=== PATIENT | female | born 1940 | race Caucasian/White ===

== ENCOUNTER 2018-02-14 12:01 | Inpatient (IN) | payer OTHER ==
--- NOTE | 2018-02-14 12:12 | PDOC ---
History of Present Illness - General Chief Complaint: Seizure Stated Complaint: SEIZURE Time Seen by Provider: 02/14/18 12:06 - History of Present Illness Initial Comments: 02/14/18 12:38 The patient is a 77 year old female with a distant history of bladder cancer in remission who presents for evaluation of possible seizure and altered mental status. The patient is accompanied by her who assists in providing the history. He notes that he found the patient this morning with seizure like activity. He noted that the patient was altered and moaning, but able to follow simple commands. On presentation to the ED, the patient is altered and unable to cooperate with history taking. The patient's noted that the patient was previously asymptomatic prior to her episode this morning. ROS is unobtainable due to the patient's mental status. Past History - Past Medical History Allergies/Adverse Reactions: Allergies Allergy/AdvReac Type Severity Reaction Status Date / Time No Known Allergies Allergy Verified 02/14/18 12:14 Home Medications: Ambulatory Orders Nardil (Nf) 60 tab PO HS 06/24/11 Anemia: No Asthma: No Cancer: No Cardiac Disorders: No CVA: No COPD: No CHF: No Dementia: No Diabetes: No GI Disorders: No Disorders: No HTN: No Hypercholesterolemia: No Liver Disease: No Seizures: No Thyroid Disease: No - Surgical History Abdominal Surgery: No Appendectomy: No Cardiac Surgery: No Cholecystectomy: No Lung Surgery: No Neurologic Surgery: No Orthopedic Surgery: Yes (RIGHT KNEE ARTHROSCOPY 2001) - Suicide/Smoking/Psychosocial Hx Smoking History: Never smoked Hx Alcohol Use: Yes (SOCIAL) Drug/Substance Use Hx: No Hx Substance Use Treatment: No Review of Systems - Review of Systems Able to Perform ROS?: No (Altered Mental Status) *Physical Exam - Physical Exam Comments: 02/14/18 12:56 General Appearance: Nourished. No Apparent Distress HEENT: EOMI, YOVANNY. No Pharyngeal Erythema, Tonsillar Exudate, Tonsillar Erythema Neck: No Cervical Lymphadenopathy Respiratory/Chest: Lungs Clear, Normal Breath Sounds. No Crackles, Rales, Rhonchi, Wheezing Cardiovascular: Regular Rhythm, Regular Rate. No Murmur, Gallops, Rubs Gastrointestinal/Abdominal: Normal Bowel Sounds, Soft. Mild suprapubic discomfort with palpation. No Guarding, Rebound, Musculoskeletal: No CVA Tenderness Extremity: Normal Capillary Refill Integumentary: Normal Color, Dry, Warm Neurologic: Not Oriented, Alert, Non-interactive, Not following commands. Moving all extremities equally. Procedures - Lumbar Puncture Indication: AMS CT Scan: Yes Betadine Prep: Yes Position: Right lateral decubitus Site: L4-L51 Local Anesthesia: 1% Lidocaine with epi Volume(ml): 4 Lumbar Puncture Kit: Adult Closing Pressure(mmHg): 21 Traumatic Tap: Yes Tubes Obtained: 4 Clear Fluid: Yes Complications: No ED Treatment Course - LABORATORY CBC & Chemistry Diagram: 02/14/18 13:20 02/14/18 13:20 Medical Decision Making - Medical Decision Making 02/14/18 12:57 The patient is a 77 year old female with a distant history of bladder cancer in remission who presents for evaluation of possible seizure and altered mental status. Differential includes but is not limited to: Seizure, Intracranial process, Infectious, Metabolic Derangement. Given the patient's history and physical exam, we will obtain a cbc, cmp, troponin, ua, urine tox, urine culture , ekg, chest plain film, head ct to evaluate further. We will continue to monitor and reassess while here in the ED. 02/14/18 17:29 CBC demonstrates an elevated wbc to 13. CMP is unremarkable. Troponin is mildly elevated to .25. UA, urine tox are unremarkable. Chest plain film is unremarkable. Head CT is unremarkable as read by our radiologist. Lumbar puncture was performed due to need to r/o menigitis and csf results are pending. We discussed the case with Dr. Krishna with neurology who evaluated the patient and recommended ICU level monitoring given the acute onset of the patient's altered mental status. We discussed the case with the admitting team who accepted the patient for admission. We currently do not have an explanation for the patient's acute onset AMS, however it is possible the patient is post ictal given her reported possible seizure like activity. Patient was signed out to the night team pending discussion with the ICU team regarding possible ICU admission. *DC/Admit/Observation/Transfer Diagnosis at time of Disposition: Altered mental status, unspecified - Discharge Dispostion Condition at time of disposition: Stable - Referrals - Patient Instructions - Post Discharge Activity
--- NOTE | 2018-02-14 12:18 | PDOC ---
Attending Attestation - Medical Decision Making 02/14/18 14:[address] Krishna, spoke with the service, waiting for a call back. 02/14/18 15:[address] Krishna. <Debbie Torres - Last Filed: 02/14/18 15:02> - Resident Resident Name: Seth Can - ED Attending Attestation I have performed the following: I have examined & evaluated the patient, The case was reviewed & discussed with the resident, I agree w/resident's findings & plan, Exceptions are as noted - HPI HPI: 02/14/18 12:37 Ms Mcginnis is a 77 yo F who presents to the ER accompanied by her due to altered mental state Pt has a h/o depression, on Nardil for 20+ years Pt was seen previously by in the night, although he did not speak with her, he states she rolled over during the night This morning she was found by him downstairs altered No prior episodes like this No known head trauma Pt has been moving all extremities No h/o seizure No recent illness, no recent medication changes (+) incontinent of stool and urine - Physicial Exam PE: 02/14/18 12:44 Pt is awake and opens eyes spontaneously Responds "Aye Mama" to every question asked and to ever physical exam maneuver RRR CTA Abd is soft, non distended, ? tender to palpation (She responds Aye Mama each time I palpate) Moves all extremities (+) dried stool over back - Critical Care Time Total Critical Care Time: 90 Critical Care Statement: The care of this patient involved high complexity decision making to prevent further life threatening deterioration of the patient 's condition and/or to evaluate & treat vital organ system(s) failure or risk of failure. - Medical Decision Making 02/14/18 12:45 Pt presents altered She is afebrile No prior episodes like this DD broad: Infection (urinary, central?), Intracranial pathology (CVA vs Mass), Medication effect Will do: Labs, UA, urine tox, CT head, continuous observation EKG: NSR rate of 86 bpm, axis nml, intervals nml, no st elevations or depressions, pvc 02/14/18 13:37 Laboratory Tests 02/14/18 13:20 WBC 13.4 H Hgb 12.2 Hct 38.5 Plt Count 197 Neutrophils % 92.5 H Laboratory Tests 02/14/18 13:20 Sodium 142 Potassium 4.2 Chloride 110 H Carbon Dioxide 24 BUN 18 Creatinine 0.7 Random Glucose 148 H Troponin I 0.25 H Pt sedated with ativan unable to tolerate CT sent back to the ER Haldol given 02/14/18 14:50 CT performed 02/14/18 15:02 CT read Case reviewed with Dr Krishna States if UA +, possibly related to UA If negative, ? [employer] infection 02/14/18 15:27 UA pending 02/14/18 15:30 UA negative LP performed (please see resident note) ? Encephalitis, initial presentation 02/17/18 20:37 <Supriya Abdi - Last Filed: 02/17/18 20:37> Discharge Disposition <Debbie Torres - Last Filed: 02/14/18 15:02> - Discharge Dispostion Decision to Admit order: Yes <Supriay Abdi - Last Filed: 02/17/18 20:37> - Diagnosis Altered mental status, unspecified Qualifiers: Altered mental status type: disorientation Qualified Code(s): R41.0 - Disorientation, unspecified - Discharge Dispostion Condition at time of disposition: Stable
[2018-02-14 13:34] LABS: BASO % 0.3 % (0-2.0); EOS % 0.1 % (0-4.5); HEMATOCRIT 38.5 % (32.4-45.2); HEMOGLOBIN 12.2 GM/dL (10.7-15.3); LYMPH % 4.3 % (8-40); MCH 27.4 pg (25.7-33.7); MCHC 31.6 g/dl (32.0-36.0); MEAN CELL VOLUME 86.6 fl (80-96); MEAN PLT VOLUME 9.9 fl (7.5-11.1); MONO % 2.8 % (3.8-10.2); NEUT % 92.5 % (42.8-82.8); PLATELET COUNT 197 K/MM3 (134-434); RBC 4.44 M/mm3 (3.60-5.2); RDW 13.7 % (11.6-15.6); WHITE BLOOD COUNT 13.4 K/mm3 (4.0-10.0)
[2018-02-14] MEDS ORDERED: LORazepam 2 MG/ML SDV VIAL ONE (13:56)
[2018-02-14 14:00] LABS: ALBUMIN 3.7 g/dl (3.4-5.0); ALK PHOS 105 U/L (45-117); ANION GAP 9 MMOL/L (8-16); BILIRUBIN,TOTAL 0.2 mg/dL (0.2-1); BLOOD UREA NITROGEN 18 mg/dL (7-18); CHLORIDE 110 mmol/L (98-107); CO2 24 mmol/L (21-32); CREATININE 0.7 mg/dL (0.55-1.3); GLUCOSE,RANDOM 148 mg/dL (74-106); POTASSIUM 4.2 mmol/L (3.5-5.1); SGOT/AST 55 U/L (15-37); SGPT/ALT 21 U/L (13-61); SODIUM 142 mmol/L (136-145)
[2018-02-14] MEDS ORDERED: HALOPERIDOL LACTATE 5 MG/ML IM ONE (14:16)
[2018-02-14] MEDS ORDERED: HALOPERIDOL LACTATE 5 MG/ML ONE (14:38)
[2018-02-14 16:20] LABS: URINE APPEARANCE CLEAR; URINE BILIRUBIN NEGATIVE (<2.0 mg/dL); URINE COLOR LTYELLOW; URINE GLUCOSE (UA) NEGATIVE (NEGATIVE); URINE KETONE NEGATIVE (NEGATIVE); URINE LEUK ESTERASE NEGATIVE (NEGATIVE); URINE NITRITE NEGATIVE (NEGATIVE); URINE PROTEIN 1+ (NEGATIVE); URINE UROBILINOGEN NEGATIVE mg/dL (0.2-1.0)
[2018-02-14 16:30] LABS: URINE HYALINE CAST 4 /lpf; URINE MUCUS RARE
[2018-02-14 16:32] LABS: COCAINE, UR NEGATIVE ng/ml (CUTOFF=300); METHADONE, UR NEGATIVE ng/ml (CUTOFF=300); OPIATES, URI NEGATIVE ng/ml (CUTOFF=300); PHENCYCLIDINE,URINE NEGATIVE ng/ml (CUTOFF=25); URINE AMPHETAMINES NEGATIVE ng/ml (CUTOFF=500); URINE BARBITURATES NEGATIVE ng/ml (CUTOFF=200); URINE BENZODIAZEPINES NEGATIVE ng/ml (CUTOFF=200)
[2018-02-14] MEDS ORDERED: ACYCLOVIR INJECTION 600 MG in DEXTROSE 5%-WATER - 100 ML IVPB ONE (16:58)
[2018-02-14] MEDS ORDERED: VANCOMYCIN 1 GRAM (PRE-DOCKED) 1,000 MG/250 ML BAG IVPB ONE ×2 (16:58→17:54)
[2018-02-14] MEDS ORDERED: CEFTRIAXONE 2 GM-D5W BAG 2 GM/50 ML BAG IVPB ONE (16:58)
[2018-02-14] MEDS ORDERED: CEFTRIAXONE 2 GM/100 ML BAG IVPB ONE (17:12)
[2018-02-14 18:45] LABS: ANISOCYTOSIS 0; MACROCYTOSIS 0; PLATELET ESTIMATE NORMAL
--- NOTE | 2018-02-14 18:49 | CON.NEURO ---
Consult Consult Specialty:: Erendira Referred by:: [facility] Reason for Consultation:: altered mental status - History of Present Illness History of Present Illness: this is 77-year-old right-handed woman who lives with her presented to the emergency room with a chief complaint of altered mental status. Present medical history Coronary artery disease History of depression sees Dr. Rivero on CHANDRA phenelzine Bladder cancer in remission Patient was at her usual status of health apparently up until this morning when she was found by her confused not being herself patient usually wakes up in the morning. Breakfast patient lives at home there was a recent travel totally in the summer no recent head trauma no fever. Patient so the primary care physician yesterday she had the flu shot did not the first time yesterday. Patient had dinner with wine and cheese yesterday. In the emergency room patient was confused had a white count no fever hemodynamically stable CAT scan of the head was negative. We proceeded with a spinal tap that was done by the emergency room attending. - History Source History Provided By: Family Member, Medical Record Limitations to Obtaining History: Clinical Condition - Alcohol/Substance Use Hx Alcohol Use: Yes (SOCIAL) - Smoking History Smoking history: Never smoked Home Medications - Allergies Allergies/Adverse Reactions: Allergies Allergy/AdvReac Type Severity Reaction Status Date / Time No Known Allergies Allergy Verified 02/14/18 12:14 - Home Medications Home Medications: Ambulatory Orders Nardil (Nf) 60 tab PO HS 06/24/11 Family Disease History - Family Disease History Family History: Unable to Obtain Review of Systems Unable to obtain ROS, reason: unable to obtain Physical Exam-Neuro Vital Signs: Vital Signs Temperature 97.9 F 02/14/18 12:12 Pulse Rate 92 H 02/14/18 12:12 Respiratory Rate 18 02/14/18 12:12 Blood Pressure 129/90 02/14/18 12:12 O2 Sat by Pulse Oximetry (%) 95 02/14/18 12:12 Constitutional: Yes: Well Nourished Neck: Yes: WNL Labs: CBC, BMP 02/14/18 13:20 02/14/18 13:20 - Neuro Exam Level Of Consciousness: Yes: Stuporous Eyes: Yes: PERRLA (vvery confused agitated delirious woman moving all 4 extremities) Imaging - Results Cat Scan: Image Reviewed Problem List - Problems (1) Altered mental status, unspecified Assessment/Plan: 77-year-old woman on CHANDRA with noted altered mental status over the past 12 hours with no fever and high white count. Neurological differential diagnoses #1 questionable encephalitis most probably viral #2 questionable serotonergic syndrome patient had wine and cheese yesterday. The picture is not 100% 1. Neuro checks every 1 hour 2. Patient needs monitored setting in the ICU 3. Serial creatinine kinase level 4. Follow-up the CSF analysis 5. Seizure precautions 6. Psych evaluation 7. Agreed to the antibiotic that was given in the emergency room Case discussed with the daughter and the Patient was seen and evaluated in the emergency room as a critical-care I spent 55 minutes with the patient and the family Thank you very much for referring this patient for neurological consultation. Code(s): R41.82 - ALTERED MENTAL STATUS, UNSPECIFIED
[2018-02-14 19:02] LABS: CSF APPEARANCE CLEAR; CSF COLOR COLORLESS; CSF WBC 2
[2018-02-14 19:04] LABS: CSF APPEARANCE CLEAR; CSF COLOR COLORLESS; CSF WBC 0
[2018-02-14 19:19] LABS: GLUCOSE,CSF 76 mg/dL (40-70)
[2018-02-14 19:23] LABS: ARTERIAL BLD GAS O2 SATURATION 90.8 % (90-98.9); ARTERIAL BLOOD GAS BASE EXCESS -1.1 meq/l (-2-2); ARTERIAL BLOOD GAS PCO2 42.5 mmHg (35-45); ARTERIAL BLOOD GAS PO2 63.3 mmHg (70-100); ARTERIAL BLOOD GAS pH 7.37 (7.35-7.45); CARBOXYHEMOGLOBIN 0.9 gm% (0.5-2.0)
[2018-02-14 19:24] LABS: ALLENS TEST POSITIVE
--- NOTE | 2018-02-14 19:27 | PN ---
Teaching Attending Note Name of Resident: Kingsley Mendoza ATTENDING PHYSICIAN STATEMENT I saw and evaluated the patient. I reviewed the resident's note and discussed the case with the resident. I agree with the resident's findings and plan as documented. SUBJECTIVE: Patient is a 77 year old woman with a distant history of bladder cancer in remission who presents for evaluation of possible seizure and altered mental status. The patient is accompanied by her who assists in providing the history. He notes that he found the patient this morning with seizure like activity. He noted that the patient was altered and moaning, but able to follow simple commands. On presentation to the ER, the patient is altered and unable to cooperate with history taking. The patient's noted that the patient was previously asymptomatic prior to her episode this morning. ROS is unobtainable due to the patient's mental status. Head scan was done in the ER as well as spinal tap - no revealing findings. Has gotten haldol and ativan. Was seen by the neurologist. OBJECTIVE: Agitated, unable to follow commands Vital Signs Period Temp Pulse Resp BP Sys/Vázquez Pulse Ox Last 24 Hr 97 F-97.9 F 90-92 18 117-129/90-93 95 HEENT: No Jaundice, eye redness or discharge, PERRLA. Normocephalic, atraumatic. External ears are normal. No nasal discharge. Neck: Supple, nontender. No palpable adenopathy or thyromegaly. No JVD Chest: Good effort. Clear to auscultation and percussion. Heart: Regular. No S3, rub or murmur Abdomen: Not distended, soft, nontender and no HSM. No rebound or guarding. Normoactive bowel sounds. Ext: Peripheral pulses intact. No leg edema. Skin: Warm and dry. No petechiae, rash or ecchymosis. Neuro: Delirious, agitated and unable to follow commands. Moves all limbs. Home Medications Medication Instructions Recorded Nardil (Nf) 60 tab PO HS 06/24/11 Abnormal Lab Results 02/14/18 02/14/18 02/14/18 13:20 13:20 15:50 WBC 13.4 H MCHC 31.6 L Absolute Neuts (auto) 12.4 H Neutrophils % 92.5 H Neutrophils % (Manual) 92.9 H Lymphocytes % 4.3 L Lymphocytes % (Manual) 2.0 L Monocytes % 2.8 L ABG pO2 at Pt Temp ABG O2 Content Chloride 110 H Random Glucose 148 H Calcium 8.0 L AST 55 H Troponin I 0.25 H Urine Protein 1+ H CSF Glucose 02/14/18 02/14/18 17:55 19:00 WBC MCHC Absolute Neuts (auto) Neutrophils % Neutrophils % (Manual) Lymphocytes % Lymphocytes % (Manual) Monocytes % ABG pO2 at Pt Temp 63.3 L ABG O2 Content 14.8 L Chloride Random Glucose Calcium AST Troponin I Urine Protein CSF Glucose 76 H ASSESSMENT AND PLAN: 1. AMS - Etiology unclear. Initial CSF analysis is negative and no acute pathology on head CT. Urine toxicology is negative. Possibe Viral Encephalitis. Being treated with IV Vancomycin, Rocephin and Acyclovir. Will admit to the ICU ; do neurochecks q 1 hour; seizure precautions; IV NS at 75 ml/hour; ID and Psychiatry consults. 2. DVT prophylaxis - Lovenox 40 mg SQ q 24 hours. 3. Advance directives - Full code
--- NOTE | 2018-02-14 19:53 | HP ---
CHIEF COMPLAINT: Altered mental status PCP: Dr. Springer HISTORY OF PRESENT ILLNESS: ER course was notable for: (1) (2) (3) Recent Travel: Denies PAST MEDICAL HISTORY: Depression PAST SURGICAL HISTORY: Social History: (obtained through chart and family) Smoking: None Alcohol: Occasional Drugs: None Lives at home with , not working currently, last meal cheese and wine, baseline walks independently and is active Allergies No Known Allergies Allergy (Verified 02/14/18 12:14) HOME MEDICATIONS: Home Medications Medication Instructions Recorded Nardil (Nf) 60 tab PO HS 06/24/11 REVIEW OF SYSTEMS Unable to obtain due to clinical status PHYSICAL EXAMINATION Vital Signs - 24 hr 02/14/18 02/14/18 12:12 18:46 Temperature 97.9 F 97 F L Pulse Rate 92 H Pulse Rate [ 90 Apical] Respiratory 18 Rate Blood Pressure 129/90 Blood Pressure 117/93 [Arm] O2 Sat by Pulse 95 Oximetry (%) GENERAL: Arousable to voice, agitated, confused HEAD: NC/AT, no gross deformities, dry MM, EYES: MANJU, sclera anicteric, pt moves eyes in all directions without deficits , slightly blue-ai hue around iris (different compared to her usual per daughter), no lid lag. NECK: No JVD, soft LUNGS: CTA bilaterally poor inspiratory effort due to lack of command following. No wheezes, and no crackles. No accessory muscle use. 95% on RA HEART: Tachycardic with regular rhythm, normal S1 and S2 without murmur ABDOMEN: Soft, NT/ND. Limited due to pt's agitation and movement. EXTREMITIES: 2+ DP and PT pulses, warm, well-perfused. No cyanosis. No clubbing. No peripheral edema. No nail pathology noted NEUROLOGICAL: arousable to voice; does not respond to commands; babinski downgoing both legs, ROM without any rigidity, pt moving all four extremities with strength symmetrical ~5/5 in all limbs SKIN: Warm, dry, no rashes or lesions noted, no bites or other melendez noted Laboratory Results - last 24 hr 02/14/18 02/14/18 02/14/18 13:10 13:10 13:10 WBC RBC Hgb Hct MCV MCH MCHC RDW Plt Count MPV Absolute Neuts (auto) Neutrophils % Neutrophils % (Manual) Band Neutrophils % Lymphocytes % Lymphocytes % (Manual) Monocytes % Monocytes % (Manual) Eosinophils % Eosinophils % (Manual) Basophils % Basophils % (Manual) Myelocytes % (Man) Promyelocytes % (Man) Blast Cells % (Manual) Nucleated RBC % Metamyelocytes Hypochromia Platelet Estimate Polychromasia Poikilocytosis Anisocytosis Microcytosis Macrocytosis Anticoagulation Therapy Puncture Site ABG pH ABG pCO2 at Pt Temp ABG pO2 at Pt Temp ABG HCO3 ABG O2 Sat (Measured) ABG O2 Content ABG Base Excess Shadi Test Carboxyhemoglobin Methemoglobin O2 Delivery Device Oxygen Flow Rate Vent Mode Vent Rate Mechanical Rate Pressure Support Vent Sodium Potassium Chloride Carbon Dioxide Anion Gap BUN Creatinine Creat Clearance w eGFR Random Glucose Calcium Total Bilirubin AST ALT Alkaline Phosphatase Creatine Kinase 66 Troponin I Total Protein Albumin Urine Color Urine Appearance Urine pH Ur Specific [place] Urine Protein Urine Glucose (UA) Urine Ketones Urine Blood Urine Nitrite Urine Bilirubin Urine Urobilinogen Ur Leukocyte Esterase Urine WBC (Auto) Urine RBC (Auto) Hyaline Casts Urine Mucus CSF Appearance CSF Color CSF WBC CSF RBC CSF Neutrophils CSF Lymphocytes CSF Eosinophils CSF Basophils CSF Macrophages CSF Plasma Cells CSF Diff Comment CSF Comment CSF Glucose CSF Total Protein Salicylates < 1.7 L Opiates Screen Methadone Screen Acetaminophen 4.7 L Barbiturate Screen Phencyclidine Screen Ur Amphetamines Screen MDMA (Ecstasy) Screen Benzodiazepines Screen Cocaine Screen U Marijuana (THC) Screen Alcohol, Quantitative < 3.0 02/14/18 02/14/18 02/14/18 13:20 13:20 15:50 WBC 13.4 H RBC 4.44 Hgb 12.2 Hct 38.5 MCV 86.6 MCH 27.4 MCHC 31.6 L RDW 13.7 Plt Count 197 MPV 9.9 Absolute Neuts (auto) 12.4 H Neutrophils % 92.5 H Neutrophils % (Manual) 92.9 H Band Neutrophils % 0.0 Lymphocytes % 4.3 L Lymphocytes % (Manual) 2.0 L Monocytes % 2.8 L Monocytes % (Manual) 4 Eosinophils % 0.1 Eosinophils % (Manual) 0.0 Basophils % 0.3 Basophils % (Manual) 1.0 Myelocytes % (Man) 0 Promyelocytes % (Man) 0 Blast Cells % (Manual) 0 Nucleated RBC % 0 Metamyelocytes 0 Hypochromia 0 Platelet Estimate Normal Polychromasia 0 Poikilocytosis 0 Anisocytosis 0 Microcytosis 0 Macrocytosis 0 Anticoagulation Therapy Puncture Site ABG pH ABG pCO2 at Pt Temp ABG pO2 at Pt Temp ABG HCO3 ABG O2 Sat (Measured) ABG O2 Content ABG Base Excess Shadi Test Carboxyhemoglobin Methemoglobin O2 Delivery Device Oxygen Flow Rate Vent Mode Vent Rate Mechanical Rate Pressure Support Vent Sodium 142 Potassium 4.2 Chloride 110 H Carbon Dioxide 24 Anion Gap 9 BUN 18 Creatinine 0.7 Creat Clearance w eGFR > 60 Random Glucose 148 H Calcium 8.0 L Total Bilirubin 0.2 AST 55 H ALT 21 Alkaline Phosphatase 105 Creatine Kinase Troponin I 0.25 H Total Protein 7.0 Albumin 3.7 Urine Color Ltyellow Urine Appearance Clear Urine pH 5.0 Ur Specific [place] 1.014 Urine Protein 1+ H Urine Glucose (UA) Negative Urine Ketones Negative Urine Blood Negative Urine Nitrite Negative Urine Bilirubin Negative Urine Urobilinogen Negative Ur Leukocyte Esterase Negative Urine WBC (Auto) 1 Urine RBC (Auto) <1 Hyaline Casts 4 Urine Mucus Rare CSF Appearance CSF Color CSF WBC CSF RBC CSF Neutrophils CSF Lymphocytes CSF Eosinophils CSF Basophils CSF Macrophages CSF Plasma Cells CSF Diff Comment CSF Comment CSF Glucose CSF Total Protein Salicylates Opiates Screen Methadone Screen Acetaminophen Barbiturate Screen Phencyclidine Screen Ur Amphetamines Screen MDMA (Ecstasy) Screen Benzodiazepines Screen Cocaine Screen U Marijuana (THC) Screen Alcohol, Quantitative 02/14/18 02/14/18 02/14/18 15:50 17:55 17:55 WBC RBC Hgb Hct MCV MCH MCHC RDW Plt Count MPV Absolute Neuts (auto) Neutrophils % Neutrophils % (Manual) Band Neutrophils % Lymphocytes % Lymphocytes % (Manual) Monocytes % Monocytes % (Manual) Eosinophils % Eosinophils % (Manual) Basophils % Basophils % (Manual) Myelocytes % (Man) Promyelocytes % (Man) Blast Cells % (Manual) Nucleated RBC % Metamyelocytes Hypochromia Platelet Estimate Polychromasia Poikilocytosis Anisocytosis Microcytosis Macrocytosis Anticoagulation Therapy Puncture Site ABG pH ABG pCO2 at Pt Temp ABG pO2 at Pt Temp ABG HCO3 ABG O2 Sat (Measured) ABG O2 Content ABG Base Excess Shadi Test Carboxyhemoglobin Methemoglobin O2 Delivery Device Oxygen Flow Rate Vent Mode Vent Rate Mechanical Rate Pressure Support Vent Sodium Potassium Chloride Carbon Dioxide Anion Gap BUN Creatinine Creat Clearance w eGFR Random Glucose Calcium Total Bilirubin AST ALT Alkaline Phosphatase Creatine Kinase Troponin I Total Protein Albumin Urine Color Urine Appearance Urine pH Ur Specific [place] Urine Protein Urine Glucose (UA) Urine Ketones Urine Blood Urine Nitrite Urine Bilirubin Urine Urobilinogen Ur Leukocyte Esterase Urine WBC (Auto) Urine RBC (Auto) Hyaline Casts Urine Mucus CSF Appearance Clear Clear CSF Color Colorless Colorless CSF WBC 2 0 CSF RBC 354 3 CSF Neutrophils No Result Required. No Result Required. CSF Lymphocytes No Result Required. No Result Required. CSF Eosinophils No Result Required. No Result Required. CSF Basophils No Result Required. No Result Required. CSF Macrophages No Result Required. No Result Required. CSF Plasma Cells No Result Required. No Result Required. CSF Diff Comment No Result Required. No Result Required. CSF Comment No Result Required. No Result Required. CSF Glucose 76 H CSF Total Protein 35 Salicylates Opiates Screen Negative Methadone Screen Negative Acetaminophen Barbiturate Screen Negative Phencyclidine Screen Negative Ur Amphetamines Screen Negative MDMA (Ecstasy) Screen Negative Benzodiazepines Screen Negative Cocaine Screen Negative U Marijuana (THC) Screen Negative Alcohol, Quantitative 02/14/18 19:00 WBC RBC Hgb Hct MCV MCH MCHC RDW Plt Count MPV Absolute Neuts (auto) Neutrophils % Neutrophils % (Manual) Band Neutrophils % Lymphocytes % Lymphocytes % (Manual) Monocytes % Monocytes % (Manual) Eosinophils % Eosinophils % (Manual) Basophils % Basophils % (Manual) Myelocytes % (Man) Promyelocytes % (Man) Blast Cells % (Manual) Nucleated RBC % Metamyelocytes Hypochromia Platelet Estimate Polychromasia Poikilocytosis Anisocytosis Microcytosis Macrocytosis Anticoagulation Therapy No Result Required. Puncture Site Left radial ABG pH 7.37 ABG pCO2 at Pt Temp 42.5 ABG pO2 at Pt Temp 63.3 L ABG HCO3 23.7 ABG O2 Sat (Measured) 90.8 ABG O2 Content 14.8 L ABG Base Excess -1.1 Shadi Test Positive Carboxyhemoglobin 0.9 Methemoglobin 0.5 O2 Delivery Device No Result Required. Oxygen Flow Rate No Vent Mode No Result Required. Vent Rate No Result Required. Mechanical Rate No Result Required. Pressure Support Vent No Result Required. Sodium Potassium Chloride Carbon Dioxide Anion Gap BUN Creatinine Creat Clearance w eGFR Random Glucose Calcium Total Bilirubin AST ALT Alkaline Phosphatase Creatine Kinase Troponin I Total Protein Albumin Urine Color Urine Appearance Urine pH Ur Specific [place] Urine Protein Urine Glucose (UA) Urine Ketones Urine Blood Urine Nitrite Urine Bilirubin Urine Urobilinogen Ur Leukocyte Esterase Urine WBC (Auto) Urine RBC (Auto) Hyaline Casts Urine Mucus CSF Appearance CSF Color CSF WBC CSF RBC CSF Neutrophils CSF Lymphocytes CSF Eosinophils CSF Basophils CSF Macrophages CSF Plasma Cells CSF Diff Comment CSF Comment CSF Glucose CSF Total Protein Salicylates Opiates Screen Methadone Screen Acetaminophen Barbiturate Screen Phencyclidine Screen Ur Amphetamines Screen MDMA (Ecstasy) Screen Benzodiazepines Screen Cocaine Screen U Marijuana (THC) Screen Alcohol, Quantitative ASSESSMENT/PLAN: 1) AMS --Unknown cause and last known normal 02/13 night --UTox negative --Head CT w/o acute intracranial pathology --Electrolytes WNL --Glucose without abnormalities --ABG without any siginificant findings --CSF fluid studies pending; will f/u --[place] pending --Lyme pending --Likely AMS due to postictal state as HPI suspicious for seizure-like activity --Keppra load with Keppra 500mg BID IV thereafter --Ativan 2mg q6h for seizure-like activity for now --Seizure precautions in effect --Stat lactic acid, prolactin level --Hold Nardil (pt not likely to have serotonin syndrome despite cheese and wine previous meal) --Neurology on board --Will continue empiric Acyclovir for possible viral encephalitis 2) Leukocytosis --WBC minimally elevated at 13.4 --Left shift notable with PMNs --Will continue empiric coverage with Rocephin and Vancomycin --ID consulted for possible insight FEN: Fluids: NS@75cc/hr Electrolyte abnormalities: None currently Nutrition: NPO while altered PPX: DVT - Heparin SQ TID GI - not indicated currently Point of contacts: Gladis (Daughter) Pedro (son) --They will be in close contact with pt's who only has land-line Dispo: Admit telemetry Case discussed with Dr. Trina Mendoza, DO - IM PGY-2
[2018-02-14] MEDS ORDERED: ACETAMINOPHEN INJECTION 100 ML IVPB ONE (20:05)
[2018-02-14] MEDS ORDERED: ACETAMINOPHEN 1000 MG/100 ML VIAL (NON FORMULARY) IVPB ONE (20:05)
--- NOTE | 2018-02-14 20:12 | PDOC ---
*Physical Exam - Vital Signs Last Vital Signs Temp Pulse Resp BP Pulse Ox 97 F L 90 18 117/93 95 02/14/18 18:46 02/14/18 18:46 02/14/18 12:12 02/14/18 18:46 02/14/18 12:12 ED Treatment Course - LABORATORY CBC & Chemistry Diagram: 02/14/18 13:20 02/14/18 13:20 - ADDITIONAL ORDERS Additional order review: Laboratory Results 02/14/18 02/14/18 02/14/18 19:00 17:55 17:55 Anticoagulation Therapy No Result Required. Puncture Site Left radial ABG pH 7.37 ABG pCO2 at Pt Temp 42.5 ABG pO2 at Pt Temp 63.3 L ABG HCO3 23.7 ABG O2 Sat (Measured) 90.8 ABG O2 Content 14.8 L ABG Base Excess -1.1 Shadi Test Positive Carboxyhemoglobin 0.9 Methemoglobin 0.5 O2 Delivery Device No Result Required. Oxygen Flow Rate No Vent Mode No Result Required. Vent Rate No Result Required. Mechanical Rate No Result Required. Pressure Support Vent No Result Required. Sodium Potassium Chloride Carbon Dioxide Anion Gap BUN Creatinine Creat Clearance w eGFR Random Glucose Calcium Total Bilirubin AST ALT Alkaline Phosphatase Creatine Kinase Troponin I Total Protein Albumin Urine Color Urine Appearance Urine pH Ur Specific [place] Urine Protein Urine Glucose (UA) Urine Ketones Urine Blood Urine Nitrite Urine Bilirubin Urine Urobilinogen Ur Leukocyte Esterase Urine WBC (Auto) Urine RBC (Auto) Hyaline Casts Urine Mucus CSF Appearance Clear CSF Color Colorless CSF WBC 0 CSF RBC 3 CSF Neutrophils No Result Required. CSF Lymphocytes No Result Required. CSF Eosinophils No Result Required. CSF Basophils No Result Required. CSF Macrophages No Result Required. CSF Plasma Cells No Result Required. CSF Diff Comment No Result Required. CSF Comment No Result Required. CSF Glucose Cancelled CSF Total Protein Cancelled Salicylates Opiates Screen Methadone Screen Acetaminophen Barbiturate Screen Phencyclidine Screen Ur Amphetamines Screen MDMA (Ecstasy) Screen Benzodiazepines Screen Cocaine Screen U Marijuana (THC) Screen Alcohol, Quantitative 02/14/18 02/14/18 02/14/18 17:55 15:50 15:50 Anticoagulation Therapy Puncture Site ABG pH ABG pCO2 at Pt Temp ABG pO2 at Pt Temp ABG HCO3 ABG O2 Sat (Measured) ABG O2 Content ABG Base Excess Shadi Test Carboxyhemoglobin Methemoglobin O2 Delivery Device Oxygen Flow Rate Vent Mode Vent Rate Mechanical Rate Pressure Support Vent Sodium Potassium Chloride Carbon Dioxide Anion Gap BUN Creatinine Creat Clearance w eGFR Random Glucose Calcium Total Bilirubin AST ALT Alkaline Phosphatase Creatine Kinase Troponin I Total Protein Albumin Urine Color Ltyellow Urine Appearance Clear Urine pH 5.0 Ur Specific [place] 1.014 Urine Protein 1+ H Urine Glucose (UA) Negative Urine Ketones Negative Urine Blood Negative Urine Nitrite Negative Urine Bilirubin Negative Urine Urobilinogen Negative Ur Leukocyte Esterase Negative Urine WBC (Auto) 1 Urine RBC (Auto) <1 Hyaline Casts 4 Urine Mucus Rare CSF Appearance Clear CSF Color Colorless CSF WBC 2 CSF RBC 354 CSF Neutrophils No Result Required. CSF Lymphocytes No Result Required. CSF Eosinophils No Result Required. CSF Basophils No Result Required. CSF Macrophages No Result Required. CSF Plasma Cells No Result Required. CSF Diff Comment No Result Required. CSF Comment No Result Required. CSF Glucose 76 H CSF Total Protein 35 Salicylates Opiates Screen Negative Methadone Screen Negative Acetaminophen Barbiturate Screen Negative Phencyclidine Screen Negative Ur Amphetamines Screen Negative MDMA (Ecstasy) Screen Negative Benzodiazepines Screen Negative Cocaine Screen Negative U Marijuana (THC) Screen Negative Alcohol, Quantitative 02/14/18 02/14/18 02/14/18 13:20 13:10 13:10 Anticoagulation Therapy Puncture Site ABG pH ABG pCO2 at Pt Temp ABG pO2 at Pt Temp ABG HCO3 ABG O2 Sat (Measured) ABG O2 Content ABG Base Excess Shadi Test Carboxyhemoglobin Methemoglobin O2 Delivery Device Oxygen Flow Rate Vent Mode Vent Rate Mechanical Rate Pressure Support Vent Sodium 142 Potassium 4.2 Chloride 110 H Carbon Dioxide 24 Anion Gap 9 BUN 18 Creatinine 0.7 Creat Clearance w eGFR > 60 Random Glucose 148 H Calcium 8.0 L Total Bilirubin 0.2 AST 55 H ALT 21 Alkaline Phosphatase 105 Creatine Kinase Troponin I 0.25 H Total Protein 7.0 Albumin 3.7 Urine Color Urine Appearance Urine pH Ur Specific [place] Urine Protein Urine Glucose (UA) Urine Ketones Urine Blood Urine Nitrite Urine Bilirubin Urine Urobilinogen Ur Leukocyte Esterase Urine WBC (Auto) Urine RBC (Auto) Hyaline Casts Urine Mucus CSF Appearance CSF Color CSF WBC CSF RBC CSF Neutrophils CSF Lymphocytes CSF Eosinophils CSF Basophils CSF Macrophages CSF Plasma Cells CSF Diff Comment CSF Comment CSF Glucose CSF Total Protein Salicylates < 1.7 L Opiates Screen Methadone Screen Acetaminophen 4.7 L Barbiturate Screen Phencyclidine Screen Ur Amphetamines Screen MDMA (Ecstasy) Screen Benzodiazepines Screen Cocaine Screen U Marijuana (THC) Screen Alcohol, Quantitative < 3.0 02/14/18 13:10 Anticoagulation Therapy Puncture Site ABG pH ABG pCO2 at Pt Temp ABG pO2 at Pt Temp ABG HCO3 ABG O2 Sat (Measured) ABG O2 Content ABG Base Excess Shadi Test Carboxyhemoglobin Methemoglobin O2 Delivery Device Oxygen Flow Rate Vent Mode Vent Rate Mechanical Rate Pressure Support Vent Sodium Potassium Chloride Carbon Dioxide Anion Gap BUN Creatinine Creat Clearance w eGFR Random Glucose Calcium Total Bilirubin AST ALT Alkaline Phosphatase Creatine Kinase 66 Troponin I Total Protein Albumin Urine Color Urine Appearance Urine pH Ur Specific [place] Urine Protein Urine Glucose (UA) Urine Ketones Urine Blood Urine Nitrite Urine Bilirubin Urine Urobilinogen Ur Leukocyte Esterase Urine WBC (Auto) Urine RBC (Auto) Hyaline Casts Urine Mucus CSF Appearance CSF Color CSF WBC CSF RBC CSF Neutrophils CSF Lymphocytes CSF Eosinophils CSF Basophils CSF Macrophages CSF Plasma Cells CSF Diff Comment CSF Comment CSF Glucose CSF Total Protein Salicylates Opiates Screen Methadone Screen Acetaminophen Barbiturate Screen Phencyclidine Screen Ur Amphetamines Screen MDMA (Ecstasy) Screen Benzodiazepines Screen Cocaine Screen U Marijuana (THC) Screen Alcohol, Quantitative 02/14/18 13:20 RBC 4.44 MCV 86.6 MCHC 31.6 L RDW 13.7 MPV 9.9 Neutrophils % 92.5 H Lymphocytes % 4.3 L Monocytes % 2.8 L Eosinophils % 0.1 Basophils % 0.3 - Medications Given in the ED: ED Medications Discontinued Medications Generic Name Dose Route Start Last Admin Trade Name Freq PRN Reason Stop Dose Admin Haloperidol 5 mg 02/14/18 14:16 02/14/18 14:41 Haldol Injection (Fast Acting) - IM 02/14/18 14:17 5 mg ONCE ONE Administration Acyclovir 600 mg/ Dextrose 112 mls @ 100 mls/hr 02/14/18 16:58 02/14/18 17:38 IVPB 02/14/18 17:57 100 mls/hr ONCE ONE Administration Ceftriaxone Sodium 2 gm in 50 mls @ 100 mls/hr 02/14/18 16:58 02/14/18 17:17 Ceftriaxone 2 Gm-D5w Bag IVPB 02/14/18 17:27 100 mls/hr ONCE ONE Administration Protocol Lorazepam 2 mg 02/14/18 13:55 02/14/18 13:57 Ativan Injection - IVPUSH 02/14/18 13:56 2 mg ONCE ONE Administration Vancomycin HCl 1,000 mg 02/14/18 16:58 02/14/18 18:05 Vancomycin (Pre-Docked) IVPB 02/14/18 16:59 1,000 mg ONCE ONE Administration Protocol Medical Decision Making - Medical Decision Making 02/14/18 20:09 Pt was signed out to me by Dr. Can. Pt continues to remain altered and not responding to questions or opening eyes when called or on attempts to grab attention with sternal rub but pt is moving all 4 extremities in bed. Pt had seizure like activity this AM with urinary incontinence. WBC 13.4 with left shift. Trop 0.25 ABG unremarkable, CSF negative, Utox negative, alcohol negative, acetominophen negative, salicylates negative. Will order Ammonia levels, CPK, cardiac profile (to trend), Mg, Phos, TSH, BNP, PT/INR 02/14/18 20:33 Pt to be admitted to cardiac tele for further monitoring at this time with elevated trops. Pt AMS likely secondary to prolonged post-ictal period from seizure this AM. Need to r/o other causes including but not limited to meningitis, drug overdose , elevated ammonia levels, thyroid abnormalities. 02/14/18 22:11 Pt to be admitted to telemetry for further monitoring. Case discussed w/Dr. Kim, ICU resident. *DC/Admit/Observation/Transfer Diagnosis at time of Disposition: Altered mental status, unspecified Qualifiers: Altered mental status type: disorientation Qualified Code(s): R41.0 - Disorientation, unspecified - Discharge Dispostion Condition at time of disposition: Stable Decision to Admit order: Yes - Referrals Referrals: Renuka Springer MD [Primary Care Provider] - - Patient Instructions - Post Discharge Activity
[2018-02-14] MEDS: SODIUM CHLORIDE 1,000 ML IV SCH (20:17)
--- NOTE | 2018-02-14 20:17 | PN ---
Mental Health Exam - Mental Status Exam Alert and Oriented to: Time (dioreientated all), Place, Person Cognitive Function: Impaired Patient Appearance: Disheveled Mood: Apprehensive Affect: Constricted Patient Behavior: Restless Speech Pattern: Unclear (limited ) Thought Process: Disorganized, Disoriented Thought Disorder: Not Present Hallucinations: None Suicidal Ideation: None Homicidal Ideation: None Insight/Judgement: Poor Sleep: Poorly Appetite: Poor Muscle strength/Tone: Mild Hypotonicity Additional Comments: this is a 77yo female flanked by her and family by her side. She is unco-operative,acutely disorganized history from her who brought her to er for evaluation. Client sees dr King q 2 months in her [place] office. history of Depression, taking Nardil 60mg a day. Her stated she takes no other psych meds or psychoactive substances. Spoke with dr Earl in Er also. hold Nardil for now. She apparently has food that contain tyramine last pm.
[2018-02-14] MEDS ORDERED: LORazepam 2 MG/ML SDV VIAL IVPUSH PRN (20:44)
[2018-02-14] MEDS ORDERED: levETIRAcetam 500 MG/5 ML INJECTION VIAL IVPB ONE ×2 (21:00→22:12)
--- NOTE | 2018-02-14 21:03 | PN ---
Progress Note (short form) - Note Progress Note: Was called to evaluate this 77 year old female with a medical history of depression on Nardil for many years, who presents with altered mental status and agitation after found at home with witnessed full body shaking for a few minutes, loc, urinary incontinence, and altered mental status after event. In the ER patient hemodynamically stable, labs cbc and chemistry were wnl except for a slightly elevated white count of 13,000. LP done in ER was negative for bacteria, lymphocytes. Head CT, cxray, ecg negative for acute abnormalities. Patient was given haldol and ativan in ER. History taken from family, denies fever, chills, chough, chest pain, acute illness at home. PE: Vital wnl GENERAL: arousable to name; confused HEAD: Normal with no signs of trauma. EYES: Pupils equal, round and reactive to light, extraocular movements intact, sclera anicteric, conjunctiva clear. No lid lag. NECK: Normal range of motion, supple without lymphadenopathy, JVD, or masses. LUNGS: Breath sounds equal, clear to auscultation bilaterally. No wheezes, and no crackles. No accessory muscle use. HEART: Regular rate and rhythm, normal S1 and S2 without murmur, rub or gallop. ABDOMEN: Soft, nontender, not distended, normoactive bowel sounds, no guarding, no rebound, no masses. No hepatomegaly or splenomegaly. UPPER EXTREMITIES: 2+ pulses, warm, well-perfused. No cyanosis. No clubbing. No peripheral edema. LOWER EXTREMITIES: 2+ pulses, warm, well-perfused. No calf tenderness. No peripheral edema. NEUROLOGICAL: arousable; does not respondto commands; responss to name and tactile stimuli SKIN: Warm, dry, normal turgor, no rashes or lesions noted, normal capillary refill. Plan: -most likely post ictal after complex seizure -would load with keppra -monitor vitals, currently hemodynamically stable -no acute need for ICU at this time -can monitor on telemetry; recal as needed Case discussed with ICU attending Dr. Martinez
[2018-02-14 23:24] LABS: INR 1.08 (0.83-1.09); PROTHROMBIN TIME (PATIENT) 12.8 SEC (9.7-13.0)
[2018-02-14 23:36] LABS: MAGNESIUM 1.8 mg/dL (1.8-2.4); N-TERMINAL BNP 4898.4 pg/ml (5-450); PHOSPHOROUS 4.2 mg/dL (2.5-4.9)
[2018-02-15] MEDS: ACYCLOVIR INJECTION 600 MG in DEXTROSE 5%-WATER - 100 ML IVPB SCH ×2 (01:25→12:28)
--- NOTE | 2018-02-15 01:34 | PN ---
Progress Note (short form) - Note Progress Note: Called due to pt desaturating down to mid-80's on RA. Pt does not tolerate having oxygen mask or cannula on and will continually pull off mask. Desaturation likely positional alongside of ativan. Will trial b/l soft wrists for compliance with oxygen. Family aware and understands this is temporary measure while pt is acutely altered/agitated
[2018-02-15 02:07] VITALS: BMI 31.1
[2018-02-15] MEDS: HEPARIN NA (PORCINE) 5,000 UNITS/ML 1ML VIAL SQ SCH ×3 (07:02→21:52)
[2018-02-15] MEDS ORDERED: PT OWN MED DRAWER 7, Y5N ONE ×3 (08:16→16:55)
[2018-02-15] MEDS ORDERED: DEXTROSE 5%-WATER 100 ML IVPB ONE (08:18)
[2018-02-15] MEDS: CEFTRIAXONE 2 GM in DEXTROSE 5%-WATER 100 ML IVPB SCH (09:14)
[2018-02-15 09:30] LABS: BASO % 0.2 % (0-2.0); HEMATOCRIT 37.5 % (32.4-45.2); HEMOGLOBIN 12.3 GM/dL (10.7-15.3); LYMPH % 5.5 % (8-40); MCH 28.3 pg (25.7-33.7); MCHC 32.9 g/dl (32.0-36.0); MEAN CELL VOLUME 86.1 fl (80-96); MEAN PLT VOLUME 10.9 fl (7.5-11.1); MONO % 3.2 % (3.8-10.2); NEUT % 91.1 % (42.8-82.8); PLATELET COUNT 214 K/MM3 (134-434); RBC 4.35 M/mm3 (3.60-5.2); RDW 13.6 % (11.6-15.6); WHITE BLOOD COUNT 11.3 K/mm3 (4.0-10.0)
[2018-02-15] MEDS ORDERED: levETIRAcetam 500 MG/5 ML INJECTION VIAL IVPB SCH (10:00)
[2018-02-15] MEDS ORDERED: VANCOMYCIN 1 GM PREMIX - 1 GM/200 ML BAG IVPB SCH (10:00)
[2018-02-15] MEDS ORDERED: PNEUMOC 13-VAL CONJ-DIP CRM/PF 0.5 ML DISP.SYRIN IM ONE (10:00)
--- NOTE | 2018-02-15 10:51 | EKG ---
Test Reason : Blood Pressure : / mmHG Vent. Rate : 086 BPM Atrial Rate : 086 BPM P-R Int : 148 ms QRS Dur : 092 ms QT Int : 408 ms P-R-T Axes : 059 -11 042 degrees QTc Int : 488 ms SINUS RHYTHM WITH SINUS ARRHYTHMIA WITH OCCASIONAL PREMATURE VENTRICULAR COMPLEXES NO PREVIOUS ECGS AVAILABLE Confirmed by LINDA ANDERS MD ([id number]) on 02/15/2018 10:51:36 AM Referred By: Confirmed By:LINDA ANDERS MD
[2018-02-15 11:17] LABS: PLATELET ESTIMATE ADEQUATE
[2018-02-15 12:25] LABS: ALBUMIN 3.6 g/dl (3.4-5.0); ALK PHOS 94 U/L (45-117); ANION GAP 5 MMOL/L (8-16); BILIRUBIN,TOTAL 0.4 mg/dL (0.2-1); BLOOD UREA NITROGEN 11 mg/dL (7-18); CALCIUM 8.9 mg/dL (8.5-10.1); CHLORIDE 108 mmol/L (98-107); CO2 26 mmol/L (21-32); CREATININE 0.5 mg/dL (0.55-1.3); GLUCOSE,RANDOM 112 mg/dL (74-106); MAGNESIUM 1.8 mg/dL (1.8-2.4); PHOSPHOROUS 3.3 mg/dL (2.5-4.9); POTASSIUM 3.7 mmol/L (3.5-5.1); SGOT/AST 36 U/L (15-37); SGPT/ALT 26 U/L (13-61); SODIUM 139 mmol/L (136-145); TOT PROT 6.8 g/dl (6.4-8.2)
--- NOTE | 2018-02-15 13:31 | PN ---
Progress Note (short form) - Note Progress Note: ID Consult dictated Acute delirium ? etiology ? Toxic metabolic CSF analysis not c/w meningitis No reported mosquito/ tick exposure No fever/ rash MS improved per family Await c/s Continue ceftriaxone Neurology followup Discussed w family at bedside
[2018-02-15] MEDS ORDERED: ACETAMINOPHEN 325 MG TABLET (FP) ONE (13:35)
--- NOTE | 2018-02-15 14:24 | CONS ---
DATE OF CONSULTATION: INFECTIOUS DISEASE: DATE OF DICTATION: 02/15/2018 The patient is a 77-year-old female with a history of her bladder cancer in remission and a history of depression evaluated for altered mental status. A history was obtained from the chart as well as family members present at the time of the examination. She was brought to the hospital on February 14, 2018 with altered mentation according to the notes. The reported that on the morning of admission she had altered mental status and was unable to follow simple commands, and that there was some question to whether she had witnessed generalized seizure activity. She was brought to the emergency room where the patient was noted to be confused. On evaluation the CAT scan of the head was negative for acute infarct or bleed. White blood cell count was elevated at 13,000. Toxicology screen was negative. In the emergency room she required Haldol and Ativan. A lumbar puncture was performed and showed no white cells, 3 red cells, protein of 35, glucose 76, and a negative gram stain. Her hospital course has been significant for improvement in her mental status. According to the family she had previously been obtunded; however, now is awake but confused. She offers no complaints. She appears agitated and not wanting to get out of the bed. She is restrained. According to the she has had no recent febrile illness, no recent respiratory tract infection, no mosquito or tick bites, no recent travel or significant pet exposure. She is on an antidepressant Nardil, which she has been on for the past 4 years with no new medications. PAST MEDICAL HISTORY: Positive for bladder cancer in remission. PAST SURGICAL HISTORY: Status post right knee arthroscopy. ALLERGIES: No known allergies. MEDICATIONS: Nardil. SOCIAL HISTORY: She resides at home with her . She is a nonsmoker with occasion ETOH. No history of illicit drugs. SYSTEMS REVIEW: Neurologic: As per HPI. Cardiac: Negative chest pain and palpitations. Respiratory: Negative for cough or sputum production. Gastrointestinal: Negative vomiting, no diarrhea. Genitourinary: Negative for urinary tract infection. LABORATORY DATA: White count 13.4, 92 neutrophils, 4 lymphs, 4 monocytes, hematocrit 38.5, and platelet count 197, BUN 18, creatinine 0.7, total bilirubin 0.2, alkaline phosphatase 105, AST 55, and ALT 21. Urinalysis 1 white cell. Spinal fluid 0 white cells, 3 red cells, protein 35, and glucose 76. Gram stains no polys and no organisms. Chest x-ray shows some atelectasis left base. No infiltrate noted. PHYSICAL EXAMINATION: General: She is awake but contused. She is able to answer simple questions. She denies any pain. She denies cough or sputum production. No dysuria or hematuria. No abdominal pain, vomiting or diarrhea. Vital Signs: Temperature 98.8, blood pressure 122/87, pulse 95 and regular, and respirations 19 per minute. HEENT: Sclerae anicteric. Oropharynx is negative. Neck: Supple. Heart: Heart sounds S1, S2. Lungs: Scattered rhonchi bilaterally. Abdomen: Soft, non tenderness elicited. No mass, rebound, or rigidity. Extremities: Edema 1+. No rashes noted. No insect bites noted. IMPRESSION: 1. Acute delirium, unclear etiology. 2. Possible toxic metabolic encephalopathy. 3. History of depression on antidepressant medication. Spinal fluid analysis is not consistent with meningitis. Family reports no recent mosquito or tick exposure, no recent fever or rash. According to family members present at the time of the examination, her mental status has improved; however, she remains confused. Await cultures. We will continue empiric ceftriaxone. We will obtain Legionella antigen in light of prevalence of Legionella in the community at this time. Neurology followup. Case discussed with family members at the bedside. Thank you for the kind referral. LINDA MERIDA M.D. [id number]
--- NOTE | 2018-02-15 16:06 | PN ---
Physical Exam: SUBJECTIVE: Patient seen and examined,family at bedside. Patient keeps repeating 'yes' to most questions, however does occasionally answer appropriately to family. Family at bedside, report mental status is improved from yesterday OBJECTIVE: Vital Signs Period Temp Pulse Resp BP Sys/Vázquez Pulse Ox Last 24 Hr 97 F-99.1 F 62-95 17-19 114-133/71-93 85-97 GENERAL: lying in bed, occasionally shaking but no acute distress CVS;S1s2 regular Chest; poor effort, no rales or wheezing Abdomen:Soft, obese, NT, no voluntary or involuntary guarding or rigidity Extremitie: in restraints, mild right hand edema Neuro: keeps eyes closed but opens when called, restless, PERRL, facial symmetry , ?involuntary perioral movements, keeps repeating 'yes' to most questions but occasionally responds appropriately, 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 mild shaking noted of upper extremities Laboratory Results - last 24 hr 02/14/18 02/14/18 02/14/18 13:10 13:10 13:10 WBC RBC Hgb Hct MCV MCH MCHC RDW Plt Count MPV Absolute Neuts (auto) Total Counted Neutrophils % Neutrophils % (Manual) Band Neutrophils % Lymphocytes % Lymphocytes % (Manual) Monocytes % Monocytes % (Manual) Eosinophils % Eosinophils % (Manual) Basophils % Basophils % (Manual) Myelocytes % (Man) Promyelocytes % (Man) Blast Cells % (Manual) Nucleated RBC % Metamyelocytes Hypochromia Platelet Estimate Polychromasia Poikilocytosis Anisocytosis Microcytosis Macrocytosis PT with INR INR Anticoagulation Therapy Puncture Site ABG pH ABG pCO2 at Pt Temp ABG pO2 at Pt Temp ABG HCO3 ABG O2 Sat (Measured) ABG O2 Content ABG Base Excess Shadi Test Carboxyhemoglobin Methemoglobin O2 Delivery Device Oxygen Flow Rate Vent Mode Vent Rate Mechanical Rate Pressure Support Vent Sodium Potassium Chloride Carbon Dioxide Anion Gap BUN Creatinine Creat Clearance w eGFR Random Glucose Lactic Acid Calcium Phosphorus Magnesium Total Bilirubin AST ALT Alkaline Phosphatase Ammonia Creatine Kinase 66 Creatine Kinase Index CK-MB (CK-2) Troponin I B-Natriuretic Peptide Total Protein Albumin TSH Urine Color Urine Appearance Urine pH Ur Specific [place] Urine Protein Urine Glucose (UA) Urine Ketones Urine Blood Urine Nitrite Urine Bilirubin Urine Urobilinogen Ur Leukocyte Esterase Urine WBC (Auto) Urine RBC (Auto) Hyaline Casts Urine Mucus CSF Appearance CSF Color CSF WBC CSF RBC CSF Neutrophils CSF Lymphocytes CSF Eosinophils CSF Basophils CSF Macrophages CSF Plasma Cells CSF Diff Comment CSF Comment CSF Glucose CSF Total Protein Salicylates < 1.7 L Opiates Screen Methadone Screen Acetaminophen 4.7 L Barbiturate Screen Phencyclidine Screen Ur Amphetamines Screen MDMA (Ecstasy) Screen Benzodiazepines Screen Cocaine Screen U Marijuana (THC) Screen Alcohol, Quantitative < 3.0 RPR Titer 02/14/18 02/14/18 02/14/18 13:20 15:50 15:50 WBC RBC Hgb Hct MCV MCH MCHC RDW Plt Count MPV Absolute Neuts (auto) Total Counted Neutrophils % Neutrophils % (Manual) 92.9 H Band Neutrophils % 0.0 Lymphocytes % Lymphocytes % (Manual) 2.0 L Monocytes % Monocytes % (Manual) 4 Eosinophils % Eosinophils % (Manual) 0.0 Basophils % Basophils % (Manual) 1.0 Myelocytes % (Man) 0 Promyelocytes % (Man) 0 Blast Cells % (Manual) 0 Nucleated RBC % 0 Metamyelocytes 0 Hypochromia 0 Platelet Estimate Normal Polychromasia 0 Poikilocytosis 0 Anisocytosis 0 Microcytosis 0 Macrocytosis 0 PT with INR INR Anticoagulation Therapy Puncture Site ABG pH ABG pCO2 at Pt Temp ABG pO2 at Pt Temp ABG HCO3 ABG O2 Sat (Measured) ABG O2 Content ABG Base Excess Shadi Test Carboxyhemoglobin Methemoglobin O2 Delivery Device Oxygen Flow Rate Vent Mode Vent Rate Mechanical Rate Pressure Support Vent Sodium Potassium Chloride Carbon Dioxide Anion Gap BUN Creatinine Creat Clearance w eGFR Random Glucose Lactic Acid Calcium Phosphorus Magnesium Total Bilirubin AST ALT Alkaline Phosphatase Ammonia Creatine Kinase Creatine Kinase Index CK-MB (CK-2) Troponin I B-Natriuretic Peptide Total Protein Albumin TSH Urine Color Ltyellow Urine Appearance Clear Urine pH 5.0 Ur Specific [place] 1.014 Urine Protein 1+ H Urine Glucose (UA) Negative Urine Ketones Negative Urine Blood Negative Urine Nitrite Negative Urine Bilirubin Negative Urine Urobilinogen Negative Ur Leukocyte Esterase Negative Urine WBC (Auto) 1 Urine RBC (Auto) <1 Hyaline Casts 4 Urine Mucus Rare CSF Appearance CSF Color CSF WBC CSF RBC CSF Neutrophils CSF Lymphocytes CSF Eosinophils CSF Basophils CSF Macrophages CSF Plasma Cells CSF Diff Comment CSF Comment CSF Glucose CSF Total Protein Salicylates Opiates Screen Negative Methadone Screen Negative Acetaminophen Barbiturate Screen Negative Phencyclidine Screen Negative Ur Amphetamines Screen Negative MDMA (Ecstasy) Screen Negative Benzodiazepines Screen Negative Cocaine Screen Negative U Marijuana (THC) Screen Negative Alcohol, Quantitative RPR Titer 02/14/18 02/14/18 02/14/18 17:55 17:55 17:55 WBC RBC Hgb Hct MCV MCH MCHC RDW Plt Count MPV Absolute Neuts (auto) Total Counted Neutrophils % Neutrophils % (Manual) Band Neutrophils % Lymphocytes % Lymphocytes % (Manual) Monocytes % Monocytes % (Manual) Eosinophils % Eosinophils % (Manual) Basophils % Basophils % (Manual) Myelocytes % (Man) Promyelocytes % (Man) Blast Cells % (Manual) Nucleated RBC % Metamyelocytes Hypochromia Platelet Estimate Polychromasia Poikilocytosis Anisocytosis Microcytosis Macrocytosis PT with INR INR Anticoagulation Therapy Puncture Site ABG pH ABG pCO2 at Pt Temp ABG pO2 at Pt Temp ABG HCO3 ABG O2 Sat (Measured) ABG O2 Content ABG Base Excess Shadi Test Carboxyhemoglobin Methemoglobin O2 Delivery Device Oxygen Flow Rate Vent Mode Vent Rate Mechanical Rate Pressure Support Vent Sodium Potassium Chloride Carbon Dioxide Anion Gap BUN Creatinine Creat Clearance w eGFR Random Glucose Lactic Acid Calcium Phosphorus Magnesium Total Bilirubin AST ALT Alkaline Phosphatase Ammonia Creatine Kinase Creatine Kinase Index CK-MB (CK-2) Troponin I B-Natriuretic Peptide Total Protein Albumin TSH Urine Color Urine Appearance Urine pH Ur Specific [place] Urine Protein Urine Glucose (UA) Urine Ketones Urine Blood Urine Nitrite Urine Bilirubin Urine Urobilinogen Ur Leukocyte Esterase Urine WBC (Auto) Urine RBC (Auto) Hyaline Casts Urine Mucus CSF Appearance Clear Clear CSF Color Colorless Colorless CSF WBC 2 0 CSF RBC 354 3 CSF Neutrophils No Result Required. No Result Required. CSF Lymphocytes No Result Required. No Result Required. CSF Eosinophils No Result Required. No Result Required. CSF Basophils No Result Required. No Result Required. CSF Macrophages No Result Required. No Result Required. CSF Plasma Cells No Result Required. No Result Required. CSF Diff Comment No Result Required. No Result Required. CSF Comment No Result Required. No Result Required. CSF Glucose 76 H Cancelled No Result Required. CSF Total Protein 35 Cancelled No Result Required. Salicylates Opiates Screen Methadone Screen Acetaminophen Barbiturate Screen Phencyclidine Screen Ur Amphetamines Screen MDMA (Ecstasy) Screen Benzodiazepines Screen Cocaine Screen U Marijuana (THC) Screen Alcohol, Quantitative RPR Titer 02/14/18 02/14/18 02/14/18 19:00 23:00 23:00 WBC RBC Hgb Hct MCV MCH MCHC RDW Plt Count MPV Absolute Neuts (auto) Total Counted Neutrophils % Neutrophils % (Manual) Band Neutrophils % Lymphocytes % Lymphocytes % (Manual) Monocytes % Monocytes % (Manual) Eosinophils % Eosinophils % (Manual) Basophils % Basophils % (Manual) Myelocytes % (Man) Promyelocytes % (Man) Blast Cells % (Manual) Nucleated RBC % Metamyelocytes Hypochromia Platelet Estimate Polychromasia Poikilocytosis Anisocytosis Microcytosis Macrocytosis PT with INR INR Anticoagulation Therapy No Result Required. Puncture Site Left radial ABG pH 7.37 ABG pCO2 at Pt Temp 42.5 ABG pO2 at Pt Temp 63.3 L ABG HCO3 23.7 ABG O2 Sat (Measured) 90.8 ABG O2 Content 14.8 L ABG Base Excess -1.1 Shadi Test Positive Carboxyhemoglobin 0.9 Methemoglobin 0.5 O2 Delivery Device No Result Required. Oxygen Flow Rate No Vent Mode No Result Required. Vent Rate No Result Required. Mechanical Rate No Result Required. Pressure Support Vent No Result Required. Sodium Potassium Chloride Carbon Dioxide Anion Gap BUN Creatinine Creat Clearance w eGFR Random Glucose Lactic Acid Calcium Phosphorus 4.2 Magnesium 1.8 Total Bilirubin AST ALT Alkaline Phosphatase Ammonia 12.00 Creatine Kinase 278 H Creatine Kinase Index 3.9 CK-MB (CK-2) 11.1 H Troponin I 0.45 H B-Natriuretic Peptide 4898.4 H Total Protein Albumin TSH 1.25 Urine Color Urine Appearance Urine pH Ur Specific [place] Urine Protein Urine Glucose (UA) Urine Ketones Urine Blood Urine Nitrite Urine Bilirubin Urine Urobilinogen Ur Leukocyte Esterase Urine WBC (Auto) Urine RBC (Auto) Hyaline Casts Urine Mucus CSF Appearance CSF Color CSF WBC CSF RBC CSF Neutrophils CSF Lymphocytes CSF Eosinophils CSF Basophils CSF Macrophages CSF Plasma Cells CSF Diff Comment CSF Comment CSF Glucose CSF Total Protein Salicylates Opiates Screen Methadone Screen Acetaminophen Barbiturate Screen Phencyclidine Screen Ur Amphetamines Screen MDMA (Ecstasy) Screen Benzodiazepines Screen Cocaine Screen U Marijuana (THC) Screen Alcohol, Quantitative RPR Titer 02/14/18 02/14/18 02/15/18 23:00 23:00 05:17 WBC RBC Hgb Hct MCV MCH MCHC RDW Plt Count MPV Absolute Neuts (auto) Total Counted Neutrophils % Neutrophils % (Manual) Band Neutrophils % Lymphocytes % Lymphocytes % (Manual) Monocytes % Monocytes % (Manual) Eosinophils % Eosinophils % (Manual) Basophils % Basophils % (Manual) Myelocytes % (Man) Promyelocytes % (Man) Blast Cells % (Manual) Nucleated RBC % Metamyelocytes Hypochromia Platelet Estimate Polychromasia Poikilocytosis Anisocytosis Microcytosis Macrocytosis PT with INR 12.80 INR 1.08 Anticoagulation Therapy Puncture Site ABG pH ABG pCO2 at Pt Temp ABG pO2 at Pt Temp ABG HCO3 ABG O2 Sat (Measured) ABG O2 Content ABG Base Excess Shadi Test Carboxyhemoglobin Methemoglobin O2 Delivery Device Oxygen Flow Rate Vent Mode Vent Rate Mechanical Rate Pressure Support Vent Sodium Potassium Chloride Carbon Dioxide Anion Gap BUN Creatinine Creat Clearance w eGFR Random Glucose Lactic Acid 1.0 Calcium Phosphorus Magnesium Total Bilirubin AST ALT Alkaline Phosphatase Ammonia Creatine Kinase Creatine Kinase Index CK-MB (CK-2) Troponin I B-Natriuretic Peptide Total Protein Albumin TSH Urine Color Urine Appearance Urine pH Ur Specific [place] Urine Protein Urine Glucose (UA) Urine Ketones Urine Blood Urine Nitrite Urine Bilirubin Urine Urobilinogen Ur Leukocyte Esterase Urine WBC (Auto) Urine RBC (Auto) Hyaline Casts Urine Mucus CSF Appearance CSF Color CSF WBC CSF RBC CSF Neutrophils CSF Lymphocytes CSF Eosinophils CSF Basophils CSF Macrophages CSF Plasma Cells CSF Diff Comment CSF Comment CSF Glucose CSF Total Protein Salicylates Opiates Screen Methadone Screen Acetaminophen Barbiturate Screen Phencyclidine Screen Ur Amphetamines Screen MDMA (Ecstasy) Screen Benzodiazepines Screen Cocaine Screen U Marijuana (THC) Screen Alcohol, Quantitative RPR Titer Nonreactive 02/15/18 02/15/18 02/15/18 05:17 08:37 08:37 WBC 11.3 H RBC 4.35 Hgb 12.3 Hct 37.5 MCV 86.1 MCH 28.3 MCHC 32.9 RDW 13.6 Plt Count 214 MPV 10.9 D Absolute Neuts (auto) 10.3 H Total Counted 100 Neutrophils % 91.1 H Neutrophils % (Manual) 94.0 H Band Neutrophils % Lymphocytes % 5.5 L D Lymphocytes % (Manual) 5.0 L D Monocytes % 3.2 L Monocytes % (Manual) 1 L Eosinophils % 0.0 D Eosinophils % (Manual) Basophils % 0.2 Basophils % (Manual) Myelocytes % (Man) Promyelocytes % (Man) Blast Cells % (Manual) Nucleated RBC % 0 Metamyelocytes Hypochromia Platelet Estimate Adequate Polychromasia Poikilocytosis Anisocytosis Microcytosis Macrocytosis PT with INR INR Anticoagulation Therapy Puncture Site ABG pH ABG pCO2 at Pt Temp ABG pO2 at Pt Temp ABG HCO3 ABG O2 Sat (Measured) ABG O2 Content ABG Base Excess Shadi Test Carboxyhemoglobin Methemoglobin O2 Delivery Device Oxygen Flow Rate Vent Mode Vent Rate Mechanical Rate Pressure Support Vent Sodium 139 Cancelled Potassium 3.7 Cancelled Chloride 108 H Cancelled Carbon Dioxide 26 Cancelled Anion Gap 5 L Cancelled BUN 11 Cancelled Creatinine 0.5 L Cancelled Creat Clearance w eGFR > 60 Cancelled Random Glucose 112 H Cancelled Lactic Acid Calcium 8.9 Cancelled Phosphorus 3.3 Cancelled Magnesium 1.8 Cancelled Total Bilirubin 0.4 Cancelled AST 36 Cancelled ALT 26 Cancelled Alkaline Phosphatase 94 Cancelled Ammonia Creatine Kinase Creatine Kinase Index CK-MB (CK-2) Troponin I 0.35 H B-Natriuretic Peptide Total Protein 6.8 Cancelled Albumin 3.6 Cancelled TSH Urine Color Urine Appearance Urine pH Ur Specific [place] Urine Protein Urine Glucose (UA) Urine Ketones Urine Blood Urine Nitrite Urine Bilirubin Urine Urobilinogen Ur Leukocyte Esterase Urine WBC (Auto) Urine RBC (Auto) Hyaline Casts Urine Mucus CSF Appearance CSF Color CSF WBC CSF RBC CSF Neutrophils CSF Lymphocytes CSF Eosinophils CSF Basophils CSF Macrophages CSF Plasma Cells CSF Diff Comment CSF Comment CSF Glucose CSF Total Protein Salicylates Opiates Screen Methadone Screen Acetaminophen Barbiturate Screen Phencyclidine Screen Ur Amphetamines Screen MDMA (Ecstasy) Screen Benzodiazepines Screen Cocaine Screen U Marijuana (THC) Screen Alcohol, Quantitative RPR Titer Active Medications Generic Name Dose Route Start Last Admin Trade Name Freq PRN Reason Stop Dose Admin Acetaminophen 1,000 mg 02/14/18 19:49 Ofirmev Injection - IVPB Q6H PRN FEVER Heparin Sodium (Porcine) 5,000 unit 02/15/18 06:00 02/15/18 13:28 Heparin - SQ 5,000 unit TID MERLIN Administration Sodium Chloride 1,000 mls @ 75 mls/hr 02/14/18 20:00 02/14/18 20:17 Normal Saline - IV 75 mls/hr ASDIR MERLIN Administration Ceftriaxone Sodium 2 gm/ 100 mls @ 200 mls/hr 02/15/18 10:00 02/15/18 09:14 Dextrose IVPB 200 mls/hr DAILY MERLIN Administration Protocol Lorazepam 2 mg 02/14/18 20:44 Ativan Injection - IVPUSH Q4H PRN AGITATION Microbiology 02/15/18 15:30 Urine For Antigen Detection Legionella Antigen - Preliminary 02/15/18 15:30 Urine For Antigen Detection Streptococcus pneumoniae Antigen (M - Preliminary 02/14/18 17:55 Cerebral Spinal Fluid - Lumbar Puncture Gram Stain - Final CT brain -neg for acute process ASSESSMENT/PLAN: 77 yof with PMhx of depression on Nardil for 40 years admitted with AMS. -Acute delirium unclear etiology, seizure vs infectious (LP studies not consistent with meningitis), vs medication related ( no recent change) vs acute psychotic episode -Possible toxic metabolic encephalopathy -Depression on MAO inhibitor Plan: Mental status improved, though seems with some involuntary shaking and rolo- oral movements. Neurology input noted. Check EEG and MRI brain if patient co-operates. Neuro checks q4h. Psych input noted. Hold nardil. Concern for wine and cheese consumption the night prior, however presentation not consistent with the same. Confirm nardil compliance. ID input noted. LP studies so far not consistent with meningitis. Off acyclovir. Ceftriaxone day 2. Follow up CSF fluid cultures. Cleared bed side eval , dysphagia puree with aspiration precautions, confirmed with family and nursing. Speech/swallow eval. DVTPPX dispo pending clinical improvement. Plan discussed with family at bedside in detail, all questions answered. Discussed with Dr. Cota and nursing. Visit type - Emergency Visit Emergency Visit: Yes ED Registration Date: 02/14/18 Care time: The patient presented to the Emergency Department on the above date and was hospitalized for further evaluation of their emergent condition. - New Patient This patient is new to me today: Yes Date on this admission: 02/15/18 - Critical Care Critical Care patient: No - Discharge Referral Referred to [facility] Med [facility].: No
[2018-02-15] MEDS: SODIUM CHLORIDE 1,000 ML IV SCH (21:51)
--- NOTE | 2018-02-15 21:56 | PN ---
Progress Note, Physician History of Present Illness: events noted and the chart reviwed Seen on tele Mild headache More awake Follws two step commands Ok attention span No seizure No cardiac arrhythmias ID saw [facility] patient LP results noted - Current Medication List Current Medications: Active Medications Acetaminophen (Ofirmev Injection -) 1,000 mg IVPB Q6H PRN PRN Reason: FEVER Heparin Sodium (Porcine) (Heparin -) 5,000 unit SQ TID MERLIN Last Admin: 02/15/18 13:28 Dose: 5,000 unit Sodium Chloride (Normal Saline -) 1,000 mls @ 75 mls/hr IV ASDIR MERLIN Last Admin: 02/14/18 20:17 Dose: 75 mls/hr Ceftriaxone Sodium 2 gm/ (Dextrose) 100 mls @ 200 mls/hr IVPB DAILY [facility]; Protocol Last Admin: 02/15/18 09:14 Dose: 200 mls/hr Lorazepam (Ativan Injection -) 2 mg IVPUSH Q4H PRN PRN Reason: AGITATION Last Admin: 02/15/18 17:49 Dose: 2 mg - Objective Vital Signs: Vital Signs Temperature 98.7 F 02/15/18 21:00 Pulse Rate 92 H 02/15/18 21:00 Respiratory Rate 20 02/15/18 21:00 Blood Pressure 138/90 02/15/18 21:00 O2 Sat by Pulse Oximetry (%) 92 L 02/15/18 10:00 Constitutional: Yes: Well Nourished Eyes: Yes: WNL Neurological: Yes: Alert, Oriented, Babinski negative, Confusion ...Motor Strength: WNL Labs: CBC, BMP 02/15/18 08:37 02/15/18 08:37 INR, PTT INR 1.08 (0.83-1.09) 02/14/18 23:00 Problem List - Problems (1) Altered mental status, unspecified Assessment/Plan: 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 Neuro check s 2. EEg 3. Follow all cultures 4. IV fluids 5. Follow up with ID Suggest psych eval for possible different SSRI Code(s): R41.82 - ALTERED MENTAL STATUS, UNSPECIFIED Qualifiers: Altered mental status type: disorientation Qualified Code(s): R41.0 - Disorientation, unspecified
[2018-02-15] MEDS ORDERED: HALOPERIDOL LACTATE 5 MG/ML IM ONE (23:49)
[2018-02-16] MEDS ORDERED: HALOPERIDOL LACTATE 5 MG/ML IM ONE (03:47)
[2018-02-16] MEDS: HEPARIN NA (PORCINE) 5,000 UNITS/ML 1ML VIAL SQ SCH ×3 (05:43→21:41)
[2018-02-16 06:51] LABS: BASO % 0.1 % (0-2.0); HEMOGLOBIN 12.7 GM/dL (10.7-15.3); LYMPH % 7.6 % (8-40); MCH 27.7 pg (25.7-33.7); MCHC 32.5 g/dl (32.0-36.0); MEAN CELL VOLUME 85.1 fl (80-96); MEAN PLT VOLUME 10.6 fl (7.5-11.1); MONO % 6.2 % (3.8-10.2); NEUT % 86.1 % (42.8-82.8); PLATELET COUNT 220 K/MM3 (134-434); RBC 4.58 M/mm3 (3.60-5.2); RDW 13.7 % (11.6-15.6); WHITE BLOOD COUNT 10.4 K/mm3 (4.0-10.0)
[2018-02-16 07:51] LABS: ALBUMIN 3.7 g/dl (3.4-5.0); ALK PHOS 90 U/L (45-117); ANION GAP 9 MMOL/L (8-16); BILIRUBIN,TOTAL 0.8 mg/dL (0.2-1); BLOOD UREA NITROGEN 13 mg/dL (7-18); CALCIUM 9.2 mg/dL (8.5-10.1); CHLORIDE 112 mmol/L (98-107); CO2 26 mmol/L (21-32); CREATININE 0.6 mg/dL (0.55-1.3); GLUCOSE,RANDOM 96 mg/dL (74-106); MAGNESIUM 2.1 mg/dL (1.8-2.4); PHOSPHOROUS 2.2 mg/dL (2.5-4.9); SGOT/AST 32 U/L (15-37); SGPT/ALT 28 U/L (13-61); SODIUM 147 mmol/L (136-145)
--- NOTE | 2018-02-16 08:39 | PN ---
Teaching Attending Note Name of Resident: Sumit Morin ATTENDING PHYSICIAN STATEMENT I saw and evaluated the patient. I reviewed the resident's note and discussed the case with the resident. I agree with the resident's findings and plan as documented with exceptions below. SUBJECTIVE: Patient seen and examined,awake, appropriate to most questions, denies any pain or complaints. Son at bedside. OBJECTIVE: Vital Signs Period Temp Pulse Resp BP Sys/Vázquez Pulse Ox Last 24 Hr 97.8 F-99.1 F 88-110 19-20 122-140/81-92 92-92 Intake & Output 02/13/18 02/14/18 02/15/18 02/16/18 23:59 23:59 23:59 23:59 Intake Total 200 1890 525 Output Total 1700 1600 1700 Balance -1500 290 -1175 Weight 140 lb 170 lb General: sitting in bed, awake and coherent today compared to yesterday Neuro: AA, oriented to person, time, able to state date, though was in [place], EOMI, PERRL, facial symmetry, tongue midline, power 5/5, no pronator drift, sensation exam limited, no new focal deficits today Abdomen: soft, obese, NT CVS; S1S2 regular, Chest: decreased effort, no rales or wheezing Active Medications Acetaminophen (Ofirmev Injection -) 1,000 mg IVPB Q6H PRN PRN Reason: FEVER Heparin Sodium (Porcine) (Heparin -) 5,000 unit SQ TID MERLIN Last Admin: 02/16/18 05:43 Dose: Not Given Sodium Chloride (Normal Saline -) 1,000 mls @ 75 mls/hr IV ASDIR MERLIN Last Admin: 02/15/18 21:51 Dose: 75 mls/hr Ceftriaxone Sodium 2 gm/ (Dextrose) 100 mls @ 200 mls/hr IVPB DAILY MERLIN; Protocol Last Admin: 02/15/18 09:14 Dose: 200 mls/hr Potassium Phosphate 25 mm/ (Dextrose) 258.3333 mls @ 62.5 mls/hr IVPB ONCE ONE Stop: 02/16/18 12:43 Lorazepam (Ativan Injection -) 2 mg IVPUSH Q4H PRN PRN Reason: AGITATION Last Admin: 02/15/18 17:49 Dose: 2 mg Laboratory Results - last 24 hr 02/15/18 02/15/18 02/15/18 05:17 05:17 08:37 WBC 11.3 H RBC 4.35 Hgb 12.3 Hct 37.5 MCV 86.1 MCH 28.3 MCHC 32.9 RDW 13.6 Plt Count 214 MPV 10.9 D Absolute Neuts (auto) 10.3 H Total Counted 100 Neutrophils % 91.1 H Neutrophils % (Manual) 94.0 H Lymphocytes % 5.5 L D Lymphocytes % (Manual) 5.0 L D Monocytes % 3.2 L Monocytes % (Manual) 1 L Eosinophils % 0.0 D Basophils % 0.2 Nucleated RBC % 0 Platelet Estimate Adequate Sodium 139 Potassium 3.7 Chloride 108 H Carbon Dioxide 26 Anion Gap 5 L BUN 11 Creatinine 0.5 L Creat Clearance w eGFR > 60 Random Glucose 112 H Calcium 8.9 Phosphorus 3.3 Magnesium 1.8 Total Bilirubin 0.4 AST 36 ALT 26 Alkaline Phosphatase 94 Troponin I 0.35 H Total Protein 6.8 Albumin 3.6 RPR Titer Nonreactive 02/15/18 02/16/18 02/16/18 08:37 05:30 05:30 WBC 10.4 H RBC 4.58 Hgb 12.7 Hct 39.0 MCV 85.1 MCH 27.7 MCHC 32.5 RDW 13.7 Plt Count 220 MPV 10.6 Absolute Neuts (auto) 9.0 H Total Counted Neutrophils % 86.1 H Neutrophils % (Manual) Lymphocytes % 7.6 L D Lymphocytes % (Manual) Monocytes % 6.2 D Monocytes % (Manual) Eosinophils % 0.0 Basophils % 0.1 Nucleated RBC % 0 Platelet Estimate Sodium Cancelled 147 H Potassium Cancelled 3.0 L Chloride Cancelled 112 H Carbon Dioxide Cancelled 26 Anion Gap Cancelled 9 BUN Cancelled 13 Creatinine Cancelled 0.6 Creat Clearance w eGFR Cancelled > 60 Random Glucose Cancelled 96 Calcium Cancelled 9.2 Phosphorus Cancelled 2.2 L Magnesium Cancelled 2.1 Total Bilirubin Cancelled 0.8 AST Cancelled 32 ALT Cancelled 28 Alkaline Phosphatase Cancelled 90 Troponin I Total Protein Cancelled 7.0 Albumin Cancelled 3.7 RPR Titer ASSESSMENT AND PLAN: 77 yof with PMhx of depression on Nardil for 40 years admitted with AMS. -Acute delirium unclear etiology, seizure vs infectious (LP studies not consistent with meningitis), vs medication related ( no recent change) vs acute psychotic episode in the setting of underlying dementia -Possible toxic metabolic encephalopathy -Depression on MAO inhibitor Plan: Mental status waxing and waning, intermittent agitation. per son, more confused later in the day. More awake, appropriate and coherent today. Neurology input noted. Check EEG and MRI brain if patient co-operates. Seroquel prior to MRI Interval QTc monitoring. Neuro checks q4h. Psych input noted. Hold nardil. Concern for wine and cheese consumption the night prior, however presentation not consistent with the same. ID input noted. LP studies so far not consistent with meningitis. Off acyclovir. Ceftriaxone day 3. Follow up CSF fluid cultures. Speech/swallow input noted, mechanical soft diet with thin liquids. DVTPPX dispo pending clinical improvement. Address inpatient psych if w/u unrevealing for concerns and ongoing intermitent periods of agitation/confusion. Plan discussed with son at bedside in detail, all questions answered.
[2018-02-16] MEDS ORDERED: DEXTROSE 5%-WATER 100 ML IVPB ONE (09:08)
--- NOTE | 2018-02-16 09:08 | PN ---
Physical Exam: SUBJECTIVE: Patient seen and examined this AM. She is pleasantly confused and laughing throughout the interaction. OBJECTIVE: Vital Signs Period Temp Pulse Resp BP Sys/Vázquez Pulse Ox Last 24 Hr 97.8 F-99.1 F 88-114 19-22 122-140/81-92 92-94 Exam limited due to pt not being able to comply with exam GENERAL: Alert only to self, Laughing continually throughout interaction HEAD: Normocephalic, atraumatic. EYES: PERRL, no scleral icterus EARS, NOSE, THROAT: oropharynx clear without exudates. Moist mucous membranes. NECK: supple without lymphadenopathy LUNGS: CTA b/l, no crackles or wheezes HEART: Regular rate and rhythm, normal S1 and S2 without murmur ABDOMEN: Soft, nontender to palpation, normoactive bowel sounds MUSCULOSKELETAL: No bony deformities or tenderness. EXTREMITIES: 2+ pulses, warm, well-perfused. No peripheral edema. NEUROLOGICAL: Cranial nerves II-XII grossly intact. Pt unable to comply with neuro exam, no gross motor deficits. Pt pleasantly confused with inappropriate responses. Laboratory Results - last 24 hr 02/15/18 02/15/18 02/15/18 05:17 05:17 08:37 WBC 11.3 H RBC 4.35 Hgb 12.3 Hct 37.5 MCV 86.1 MCH 28.3 MCHC 32.9 RDW 13.6 Plt Count 214 MPV 10.9 D Absolute Neuts (auto) 10.3 H Total Counted 100 Neutrophils % 91.1 H Neutrophils % (Manual) 94.0 H Lymphocytes % 5.5 L D Lymphocytes % (Manual) 5.0 L D Monocytes % 3.2 L Monocytes % (Manual) 1 L Eosinophils % 0.0 D Basophils % 0.2 Nucleated RBC % 0 Platelet Estimate Adequate Sodium 139 Potassium 3.7 Chloride 108 H Carbon Dioxide 26 Anion Gap 5 L BUN 11 Creatinine 0.5 L Creat Clearance w eGFR > 60 Random Glucose 112 H Calcium 8.9 Phosphorus 3.3 Magnesium 1.8 Total Bilirubin 0.4 AST 36 ALT 26 Alkaline Phosphatase 94 Troponin I 0.35 H Total Protein 6.8 Albumin 3.6 RPR Titer Nonreactive 02/15/18 02/16/18 02/16/18 08:37 05:30 05:30 WBC 10.4 H RBC 4.58 Hgb 12.7 Hct 39.0 MCV 85.1 MCH 27.7 MCHC 32.5 RDW 13.7 Plt Count 220 MPV 10.6 Absolute Neuts (auto) 9.0 H Total Counted Neutrophils % 86.1 H Neutrophils % (Manual) Lymphocytes % 7.6 L D Lymphocytes % (Manual) Monocytes % 6.2 D Monocytes % (Manual) Eosinophils % 0.0 Basophils % 0.1 Nucleated RBC % 0 Platelet Estimate Sodium Cancelled 147 H Potassium Cancelled 3.0 L Chloride Cancelled 112 H Carbon Dioxide Cancelled 26 Anion Gap Cancelled 9 BUN Cancelled 13 Creatinine Cancelled 0.6 Creat Clearance w eGFR Cancelled > 60 Random Glucose Cancelled 96 Calcium Cancelled 9.2 Phosphorus Cancelled 2.2 L Magnesium Cancelled 2.1 Total Bilirubin Cancelled 0.8 AST Cancelled 32 ALT Cancelled 28 Alkaline Phosphatase Cancelled 90 Troponin I Total Protein Cancelled 7.0 Albumin Cancelled 3.7 RPR Titer Active Medications Generic Name Dose Route Start Last Admin Trade Name Freq PRN Reason Stop Dose Admin Acetaminophen 1,000 mg 02/14/18 19:49 Ofirmev Injection - IVPB Q6H PRN FEVER Heparin Sodium (Porcine) 5,000 unit 02/15/18 06:00 02/16/18 05:43 Heparin - SQ Not Given TID MERLIN Sodium Chloride 1,000 mls @ 75 mls/hr 02/14/18 20:00 02/15/18 21:51 Normal Saline - IV 75 mls/hr ASDIR [facility]LIN Administration Ceftriaxone Sodium 2 gm/ 100 mls @ 200 mls/hr 02/15/18 10:00 02/15/18 09:14 Dextrose IVPB 200 mls/hr DAILY MERLIN Administration Protocol Potassium Phosphate 25 mm/ 258.3333 mls @ 62.5 mls/hr 02/16/18 08:36 Dextrose IVPB 02/16/18 12:43 ONCE ONE Lorazepam 2 mg 02/14/18 20:44 02/15/18 17:49 Ativan Injection - IVPUSH 2 mg Q4H PRN Administration AGITATION ASSESSMENT/PLAN: 77 yo Female with PMH of Depression on Nardil admitted with Altered mental status as per family. Altered Mental Status -Etiology unclear, could be Toxic Metabolic Encephalopathy -No infectious source identified -MRI pending official read -QTc monitoring with considerations of psych meds in mind -Psychiatry Consult Appreciated -Hold Nardil -ID Consultation appreciated -Rocephin 2 gm IV Daily -Ceruloplasmin pending -TSH normal -Prolactin Pending DVT Prophylaxis -Heparin 5000 units SQ TID FEN -Fluids: none -Electrolytes: No electrolyte abnormalities, BMP in AM -Nutrition: Dysphagia Puree with nectar thickened liquids Disposition Telemetry Visit type - Emergency Visit Emergency Visit: Yes ED Registration Date: 02/14/18 Care time: The patient presented to the Emergency Department on the above date and was hospitalized for further evaluation of their emergent condition. - New Patient This patient is new to me today: Yes Date on this admission: 02/16/18 - Critical Care Critical Care patient: No
[2018-02-16] MEDS: CEFTRIAXONE 2 GM in DEXTROSE 5%-WATER 100 ML IVPB SCH (09:39)
[2018-02-16] MEDS ORDERED: POTASSIUM PHOSPHATE 25 MM in DEXTROSE 5%-WATER - 500 ML IVPB ONE (10:00)
[2018-02-16] MEDS ORDERED: PT OWN MED DRAWER 7, Y5N ONE (10:34)
--- NOTE | 2018-02-16 10:41 | CONSULT ---
Admitting History and Physical - Primary Care Physician PCP: Brook Odell - Admission History of Present Illness: 77 yof with PMhx of depression on Nardil for 40 years admitted with AMS. -Acute delirium unclear etiology, seizure vs infectious (LP studies not consistent with meningitis), vs medication related ( no recent change) vs acute psychotic episode -Possible toxic metabolic encephalopathy -Depression on MAO inhibitor Mental status waxing and waning, intermittent agitation. 02/15/18 02/15/18 02/15/18 01:30 07:00 10:00 Breakfast Lunch Supper Temperature 98.8 F 98.8 F 98.8 F 02/15/18 02/15/18 02/15/18 14:00 17:00 19:50 Breakfast Lunch NPO Supper 25% Temperature 99.1 F 97.8 F 02/15/18 02/16/18 02/16/18 21:00 01:00 05:00 Breakfast Lunch Supper Temperature 98.7 F 98.5 F 97.9 F 02/16/18 08:36 Breakfast 25% Lunch Supper Temperature 99.1 F Laboratory Tests 02/14/18 02/15/18 02/16/18 13:20 08:37 05:30 WBC 13.4 H 11.3 H 10.4 H On puree/thin liquid Pt's son was present for the evaluation. Zachary reported wavering confusion. Pt spoke Palauan, then Welsh, then unintelligible "Jibberish" yesterday. No asymmetry. Per nursing it was jibberish in all languages and she was echolalic. Today, pt was disoriented, denying that she is in the hospital, some paranoia refusing PO trials from me or her son. History Source: Family Member Limitations to Obtaining History: Clinical Condition - Past Medical History ...: No - Smoking History Smoking history: Never smoked - Alcohol/Substance Use Hx Alcohol Use: Yes (SOCIAL) History - Admission Reason For Visit: ALTERED MENTAL STATUS - Diagnostics X-ray: Report Reviewed CT Scan: Report Reviewed - General Mental Status: Awake and Alert, Able to Follow Commands, Vague, Confused Attention: Mild Impairment Ability to Follow Directions: Fair Head/Neck Control: Fair - Hearing Hearing: Impaired Hearing Aide: No Speech Evaluation - Communication Primary Language: DANISH Oral Expression Ability: Yes: Mild Impairment - Speech Production Able to Make Needs Known: Yes: Mildly Impaired Intelligibility: Yes: Mildly Impaired - Speech Characteristics Voice Loudness: Normal Voice Pitch: Yes: Normal Voice Phonatory-based Quality: Yes: Normal Nasal Resonance: Normal Articulation: Yes: Imprecise - Language/Auditory Comprehension Observation: Able to respond to yes/no queries: Yes, Yes/No Confusion: No, Comprehends Conversational Speech: Yes (simple, not complex), Benefits from Slow Speech: Yes, Benefits from Repetiton: Yes, Benefits from Increased Volume of Speech: Yes (pilot point) - Language/Verbal Expression Aphasia: Yes: Paraphrasic Errors, Neologisms - Swallow Evaluation/Bedside Assessment Current Nutritional Intake: Dysphagia Pureed, Thin Liquids Oral Secretions: Yes: WFL Dentition: Yes: Dental Appliance Upper, Dental Appliance Lower Facial Symmetry at Rest: Symmetrical Facial Symmetry on Retraction: Symmetrical Facial Movement: Controlled Against Resistance Opening: Normal Against Resistance Closing: Normal Pucker Lips: Normal Smile: Normal Lingual Movement: Normal, Symmetric Lingual Speed of Movement: Normal Lingual Movement Strgth Against Opposition: Normal Lingual Movement Characteristics: Normal Laryngeal Elevation: WFL Laryngeal Movement: Able to Palpate Bolus Size: WFL Oral Prep Time: WFL A-P Transit: WFL Coughing/Throat Clear: No Change in Voice: No Recommendations - Speech Evaluation, Impression/Plan Impression: Chart reviewed, case reviewed at length with Nursing/pt's son.Confused, some paranoia, waivering "agitation". Etiology? MRI pending. Language of confusion vs [place] Aphasia vs acute delerium? clearing. Today pt is speaking,but [place], doesnt always hear/process question. Fluent response, occasional neologism? Insists she is not in hospital, and knows me from high school. Tolerated breakfast. Refused solid trials but suspect pt would tolerate - Disposition Discharge to: To be Determined - Dysphagia Impressions/Plan Dysphagia Impressions: Minimal Impairment Dysphagia Treatment Plan: Small Bites, Chin Tuck/Down, Clear Pocket Food, Trial Feedings, Facilitative Feeding, Safe Rate, Elevate HOB during feed - Recommendations Diet Consistency: Mechanical Soft, Other (upgrade, as tolerated and accepted) Liquids: Thin Liquids
--- NOTE | 2018-02-16 12:24 | PN ---
Progress Note, Physician History of Present Illness: Awake but mildly confused C/O frontal headache Was agitated this am requiring sedation No fever WBC improved 10.4 Cultures no growth - Current Medication List Current Medications: Active Medications Acetaminophen (Ofirmev Injection -) 1,000 mg IVPB Q6H PRN PRN Reason: FEVER Heparin Sodium (Porcine) (Heparin -) 5,000 unit SQ TID MERLIN Last Admin: 02/16/18 05:43 Dose: Not Given Sodium Chloride (Normal Saline -) 1,000 mls @ 75 mls/hr IV ASDIR [facility] Last Admin: 02/15/18 21:51 Dose: 75 mls/hr Ceftriaxone Sodium 2 gm/ (Dextrose) 100 mls @ 200 mls/hr IVPB DAILY MERLIN; Protocol Last Admin: 02/16/18 09:39 Dose: 200 mls/hr Potassium Phosphate 25 mm/ (Dextrose) 508.3333 mls @ 63.542 mls/hr IVPB ONCE ONE Stop: 02/16/18 17:59 Last Admin: 02/16/18 10:34 Dose: 63.542 mls/hr Lorazepam (Ativan Injection -) 2 mg IVPUSH Q4H PRN PRN Reason: AGITATION Last Admin: 02/15/18 17:49 Dose: 2 mg - Objective Vital Signs: Vital Signs Temperature 99.1 F 02/16/18 08:36 Pulse Rate 114 H 02/16/18 08:36 Respiratory Rate 22 H 02/16/18 08:44 Blood Pressure 137/91 02/16/18 08:36 O2 Sat by Pulse Oximetry (%) 94 L 02/16/18 08:44 Constitutional: Yes: No Distress Eyes: Yes: Conjunctiva Clear Cardiovascular: Yes: Regular Rate and Rhythm, S1, S2 Respiratory: Yes: CTA Bilaterally Gastrointestinal: Yes: Normal Bowel Sounds, Soft. No: Tenderness Edema: No Integumentary: No: Rash Labs: CBC, BMP 02/16/18 05:30 02/16/18 05:30 INR, PTT INR 1.08 (0.83-1.09) 02/14/18 23:00 Assessment/Plan Acute delirium ? etiology No clear infectious source CSF analysis not c/w meningitis For MRI head today
--- NOTE | 2018-02-16 12:25 | PN ---
Progress Note, Physician History of Present Illness: Awake but confused C/O frontal headache Was agitated this am requiring sedation No fever WBC improved 10.4 Cultures no growth - Current Medication List Current Medications: Active Medications Acetaminophen (Ofirmev Injection -) 1,000 mg IVPB Q6H PRN PRN Reason: FEVER Heparin Sodium (Porcine) (Heparin -) 5,000 unit SQ TID MERLIN Last Admin: 02/16/18 05:43 Dose: Not Given Sodium Chloride (Normal Saline -) 1,000 mls @ 75 mls/hr IV ASDIR [facility]LIN Last Admin: 02/15/18 21:51 Dose: 75 mls/hr Ceftriaxone Sodium 2 gm/ (Dextrose) 100 mls @ 200 mls/hr IVPB DAILY MERLIN; Protocol Last Admin: 02/16/18 09:39 Dose: 200 mls/hr Potassium Phosphate 25 mm/ (Dextrose) 508.3333 mls @ 63.542 mls/hr IVPB ONCE ONE Stop: 02/16/18 17:59 Last Admin: 02/16/18 10:34 Dose: 63.542 mls/hr Lorazepam (Ativan Injection -) 2 mg IVPUSH Q4H PRN PRN Reason: AGITATION Last Admin: 02/15/18 17:49 Dose: 2 mg - Objective Vital Signs: Vital Signs Temperature 99.1 F 02/16/18 08:36 Pulse Rate 114 H 02/16/18 08:36 Respiratory Rate 22 H 02/16/18 08:44 Blood Pressure 137/91 02/16/18 08:36 O2 Sat by Pulse Oximetry (%) 94 L 02/16/18 08:44 Labs: CBC, BMP 02/16/18 05:30 02/16/18 05:30 INR, PTT INR 1.08 (0.83-1.09) 02/14/18 23:00
--- NOTE | 2018-02-16 16:01 | ECHO ---
Name: ARSENIO MANZANARES Exam:Adult Echocardiogram Study Date: 02/16/2018 01:42 PM Age: 77 yrs Reason For Study: ELEVATED TROPONIN ASSESS LVF Height: 62 in Weight: 170 lb BSA: 1.8 m2 MMode/2D Measurements & Calculations IVSd: 0.88 cm EDV(Teich): 96.8 ml LVIDd: 4.6 cm ESV(Teich): 32.7 ml LVIDs: 2.9 cm LVPWd: 0.79 cm Doppler Measurements & Calculations MV E max hope: 29.1 cm/sec Ao V2 max: 157.1 cm/sec MV A max hope: 68.6 cm/sec Ao max P.9 mmHg MV E/A: 0.42 AI P1/2t: 421.8 msec AI max hope: 468.3 cm/sec LV V1 max P.4 mmHg AI max P.3 mmHg LV V1 max: 77.1 cm/sec AI dec slope: 325.2 cm/sec2 MR max hope: 668.8 cm/sec MR max P.9 mmHg Procedure A complete two-dimensional transthoracic echocardiogram was performed (2D, M-mode, Doppler and color flow Doppler). Technically limited study. Left Ventricle The left ventricle is normal in size. Left ventricular systolic function is low normal. Ejection Frac tion = 50-55%. Regional wall motion could not be accurately assessed due to technical limitation, but probab le apical hypokinesia is noted. Right Ventricle The right ventricle is normal size. The right ventricular systolic function is normal. Atria The left atrial size is normal. Right atrial size is normal. Mitral Valve There is mild mitral annular calcification. There is moderate mitral regurgitation. Tricuspid Valve The tricuspid valve is normal in structure and function. There is mild tricuspid regurgitation. Aortic Valve There is mild aortic sclerosis.;. Moderate aortic regurgitation. Pulmonic Valve The pulmonic valve is not well visualized. Great Vessels The aortic root is normal size. Pericardium/Pleura There is no pericardial effusion. Interpretation Summary Technically limited study The left ventricle is normal in size. Left ventricular systolic function is low normal. Regional wall motion could not be accurately assessed due to technical limitation, but probable apica l hypokinesia is noted Ejection Fraction = 50-55%. The right ventricular systolic function is normal. The left atrial size is normal. Right atrial size is normal. There is mild mitral annular calcification. There is moderate mitral regurgitation. There is mild tricuspid regurgitation. There is mild aortic sclerosis. Moderate aortic regurgitation. There is no pericardial effusion. Previous study is not available for comparison Francesco Regan MD 02/16/2018 04:00 PM
[2018-02-16] MEDS: SODIUM CHLORIDE 1,000 ML IV SCH (21:41)
[2018-02-16] MEDS: ACETAMINOPHEN 1000 MG/100 ML VIAL (NON FORMULARY) IVPB PRN (21:44)
[2018-02-17] MEDS: HEPARIN NA (PORCINE) 5,000 UNITS/ML 1ML VIAL SQ SCH ×3 (05:52→21:04)
[2018-02-17 06:53] LABS: HEMATOCRIT 40.9 % (32.4-45.2); HEMOGLOBIN 13.5 GM/dL (10.7-15.3); MEAN CELL VOLUME 84.9 fl (80-96); MEAN PLT VOLUME 10.5 fl (7.5-11.1); PLATELET COUNT 225 K/MM3 (134-434); RBC 4.81 M/mm3 (3.60-5.2); RDW 13.7 % (11.6-15.6); WHITE BLOOD COUNT 11.9 K/mm3 (4.0-10.0)
[2018-02-17 07:07] LABS: ANION GAP 9 MMOL/L (8-16); BLOOD UREA NITROGEN 13 mg/dL (7-18); CALCIUM 8.6 mg/dL (8.5-10.1); CHLORIDE 107 mmol/L (98-107); CO2 29 mmol/L (21-32); CREATININE 0.7 mg/dL (0.55-1.3); GLUCOSE,RANDOM 107 mg/dL (74-106); MAGNESIUM 2.2 mg/dL (1.8-2.4); SODIUM 145 mmol/L (136-145)
[2018-02-17 07:53] LABS: POTASSIUM 2.7 mmol/L (3.5-5.1)
[2018-02-17] MEDS ORDERED: POTASSIUM CHLORIDE TABS 20 MEQ TABLET.ER (FP) PO ONE (08:44)
[2018-02-17] MEDS ORDERED: DEXTROSE 5%-WATER 100 ML IVPB ONE (08:48)
--- NOTE | 2018-02-17 12:13 | PN ---
Progress Note, PICTURE ENGRAVER - Note Progress Note: MRI noted. Pt seen in solarium with family, verbal, appropriate for me mostly but euphoric, laughing. Family feels she is confused at times, not at baseline. Selected Entries 02/17/18 02/17/18 06:00 11:50 Breakfast 50% Temperature 99.3 F Laboratory Tests 02/16/18 02/17/18 05:30 05:30 WBC 10.4 H 11.9 H Tolerating diet.
--- NOTE | 2018-02-17 13:06 | EKG ---
Test Reason : Blood Pressure : / mmHG Vent. Rate : 103 BPM Atrial Rate : 103 BPM P-R Int : 130 ms QRS Dur : 088 ms QT Int : 362 ms P-R-T Axes : 046 -36 028 degrees QTc Int : 474 ms SINUS TACHYCARDIA LEFT AXIS DEVIATION JUNCTIONAL ST DEPRESSION, PROBABLY NORMAL ABNORMAL ECG WHEN COMPARED WITH ECG OF 14-FEB-2018 15:02, PREMATURE VENTRICULAR COMPLEXES ARE NO LONGER PRESENT Confirmed by MD YOBANY, PETERSON ([id number]) on 02/17/2018 1:05:45 PM Referred By: Confirmed By:PETERSON HAYWOOD MD
--- NOTE | 2018-02-17 13:07 | PN ---
Physical Exam: SUBJECTIVE: Patient seen and examined this AM. She was sitting comfortably at the end of the carreon conversing with her son. The son states that she is not at baseline by any means but is somewhat improved from admission. He says that her mental status seems to improve when she is really focusing, but at baseline she is still confused. OBJECTIVE: Vital Signs Period Temp Pulse Resp BP Sys/Vázquez Pulse Ox Last 24 Hr 97.9 F-99.8 F 86-106 18-21 112-150/89-98 93-93 GENERAL: A&O to person, place, and time. No acute distress HEAD: Normocephalic, atraumatic. EYES: PERRL, no scleral icterus EARS, NOSE, THROAT: oropharynx clear without exudates. Moist mucous membranes. NECK: supple without lymphadenopathy LUNGS: CTA b/l, no crackles or wheezes HEART: Regular rate and rhythm, normal S1 and S2 without murmur ABDOMEN: Soft, nontender to palpation, normoactive bowel sounds MUSCULOSKELETAL: No bony deformities or tenderness. EXTREMITIES: 2+ pulses, warm, well-perfused. No peripheral edema. NEUROLOGICAL: Cranial nerves II-XII grossly intact. No gross motor deficits. Pt pleasantly confused with appropriate responses. Laboratory Results - last 24 hr 02/14/18 02/17/18 02/17/18 23:00 05:30 05:30 WBC 11.9 H RBC 4.81 Hgb 13.5 Hct 40.9 MCV 84.9 MCH 28.0 MCHC 33.0 RDW 13.7 Plt Count 225 MPV 10.5 Sodium 145 Potassium 2.7 L* Chloride 107 Carbon Dioxide 29 Anion Gap 9 BUN 13 Creatinine 0.7 Creat Clearance w eGFR > 60 Random Glucose 107 H Calcium 8.6 Phosphorus 4.0 Magnesium 2.2 Prolactin 28.4 H Active Medications Generic Name Dose Route Start Last Admin Trade Name Freq PRN Reason Stop Dose Admin Acetaminophen 1,000 mg 02/14/18 19:49 02/16/18 21:44 Ofirmev Injection - IVPB 1,000 mg Q6H PRN Administration FEVER Heparin Sodium (Porcine) 5,000 unit 02/15/18 06:00 02/17/18 05:52 Heparin - SQ 5,000 unit TID MERLIN Administration Sodium Chloride 1,000 mls @ 75 mls/hr 02/14/18 20:00 02/16/18 21:41 Normal Saline - IV 75 mls/hr ASDIR MERLIN Administration Ceftriaxone Sodium 2 gm/ 100 mls @ 200 mls/hr 02/15/18 10:00 02/16/18 09:39 Dextrose IVPB 200 mls/hr DAILY MERLIN Administration Protocol Acyclovir 750 mg/ Dextrose 115 mls @ 115 mls/hr 02/17/18 10:30 IVPB Q8H-IV MERLIN Lorazepam 2 mg 02/14/18 20:44 02/15/18 17:49 Ativan Injection - IVPUSH 2 mg Q4H PRN Administration AGITATION ASSESSMENT/PLAN: ASSESSMENT/PLAN: 77 yo Female with PMH of Depression on Nardil admitted with Altered mental status as per family. 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 -Case discussed with ID -Acyclovir 10 mg/kg IV Q8, pt on fluids, will increase to 100 cc/hr -Discussed with family who states she is improved from admission, though definitely not back to baseline DVT Prophylaxis -Heparin 5000 units SQ TID FEN -Fluids: NS @100 cc/hr -Electrolytes: No electrolyte abnormalities, BMP in AM -Nutrition: Dysphagia Puree with nectar thickened liquids Disposition Telemetry Visit type - Emergency Visit Emergency Visit: Yes ED Registration Date: 02/14/18 Care time: The patient presented to the Emergency Department on the above date and was hospitalized for further evaluation of their emergent condition. - New Patient This patient is new to me today: No - Critical Care Critical Care patient: No
[2018-02-17] MEDS: CEFTRIAXONE 2 GM in DEXTROSE 5%-WATER 100 ML IVPB SCH (14:21)
[2018-02-17] MEDS: ACYCLOVIR INJECTION 750 MG in DEXTROSE 5%-WATER - 100 ML IVPB SCH ×2 (15:20→18:41)
[2018-02-17] MEDS: KCL 10 MEQ IVPB 10 MEQ/100 ML INFUS.BAG IVPB SCH ×2 (16:14→17:58)
--- NOTE | 2018-02-17 17:28 | PN ---
Teaching Attending Note Name of Resident: Sumit Morin ATTENDING PHYSICIAN STATEMENT I saw and evaluated the patient. I reviewed the resident's note and discussed the case with the resident. I agree with the resident's findings and plan as documented. SUBJECTIVE:c/o tremors. not improved since arrival. deneis Cp, SOB, fever,chills , N/v/C/D OBJECTIVE: Last Vital Signs Temp Pulse Resp BP Pulse Ox 101.1 F H 87 18 133/96 95 02/17/18 15:05 02/17/18 14:34 02/17/18 14:34 02/17/18 14:34 02/17/18 09:00 General NAD A&O x3 CV S1 S2 RRR no murmur/rub/gallop Lungs CTA B/L no wheezing/rales/rhonchi Neuro CN grossly intact, tremor at rest and on intention. sensation and strength equal in all 4 extremities. gait testing deferred ASSESSMENT AND PLAN: 77 yo F with PMhx of depression on Nardil for 40 years admitted with AMS. 1. Acute delirium- as per family seems overall improved but does wax/wane. MRI showing swelling R temporal lobe concerning for herpes encephalitis. will start acyclovir. LP was done and HSV titers were not sent. as per at bedside she did have HSV outbreak about 2 months ago. does not take anti-virals for flares uses OTC topicals prn. will cont to monitor mental status. F/U EEG. neuro and ID on board. on empiric ceftriaxone day 3. cont to hold MAOI 2. Depression- hold all medications at this time. will need to f/u with psych to re-start medication vs alternative medication. 3. DVT ppx- hep sq 4. PT assessment. spoke with and daughter present at bedside. all questions answered. verbalized understanding and agreement
[2018-02-17] MEDS ORDERED: SODIUM CHLORIDE 1,000 ML IV SCH (18:40)
[2018-02-17 22:48] LABS: URINE APPEARANCE CLEAR; URINE BILIRUBIN NEGATIVE (<2.0 mg/dL); URINE COLOR STRAW; URINE GLUCOSE (UA) NEGATIVE (NEGATIVE); URINE KETONE NEGATIVE (NEGATIVE); URINE LEUK ESTERASE 2+ (NEGATIVE); URINE NITRITE NEGATIVE (NEGATIVE); URINE PROTEIN NEGATIVE (NEGATIVE); URINE UROBILINOGEN NEGATIVE mg/dL (0.2-1.0)
[2018-02-17 22:56] LABS: EPI CELLS RARE /HPF (FEW); URINE MUCUS RARE
[2018-02-17] MEDS: ACETAMINOPHEN 1000 MG/100 ML VIAL (NON FORMULARY) IVPB PRN (23:13)
[2018-02-18] MEDS: ACYCLOVIR INJECTION 750 MG in DEXTROSE 5%-WATER - 100 ML IVPB SCH ×3 (01:16→17:15)
[2018-02-18] MEDS: HEPARIN NA (PORCINE) 5,000 UNITS/ML 1ML VIAL SQ SCH ×3 (05:09→21:36)
[2018-02-18] MEDS: ACETAMINOPHEN 1000 MG/100 ML VIAL (NON FORMULARY) IVPB PRN (05:09)
[2018-02-18 07:11] LABS: BASO % 0.4 % (0-2.0); EOS % 0.7 % (0-4.5); HEMOGLOBIN 13.3 GM/dL (10.7-15.3); LYMPH % 16.8 % (8-40); MCH 27.2 pg (25.7-33.7); MCHC 31.7 g/dl (32.0-36.0); MEAN CELL VOLUME 85.9 fl (80-96); MEAN PLT VOLUME 10.4 fl (7.5-11.1); MONO % 9.1 % (3.8-10.2); PLATELET COUNT 257 K/MM3 (134-434); RBC 4.89 M/mm3 (3.60-5.2); RDW 14.1 % (11.6-15.6); WHITE BLOOD COUNT 11.8 K/mm3 (4.0-10.0)
[2018-02-18] MEDS ORDERED: DEXTROSE 5%-WATER 100 ML IVPB ONE (08:05)
[2018-02-18 08:08] LABS: ANION GAP 10 MMOL/L (8-16); BLOOD UREA NITROGEN 13 mg/dL (7-18); CALCIUM 8.8 mg/dL (8.5-10.1); CHLORIDE 110 mmol/L (98-107); CO2 26 mmol/L (21-32); CREATININE 0.7 mg/dL (0.55-1.3); GLUCOSE,RANDOM 100 mg/dL (74-106); MAGNESIUM 2.3 mg/dL (1.8-2.4); POTASSIUM 3.3 mmol/L (3.5-5.1); SODIUM 146 mmol/L (136-145)
[2018-02-18] MEDS ORDERED: POTASSIUM CHLORIDE TABS 20 MEQ TABLET.ER (FP) PO ONE (08:47)
[2018-02-18] MEDS ORDERED: SODIUM CHLORIDE 0.45%/POT 20 MEQ/1,000 ML INFUS.BAG IV SCH (09:00)
[2018-02-18] MEDS ORDERED: D5-1/2NS+20 MEQ KCL - 20 MEQ/1,000 ML INFUS.BAG IV SCH (09:00)
[2018-02-18] MEDS: CEFTRIAXONE 2 GM in DEXTROSE 5%-WATER 100 ML IVPB SCH (09:25)
--- NOTE | 2018-02-18 09:32 | PN ---
Physical Exam: SUBJECTIVE: Patient seen and examined this AM. She states that she is feeling better and is able to express that she knows she is confused some. As per son she is somewhat better today than yesterday. OBJECTIVE: Vital Signs Period Temp Pulse Resp BP Sys/Vázquez Pulse Ox Last 24 Hr 98.6 F-101.2 F 87-105 18-18 133-146/91-106 92-95 GENERAL: A&O to person, place, and time. No acute distress HEAD: Normocephalic, atraumatic. EYES: PERRL, no scleral icterus EARS, NOSE, THROAT: oropharynx clear without exudates. Moist mucous membranes. NECK: supple without lymphadenopathy LUNGS: CTA b/l, no crackles or wheezes HEART: Regular rate and rhythm, normal S1 and S2 without murmur ABDOMEN: Soft, nontender to palpation, normoactive bowel sounds NEUROLOGICAL: No gross motor deficits. More appropriate responses today Laboratory Results - last 24 hr 02/15/18 02/17/18 02/18/18 05:17 20:10 06:10 WBC 11.8 H RBC 4.89 Hgb 13.3 Hct 42.0 MCV 85.9 MCH 27.2 MCHC 31.7 L RDW 14.1 Plt Count 257 MPV 10.4 Absolute Neuts (auto) 8.6 H Neutrophils % 73.0 Lymphocytes % 16.8 D Monocytes % 9.1 Eosinophils % 0.7 D Basophils % 0.4 D Nucleated RBC % 0 Sodium Potassium Chloride Carbon Dioxide Anion Gap BUN Creatinine Creat Clearance w eGFR Random Glucose Calcium Phosphorus Magnesium Ceruloplasmin 27.3 Urine Color Straw Urine Appearance Clear Urine pH 7.0 D Ur Specific [place] 1.006 L Urine Protein Negative Urine Glucose (UA) Negative Urine Ketones Negative Urine Blood 1+ H Urine Nitrite Negative Urine Bilirubin Negative Urine Urobilinogen Negative Ur Leukocyte Esterase 2+ H Urine WBC (Auto) 6 Urine RBC (Auto) <1 Ur Epithelial Cells Rare Urine Mucus Rare 02/18/18 06:10 WBC RBC Hgb Hct MCV MCH MCHC RDW Plt Count MPV Absolute Neuts (auto) Neutrophils % Lymphocytes % Monocytes % Eosinophils % Basophils % Nucleated RBC % Sodium 146 H Potassium 3.3 L Chloride 110 H Carbon Dioxide 26 Anion Gap 10 BUN 13 Creatinine 0.7 Creat Clearance w eGFR > 60 Random Glucose 100 Calcium 8.8 Phosphorus 4.0 Magnesium 2.3 Ceruloplasmin Urine Color Urine Appearance Urine pH Ur Specific [place] Urine Protein Urine Glucose (UA) Urine Ketones Urine Blood Urine Nitrite Urine Bilirubin Urine Urobilinogen Ur Leukocyte Esterase Urine WBC (Auto) Urine RBC (Auto) Ur Epithelial Cells Urine Mucus Active Medications Generic Name Dose Route Start Last Admin Trade Name Freq PRN Reason Stop Dose Admin Acetaminophen 1,000 mg 02/14/18 19:49 02/18/18 05:09 Ofirmev Injection - IVPB 1,000 mg Q6H PRN Administration FEVER Heparin Sodium (Porcine) 5,000 unit 02/15/18 06:00 02/18/18 05:09 Heparin - SQ 5,000 unit TID [facility] Administration Ceftriaxone Sodium 2 gm/ 100 mls @ 200 mls/hr 02/15/18 10:00 02/18/18 09:25 Dextrose IVPB 200 mls/hr DAILY [facility] Administration Protocol Acyclovir 750 mg/ Dextrose 115 mls @ 115 mls/hr 02/17/18 10:30 02/18/18 09:25 IVPB 115 mls/hr Q8H-IV [facility] Administration Potassium Chloride/Sodium Chloride 20 meq in 1,000 mls @ 100 mls/hr 02/18/18 09:00 02/18/18 09:28 1/2ns+20meq Kcl IV 100 mls/hr ASDIR [facility] Administration Lorazepam 2 mg 02/14/18 20:44 02/15/18 17:49 Ativan Injection - IVPUSH 2 mg Q4H PRN Administration AGITATION ASSESSMENT/PLAN: 77 yo Female with PMH of Depression on Nardil admitted with Altered mental status as per family. 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 -Acyclovir 10 mg/kg IV Q8, pt on fluids, 100 cc/hr, BMPs daily to monitor renal function -Discussed with family, pt improved from yesterday Headache -Pt requesting Ibuprofen -Ibuprofen 400 mg PO Q6 PRN DVT Prophylaxis -Heparin 5000 units SQ TID FEN -Fluids: 1/2 NS + KCl @100 cc/hr -Electrolytes: No electrolyte abnormalities, BMP in AM -Nutrition: Mechanical Soft (chopped) with nectar thickened liquids Disposition Telemetry Visit type - Emergency Visit Emergency Visit: Yes ED Registration Date: 02/14/18 Care time: The patient presented to the Emergency Department on the above date and was hospitalized for further evaluation of their emergent condition. - New Patient This patient is new to me today: No - Critical Care Critical Care patient: No
--- NOTE | 2018-02-18 13:14 | PN ---
Teaching Attending Note Name of Resident: Sumit Morin ATTENDING PHYSICIAN STATEMENT I saw and evaluated the patient. I reviewed the resident's note and discussed the case with the resident. I agree with the resident's findings and plan as documented. SUBJECTIVE:slightly dizzy today when walking. had MIN this am as well which she states resolved with tylenol. also admits to urinary frequency. denies CP, SOB, fever, chills, N/V/C/D, MIN or blurred vision OBJECTIVE: Last Vital Signs Temp Pulse Resp BP Pulse Ox 100.0 F H 94 H 18 143/96 94 L 02/18/18 08:25 02/18/18 08:25 02/18/18 08:32 02/18/18 08:25 02/18/18 08:32 General NAD A&O x3 Extremities +intention tremor. does not appear to have tremor at rest at this time ASSESSMENT AND PLAN: 77 yo F with PMhx of depression on Nardil for 40 years admitted with AMS. 1. Acute delirium-appears to be less confused and answers questions appropriately and able to hold intelligent conversation however does repeat herself often. tremor has also improved. awaiting on EEG results. on Acylcovir and Ceftriaxone. will need to d/w Neuro and ID about results of MRI. HSV PCR was not sent. unclear of utility of sending serum at this point, especially as pt has significantly improved. 2. Fever- Tm 101.2. sepsis workup sent UA 2+LE with wbc with urinary frequency. on ceftriaxone. may need to consider broadening abx if continues to have fevers. consider renal u/s to look for infection. f/u Cx 3. hypokalemia- KCl po 4. Depression- hold all medications at this time. will need to f/u with psych to re-start medication vs alternative medication. 5. DVT ppx- hep sq 6. PT assessment. spoke with children present at bedside. all questions answered. verbalized understanding and agreement
[2018-02-18] MEDS: LACTOBACILLUS ACIDOPHILUS 1 TABLET PO SCH (13:57)
[2018-02-18] MEDS ORDERED: PT OWN MED DRAWER 7, Y5N ONE (17:14)
--- NOTE | 2018-02-18 18:25 | PN ---
Progress Note, Physician History of Present Illness: MRI findings noted Pt started on empiric IV acyclovir Mental status significantly improved today OOB in chair Awake, alert oriented x 3 C/O mild frontal H/A at times Daughter present during exam Agrees mom's mental status much improved Temp noted - Current Medication List Current Medications: Active Medications Acetaminophen (Ofirmev Injection -) 1,000 mg IVPB Q6H PRN PRN Reason: FEVER Last Admin: 02/18/18 05:09 Dose: 1,000 mg Heparin Sodium (Porcine) (Heparin -) 5,000 unit SQ TID [facility] Last Admin: 02/18/18 13:58 Dose: 5,000 unit Ceftriaxone Sodium 2 gm/ (Dextrose) 100 mls @ 200 mls/hr IVPB DAILY [facility]; Protocol Last Admin: 02/18/18 09:25 Dose: 200 mls/hr Acyclovir 750 mg/ Dextrose 115 mls @ 115 mls/hr IVPB Q8H-IV [facility] Last Admin: 02/18/18 17:15 Dose: 115 mls/hr Potassium Chloride/Sodium Chloride (1/2ns+20meq Kcl) 20 meq in 1,000 mls @ 100 mls/hr IV ASDIR [facility] Last Admin: 02/18/18 09:28 Dose: 100 mls/hr Ibuprofen (Motrin -) 400 mg PO Q6H PRN PRN Reason: FEVER Lactobacillus Acidophilus (Bacid -) 1 tab PO DAILY [facility] Last Admin: 02/18/18 13:57 Dose: 1 tab Lorazepam (Ativan Injection -) 2 mg IVPUSH Q4H PRN PRN Reason: AGITATION Last Admin: 02/15/18 17:49 Dose: 2 mg - Objective Vital Signs: Vital Signs Temperature 98.7 F 02/18/18 14:11 Pulse Rate 100 H 02/18/18 14:11 Respiratory Rate 20 02/18/18 14:11 Blood Pressure 106/55 L 02/18/18 14:11 O2 Sat by Pulse Oximetry (%) 94 L 02/18/18 08:32 Constitutional: Yes: No Distress Eyes: Yes: Conjunctiva Clear Neck: Yes: Supple Cardiovascular: Yes: Regular Rate and Rhythm, S1, S2 Respiratory: Yes: CTA Bilaterally Gastrointestinal: Yes: Normal Bowel Sounds, Soft Edema: No Labs: CBC, BMP 02/18/18 06:10 02/18/18 06:10 INR, PTT INR 1.08 (0.83-1.09) 02/14/18 23:00 Assessment/Plan Acute delirium ? etiology R/O viral encephalitis ? HSV Continue empiric IV ACV WNV serology
[2018-02-18] MEDS: IBUPROFEN 400 MG TABLET (FP) PO PRN (21:35)
[2018-02-19] MEDS ORDERED: PT OWN MED DRAWER 7, Y5N ONE ×3 (01:23→10:35)
[2018-02-19] MEDS: ACYCLOVIR INJECTION 750 MG in DEXTROSE 5%-WATER - 100 ML IVPB SCH ×3 (01:28→17:28)
[2018-02-19] MEDS: IBUPROFEN 400 MG TABLET (FP) PO PRN ×2 (03:32→21:21)
[2018-02-19] MEDS: HEPARIN NA (PORCINE) 5,000 UNITS/ML 1ML VIAL SQ SCH ×3 (07:02→21:21)
[2018-02-19 07:50] LABS: HEMATOCRIT 41.4 % (32.4-45.2); HEMOGLOBIN 13.2 GM/dL (10.7-15.3); MCH 27.4 pg (25.7-33.7); MCHC 31.8 g/dl (32.0-36.0); MEAN PLT VOLUME 10.2 fl (7.5-11.1); PLATELET COUNT 221 K/MM3 (134-434); RBC 4.82 M/mm3 (3.60-5.2); WHITE BLOOD COUNT 9.8 K/mm3 (4.0-10.0)
[2018-02-19 08:15] LABS: ANION GAP 7 MMOL/L (8-16); BLOOD UREA NITROGEN 11 mg/dL (7-18); CALCIUM 8.8 mg/dL (8.5-10.1); CHLORIDE 111 mmol/L (98-107); CO2 27 mmol/L (21-32); CREATININE 0.6 mg/dL (0.55-1.3); GLUCOSE,RANDOM 84 mg/dL (74-106); MAGNESIUM 2.1 mg/dL (1.8-2.4); PHOSPHOROUS 4.2 mg/dL (2.5-4.9); POTASSIUM 3.7 mmol/L (3.5-5.1); SODIUM 145 mmol/L (136-145)
[2018-02-19] MEDS ORDERED: DEXTROSE 5%-WATER 100 ML IVPB ONE (09:50)
[2018-02-19] MEDS: LACTOBACILLUS ACIDOPHILUS 1 TABLET PO SCH (09:56)
[2018-02-19] MEDS: CEFTRIAXONE 2 GM in DEXTROSE 5%-WATER 100 ML IVPB SCH (10:10)
--- NOTE | 2018-02-19 11:28 | PN ---
Progress Note, Physician History of Present Illness: OOB in chair Awake, alert oriented x 3 No complaints No headache Mental status much improved Low grade fever WBC WNL WNV (-) - Current Medication List Current Medications: Active Medications Acetaminophen (Ofirmev Injection -) 1,000 mg IVPB Q6H PRN PRN Reason: FEVER Last Admin: 02/18/18 05:09 Dose: 1,000 mg Heparin Sodium (Porcine) (Heparin -) 5,000 unit SQ TID [facility] Last Admin: 02/19/18 07:02 Dose: 5,000 unit Ceftriaxone Sodium 2 gm/ (Dextrose) 100 mls @ 200 mls/hr IVPB DAILY [facility]; Protocol Last Admin: 02/19/18 10:10 Dose: 200 mls/hr Acyclovir 750 mg/ Dextrose 115 mls @ 115 mls/hr IVPB Q8H-IV [facility] Last Admin: 02/19/18 10:11 Dose: 115 mls/hr Potassium Chloride/Sodium Chloride (1/2ns+20meq Kcl) 20 meq in 1,000 mls @ 100 mls/hr IV ASDIR [facility] Last Admin: 02/18/18 09:28 Dose: 100 mls/hr Ibuprofen (Motrin -) 400 mg PO Q6H PRN PRN Reason: FEVER Last Admin: 02/19/18 03:32 Dose: 400 mg Lactobacillus Acidophilus (Bacid -) 1 tab PO DAILY [facility] Last Admin: 02/19/18 09:56 Dose: 1 tab Lorazepam (Ativan Injection -) 2 mg IVPUSH Q4H PRN PRN Reason: AGITATION Last Admin: 02/15/18 17:49 Dose: 2 mg - Objective Vital Signs: Vital Signs Temperature 98.2 F 02/19/18 08:44 Pulse Rate 95 H 02/19/18 08:44 Respiratory Rate 20 02/19/18 08:44 Blood Pressure 116/82 02/19/18 08:44 O2 Sat by Pulse Oximetry (%) 92 L 02/18/18 22:00 Constitutional: Yes: No Distress Eyes: Yes: Conjunctiva Clear Cardiovascular: Yes: Regular Rate and Rhythm, S1, S2 Respiratory: Yes: CTA Bilaterally Gastrointestinal: Yes: Normal Bowel Sounds, Soft. No: Tenderness Labs: CBC, BMP 02/19/18 06:35 02/19/18 06:35 INR, PTT INR 1.08 (0.83-1.09) 02/14/18 23:00 Assessment/Plan Acute delirium ? etiology R/O viral encephalitis ? HSV Continue empiric IV ACV Will need 14d course Discussed with at bedside. Recommend PICC and short term SNF placement to complete course of therapy for possible HSV encephalitis
--- NOTE | 2018-02-19 12:49 | PN ---
Teaching Attending Note Name of Resident: Sumit Morin ATTENDING PHYSICIAN STATEMENT I saw and evaluated the patient. I reviewed the resident's note and discussed the case with the resident. I agree with the resident's findings and plan as documented. SUBJECTIVE:c/o dizzyness when walking. states she feels better and was able to sleep well last night. denies Cp, SOB, fever, chills, N/V/C/D, blurred vision OBJECTIVE: Last Vital Signs Temp Pulse Resp BP Pulse Ox 98.2 F 95 H 20 116/82 92 L 02/19/18 08:44 02/19/18 08:44 02/19/18 08:44 02/19/18 08:44 02/18/18 22:00 General NAD A&O x3 ASSESSMENT AND PLAN: 77 yo F with PMhx of depression on Nardil for 40 years admitted with AMS. 1. 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 slowly improving which at bedside agrees. dizzyness likely from encephalitis however will check orthostatics to ensure not volume depleted although she does not appear to be. on Acyclovir day 3. will need minimum of 14 day course. will need to cont low dose IVF while on this to prevent renal failure. on empiric ceftriaxone which can d/w ID about stopping at this time. EEG pending. 2. Fever- afebrile. f/u cx. 3. hypokalemia- resolved 4. Depression- hold all medications at this time. will need to f/u with psych to re-start medication vs alternative medication. 5. DVT ppx- hep sq 6. WIll need 2weeks of IV acyclovir and continuous IVF for hydration. spoke with CM about SNF placement for treatment
--- NOTE | 2018-02-19 13:16 | PN ---
Physical Exam: SUBJECTIVE: Patient seen and examined this AM. She is improved from yesterday. Expresses concern about not taking depression medications. She is also complaining of continued dizziness. OBJECTIVE: Vital Signs Period Temp Pulse Resp BP Sys/Vázquez Pulse Ox Last 24 Hr 98.2 F-100.2 F 79-100 18-20 106-133/55-99 92-92 GENERAL: A&O to person, place, and time. No acute distress HEAD: Normocephalic, atraumatic. EYES: PERRL, no scleral icterus EARS, NOSE, THROAT: oropharynx clear without exudates. Moist mucous membranes. NECK: supple without lymphadenopathy LUNGS: CTA b/l, no crackles or wheezes HEART: Regular rate and rhythm, normal S1 and S2 without murmur ABDOMEN: Soft, nontender to palpation, normoactive bowel sounds NEUROLOGICAL: No gross motor deficits. More appropriate responses today Laboratory Results - last 24 hr 02/14/18 02/19/18 02/19/18 17:55 06:35 06:35 WBC 9.8 RBC 4.82 Hgb 13.2 Hct 41.4 MCV 86.0 MCH 27.4 MCHC 31.8 L RDW 14.0 Plt Count 221 MPV 10.2 Sodium 145 Potassium 3.7 Chloride 111 H Carbon Dioxide 27 Anion Gap 7 L BUN 11 Creatinine 0.6 Creat Clearance w eGFR > 60 Random Glucose 84 Calcium 8.8 Phosphorus 4.2 Magnesium 2.1 CSF [place] IgG Ab Negative CSF [place] IgM Ab Negative Active Medications Generic Name Dose Route Start Last Admin Trade Name Freq PRN Reason Stop Dose Admin Acetaminophen 1,000 mg 02/14/18 19:49 02/18/18 05:09 Ofirmev Injection - IVPB 1,000 mg Q6H PRN Administration FEVER Heparin Sodium (Porcine) 5,000 unit 02/15/18 06:00 02/19/18 07:02 Heparin - SQ 5,000 unit TID [facility] Administration Ceftriaxone Sodium 2 gm/ 100 mls @ 200 mls/hr 02/15/18 10:00 02/19/18 10:10 Dextrose IVPB 200 mls/hr DAILY [facility] Administration Protocol Acyclovir 750 mg/ Dextrose 115 mls @ 115 mls/hr 02/17/18 10:30 02/19/18 10:11 IVPB 115 mls/hr Q8H-IV [facility] Administration Potassium Chloride/Sodium Chloride 20 meq in 1,000 mls @ 75 mls/hr 02/19/18 12 :37 1/2ns+20meq Kcl IV ASDIR [facility] Ibuprofen 400 mg 02/18/18 11:28 02/19/18 03:32 Motrin - PO 400 mg Q6H PRN Administration FEVER Lactobacillus Acidophilus 1 tab 02/18/18 11:45 02/19/18 09:56 Bacid - PO 1 tab DAILY [facility] Administration Lorazepam 2 mg 02/14/18 20:44 02/15/18 17:49 Ativan Injection - IVPUSH 2 mg Q4H PRN Administration AGITATION ASSESSMENT/PLAN: 77 yo Female with PMH of Depression on Nardil admitted with Altered mental status as per family. Altered Mental Status -Psychiatry Consult Appreciated, will discuss for further management -Hold Nardil -ID Consultation appreciated -Rocephin 2 gm IV Daily -Ceruloplasmin 27.3 -TSH normal -MRI with Swollen medial aspect of right temporal lobe with restrictive changes on diffusion weighted images concerning for herpes encephalitis -Acyclovir 10 mg/kg IV Q8, pt on fluids, 100 cc/hr, BMPs daily to monitor renal function Headache -Pt requesting Ibuprofen -Ibuprofen 400 mg PO Q6 PRN DVT Prophylaxis -Heparin 5000 units SQ TID FEN -Fluids: 1/2 NS + KCl @100 cc/hr -Electrolytes: No electrolyte abnormalities, BMP in AM -Nutrition: Mechanical Soft (chopped) with nectar thickened liquids Disposition DC Tele, Transfer to Med/Surg Visit type - Emergency Visit Emergency Visit: Yes ED Registration Date: 02/14/18 Care time: The patient presented to the Emergency Department on the above date and was hospitalized for further evaluation of their emergent condition. - New Patient This patient is new to me today: No - Critical Care Critical Care patient: No
[2018-02-19] MEDS: SODIUM CHLORIDE 0.45%/POT 20 MEQ/1,000 ML INFUS.BAG IV SCH (13:54)
--- NOTE | 2018-02-19 14:05 | PN ---
Progress Note, RN PACU - Note Progress Note: Selected Entries 02/18/18 02/18/18 02/18/18 01:18 05:00 08:25 Breakfast Supper Temperature 98.6 F 101.2 F H 100.0 F H 02/18/18 02/18/18 02/18/18 14:11 17:00 19:55 Breakfast Supper 100% Temperature 98.7 F 98.2 F 02/18/18 02/19/18 02/19/18 22:00 02:00 08:44 Breakfast Supper Temperature 100.2 F H 98.2 F 98.2 F 02/19/18 11:07 Breakfast 100% Supper Temperature Laboratory Tests 02/18/18 02/19/18 06:10 06:35 WBC 11.8 H 9.8
[2018-02-19] MEDS ORDERED: LORazepam 0.5 MG TABLET PO ONE (14:56)
[2018-02-20] MEDS: ACYCLOVIR INJECTION 750 MG in DEXTROSE 5%-WATER - 100 ML IVPB SCH ×3 (01:16→18:12)
[2018-02-20 06:41] LABS: HEMATOCRIT 41.6 % (32.4-45.2); HEMOGLOBIN 13.3 GM/dL (10.7-15.3); MCH 27.5 pg (25.7-33.7); MCHC 31.8 g/dl (32.0-36.0); MEAN CELL VOLUME 86.3 fl (80-96); MEAN PLT VOLUME 10.1 fl (7.5-11.1); PLATELET COUNT 217 K/MM3 (134-434); RBC 4.83 M/mm3 (3.60-5.2); RDW 14.1 % (11.6-15.6)
[2018-02-20] MEDS: HEPARIN NA (PORCINE) 5,000 UNITS/ML 1ML VIAL SQ SCH ×3 (06:41→22:05)
[2018-02-20 07:34] LABS: ANION GAP 9 MMOL/L (8-16); BLOOD UREA NITROGEN 16 mg/dL (7-18); CALCIUM 8.5 mg/dL (8.5-10.1); CHLORIDE 108 mmol/L (98-107); CO2 26 mmol/L (21-32); CREATININE 0.7 mg/dL (0.55-1.3); GLUCOSE,RANDOM 89 mg/dL (74-106); MAGNESIUM 2.2 mg/dL (1.8-2.4); PHOSPHOROUS 4.9 mg/dL (2.5-4.9); POTASSIUM 3.5 mmol/L (3.5-5.1); SODIUM 144 mmol/L (136-145)
[2018-02-20] MEDS ORDERED: PT OWN MED DRAWER 7, Y5N ONE ×2 (08:14→17:18)
[2018-02-20] MEDS ORDERED: DEXTROSE 5%-WATER 100 ML IVPB ONE (08:15)
[2018-02-20] MEDS: IBUPROFEN 400 MG TABLET (FP) PO PRN ×2 (09:45→22:04)
[2018-02-20] MEDS: LACTOBACILLUS ACIDOPHILUS 1 TABLET PO SCH (09:46)
[2018-02-20] MEDS: CEFTRIAXONE 2 GM in DEXTROSE 5%-WATER 100 ML IVPB SCH (09:50)
--- NOTE | 2018-02-20 10:42 | PN ---
Physical Exam: SUBJECTIVE: Patient seen and examined this AM. She is resting comfortably in bed. She was able to sleep well last night and has not complained of the dizziness since yesterday morning as per the son. OBJECTIVE: Vital Signs Period Temp Pulse Resp BP Sys/Vázquez Pulse Ox Last 24 Hr 97.9 F-9897 F 78-91 18-20 115-137/62-89 96-96 GENERAL: A&O to person, place, and time. No acute distress HEAD: Normocephalic, atraumatic. EYES: PERRL, no scleral icterus EARS, NOSE, THROAT: oropharynx clear without exudates. Moist mucous membranes. NECK: supple without lymphadenopathy LUNGS: CTA b/l, no crackles or wheezes HEART: Regular rate and rhythm, normal S1 and S2 without murmur ABDOMEN: Soft, nontender to palpation, normoactive bowel sounds NEUROLOGICAL: No gross motor deficits. Appropriate responses, though often goes off on tangent Laboratory Results - last 24 hr 02/20/18 02/20/18 05:30 05:30 WBC 9.0 RBC 4.83 Hgb 13.3 Hct 41.6 MCV 86.3 MCH 27.5 MCHC 31.8 L RDW 14.1 Plt Count 217 MPV 10.1 Sodium 144 Potassium 3.5 Chloride 108 H Carbon Dioxide 26 Anion Gap 9 BUN 16 Creatinine 0.7 Creat Clearance w eGFR > 60 Random Glucose 89 Calcium 8.5 Phosphorus 4.9 Magnesium 2.2 Active Medications Generic Name Dose Route Start Last Admin Trade Name Freq PRN Reason Stop Dose Admin Acetaminophen 650 mg 02/19/18 16:27 Tylenol - PO Q6H PRN FEVER Heparin Sodium (Porcine) 5,000 unit 02/15/18 06:00 02/20/18 06:41 Heparin - SQ 5,000 unit TID [facility] Administration Ceftriaxone Sodium 2 gm/ 100 mls @ 200 mls/hr 02/15/18 10:00 02/20/18 09:50 Dextrose IVPB 200 mls/hr DAILY [facility] Administration Protocol Acyclovir 750 mg/ Dextrose 115 mls @ 115 mls/hr 02/17/18 10:30 02/20/18 09:46 IVPB 115 mls/hr Q8H-IV [facility] Administration Potassium Chloride/Sodium Chloride 20 meq in 1,000 mls @ 75 mls/hr 02/19/18 12 :37 02/19/18 13:54 1/2ns+20meq Kcl IV 75 mls/hr ASDIR [facility] Administration Ibuprofen 400 mg 02/18/18 11:28 02/20/18 09:45 Motrin - PO 400 mg Q6H PRN Administration FEVER Lactobacillus Acidophilus 1 tab 02/18/18 11:45 02/20/18 09:46 Bacid - PO 1 tab DAILY [facility] Administration ASSESSMENT/PLAN: 77 yo Female with PMH of Depression on Nardil admitted with Altered mental status as per family. Altered Mental Status -Psychiatry Consult Appreciated, will discuss for further management -Hold Nardil -ID Consultation appreciated -MRI with Swollen medial aspect of right temporal lobe with restrictive changes on diffusion weighted images concerning for herpes encephalitis -Acyclovir 10 mg/kg IV Q8, pt on fluids, 100 cc/hr, BMPs daily to monitor renal function -DC Rocephin -Dizziness and headache improving -Will need total of 14 days Acyclovir as per ID -Pending SNF placement, will need PICC line inserted upon discharge Headache -Pt requesting Ibuprofen -Ibuprofen 400 mg PO Q6 PRN DVT Prophylaxis -Heparin 5000 units SQ TID FEN -Fluids: 1/2 NS + KCl @100 cc/hr -Electrolytes: No electrolyte abnormalities, BMP in AM -Nutrition: Mechanical Soft (chopped) with thin liquids Disposition Awaiting transfer to Med/Surg, DC planning Visit type - Emergency Visit Emergency Visit: Yes ED Registration Date: 02/14/18 Care time: The patient presented to the Emergency Department on the above date and was hospitalized for further evaluation of their emergent condition. - New Patient This patient is new to me today: No - Critical Care Critical Care patient: No
--- NOTE | 2018-02-20 11:08 | PN ---
Teaching Attending Note Name of Resident: Sumit Morin ATTENDING PHYSICIAN STATEMENT I saw and evaluated the patient. I reviewed the resident's note and discussed the case with the resident. I agree with the resident's findings and plan as documented. SUBJECTIVE:states she is feeling better, she is able to sleep and eat better. denies Cp, SOB, fever, chills, N/v/C/D OBJECTIVE: Last Vital Signs Temp Pulse Resp BP Pulse Ox 98 F 80 18 116/70 96 02/20/18 10:00 02/20/18 10:00 02/20/18 10:00 02/20/18 10:00 02/19/18 22:00 General NAD A&O x3 ASSESSMENT AND PLAN: 77 yo F with PMhx of depression on Nardil for 40 years admitted with AMS. 1. 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 slowly improving, does repeat herself but is aware of what she is being treated for and the next steps. on empiric ceftriaxone day 5, will d/c after today. and Acyclovir day 4. will need 14 days total. low dose IVF to prevent renal failure. looking into facilities for SNF placement and [facility] abx. EEG pending. 2. Fever- afebrile. f/u cx. 3. hypokalemia- resolved 4. Depression- hold all medications at this time. will need to f/u with psych to re-start medication vs alternative medication. 5. DVT ppx- hep sq 6. Spoke with present at bedside. agreeable to SNF placement for short term abx. [facility] sent out yesterday. awaiting insurance and bed availability
[2018-02-20] MEDS: LORazepam 0.5 MG TABLET PO PRN ×2 (14:53→22:04)
--- NOTE | 2018-02-20 16:45 | PN ---
Progress Note, Physician History of Present Illness: OOB in chair Awake, alert oriented x 3 No complaints No headache Afebrile WBC WNL - Current Medication List Current Medications: Active Medications Acetaminophen (Tylenol -) 650 mg PO Q6H PRN PRN Reason: FEVER Heparin Sodium (Porcine) (Heparin -) 5,000 unit SQ TID [facility] Last Admin: 02/20/18 14:53 Dose: 5,000 unit Acyclovir 750 mg/ Dextrose 115 mls @ 115 mls/hr IVPB Q8H-IV [facility] Last Admin: 02/20/18 09:46 Dose: 115 mls/hr Potassium Chloride/Sodium Chloride (1/2ns+20meq Kcl) 20 meq in 1,000 mls @ 75 mls/hr IV ASDIR [facility] Last Admin: 02/19/18 13:54 Dose: 75 mls/hr Ibuprofen (Motrin -) 400 mg PO Q6H PRN PRN Reason: FEVER Last Admin: 02/20/18 09:45 Dose: 400 mg Lactobacillus Acidophilus (Bacid -) 1 tab PO DAILY [facility] Last Admin: 02/20/18 09:46 Dose: 1 tab Lorazepam (Ativan -) 0.5 mg PO TID PRN PRN Reason: ANXIETY Last Admin: 02/20/18 14:53 Dose: 0.5 mg - Objective Vital Signs: Vital Signs Temperature 98.2 F 02/20/18 14:15 Pulse Rate 89 02/20/18 14:15 Respiratory Rate 18 02/20/18 14:15 Blood Pressure 102/63 02/20/18 14:15 O2 Sat by Pulse Oximetry (%) 99 02/20/18 10:00 Constitutional: Yes: No Distress Cardiovascular: Yes: Regular Rate and Rhythm, S1, S2 Respiratory: Yes: CTA Bilaterally Gastrointestinal: Yes: Normal Bowel Sounds, Soft, Abdomen, Obese. No: Tenderness Edema: Yes Labs: CBC, BMP 02/20/18 05:30 02/20/18 05:30 INR, PTT INR 1.08 (0.83-1.09) 02/14/18 23:00 Assessment/Plan Acute delirium ? etiology R/O viral encephalitis ? HSV Continue empiric IV ACV Will need 14d course Discussed with at bedside. Recommend PICC and short term SNF placement to complete course of therapy for possible HSV encephalitis
[2018-02-20] MEDS: SODIUM CHLORIDE 0.45%/POT 20 MEQ/1,000 ML INFUS.BAG IV SCH (22:05)
[2018-02-21] MEDS: IBUPROFEN 400 MG TABLET (FP) PO PRN ×2 (03:32→20:58)
[2018-02-21] MEDS ORDERED: PT OWN MED DRAWER 7, Y5N ONE ×2 (03:44→17:40)
[2018-02-21] MEDS: ACYCLOVIR INJECTION 750 MG in DEXTROSE 5%-WATER - 100 ML IVPB SCH ×3 (03:48→18:09)
[2018-02-21] MEDS: ACETAMINOPHEN 325 MG TABLET (FP) PO PRN (06:13)
[2018-02-21] MEDS: HEPARIN NA (PORCINE) 5,000 UNITS/ML 1ML VIAL SQ SCH ×3 (06:13→20:59)
[2018-02-21 07:17] LABS: ANION GAP 8 MMOL/L (8-16); BLOOD UREA NITROGEN 16 mg/dL (7-18); CALCIUM 8.7 mg/dL (8.5-10.1); CHLORIDE 109 mmol/L (98-107); CO2 25 mmol/L (21-32); CREATININE 0.7 mg/dL (0.55-1.3); GLUCOSE,RANDOM 85 mg/dL (74-106); POTASSIUM 3.8 mmol/L (3.5-5.1); SODIUM 143 mmol/L (136-145)
[2018-02-21] MEDS: LACTOBACILLUS ACIDOPHILUS 1 TABLET PO SCH (11:14)
--- NOTE | 2018-02-21 11:51 | PN ---
Progress Note (short form) - Note Progress Note: asymptomatic. states dizzyness is improving. denies Cp, SOB, fever, chills, N/v/ C/D Current Medications Generic Name Dose Route Start Last Admin Trade Name Freq PRN Reason Stop Dose Admin Acetaminophen 650 mg 02/19/18 16:27 02/21/18 06:13 Tylenol - PO 650 mg Q6H PRN Administration FEVER Heparin Sodium (Porcine) 5,000 unit 02/15/18 06:00 02/21/18 06:13 Heparin - SQ 5,000 unit TID MERLIN Administration Acyclovir 750 mg/ Dextrose 115 mls @ 115 mls/hr 02/17/18 10:30 02/21/18 11:14 IVPB 115 mls/hr Q8H-IV MERLIN Administration Potassium Chloride/Sodium Chloride 20 meq in 1,000 mls @ 75 mls/hr 02/19/18 12 :37 02/20/18 22:05 1/2ns+20meq Kcl IV 75 mls/hr ASDIR MERLIN Administration Ibuprofen 400 mg 02/18/18 11:28 02/21/18 03:32 Motrin - PO 400 mg Q6H PRN Administration FEVER Lactobacillus Acidophilus 1 tab 02/18/18 11:45 02/21/18 11:14 Bacid - PO 1 tab DAILY MERLIN Administration Lorazepam 0.5 mg 02/20/18 13:32 02/20/18 22:04 Ativan - PO 0.5 mg TID PRN Administration ANXIETY Last Vital Signs Temp Pulse Resp BP Pulse Ox 97.8 F 102 H 20 107/67 95 02/21/18 06:00 02/21/18 06:00 02/21/18 06:00 02/21/18 06:00 02/20/18 22:00 General NAD A&O x3 CV S1 S2 RRR no murmur/rub/gallop Lungs CTA B/l no wheezing/rales/rhonchi ASSESSMENT AND PLAN: 77 yo F with PMhx of depression on Nardil for 40 years admitted with AMS. 1. 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 slowly improving, confirmed by family present at bedside. on Acyclovir day 5. will need 14 days total. low dose IVF to prevent renal failure. 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 EEG pending. 2. Fever- afebrile. f/u cx. 3. hypokalemia- resolved 4. Depression- hold all medications at this time. will need to f/u with psych to re-start medication vs alternative medication. 5. DVT ppx- hep sq 6. Spoke with family present at bedside. awaiting bed availability and ins auth Visit type - Emergency Visit Emergency Visit: Yes ED Registration Date: 02/14/18 Care time: The patient presented to the Emergency Department on the above date and was hospitalized for further evaluation of their emergent condition. - New Patient This patient is new to me today: No - Critical Care Critical Care patient: No - Discharge Referral Referred to [facility] Med P.C.: No
[2018-02-21] MEDS: LORazepam 0.5 MG TABLET PO PRN (13:00)
[2018-02-21] MEDS: SODIUM CHLORIDE 0.45%/POT 20 MEQ/1,000 ML INFUS.BAG IV SCH (18:10)
[2018-02-22] MEDS ORDERED: PT OWN MED DRAWER 7, Y5N ONE ×2 (01:57→18:15)
[2018-02-22] MEDS: ACYCLOVIR INJECTION 750 MG in DEXTROSE 5%-WATER - 100 ML IVPB SCH ×3 (04:16→17:26)
[2018-02-22] MEDS: IBUPROFEN 400 MG TABLET (FP) PO PRN ×3 (04:17→21:28)
[2018-02-22] MEDS: LORazepam 0.5 MG TABLET PO PRN ×2 (05:51→22:26)
[2018-02-22] MEDS: HEPARIN NA (PORCINE) 5,000 UNITS/ML 1ML VIAL SQ SCH ×3 (05:51→21:30)
[2018-02-22] MEDS: LACTOBACILLUS ACIDOPHILUS 1 TABLET PO SCH (10:05)
[2018-02-22] MEDS ORDERED: LORazepam 0.5 MG TABLET PO PRN (12:31)
--- NOTE | 2018-02-22 12:36 | PN ---
Progress Note (short form) - Note Progress Note: c/o generalized anxiety. states she is so nervous about going to another facility and if she will ever get better. also reports some loose stool. denies Cp, SOB, fever, chills, N/v/C/ dizzyness improved. Current Medications Generic Name Dose Route Start Last Admin Trade Name Freq PRN Reason Stop Dose Admin Acetaminophen 650 mg 02/19/18 16:27 02/21/18 06:13 Tylenol - PO 650 mg Q6H PRN Administration FEVER Heparin Sodium (Porcine) 5,000 unit 02/15/18 06:00 02/22/18 05:51 Heparin - SQ 5,000 unit TID MERLIN Administration Acyclovir 750 mg/ Dextrose 115 mls @ 115 mls/hr 02/17/18 10:30 02/22/18 10:05 IVPB 115 mls/hr Q8H-IV MERLIN Administration Potassium Chloride/Sodium Chloride 20 meq in 1,000 mls @ 75 mls/hr 02/19/18 12 :37 02/21/18 18:10 1/2ns+20meq Kcl IV 75 mls/hr ASDIR MELRIN Administration Ibuprofen 400 mg 02/18/18 11:28 02/22/18 10:05 Motrin - PO 400 mg Q6H PRN Administration FEVER Lactobacillus Acidophilus 1 tab 02/18/18 11:45 02/22/18 10:05 Bacid - PO 1 tab DAILY MERLIN Administration Lorazepam 0.5 mg 02/22/18 12:31 Ativan - PO Q6H PRN ANXIETY Last Vital Signs Temp Pulse Resp BP Pulse Ox 98.1 F 93 H 16 104/74 97 02/22/18 08:20 02/22/18 08:20 02/22/18 08:20 02/22/18 08:20 02/22/18 08:20 General mildly anxious CV S1 S2 RRR no murmur/rub/gallop Lungs CTA B/l no wheezing/rales/rhonchi ASSESSMENT AND PLAN: 77 yo F with PMhx of depression on Nardil for 40 years admitted with AMS. 1. 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 slowly improving, on Acyclovir day 6. will need 14 days total. low dose IVF to prevent renal failure. looking into facilities for SNF placement and assisted abx. EEG pending. 2. Generalized anxiety- likely due to no longer being on antidepressant. some relief with ativan. no adverse reactions. will give a dose now. call placed out to psychiatrist, Jose Gilbert. to discuss about starting alternative agent at this time 3. Diarrhea- liekly assoc with abx. low concern for cdiff (afebrile no abdominal pain and only on abx for a few days too recently). will start bacid 4. Fever- afebrile. Cx all negative 5. hypokalemia- resolved 6. Depression- hold all medications at this time. will need to f/u with psych to re-start medication vs alternative medication. 7. DVT ppx- hep sq 8. Spoke with family present at bedside. awaiting bed availability and ins auth Visit type - Emergency Visit Emergency Visit: Yes ED Registration Date: 02/14/18 Care time: The patient presented to the Emergency Department on the above date and was hospitalized for further evaluation of their emergent condition. - New Patient This patient is new to me today: No - Critical Care Critical Care patient: No - Discharge Referral Referred to [facility] Med P.C.: No
[2018-02-22] MEDS ORDERED: LOPERAMIDE HCL 2 MG CAPSULE PO ONE (12:37)
[2018-02-22] MEDS: SODIUM CHLORIDE 0.45%/POT 20 MEQ/1,000 ML INFUS.BAG IV SCH (14:15)
[2018-02-22] MEDS: ACETAMINOPHEN 325 MG TABLET (FP) PO PRN (15:30)
[2018-02-22] MEDS ORDERED: LORazepam 0.5 MG TABLET PO ONE (16:15)
[2018-02-23] MEDS ORDERED: PT OWN MED DRAWER 7, Y5N ONE (01:23)
[2018-02-23] MEDS: ACYCLOVIR INJECTION 750 MG in DEXTROSE 5%-WATER - 100 ML IVPB SCH ×2 (01:31→09:33)
[2018-02-23] MEDS: IBUPROFEN 400 MG TABLET (FP) PO PRN ×2 (05:56→11:32)
[2018-02-23] MEDS: LORazepam 0.5 MG TABLET PO PRN ×2 (05:56→14:30)
[2018-02-23] MEDS: HEPARIN NA (PORCINE) 5,000 UNITS/ML 1ML VIAL SQ SCH (05:56)
[2018-02-23 06:26] VITALS: TEMP 98.8
[2018-02-23] MEDS: LACTOBACILLUS ACIDOPHILUS 1 TABLET PO SCH (09:33)
[2018-02-23 09:51] VITALS: BP 116/89; PULSE 88
[2018-02-23] MEDS ORDERED: PICC LINE 8 ML FLUSH PROTOCOL IVPUSH PRN (10:54)
--- NOTE | 2018-02-23 11:04 | PN ---
Teaching Attending Note Name of Resident: Kingsley Turner ATTENDING PHYSICIAN STATEMENT I saw and evaluated the patient. I reviewed the resident's note and discussed the case with the resident. I agree with the resident's findings and plan as documented. SUBJECTIVE:states she feels ok. a little drowsy this AM. really wants to go home. wants to know what is being done about her antidepressants. Denies Cp, SOB , fever, chills, N/V/C/D OBJECTIVE: Last Vital Signs Temp Pulse Resp BP Pulse Ox 98.8 F 88 18 116/89 95 02/23/18 06:25 02/23/18 09:51 02/23/18 09:51 02/23/18 09:51 02/23/18 07:56 General drowsy. easily awoken with verbal stimuli CV S1 S2 RRR no murmur/rub/gallop Lungs CTA B/l no wheezing/rales/rhonchi ASSESSMENT AND PLAN: 77 yo F with PMhx of depression on Nardil for 40 years admitted with AMS. 1. 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 slowly improving, on Acyclovir day 7. will need 14 days total. low dose IVF to prevent renal failure. looking into facilities for SNF placement and irrigator gravity flow abx. PICC line placement. EEG pending. 2. Generalized anxiety- likely due to no longer being on antidepressant. drowsy this AM but did receive ativan recently. will reduce ativan dose as might be too strong. spoke with psych who said to re-start nardil at this time 3. Diarrhea- liekly assoc with abx. low concern for cdiff (afebrile no abdominal pain and only on abx for a few days too recently). improving. cont bacid 4. Fever- afebrile. Cx all negative 5. hypokalemia- resolved 6. Depression- plan to re-start nardil today. will need to f/u with psych for further adjustment 7. DVT ppx- hep sq 8. Spoke with family present at bedside. awaiting bed availability and ins auth
--- NOTE | 2018-02-23 15:53 | PN ---
Progress Note, Physician History of Present Illness: OOB in chair Awake, alert oriented x 3 Concerned about her antidepressant No complaints No headache Afebrile WBC WNL - Current Medication List Current Medications: Active Medications Acetaminophen (Tylenol -) 650 mg PO Q6H PRN PRN Reason: FEVER Last Admin: 02/22/18 15:30 Dose: 650 mg Heparin Sodium (Porcine) (Heparin -) 5,000 unit SQ TID MERLIN Last Admin: 02/23/18 05:56 Dose: 5,000 unit IV Flush (Picc Line Flush) 8 ml IVPUSH PRN PRN PRN Reason: Protocol Acyclovir 750 mg/ Dextrose 115 mls @ 115 mls/hr IVPB Q8H-IV MERLIN Last Admin: 02/23/18 09:33 Dose: 115 mls/hr Potassium Chloride/Sodium Chloride (1/2ns+20meq Kcl) 20 meq in 1,000 mls @ 75 mls/hr IV ASDIR MERLIN Last Admin: 02/22/18 14:15 Dose: Not Given Ibuprofen (Motrin -) 400 mg PO Q6H PRN PRN Reason: FEVER Last Admin: 02/23/18 11:32 Dose: 400 mg Lactobacillus Acidophilus (Bacid -) 1 tab PO DAILY MERLIN Last Admin: 02/23/18 09:33 Dose: 1 tab Lorazepam (Ativan -) 1 mg PO Q6H PRN PRN Reason: ANXIETY Last Admin: 02/23/18 14:30 Dose: 1 mg - Objective Vital Signs: Vital Signs Temperature 98.8 F 02/23/18 06:25 Pulse Rate 88 02/23/18 09:51 Respiratory Rate 18 02/23/18 09:51 Blood Pressure 116/89 02/23/18 09:51 O2 Sat by Pulse Oximetry (%) 95 02/23/18 07:56 Constitutional: Yes: No Distress Eyes: Yes: Conjunctiva Clear Cardiovascular: Yes: Regular Rate and Rhythm, S1, S2 Respiratory: Yes: CTA Bilaterally Gastrointestinal: Yes: Normal Bowel Sounds, Soft. No: Tenderness Edema: Yes Labs: CBC, BMP 02/20/18 05:30 02/21/18 05:30 INR, PTT INR 1.08 (0.83-1.09) 02/14/18 23:00 Assessment/Plan Acute delirium ? etiology R/O viral encephalitis ? HSV Day #7 IV ACV PICC inserted Complete additional 7d course at SNF
[2018-02-23 16:24] LABS: WEST NILE VIRUS AB SERUM,IGM Negative (Negative)
--- NOTE | 2018-02-23 17:33 | DS ---
Physical Exam: SUBJECTIVE: Patient seen and examined at bedside. No acute complaints today. No dizziness or headache. Able to walk. OBJECTIVE: Vital Signs Period Temp Pulse Resp BP Sys/Vázquez Pulse Ox Last 24 Hr 98.0 F-98.8 F 85-94 18-20 105-141/80-96 95-95 PHYSICAL EXAM GENERAL: A&Ox3, no acute distress EYES: PERRLA, EOMI ENT: Moist mucus membranes NECK: No JVD LUNGS: CTA, no wheezes HEART: RRR, no murmurs ABDOMEN: Soft, nontender, BS present MUSCULOSKELETAL: No CVA Tenderness EXTREMITIES: 2+ pulses, no edema. NEUROLOGICAL: Cranial nerves II-XII intact. LABS Laboratory Results - last 24 hr 02/19/18 06:35 West Nile Virus IgG Ab Negative West Nile Virus IgM Ab Negative Microbiology 02/17/18 19:45 Blood - Peripheral Venous Blood Culture - Final NO GROWTH AFTER 5 DAYS INCUBATION 02/17/18 19:15 Blood - Peripheral Venous Blood Culture - Final NO GROWTH AFTER 5 DAYS INCUBATION 02/14/18 18:30 Blood - Peripheral Venous Blood Culture - Final NO GROWTH AFTER 5 DAYS INCUBATION 02/14/18 18:30 Blood - Peripheral Venous Blood Culture - Final NO GROWTH AFTER 5 DAYS INCUBATION 02/19/18 14:00 Nasopharyngeal Swab Influenza Types A,B Antigen - Final 02/19/18 14:00 Nasopharyngeal Swab - Final 02/17/18 20:10 Urine - Urine Clean Catch Urine Culture - Final NO GROWTH OBTAINED 02/14/18 17:55 Cerebral Spinal Fluid - Lumbar Puncture Gram Stain - Final 02/14/18 17:55 Cerebral Spinal Fluid - Lumbar Puncture CSF Culture - Final 02/14/18 15:50 Urine - Urine - Catheterized Urine Culture - Final NO GROWTH OBTAINED 02/15/18 15:30 Urine For Antigen Detection Legionella Antigen - Final 02/15/18 15:30 Urine For Antigen Detection Streptococcus pneumoniae Antigen (M - Final IMAGING CT HEAD: No CT evidence of acute intracranial pathology. MRI BRAIN: Swollen medial aspect of the right temporal lobe with restrictive changes on diffusion weighted images concerning for the herpes encephalitis. Following intravenous infusion with gadolinium, no blood brain barrier defect, or abnormal focus of enhancement is seen. No evidence of leptomeningeal enhancement. HOSPITAL COURSE: Date of Admission:02/14/18 77 yo Female with PMH of Depression on Nardil presented to the hospital for Altered mental status per family's history. reported that she has been on Nardil for many years, and the night before the patient had wine and cheese for dinner, leading us to believe a component could be from tyramine toxicity. Patient's nardil was held during this admission. CT head was negative. Infectious workup was negative. Patient only complained of dizziness and headache, and began to sundown during the evenings, becoming altered only to improve in the morning. An MRI of the brain was performed which showed signs of herpes encephalitis (details stated above). Patient was started on acyclovir IV and given IVF for improved renal perfusion while on antiviral. Patient was treated for several days and showed signs of clinical and neurological improvement. Simultaneously, she was started on rocephin to cover common urological pathogens. Patient was very anxious about being off the Nardil and became fixated on this fact for the majority of the hospitalization. Her dizziness and headache slowly improved and patient became stable for discharge. She was able to be discharged to SNF with instructions to finish 14 days of acyclovir IV. A PICC line was placed and patient wsa discharged. Date of Discharge: 02/23/18 Minutes to complete discharge: 36 <Kingsley Turner - Last Filed: 02/23/18 17:39> Physical Exam: as per psych, nardil was re-started on discharge with instructions to f/u with psychiatrist for further monitoring <Polly Solis - Last Filed: 02/24/18 08:36> Discharge Summary Reason For Visit: ALTERED MENTAL STATUS Current Active Problems Herpetic encephalitis (Acute) Anxiety (Chronic) Depression (Chronic) - Home Medications Comprehensive Discharge Medication List: Ambulatory Orders Nardil (Nf) 60 tab PO HS 06/24/11 Acyclovir Injection [Zovirax Injection -] 750 mg IVPB Q8H-IV #23 vial 02/23/18 Dextrose 5%-Water - [D5w -] 100 ml IVPB Q8H-IV #60 ivpb 02/23/18 LORazepam [Ativan] 0.5 mg PO Q6H PRN #30 tablet MDD 2 02/23/18 Picc Line Flush [Picc Line Flush -] 8 ml IVPUSH PRN PRN ml 02/23/18 <Kingsley Turner - Last Filed: 02/23/18 17:39> - Home Medications Comprehensive Discharge Medication List: Ambulatory Orders Nardil (Nf) 60 tab PO HS 06/24/11 Acyclovir Injection [Zovirax Injection -] 750 mg IVPB Q8H-IV #23 vial 02/23/18 Dextrose 5%-Water - [D5w -] 100 ml IVPB Q8H-IV #60 ivpb 02/23/18 LORazepam [Ativan] 0.5 mg PO Q6H PRN #30 tablet MDD 2 02/23/18 Picc Line Flush [Picc Line Flush -] 8 ml IVPUSH PRN PRN ml 02/23/18 <Polly Solis - Last Filed: 02/24/18 08:36> Condition: Stable - Instructions Diet, Activity, Other Instructions: You were admitted to the hospital with acute mental status changes. It was initially thought that you were having a reaction of your depression medication with your diet. On the MRI you were found to have changes consistent with a viral infection of your brain. You were given Acyclovir and your mental status began to improve. You were seen by infectious disease doctor (antibiotic doctor ) who recommended to continue the antiviral treatment for a total of 2 weeks. You were improved enough to where you were deemed safe for discharge on the continued treatment. Of note your nardil was held while you were in the hospital. You did not ever show any signs of withdrawal from this medication and it was not continued on discharge from the hospital. You should restart Nardil and follow up with your psychiatrist as they may wish to start you on a different medication for your depression at this time. You will get a PICC line for outpatient antiviral therapy Please take acyclovir by IV every 8 hours for another 7 days after discharge, including two additional doses the day you are discharged. Continue gentle hydration with d5w 100ml every 8 hours IV while on antibiotics Please continue to take ativan 0.5mg every 6 hours as needed for anxiety You should continue all of your other home medications as they were prescribed to you prior to your hospitalization. If you have any high fevers, chills, severely worsening confusion, or any other concerning symptoms, you should call your doctor or return to the emergency department immediately. Referrals: Cali Cota MD [Staff Physician] - Renuka Springer MD [Primary Care Provider] - 1 Week Disposition: [facility] This patient is new to me today: No Emergency Visit: No Critical Care patient: No - Discharge Referral Referred to [facility] Med P.C.: No <Kingsley Turner - Last Filed: 02/23/18 17:39>
== END 2018-02-23 17:45 | DRG 97 ==
LOC: JER 12:01 → JERBED 19:11 → J4W 02-15 00:46
PROVIDERS: ADMIT Internal Medicine; ATTEND Internal Medicine
PROC: 02HV33Z Insertion of Infusion Device into Superior Vena Cava, Percutaneous Approach (ICD-10-PCS; principal; 2018-02-23)
DX: B00.4 Herpesviral encephalitis (principal); G93.41 Metabolic encephalopathy; J98.11 Atelectasis; R41.82 Altered mental status, unspecified; F41.8 Other specified anxiety disorders; R19.7 Diarrhea, unspecified; R50.9 Fever, unspecified; E87.6 Hypokalemia; R51 Headache
CPT/HCPCS: 36415; 36569; 36600; 70450-TC; 70552-TC; 71045-TC-FY; 77001-TC-FY; 80048; 80053; 80307; 81003; 81015; 82140; 82375; 82390; 82550; 82553; 82803; 82945; 83050; 83605; 83735; 83880; 84100; 84146; 84157; 84443; 84484; 85025; 85027; 85610; 86593; 86617; 86788; 86789; 87040; 87070; 87086; 87205; 87804; 87899; 93005; 93010; 93306-TC; 95816; 97116-GP; 97161-GP; 99284-25; C1751; J0131; J1644; J3480; J7030

== ENCOUNTER 2018-11-12 14:55 | Inpatient (IN) | payer OTHER ==
--- NOTE | 2018-11-12 15:00 | PDOC ---
Rapid Medical Evaluation Time Seen by Provider: 11/12/18 14:57 Medical Evaluation: Allergies Allergy/AdvReac Type Severity Reaction Status Date / Time No Known Allergies Allergy Verified 02/14/18 12:14 11/12/18 14:57 I have performed a brief in-person evaluation of this patient. The patient presents with a chief complaint of: "I feel depressed." Denies SI, PI, HI, AH, VH. Pertinent physical exam findings: PE- WNL I have ordered the following: nothing The patient will proceed to the ED for further evaluation. Discharge Disposition - Diagnosis Depression - Referrals - Patient Instructions - Post Discharge Activity
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
[2018-11-12 17:09] LABS: EPI CELLS 2.4 /HPF (0-5/HPF); HYALINE CASTS 7 /lpf (0-8); URINE APPEARANCE CLOUDY; URINE BACTERIA 62.8 /hpf (NEGATIVE); URINE BILIRUBIN NEGATIVE (NEGATIVE); URINE COLOR YELLOW; URINE GLUCOSE (UA) NEGATIVE (NEGATIVE); URINE KETONE TRACE (NEGATIVE); URINE LEUK ESTERASE 1+ (NEGATIVE); URINE NITRITE NEGATIVE (NEGATIVE); URINE PROTEIN 1+ (NEGATIVE); URINE RBC 2 /hpf (0-4); URINE UROBILINOGEN 0.2 mg/dL (0.2-1.0); URINE WBC 5 /hpf (0-5)
[2018-11-12] MEDS ORDERED: SODIUM CHLORIDE 0.9% 500 ML INFUS.BAG IV ONE (17:10)
[2018-11-12 17:14] LABS: BASO % 0.8 % (0-2.0); EOS % 0.8 % (0-4.5); HEMOGLOBIN 13.9 GM/dL (10.7-15.3); LYMPH % 17.9 % (8-40); MCH 29.5 pg (25.7-33.7); MEAN CELL VOLUME 89.3 fl (80-96); MEAN PLT VOLUME 10.2 fl (7.5-11.1); MONO % 8.5 % (3.8-10.2); PLATELET COUNT 259 K/MM3 (134-434); RDW 15.1 % (11.6-15.6); WHITE BLOOD COUNT 10.5 K/mm3 (4.0-10.0)
[2018-11-12 17:26] LABS: INR 1.07 (0.83-1.09); PROTHROMBIN TIME (PATIENT) 12.6 SEC (9.7-13.0)
[2018-11-12 17:28] LABS: ACTIVATED PTT 35.7 SECONDS (25.2-36.5)
[2018-11-12 17:31] LABS: ALBUMIN 3.9 g/dl (3.4-5.0); BILIRUBIN,TOTAL 0.3 mg/dL (0.2-1); BLOOD UREA NITROGEN 18.4 mg/dL (7-18); CALCIUM 8.8 mg/dL (8.5-10.1); CREATININE 0.7 mg/dL (0.55-1.3); TOT PROT 6.6 g/dl (6.4-8.2)
[2018-11-12 17:35] LABS: POTASSIUM 2.9 mmol/L (3.5-5.1)
[2018-11-12 17:36] LABS: MAGNESIUM 2.8 mg/dL (1.8-2.4); PHOSPHOROUS 3.7 mg/dL (2.5-4.9)
[2018-11-12] MEDS ORDERED: POTASSIUM CHLORIDE TABS 20 MEQ TABLET.ER (FP) PO ONE ×2 (17:42→18:40)
[2018-11-12 17:44] LABS: URINE CRYSTALS CALCIUM OXALATE /hpf
--- NOTE | 2018-11-12 19:14 | PDOC ---
*Physical Exam - Vital Signs Last Vital Signs Temp Pulse Resp BP Pulse Ox 98.3 F 87 18 93/68 98 11/12/18 14:59 11/12/18 14:59 11/12/18 14:59 11/12/18 14:59 11/12/18 14:59 - Physical Exam General Appearance: Yes: Appropriately Dressed, Thin. No: Apparent Distress HEENT: positive: EOMI, YOVANNY Neck: positive: Trachea midline, Supple Respiratory/Chest: positive: Lungs Clear, Normal Breath Sounds Cardiovascular: positive: Regular Rhythm, Regular Rate, S1, S2. negative: Edema , JVD, Murmur Vascular Pulses: Dorsalis-Pedis (R): 2+, Doralis-Pedis (L): 2+ Gastrointestinal/Abdominal: positive: Normal Bowel Sounds, Soft Musculoskeletal: positive: Other (bruise on R anterior chest). negative: CVA Tenderness Integumentary: positive: Normal Color, Dry, Warm Neurologic: positive: inverter and clipper II-XII NML intact, Fully Oriented, Alert, Normal Mood/ Affect, Normal Response, Motor Strength 5/5 <Vaishnavi Roman - Last Filed: 11/12/18 21:12> - Vital Signs Last Vital Signs Temp Pulse Resp BP Pulse Ox 98.3 F 85 12 108/80 98 11/12/18 14:59 11/12/18 19:46 11/12/18 19:46 11/12/18 19:46 11/12/18 19:46 <Edith Kamara - Last Filed: 11/12/18 22:24> ED Treatment Course - LABORATORY CBC & Chemistry Diagram: 11/12/18 16:50 11/12/18 16:50 - ADDITIONAL ORDERS Additional order review: Laboratory Results 11/12/18 11/12/18 11/12/18 16:50 16:50 16:50 PT with INR 12.60 INR 1.07 PTT (Actin FS) 35.7 Sodium 144 Potassium 2.9 L* Chloride 109 H Carbon Dioxide 28 Anion Gap 7 L BUN 18.4 H Creatinine 0.7 Est GFR (CKD-EPI)AfAm 97.54 Est GFR (CKD-EPI)NonAf 84.16 Random Glucose 110 H Calcium 8.8 Phosphorus 3.7 Magnesium 2.8 H Total Bilirubin 0.3 AST 111 H ALT 33 Alkaline Phosphatase 68 Creatine Kinase 424 H Creatine Kinase Index 16.4 H* CK-MB (CK-2) 69.7 H Troponin I 22.10 H* Total Protein 6.6 Albumin 3.9 TSH 1.04 Urine Color Urine Appearance Urine pH Ur Specific [place] Urine Protein Urine Glucose (UA) Urine Ketones Urine Blood Urine Nitrite Urine Bilirubin Urine Urobilinogen Ur Leukocyte Esterase Urine WBC (Auto) Urine RBC (Auto) Urine Casts (Auto) U Epithel Cells (Auto) Urine Crystals (Auto) Urine Bacteria (Auto) 11/12/18 16:10 PT with INR INR PTT (Actin FS) Sodium Potassium Chloride Carbon Dioxide Anion Gap BUN Creatinine Est GFR (CKD-EPI)AfAm Est GFR (CKD-EPI)NonAf Random Glucose Calcium Phosphorus Magnesium Total Bilirubin AST ALT Alkaline Phosphatase Creatine Kinase Creatine Kinase Index CK-MB (CK-2) Troponin I Total Protein Albumin TSH Urine Color Yellow Urine Appearance Cloudy Urine pH 6.0 Ur Specific [place] 1.023 Urine Protein 1+ H Urine Glucose (UA) Negative Urine Ketones Trace H Urine Blood 1+ H Urine Nitrite Negative Urine Bilirubin Negative Urine Urobilinogen 0.2 Ur Leukocyte Esterase 1+ H Urine WBC (Auto) 5 Urine RBC (Auto) 2 Urine Casts (Auto) 7 U Epithel Cells (Auto) 2.4 Urine Crystals (Auto) Calcium oxalate Urine Bacteria (Auto) 62.8 11/12/18 16:50 RBC 4.70 MCV 89.3 MCHC 33.0 RDW 15.1 MPV 10.2 Neutrophils % 72.0 Lymphocytes % 17.9 Monocytes % 8.5 Eosinophils % 0.8 Basophils % 0.8 - Medications Given in the ED: ED Medications Discontinued Medications Generic Name Dose Route Start Last Admin Trade Name Sandeepq PRN Reason Stop Dose Admin Potassium Chloride 40 meq 11/12/18 17:42 11/12/18 18:42 K-Dur - PO 11/12/18 17:43 40 meq ONCE ONE Administration Sodium Chloride 500 ml 11/12/18 17:10 11/12/18 17:35 Normal Saline - IV 11/12/18 17:11 500 ml ONCE ONE Administration <Vaishnavi Roman - Last Filed: 11/12/18 21:12> - LABORATORY CBC & Chemistry Diagram: 11/12/18 16:50 11/12/18 19:10 - ADDITIONAL ORDERS Additional order review: Laboratory Results 07/03/2311/12/18 11/12/18 16:50 16:50 16:50 PT with INR 12.60 INR 1.07 PTT (Actin FS) 35.7 Sodium 144 Potassium 2.9 L* Chloride 109 H Carbon Dioxide 28 Anion Gap 7 L BUN 18.4 H Creatinine 0.7 Est GFR (CKD-EPI)AfAm 97.54 Est GFR (CKD-EPI)NonAf 84.16 Random Glucose 110 H Calcium 8.8 Phosphorus 3.7 Magnesium 2.8 H Total Bilirubin 0.3 AST 111 H ALT 33 Alkaline Phosphatase 68 Creatine Kinase 424 H Creatine Kinase Index 16.4 H* CK-MB (CK-2) 69.7 H Troponin I 22.10 H* Total Protein 6.6 Albumin 3.9 TSH 1.04 Urine Color Urine Appearance Urine pH Ur Specific [place] Urine Protein Urine Glucose (UA) Urine Ketones Urine Blood Urine Nitrite Urine Bilirubin Urine Urobilinogen Ur Leukocyte Esterase Urine WBC (Auto) Urine RBC (Auto) Urine Casts (Auto) U Epithel Cells (Auto) Urine Crystals (Auto) Urine Bacteria (Auto) 11/12/18 16:10 PT with INR INR PTT (Actin FS) Sodium Potassium Chloride Carbon Dioxide Anion Gap BUN Creatinine Est GFR (CKD-EPI)AfAm Est GFR (CKD-EPI)NonAf Random Glucose Calcium Phosphorus Magnesium Total Bilirubin AST ALT Alkaline Phosphatase Creatine Kinase Creatine Kinase Index CK-MB (CK-2) Troponin I Total Protein Albumin TSH Urine Color Yellow Urine Appearance Cloudy Urine pH 6.0 Ur Specific [place] 1.023 Urine Protein 1+ H Urine Glucose (UA) Negative Urine Ketones Trace H Urine Blood 1+ H Urine Nitrite Negative Urine Bilirubin Negative Urine Urobilinogen 0.2 Ur Leukocyte Esterase 1+ H Urine WBC (Auto) 5 Urine RBC (Auto) 2 Urine Casts (Auto) 7 U Epithel Cells (Auto) 2.4 Urine Crystals (Auto) Calcium oxalate Urine Bacteria (Auto) 62.8 11/12/18 16:50 RBC 4.70 MCV 89.3 MCHC 33.0 RDW 15.1 MPV 10.2 Neutrophils % 72.0 Lymphocytes % 17.9 Monocytes % 8.5 Eosinophils % 0.8 Basophils % 0.8 - Medications Given in the ED: ED Medications Discontinued Medications Generic Name Dose Route Start Last Admin Trade Name Freq PRN Reason Stop Dose Admin Potassium Chloride 40 meq 11/12/18 17:42 11/12/18 18:42 K-Dur - PO 11/12/18 17:43 40 meq ONCE ONE Administration Sodium Chloride 500 ml 11/12/18 17:10 11/12/18 17:35 Normal Saline - IV 11/12/18 17:11 500 ml ONCE ONE Administration <Edith Kamara - Last Filed: 11/12/18 22:24> Medical Decision Making - Medical Decision Making 11/12/18 19:12 Signed out to me by day team 78yo F with PMH of Depression presenting to ED with feelings of sadness. Found to have bruise on chest and did not recall events. Friend 10d ago. Is taking zoloft but it is not helping. Cleared by psych. Labs significant for trop 22.1, CK 424 K 2.9, getting repleted UA negative for infection Consulting cardiology will admit to tele pending cardiology consult ekg: q waves in I. TWI in lateral leads. CT head and cspine negative for fractures/bleeds. POCUS performed by Dr. Kamara showed normal EF with possible akinesis of apex? No evidence of R heart strain 11/12/18 21:[address] Aparicio, recommended 600mg Plavix, 325 ASA and Heparin. May need cath tomorrow. Recommends ICU admission. Pt does not have evidence of acute bleed, not on AC, no recent surgeries, no head bleed in past. Consulted ICU, will see pt. Information relayed to admitting team. <Vaishnavi Roman - Last Filed: 11/12/18 21:12> *DC/Admit/Observation/Transfer <Vaishnavi Roman - Last Filed: 11/12/18 21:12> - Discharge Dispostion Decision to Admit order: Yes Decision to Admit order Date/Time: 11/12/18 22:24\ <Edith Kamara - Last Filed: 11/12/18 22:24> Diagnosis at time of Disposition: Depression, Elevated troponin, NSTEMI (non-ST elevated myocardial infarction) - Discharge Dispostion Condition at time of disposition: Fair
[2018-11-12] MEDS ORDERED: HEPARIN NA (PORCINE) 5,000 UNITS/ML 1ML VIAL IVPUSH ONE (20:59)
[2018-11-12] MEDS ORDERED: CLOPIDOGREL BISULFATE 300 MG TABLET PO ONE (20:59)
[2018-11-12] MEDS ORDERED: ASPIRIN 325 MG TABLET PO ONE (20:59)
[2018-11-12 21:13] LABS: BLOOD UREA NITROGEN 18.1 mg/dL (7-18); CALCIUM 8.6 mg/dL (8.5-10.1); CREATININE 0.7 mg/dL (0.55-1.3); POTASSIUM 3.6 mmol/L (3.5-5.1)
--- NOTE | 2018-11-12 21:27 | HP ---
CHIEF COMPLAINT: Depression PCP: HISTORY OF PRESENT ILLNESS: 78 F with PMH of Depression, aortic aneurysm s/p repair, bladder cancer s/p tumor resection, who presents today for decreased mood. She has been feeling more depressed in the last week after the passing of her close friend. She has been taking her zoloft but does not feel it is helping her. She notes decreased appetite. She also notes a fall 2 days ago on the stairs in front of her house, without any bleeding, but bruising. She denies any chest pain, shortness of breath, abdominal pain, nausea, vomiting, diarrhea, and weakness. ER course was notable for: (1)EKG showed new T wave inversions in leads AVf, V2-V6. QTc prolongation (523) (2)Labs showed troponin of 22.1 with CKMB of 69.7. (3)Chest X-ray showed no acute changes, but is notable for prominent aortic arch. Recent Travel: None PAST MEDICAL HISTORY: Bladder cancer s/p tumor resection (20 years ago), Depression PAST SURGICAL HISTORY: Aortic aneurysm repair in 2016 Bladder tumor resection 20 years ago Social History: Smoking:denies Alcohol:1/2 ounce day Drugs:denies Family History: Brother passed of a brain aneurysm Allergies No Known Allergies Allergy (Verified 11/12/18 15:01) HOME MEDICATIONS: Home Medications Medication Instructions Recorded Sertraline HCl [Zoloft] 150 mg PO HS 11/12/18 REVIEW OF SYSTEMS As above CONSTITUTIONAL: Absent: fever, chills, diaphoresis, generalized weakness, malaise, loss of appetite, weight change HEENT: Absent: rhinorrhea, nasal congestion, throat pain, throat swelling, difficulty swallowing, mouth swelling, ear pain, eye pain, visual changes CARDIOVASCULAR: Absent: chest pain, syncope, palpitations, irregular heart rate, lightheadedness , peripheral edema RESPIRATORY: Absent: cough, shortness of breath, dyspnea with exertion, orthopnea, wheezing, stridor, hemoptysis, pleuritis GASTROINTESTINAL: Absent: abdominal pain, abdominal distension, nausea, vomiting, diarrhea, constipation, melena, hematochezia GENITOURINARY: Absent: dysuria, frequency, urgency, hesitancy, hematuria, flank pain, genital pain MUSCULOSKELETAL: Absent: myalgia, arthralgia, joint swelling, back pain, neck pain SKIN: Absent: rash, itching, pallor HEMATOLOGIC/IMMUNOLOGIC: Absent: easy bleeding, easy bruising, lymphadenopathy, frequent infections ENDOCRINE: Absent: unexplained weight gain, unexplained weight loss, heat intolerance, cold intolerance NEUROLOGIC: Absent: headache, focal weakness or paresthesias, dizziness, unsteady gait, seizure, mental status changes, bladder or bowel incontinence PSYCHIATRIC: Absent: anxiety, depression, suicidal or homicidal ideation, hallucinations. PHYSICAL EXAMINATION Vital Signs - 24 hr 11/12/18 11/12/18 14:59 19:46 Temperature 98.3 F Pulse Rate 87 Pulse Rate [ 85 Apical] Respiratory 18 12 Rate Blood Pressure 93/68 Blood Pressure 108/80 [Left Arm] O2 Sat by Pulse 98 98 Oximetry (%) GENERAL: Awake, alert, and fully oriented, in no acute distress. HEAD: Normal with no signs of trauma. NECK: Normal range of motion, supple without lymphadenopathy, JVD, or masses. LUNGS: Breath sounds equal, clear to auscultation bilaterally. No wheezes, and no crackles. No accessory muscle use. HEART: 4/6 murumur at 5th costovertebral midclavicular space. Regular rate and rhythm, normal S1 and S2. Chest has bruising midline but not tender to palpation ABDOMEN: Soft, nontender, not distended, normoactive bowel sounds, no guarding, no rebound, no masses. MUSCULOSKELETAL: Normal range of motion at all joints. No bony deformities or tenderness. UPPER EXTREMITIES: 2+ pulses, warm, well-perfused. No cyanosis. No clubbing. No peripheral edema. LOWER EXTREMITIES: 2+ pulses, warm, well-perfused. No calf tenderness. No peripheral edema. PSYCHIATRIC: Cooperative. Good eye contact. Appropriate mood and affect. SKIN: Warm, dry, normal turgor, no rashes, normal capillary refill. Laboratory Results - last 24 hr 11/12/18 11/12/18 11/12/18 16:10 16:50 16:50 WBC 10.5 H RBC 4.70 Hgb 13.9 Hct 42.0 MCV 89.3 MCH 29.5 MCHC 33.0 RDW 15.1 Plt Count 259 MPV 10.2 Absolute Neuts (auto) 7.6 Neutrophils % 72.0 Lymphocytes % 17.9 Monocytes % 8.5 Eosinophils % 0.8 Basophils % 0.8 Nucleated RBC % 0 PT with INR INR PTT (Actin FS) Sodium 144 Potassium 2.9 L* Chloride 109 H Carbon Dioxide 28 Anion Gap 7 L BUN 18.4 H Creatinine 0.7 Est GFR (CKD-EPI)AfAm 97.54 Est GFR (CKD-EPI)NonAf 84.16 Random Glucose 110 H Calcium 8.8 Phosphorus Magnesium Total Bilirubin 0.3 AST 111 H ALT 33 Alkaline Phosphatase 68 Creatine Kinase Creatine Kinase Index CK-MB (CK-2) Troponin I Total Protein 6.6 Albumin 3.9 TSH Urine Color Yellow Urine Appearance Cloudy Urine pH 6.0 Ur Specific [place] 1.023 Urine Protein 1+ H Urine Glucose (UA) Negative Urine Ketones Trace H Urine Blood 1+ H Urine Nitrite Negative Urine Bilirubin Negative Urine Urobilinogen 0.2 Ur Leukocyte Esterase 1+ H Urine WBC (Auto) 5 Urine RBC (Auto) 2 Urine Casts (Auto) 7 U Epithel Cells (Auto) 2.4 Urine Crystals (Auto) Calcium oxalate Urine Bacteria (Auto) 62.8 11/12/18 11/12/18 11/12/18 16:50 16:50 19:10 WBC RBC Hgb Hct MCV MCH MCHC RDW Plt Count MPV Absolute Neuts (auto) Neutrophils % Lymphocytes % Monocytes % Eosinophils % Basophils % Nucleated RBC % PT with INR 12.60 INR 1.07 PTT (Actin FS) 35.7 Sodium Potassium Chloride Carbon Dioxide Anion Gap BUN Creatinine Est GFR (CKD-EPI)AfAm Est GFR (CKD-EPI)NonAf Random Glucose Calcium Phosphorus 3.7 Magnesium 2.8 H Total Bilirubin AST ALT Alkaline Phosphatase Creatine Kinase 424 H 336 H Creatine Kinase Index 16.4 H* 15.3 H* CK-MB (CK-2) 69.7 H 51.5 H Troponin I 22.10 H* 19.00 H* Total Protein Albumin TSH 1.04 Urine Color Urine Appearance Urine pH Ur Specific [place] Urine Protein Urine Glucose (UA) Urine Ketones Urine Blood Urine Nitrite Urine Bilirubin Urine Urobilinogen Ur Leukocyte Esterase Urine WBC (Auto) Urine RBC (Auto) Urine Casts (Auto) U Epithel Cells (Auto) Urine Crystals (Auto) Urine Bacteria (Auto) ASSESSMENT/PLAN: 78 F PMH of depression, aortic aneurysm s/p repair, who presents today with depression and was incidentally found to have elevated cardiac enzymes and hypokalemia. EKG showed inverted T-waves. 1)NSTEMI vs Takatsubo EKG, trend troponins Cardiology Consult ICU Consult Cardiac profile CBC, Lipid profile, BNP Aspirin 325 mg PO given Plavix 600 mg PO given Plavix 75 mg PO Qdaily Atorvastatin 80 mg PO Qdaily Heparin drip 800 units/hr IV Aspirin 81 mg PO Qdaily Heparin 2900 ml given IVPUSH Transfer for Cath in morning likely after echo is completed NPO 2) Hypokalemia Currently asymptomatic K-Dur 40 meq given-> K+: 3.6 now Monitor CMP 3) Depression Continue Zoloft 150 mg PO HS Refer to her psychiatrist: Dr. King @ [phone] F: No fluids E: Monitor K+ N: NPO Disp: Admitted to ICU Problem List - Problem (1) Elevated troponin Code(s): R74.8 - ABNORMAL LEVELS OF OTHER SERUM ENZYMES (2) Depression Code(s): F32.9 - MAJOR DEPRESSIVE DISORDER, SINGLE EPISODE, UNSPECIFIED (3) Anxiety Code(s): F41.9 - ANXIETY DISORDER, UNSPECIFIED Visit type - Emergency Visit Emergency Visit: Yes ED Registration Date: 11/12/18 Care time: The patient presented to the Emergency Department on the above date and was hospitalized for further evaluation of their emergent condition. - New Patient This patient is new to me today: Yes Date on this admission: 11/12/18 - Critical Care Critical Care patient: Yes Total Critical Care Time (in minutes): 35 Critical Care Statement: The care of this patient involved high complexity decision making to prevent further life threatening deterioration of the patient 's condition and/or to evaluate & treat vital organ system(s) failure or risk of failure. ATTENDING PHYSICIAN STATEMENT I saw and evaluated the patient. I reviewed the resident's note and discussed the case with the resident. I agree with the resident's findings and plan as documented. SUBJECTIVE: OBJECTIVE: ASSESSMENT AND PLAN:
[2018-11-12] MEDS ORDERED: ASPIRIN 325 MG TABLET ONE (22:15)
[2018-11-12] MEDS ORDERED: HEPARIN NA (PORCINE) 5,000 UNITS/ML 1ML VIAL ONE (22:16)
[2018-11-12] MEDS ORDERED: CLOPIDOGREL BISULFATE 300 MG TABLET ONE (22:16)
--- NOTE | 2018-11-12 22:41 | PN ---
Physical Exam: SUBJECTIVE: Patient seen and examined at the bedside. Patient stated that she came to the hospital because she felt very sad since her close friend 10 days ago. She stated that she had always suffered from depression, but had since her friends been more sad and today knew that she needed to do something to stop feeling that way and decided to come to the hospital. She denied any fevers, chills, chest pain, palpitations, shortness of breath, abdominal pain, nausea, vomiting, diarrhea, constipation, weakness, numbness, tingling, myalgias, arthralgias, urinary frequency or urgency, recent headaches , dizziness, lightheadedness, visual changes. Additionally, she denied any suicidal ideation, homicidal ideation, visual hallucinations, or auditory hallucinations. Stated that her appetite was good and her sleeping habits were good. No recent changes to medication, last major change of medications was from Of note, the patient had a mechanical fall 3 days prior when she fell off the last step when walking downstairs. She denies any prodromal symptoms and stated that she did braced the fall with her hands but hit her chest directly over the sternum. She denied any loss of consciousness, head hit, or any cardiac or respiratory symptoms after the fall. She stated that in the last month she had 10 pounds of unintentional weight loss. OBJECTIVE: Vital Signs Period Temp Pulse Resp BP Sys/Vázquez Pulse Ox Last 24 Hr 98.3 F 85-87 12-18 93-108/68-80 98-98 GENERAL: The patient is awake, alert, and fully oriented, in no acute distress. HEAD: Normal with no signs of trauma. EYES: PERRL, extraocular movements intact, sclera anicteric, conjunctiva clear. No ptosis. ENT: Ears normal, nares patent, oropharynx clear without exudates, moist mucous membranes. NECK: Trachea midline, full range of motion, supple. LUNGS: Breath sounds equal, clear to auscultation bilaterally, no wheezes, no crackles, no accessory muscle use. HEART: Regular rate and rhythm, S1, S2 without murmur, rub or gallop. ABDOMEN: Soft, nontender, nondistended, normoactive bowel sounds, no guarding, no rebound, no hepatosplenomegaly, no masses. EXTREMITIES: 2+ pulses, warm, well-perfused, no edema. NEUROLOGICAL: Cranial nerves II through XII grossly intact. Normal speech, gait not observed. PSYCH: Normal mood, normal affect. SKIN: Warm, dry, normal turgor, no rashes or lesions noted Laboratory Results - last 24 hr 11/12/18 11/12/18 11/12/18 16:10 16:50 16:50 WBC 10.5 H RBC 4.70 Hgb 13.9 Hct 42.0 MCV 89.3 MCH 29.5 MCHC 33.0 RDW 15.1 Plt Count 259 MPV 10.2 Absolute Neuts (auto) 7.6 Neutrophils % 72.0 Lymphocytes % 17.9 Monocytes % 8.5 Eosinophils % 0.8 Basophils % 0.8 Nucleated RBC % 0 PT with INR INR PTT (Actin FS) Sodium 144 Potassium 2.9 L* Chloride 109 H Carbon Dioxide 28 Anion Gap 7 L BUN 18.4 H Creatinine 0.7 Est GFR (CKD-EPI)AfAm 97.54 Est GFR (CKD-EPI)NonAf 84.16 Random Glucose 110 H Calcium 8.8 Phosphorus Magnesium Total Bilirubin 0.3 AST 111 H ALT 33 Alkaline Phosphatase 68 Creatine Kinase Creatine Kinase Index CK-MB (CK-2) Troponin I Total Protein 6.6 Albumin 3.9 TSH Urine Color Yellow Urine Appearance Cloudy Urine pH 6.0 Ur Specific [place] 1.023 Urine Protein 1+ H Urine Glucose (UA) Negative Urine Ketones Trace H Urine Blood 1+ H Urine Nitrite Negative Urine Bilirubin Negative Urine Urobilinogen 0.2 Ur Leukocyte Esterase 1+ H Urine WBC (Auto) 5 Urine RBC (Auto) 2 Urine Casts (Auto) 7 U Epithel Cells (Auto) 2.4 Urine Crystals (Auto) Calcium oxalate Urine Bacteria (Auto) 62.8 11/12/18 11/12/18 11/12/18 16:50 16:50 19:10 WBC RBC Hgb Hct MCV MCH MCHC RDW Plt Count MPV Absolute Neuts (auto) Neutrophils % Lymphocytes % Monocytes % Eosinophils % Basophils % Nucleated RBC % PT with INR 12.60 INR 1.07 PTT (Actin FS) 35.7 Sodium 144 Potassium 3.6 Chloride 110 H Carbon Dioxide 27 Anion Gap 8 BUN 18.1 H Creatinine 0.7 Est GFR (CKD-EPI)AfAm 97.54 Est GFR (CKD-EPI)NonAf 84.16 Random Glucose 133 H Calcium 8.6 Phosphorus 3.7 Magnesium 2.8 H Total Bilirubin AST ALT Alkaline Phosphatase Creatine Kinase 424 H 336 H Creatine Kinase Index 16.4 H* 15.3 H* CK-MB (CK-2) 69.7 H 51.5 H Troponin I 22.10 H* 19.00 H* Total Protein Albumin TSH 1.04 Urine Color Urine Appearance Urine pH Ur Specific [place] Urine Protein Urine Glucose (UA) Urine Ketones Urine Blood Urine Nitrite Urine Bilirubin Urine Urobilinogen Ur Leukocyte Esterase Urine WBC (Auto) Urine RBC (Auto) Urine Casts (Auto) U Epithel Cells (Auto) Urine Crystals (Auto) Urine Bacteria (Auto) ASSESSMENT/PLAN: ATTENDING PHYSICIAN STATEMENT I saw and evaluated the patient. I reviewed the resident's note and discussed the case with the resident. I agree with the resident's findings and plan as documented. SUBJECTIVE: OBJECTIVE: ASSESSMENT AND PLAN:
--- NOTE | 2018-11-12 22:55 | CONSULT ---
Consultation: REQUESTING PROVIDER: Dr. Roman CONSULT REQUEST: We have been asked to medically evaluate this patient for tropinemia. HISTORY OF PRESENT ILLNESS: Ivanna Mcginnis is a 78 year old female with a past medical history of depression, bladder cancer, and aneurysms who presented to the hospital for feelings of sadness and depression. Patient seen and examined at the bedside. Patient stated that she came to the hospital because she felt very sad since her close friend 10 days ago. She stated that she had always suffered from depression, but had since her friend's been more sad and today knew that she needed to do something to stop feeling that way and decided to come to the hospital. She denied any fevers, chills, chest pain, palpitations, shortness of breath, abdominal pain, nausea, vomiting , diarrhea, constipation, weakness, numbness, tingling, myalgias, arthralgias, urinary frequency or urgency, recent headaches, dizziness, lightheadedness, visual changes. Additionally, she denied any suicidal ideation, homicidal ideation, visual hallucinations, or auditory hallucinations. Stated that her appetite was good and her sleeping habits were good. No recent changes to medication, last major change of medications was in January when her Nardil was changed to Zoloft. Of note, the patient had a mechanical fall 3 days prior when she fell off the last step when walking downstairs. She denies any prodromal symptoms and stated that she did braced the fall with her hands but hit her chest directly over the sternum. She denied any loss of consciousness, head hit, or any cardiac or respiratory symptoms after the fall. She stated that in the last month she had 10 pounds of unintentional weight loss. Patient stated she as a child had several episodes of strep throat which is uncertain of whether it was treated completely. Patient also stated that several years ago she had 2 aneurysms identified by a hospital in [place] for which she had aneurysm repair for one 3 years ago. The other, she was told to follow up for but eventually told to stop following up due to stability. ED Course was notable for: 1) troponins 22.1 --> 19.0 2) CK Index 16.3--> 15.4 3) CXR for proximal aortic arch unchanged since February 2018 4) K 2.9, repleted repeat 3.6 PCP: Dr. 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) Surgical history aneurysm repair tonsillectomy Social history: former smoker, quit many years ago denies illicit drug use Family history: brother of brain aneurysm Medications: Zoloft 150mg qhs aspirin 325mg 2 tabs prn as needed for headaches (takes once every couple of days) MVI REVIEW OF SYSTEMS: CONSTITUTIONAL: Absent: fever, chills, diaphoresis, generalized weakness, malaise, loss of appetite, weight change HEENT: Absent: rhinorrhea, nasal congestion, throat pain, throat swelling, difficulty swallowing, mouth swelling, ear pain, eye pain, visual changes CARDIOVASCULAR: Absent: chest pain, syncope, palpitations, irregular heart rate, lightheadedness , peripheral edema RESPIRATORY: Absent: cough, shortness of breath, dyspnea with exertion, orthopnea, wheezing, stridor, hemoptysis GASTROINTESTINAL: Absent: abdominal pain, abdominal distension, nausea, vomiting, diarrhea, constipation, melena, hematochezia GENITOURINARY: Absent: dysuria, frequency, urgency, hesitancy, hematuria, flank pain, genital pain MUSCULOSKELETAL: Absent: myalgia, arthralgia, joint swelling, back pain, neck pain SKIN: Absent: rash, itching, pallor HEMATOLOGIC/IMMUNOLOGIC: Absent: easy bleeding, easy bruising, lymphadenopathy, frequent infections ENDOCRINE: Absent: unexplained weight gain, unexplained weight loss, heat intolerance, cold intolerance NEUROLOGIC: Absent: headache, focal weakness or paresthesias, dizziness, unsteady gait, seizure, mental status changes, bladder or bowel incontinence PSYCHIATRIC: depression Absent: anxiety, suicidal or homicidal ideation, hallucinations. PHYSICAL EXAMINATION Vital Signs - 24 hr 11/12/18 11/12/18 14:59 19:46 Temperature 98.3 F Pulse Rate 87 Pulse Rate [ 85 Apical] Respiratory 18 12 Rate Blood Pressure 93/68 Blood Pressure 108/80 [Left Arm] O2 Sat by Pulse 98 98 Oximetry (%) GENERAL: Awake, alert, and fully oriented, in mild distress. HEAD: Normal with no signs of trauma. EYES: Pupils equal, round and reactive to light, extraocular movements intact, sclera anicteric, conjunctiva clear. No lid lag. EARS, NOSE, THROAT: Ears normal, nares patent, oropharynx clear without exudates. Moist mucous membranes. NECK: Normal range of motion, supple without lymphadenopathy, JVD, or masses. LUNGS: Breath sounds equal, clear to auscultation bilaterally. No wheezes, and no crackles. No accessory muscle use. HEART: Regular rate and rhythm, normal S1 and S2. Prominent 4/6 murmur heard at the 5th costovertebral midclavicular space. Palpable thrill. Noted bruising midsternally. ABDOMEN: Soft, nontender, not distended, normoactive bowel sounds, no guarding, no rebound, no masses. MUSCULOSKELETAL: Normal range of motion at all joints. No bony deformities or tenderness. No CVA tenderness. Noted scoliosis. UPPER EXTREMITIES: 2+ pulse on R, 1+ pulse on L. warm, well-perfused. No cyanosis. No clubbing. Cap refill <2 seconds. No peripheral edema. LOWER EXTREMITIES: 2+ pulses, warm, well-perfused. No calf tenderness. No peripheral edema. NEUROLOGICAL: Cranial nerves II-XII intact. Normal speech. 5/5 muscle strength throughout PSYCHIATRIC: Cooperative. Good eye contact. Depressed mood and affect. SKIN: Warm, dry, normal turgor. Noted bruising midsternally. Laboratory Results - last 24 hr 11/12/18 11/12/18 11/12/18 16:10 16:50 16:50 WBC 10.5 H RBC 4.70 Hgb 13.9 Hct 42.0 MCV 89.3 MCH 29.5 MCHC 33.0 RDW 15.1 Plt Count 259 MPV 10.2 Absolute Neuts (auto) 7.6 Neutrophils % 72.0 Lymphocytes % 17.9 Monocytes % 8.5 Eosinophils % 0.8 Basophils % 0.8 Nucleated RBC % 0 PT with INR INR PTT (Actin FS) Sodium 144 Potassium 2.9 L* Chloride 109 H Carbon Dioxide 28 Anion Gap 7 L BUN 18.4 H Creatinine 0.7 Est GFR (CKD-EPI)AfAm 97.54 Est GFR (CKD-EPI)NonAf 84.16 Random Glucose 110 H Calcium 8.8 Phosphorus Magnesium Total Bilirubin 0.3 AST 111 H ALT 33 Alkaline Phosphatase 68 Creatine Kinase Creatine Kinase Index CK-MB (CK-2) Troponin I Total Protein 6.6 Albumin 3.9 TSH Urine Color Yellow Urine Appearance Cloudy Urine pH 6.0 Ur Specific [place] 1.023 Urine Protein 1+ H Urine Glucose (UA) Negative Urine Ketones Trace H Urine Blood 1+ H Urine Nitrite Negative Urine Bilirubin Negative Urine Urobilinogen 0.2 Ur Leukocyte Esterase 1+ H Urine WBC (Auto) 5 Urine RBC (Auto) 2 Urine Casts (Auto) 7 U Epithel Cells (Auto) 2.4 Urine Crystals (Auto) Calcium oxalate Urine Bacteria (Auto) 62.8 11/12/18 11/12/18 11/12/18 16:50 16:50 19:10 WBC RBC Hgb Hct MCV MCH MCHC RDW Plt Count MPV Absolute Neuts (auto) Neutrophils % Lymphocytes % Monocytes % Eosinophils % Basophils % Nucleated RBC % PT with INR 12.60 INR 1.07 PTT (Actin FS) 35.7 Sodium 144 Potassium 3.6 Chloride 110 H Carbon Dioxide 27 Anion Gap 8 BUN 18.1 H Creatinine 0.7 Est GFR (CKD-EPI)AfAm 97.54 Est GFR (CKD-EPI)NonAf 84.16 Random Glucose 133 H Calcium 8.6 Phosphorus 3.7 Magnesium 2.8 H Total Bilirubin AST ALT Alkaline Phosphatase Creatine Kinase 424 H 336 H Creatine Kinase Index 16.4 H* 15.3 H* CK-MB (CK-2) 69.7 H 51.5 H Troponin I 22.10 H* 19.00 H* Total Protein Albumin TSH 1.04 Urine Color Urine Appearance Urine pH Ur Specific [place] Urine Protein Urine Glucose (UA) Urine Ketones Urine Blood Urine Nitrite Urine Bilirubin Urine Urobilinogen Ur Leukocyte Esterase Urine WBC (Auto) Urine RBC (Auto) Urine Casts (Auto) U Epithel Cells (Auto) Urine Crystals (Auto) Urine Bacteria (Auto) ASSESSMENT/PLAN: Ivanna Mcginnis is a 78 y/o female with a PMHx of depression, bladder cancer, and aneurysms who was admitted to ICU due to elevated troponins of unknown origin likely from chest trauma vs aneurysms vs CAD vs benzodiazepine withdrawl NEUROLOGIC - alert and oriented - depressed mood - drug screen positive for benzodiazepine - melatonin 10mg for sleep CARDIOLOGY - elevated troponins 22.1, trended down to 19.0 - continue to trend troponins and CK levels - continuous cardiac monitoring - EKG showed T wave abnormalities in leads II, III, aVF, V2, V3, V4, V5, and V6 , LVH, left anterior facscicular block, prolonged QTc 501 - old EKG did not show T wave abnormalities, likely had GA between February 2018 and today - R arm BP 107/76, L arm BP 105/78 - Dr. Aparicio consulted recs appreciated - per ED resident who spoke with Dr. Aparicio who requested to start aspirin , Plavix, heparin bolus, heparin drip - aspirin 325mg - Plavix 600mg - heparin 2900 units bolus - heparin infusion 34070 units in 500ml D5W - echo ordered - chest CTA ordered - lipid profile - BNP - orthostatic vital signs - likely transfer tomorrow for cardiac cath RESPIRATORY - on RA, stable RENAL - stable GASTROINTESTINAL - stable GENITOURINARY - 10lb unintentional weight loss - bladder/renal U/S for evaluation of urinary/frequency in setting of history of bladder cancer - recommend outpatient f/u with PCP and Heme/Onc INFECTIOUS DISEASE - UA positive for protein, ketones, blood, 1+ LE and 5 WBC, 62 bacteria - Ucx pending - in ICU, patient found with urinary frequency and urgency. stated at bedside, patient does have more confusion recently - ceftriaxone 1gm one time given ENDOCRINE - no acute issues HEMATOLOGY - no acute issues MUSCULOSKELETAL - no acute issues PSYCHIATRY - depressed mood - continue home Zoloft - continue to monitor the patient for any suicidal/homicidal ideation - anxiety symptoms may be explained by benzodiazepine withdrawal F/E/N - no standing fluids - hypokalemia, repleted, continue to monitor electrolytes, replete as necessary - NPO pending transfer and possible cath LINES - RAC placed 11/12 PROPHYLAXIS - given heparin 2900 units - on heparin drip - SCDs CODE - full code DISPO We will continue to follow and monitor this patient in the ICU. Thank you for this consultative opportunity. JOLIE ROMANO DO - PGY-1 INTERNAL MEDICINE Problem List - Problems (1) Elevated troponin Code(s): R74.8 - ABNORMAL LEVELS OF OTHER SERUM ENZYMES (2) Depression Code(s): F32.9 - MAJOR DEPRESSIVE DISORDER, SINGLE EPISODE, UNSPECIFIED Visit type - Emergency Visit Emergency Visit: Yes ED Registration Date: 11/12/18 Care time: The patient presented to the Emergency Department on the above date and was hospitalized for further evaluation of their emergent condition. - New Patient This patient is new to me today: Yes Date on this admission: 11/13/18 - Critical Care Critical Care patient: Yes Total Critical Care Time (in minutes): 35 Critical Care Statement: The care of this patient involved high complexity decision making to prevent further life threatening deterioration of the patient 's condition and/or to evaluate & treat vital organ system(s) failure or risk of failure. Dr. Aneudy Christian
[2018-11-12 23:34] VITALS: BMI 18.6
[2018-11-12] MEDS ORDERED: HEPARIN INFUSION - 25,000 UNITS/500 ML INFUS.BAG IVPB SCH (23:45)
[2018-11-12] MEDS ORDERED: MELATONIN 5 MG TABLETS PO ONE (23:47)
[2018-11-12] MEDS ORDERED: HEPARIN NA (PORCINE) 5,000 UNITS/ML 1ML VIAL IVPUSH PRN ×2 (23:53)
[2018-11-13 00:26] LABS: COCAINE, UR NEGATIVE ng/ml (CUTOFF=300); METHADONE, UR NEGATIVE ng/ml (CUTOFF=300); OPIATES, URI NEGATIVE ng/ml (CUTOFF=300); PHENCYCLIDINE,URINE NEGATIVE ng/ml (CUTOFF=25); URINE AMPHETAMINES NEGATIVE ng/ml (CUTOFF=500); URINE BARBITURATES NEGATIVE ng/ml (CUTOFF=200)
[2018-11-13 00:29] LABS: URINE BENZODIAZEPINES POSITIVE ng/ml (CUTOFF=200)
[2018-11-13] MEDS ORDERED: CEFTRIAXONE 1 GM in DEXTROSE 5%-WATER - 50 ML IVPB ONE (00:57)
[2018-11-13] MEDS ORDERED: ATORVASTATIN CA 40 MG TABLET (FP) PO SCH (01:49)
[2018-11-13] MEDS ORDERED: ATORVASTATIN CA 80 MG TABLET (FP) PO SCH (01:58)
[2018-11-13 02:52] LABS: BLOOD UREA NITROGEN 20.1 mg/dL (7-18); CALCIUM 8.6 mg/dL (8.5-10.1); CREATININE 0.6 mg/dL (0.55-1.3); N-TERMINAL BNP 9780.1 pg/ml (5-450); POTASSIUM 3.6 mmol/L (3.5-5.1)
[2018-11-13] MEDS ORDERED: DEXTROSE 5%-WATER - 50 ML IVPB ONE (04:55)
[2018-11-13] MEDS ORDERED: cefTRIAXone SODIUM 1 GM VIAL ONE (04:55)
[2018-11-13 06:12] LABS: HEMATOCRIT 35.8 % (32.4-45.2); HEMOGLOBIN 12.1 GM/dL (10.7-15.3); MCHC 33.8 g/dl (32.0-36.0); MEAN CELL VOLUME 88.7 fl (80-96); MEAN PLT VOLUME 10.5 fl (7.5-11.1); PLATELET COUNT 191 K/MM3 (134-434); RBC 4.04 M/mm3 (3.60-5.2); RDW 15.2 % (11.6-15.6); WHITE BLOOD COUNT 9.2 K/mm3 (4.0-10.0)
--- NOTE | 2018-11-13 06:20 | PN ---
Teaching Attending Note Name of Resident: Radha Sheriff ATTENDING PHYSICIAN STATEMENT I saw and evaluated the patient. Please refer to resident note for further historical information. I reviewed the resident's note and discussed the case with the resident. I agree with the resident's findings and plan as documented. Frail-appearing, chest bruising evident, AAOx3 resting in bed mentating appropriately RRR s1/2, NSR on monitor Lungs CTAB w/ sym exp NT ND +BS NC AT EOMI PERRLA CN2-12 wnl, no fnd A/P: Patient presents with NSTEMI with lack of presenting symptoms; did have a fall with brusing to her chest. Denies prior CV history # NSTEMI # Depression # S/P Aortic Aneruysm Repair # Hypokalemia # Remote history bladder cancer # Falls -Admit to ICU. ER spoke with CV; heparin drip with bolus, statin, BB, ASA. Will need eval for cath. Given history of fall consider r/o contusion; consider Takotsubo but low relative trops. Deferring all management to CV/ICU team regarding. Telemetry and followup EKG. Checking TSH, A1c, lipids. No current chest pain. Check BNP. Monitor for complications of NSTEMI. -Obtain records with repair of Aorta -Psych referral on DC Full Code
[2018-11-13 06:42] LABS: ALBUMIN 3.3 g/dl (3.4-5.0); BILIRUBIN,TOTAL 0.2 mg/dL (0.2-1); CALCIUM 8.3 mg/dL (8.5-10.1); CREATININE 0.5 mg/dL (0.55-1.3); MAGNESIUM 2.5 mg/dL (1.8-2.4); POTASSIUM 3.3 mmol/L (3.5-5.1); TOT PROT 5.7 g/dl (6.4-8.2)
--- NOTE | 2018-11-13 07:08 | PN ---
Physical Exam: SUBJECTIVE: Patient seen and examined OBJECTIVE: Vital Signs Period Temp Pulse Resp BP Sys/Vázquez Pulse Ox Last 24 Hr 98.2 F-98.8 F 68-87 10-22 93-118/68-85 98-99 GENERAL: Awake, alert, and fully oriented, in no acute distress. HEAD: Normal with no signs of trauma. NECK: Normal range of motion, supple without lymphadenopathy, JVD, or masses. LUNGS: Breath sounds equal, clear to auscultation bilaterally. No wheezes, and no crackles. No accessory muscle use. HEART: Bruise on midline, not tender to palpation, S1 and S2 heard ABDOMEN: Soft, nontender, not distended, normoactive bowel sounds, no guarding, no rebound, no masses. UPPER EXTREMITIES: 2+ pulses, warm, well-perfused. No cyanosis. No clubbing. No peripheral edema. LOWER EXTREMITIES: 2+ pulses, warm, well-perfused. No calf tenderness. No peripheral edema. PSYCHIATRIC: Cooperative. Good eye contact. Low mood and affect SKIN: Warm, dry, normal turgor, no rashes, normal capillary refill. Laboratory Results - last 24 hr 11/12/18 11/12/18 11/12/18 16:10 16:50 16:50 WBC 10.5 H RBC 4.70 Hgb 13.9 Hct 42.0 MCV 89.3 MCH 29.5 MCHC 33.0 RDW 15.1 Plt Count 259 MPV 10.2 Absolute Neuts (auto) 7.6 Neutrophils % 72.0 Lymphocytes % 17.9 Monocytes % 8.5 Eosinophils % 0.8 Basophils % 0.8 Nucleated RBC % 0 PT with INR INR PTT (Actin FS) Sodium 144 Potassium 2.9 L* Chloride 109 H Carbon Dioxide 28 Anion Gap 7 L BUN 18.4 H Creatinine 0.7 Est GFR (CKD-EPI)AfAm 97.54 Est GFR (CKD-EPI)NonAf 84.16 Random Glucose 110 H Calcium 8.8 Phosphorus Magnesium Total Bilirubin 0.3 AST 111 H ALT 33 Alkaline Phosphatase 68 Creatine Kinase Creatine Kinase Index CK-MB (CK-2) Troponin I B-Natriuretic Peptide Total Protein 6.6 Albumin 3.9 Triglycerides Cholesterol Total LDL Cholesterol HDL Cholesterol TSH Urine Color Yellow Urine Appearance Cloudy Urine pH 6.0 Ur Specific [place] 1.023 Urine Protein 1+ H Urine Glucose (UA) Negative Urine Ketones Trace H Urine Blood 1+ H Urine Nitrite Negative Urine Bilirubin Negative Urine Urobilinogen 0.2 Ur Leukocyte Esterase 1+ H Urine WBC (Auto) 5 Urine RBC (Auto) 2 Urine Casts (Auto) 7 U Epithel Cells (Auto) 2.4 Urine Crystals (Auto) Calcium oxalate Urine Bacteria (Auto) 62.8 Opiates Screen Methadone Screen Barbiturate Screen Phencyclidine Screen Ur Amphetamines Screen MDMA (Ecstasy) Screen Benzodiazepines Screen Cocaine Screen U Marijuana (THC) Screen 11/12/18 11/12/18 11/12/18 16:50 16:50 19:10 WBC RBC Hgb Hct MCV MCH MCHC RDW Plt Count MPV Absolute Neuts (auto) Neutrophils % Lymphocytes % Monocytes % Eosinophils % Basophils % Nucleated RBC % PT with INR 12.60 INR 1.07 PTT (Actin FS) 35.7 Sodium 144 Potassium 3.6 Chloride 110 H Carbon Dioxide 27 Anion Gap 8 BUN 18.1 H Creatinine 0.7 Est GFR (CKD-EPI)AfAm 97.54 Est GFR (CKD-EPI)NonAf 84.16 Random Glucose 133 H Calcium 8.6 Phosphorus 3.7 Magnesium 2.8 H Total Bilirubin AST ALT Alkaline Phosphatase Creatine Kinase 424 H 336 H Creatine Kinase Index 16.4 H* 15.3 H* CK-MB (CK-2) 69.7 H 51.5 H Troponin I 22.10 H* 19.00 H* B-Natriuretic Peptide Total Protein Albumin Triglycerides Cholesterol Total LDL Cholesterol HDL Cholesterol TSH 1.04 Urine Color Urine Appearance Urine pH Ur Specific [place] Urine Protein Urine Glucose (UA) Urine Ketones Urine Blood Urine Nitrite Urine Bilirubin Urine Urobilinogen Ur Leukocyte Esterase Urine WBC (Auto) Urine RBC (Auto) Urine Casts (Auto) U Epithel Cells (Auto) Urine Crystals (Auto) Urine Bacteria (Auto) Opiates Screen Methadone Screen Barbiturate Screen Phencyclidine Screen Ur Amphetamines Screen MDMA (Ecstasy) Screen Benzodiazepines Screen Cocaine Screen U Marijuana (THC) Screen 11/12/18 11/13/18 11/13/18 23:49 00:05 01:45 WBC RBC Hgb Hct MCV MCH MCHC RDW Plt Count MPV Absolute Neuts (auto) Neutrophils % Lymphocytes % Monocytes % Eosinophils % Basophils % Nucleated RBC % PT with INR INR PTT (Actin FS) Sodium Cancelled 145 Potassium Cancelled 3.6 Chloride Cancelled 109 H Carbon Dioxide Cancelled 29 Anion Gap Cancelled 7 L BUN Cancelled 20.1 H Creatinine Cancelled 0.6 Est GFR (CKD-EPI)AfAm Cancelled 102.62 Est GFR (CKD-EPI)NonAf Cancelled 88.54 Random Glucose Cancelled 99 Calcium Cancelled 8.6 Phosphorus Magnesium Total Bilirubin AST ALT Alkaline Phosphatase Creatine Kinase 208 H Creatine Kinase Index 12.6 H* CK-MB (CK-2) 26.3 H Troponin I Cancelled 11.50 H* B-Natriuretic Peptide 9780.1 H Total Protein Albumin Triglycerides Cholesterol Total LDL Cholesterol HDL Cholesterol TSH Urine Color Urine Appearance Urine pH Ur Specific [place] Urine Protein Urine Glucose (UA) Urine Ketones Urine Blood Urine Nitrite Urine Bilirubin Urine Urobilinogen Ur Leukocyte Esterase Urine WBC (Auto) Urine RBC (Auto) Urine Casts (Auto) U Epithel Cells (Auto) Urine Crystals (Auto) Urine Bacteria (Auto) Opiates Screen Negative Methadone Screen Negative Barbiturate Screen Negative Phencyclidine Screen Negative Ur Amphetamines Screen Negative MDMA (Ecstasy) Screen Negative Benzodiazepines Screen Positive A* Cocaine Screen Negative U Marijuana (THC) Screen Negative 11/13/18 11/13/18 05:30 05:30 WBC RBC Hgb Hct MCV MCH MCHC RDW Plt Count MPV Absolute Neuts (auto) Neutrophils % Lymphocytes % Monocytes % Eosinophils % Basophils % Nucleated RBC % PT with INR INR PTT (Actin FS) Sodium 144 Potassium 3.3 L Chloride 111 H Carbon Dioxide 27 Anion Gap 6 L BUN 19.0 H Creatinine 0.5 L Est GFR (CKD-EPI)AfAm 108.96 Est GFR (CKD-EPI)NonAf 94.01 Random Glucose 105 Calcium 8.3 L Phosphorus Magnesium 2.5 H Total Bilirubin 0.2 AST 58 H ALT 25 Alkaline Phosphatase 60 Creatine Kinase 153 Creatine Kinase Index CK-MB (CK-2) 17.3 H Troponin I B-Natriuretic Peptide Total Protein 5.7 L Albumin 3.3 L Triglycerides 118 Cholesterol 151 Total LDL Cholesterol 95 HDL Cholesterol 41 TSH Urine Color Urine Appearance Urine pH Ur Specific [place] Urine Protein Urine Glucose (UA) Urine Ketones Urine Blood Urine Nitrite Urine Bilirubin Urine Urobilinogen Ur Leukocyte Esterase Urine WBC (Auto) Urine RBC (Auto) Urine Casts (Auto) U Epithel Cells (Auto) Urine Crystals (Auto) Urine Bacteria (Auto) Opiates Screen Methadone Screen Barbiturate Screen Phencyclidine Screen Ur Amphetamines Screen MDMA (Ecstasy) Screen Benzodiazepines Screen Cocaine Screen U Marijuana (THC) Screen Active Medications Generic Name Dose Route Start Last Admin Trade Name Freq PRN Reason Stop Dose Admin Aspirin 81 mg 11/13/18 10:00 Asa - PO DAILY [facility] Atorvastatin Calcium 80 mg 11/13/18 01:58 Lipitor - PO HS [facility] Clopidogrel Bisulfate 75 mg 11/13/18 10:00 Plavix - PO DAILY [facility] Heparin Sodium (Porcine) 1,000 unit 11/12/18 23:53 Heparin - IVPUSH PRN PRN Heparin Heparin Sodium (Porcine) 5,000 unit 11/12/18 23:53 Heparin - IVPUSH PRN PRN Heparin Heparin Sodium/Dextrose 25,000 units in 500 mls @ 16 mls/hr 11/12/18 23:45 00:11 Heparin Infusion - IVPB 800 units/hr TITR [facility] 16 mls/hr Administration Protocol 800 UNITS/HR Sertraline HCl 150 mg 11/13/18 22:00 Zoloft - PO HS [facility] Current Medications Aspirin (Asa -) 81 mg PO DAILY [facility] Atorvastatin Calcium (Lipitor -) 80 mg PO HS [facility] Clopidogrel Bisulfate (Plavix -) 75 mg PO DAILY [facility] Heparin Sodium (Porcine) (Heparin -) 1,000 unit IVPUSH PRN PRN PRN Reason: Heparin Heparin Sodium (Porcine) (Heparin -) 5,000 unit IVPUSH PRN PRN PRN Reason: Heparin Heparin Sodium/Dextrose (Heparin Infusion -) 25,000 units in 500 mls @ 16 mls/ hr IVPB TITR [place]; Protocol Last Admin: 11/13/18 00:11 Dose: 800 units/hr, 16 mls/hr Sertraline HCl (Zoloft -) 150 mg PO HS [facility] CBC, BMP 11/13/18 05:30 11/13/18 05:30 PC: 78yo F hx major depression (zoloft), distal bladder CA in remission, herpes encephalitis (2018), presents to the ER with c/o worsening of her depression after her friend's 10 days ago. Admitted due to EKG abnormalities with suspicion of [place]/NSTEMI. HOPC: 78yo F hx major depression (zoloft), distal bladder CA in remission, herpes encephalitis (2018), presents to the ER with c/o worsening of her depression after her friend's 10 days ago. She has taken Zoloft 150mg/day consistently for the past 1 year, and complains of associated weight loss. Zoloft was working well until her friend's 10 days ago, since then she has been watching TV, crying, and experiencing worsening sadness. Complains of weight loss associated with Zoloft, but denies any dizziness, chest pain, SOB, abdominal pain, heat/cold intolerance, N/V, D/C, blood in stool or urine, dysuria, numbness/tingling, weakness. Bruise over sternum, 3x3 inches, sustained when she fell down the stairs 1-3 days ago. She does not recall the fall, when it happened, or what happened afterwards. Does not complain of LOC, dizziness, syncope, head trauma, pain or other injuries. states it was 3 days ago and he did not witness the fall. PMH: Aneurysm, bladder CA, R knee arthroscopy 2001, aortic aneurysm repair 2015 Socail: no smoking or drug use, 1/2 ounce alcohol daily Family: brother had brain aneursym ER course: -aspirin 325mg -Plavix 600mg -heparin 2900 units bolus -heparin infusion 75567 units in 500ml D5W -ceftriaxone 1gm one time given for UTI -K 40meq PO EKG: - EKG showed T wave abnormalities in leads II, III, aVF, V2, V3, V4, V5, and V6, LVH, left anterior facscicular block, prolonged QTc 501, EKG in 2018 normal Trop 5PM 22.1, 7PM 19.0, 2AM 11.5, 5:30AM 8.81 CK 5PM 424, 7PM, 336, 2AM 208, 5:30AM 153 CK-MB 5PM 69.7, 7PM 51.5, 2AM 26.3, 5:30AM 17.3, CK index 5PM 16.4, 7PM 15.3, 2AM 12.6, 5:30AM pending CXR: no acute changes, but is notable for prominent aortic arch. CT head/spine: No fracture or acute pathology UA: , UA positive for protein, ketones, blood, 1+ LE and 5 WBC, 62 bacteria Urine tox: Benzos CBC CMP Coags: PT 5PM 35.7, 5AM 58.9 Mg, Phos TSH ASSESSMENT/PLAN: #NSTEMI/Takatsubo: -EKG showed TWI -Cardiac profile trops downtrending -Cardiology Consult pending -Aspirin 81 mg PO Qdaily, Plavix 75 mg PO Qdaily, Heparin drip 800 units/hr IV -Old Echo 02/16/19: LV NL in size. LV systolic function low NL. Probable apical hypokinesia. EF 50-55%. RV systolic function NL. LA size NL. RA size NL. Mild mitral annular calcification. Moderate MR. Mild TR. Mild aortic sclerosis. Moderate AR. No pericardial effusion. -Atorvastatin 80 mg PO Qdaily -Transfer for Cath in morning likely after echo is completed -NPO #Depressed mood: - continue home Zoloft - continue to monitor the patient for any suicidal/homicidal ideation #UTI -Ceftriaxone 1gm in ER given -Urine Cx pending #F/E/N - no standing fluids - monitor hpokalemia - NPO pending possible cath Visit type - Emergency Visit Emergency Visit: Yes ED Registration Date: 11/12/18 Care time: The patient presented to the Emergency Department on the above date and was hospitalized for further evaluation of their emergent condition. - New Patient This patient is new to me today: Yes Date on this admission: 11/13/18 - Critical Care Critical Care patient: Yes Total Critical Care Time (in minutes): 420 Critical Care Statement: The care of this patient involved high complexity decision making to prevent further life threatening deterioration of the patient 's condition and/or to evaluate & treat vital organ system(s) failure or risk of failure. ATTENDING PHYSICIAN STATEMENT I saw and evaluated the patient. I reviewed the resident's note and discussed the case with the resident. I agree with the resident's findings and plan as documented. SUBJECTIVE: OBJECTIVE: ASSESSMENT AND PLAN:
--- NOTE | 2018-11-13 07:59 | CON.CARD ---
Consult Consult Specialty:: Cardiology Referred by:: Dr. Hunt Reason for Consultation:: NSTEMI - History of Present Illness Chief Complaint: Depression History of Present Illness: 78F presented to ER with depressive symptoms, tired and sluggish for a week. Recent loss of a good friend. No CP, SOB, palps. Edema. Mechanical slip and fall down one step resulting in anterior chest wall superficial hematoma. Denies LOC. CTs head and C spine negative. ECG with anterior TWI and TnI 19 with elevated CPK. - History Source History Provided By: Patient, Medical Record Limitations to Obtaining History: No Limitations - Past Medical History Cardio/Vascular: No: AFIB, Aneurysm, Aortic Insufficiency, Aortic Stenosis, CAD , CHF, Deep Vein Thrombosis, HTN, Hyperlipdemia, [place], Mitral Insufficiency, Mitral Stenosis, Murmur, Pulmonary Hypertension, Other Pulmonary: No: Asthma, Bronchitis, Cancer, COPD, O2 Dependent, Pneumonia, Previously Intubated, Pulmonary Embolus, Pulmonary Fibrosis, Sleep Apnea, Other Gastrointestinal: No: Ascites, Cancer, Constipation, Crohn's Disease, Diverticulitis, Diverticulosis, Esophageal Varices, Gastritis, GERD, GI Bleed, Hemorrhoids, Hiatal Hernia, Inflamatory Bowel Disease, Irritable Bowel Disease, Pancreatitis, Peptic Ulcer Disease, Ulcerative Colitis, Other Hepatobiliary: No: Cirrhosis, Cholelithiasis, Cholecystitis, Choledocholithiasis , Hepatitis A, Hepatitis B, Hepatitis C, Other Heme/Onc: No: Anemia, B12 Deficiency, Bleeding Disorder, Cancer, Current Chemotherapy, Current Radiation Therapy, Hemochromatosis, Hypercoaguable State, Myeloproliferative Synd, Sickle Cell Disease, Sickle Cell Trait, Thrombocytopenia, Other Psych: Yes: Depression - Alcohol/Substance Use Hx Alcohol Use: No - Smoking History Smoking history: Never smoked Have you smoked in the past 12 months: No - Social History Usual Living Arrangement: With Spouse History of Recent Travel: No Home Medications - Allergies Allergies/Adverse Reactions: Allergies Allergy/AdvReac Type Severity Reaction Status Date / Time No Known Allergies Allergy Verified 11/12/18 15:01 - Home Medications Home Medications: Ambulatory Orders Sertraline HCl [Zoloft] 150 mg PO HS 11/12/18 Family Disease History - Family Disease History Family History: Unremarkable Review of Systems - Review of Systems Constitutional: reports: Weakness Eyes: denies: No Symptoms, Blind Spots, Blurred Vision, Double Vision, Eye Pain , Floaters, Photophobia, Recent Change in Vision, Other HENT: denies: No Symptoms, Difficult Swallowing, Ear Discharge, Ear Pain, Epistaxis, Gingival Bleeding, Hearing Loss, Mouth Swelling, Nasal Congestion, Ocular Prosthesis, Throat Pain, Toothache, Ringing in Ears, Other Neck: denies: No Symptoms, Decreased ROM, Lumps, Pain on Movement, Stiffness, Swollen Glands, Tenderness, Other Cardiovascular: denies: No Symptoms, Chest Pain, Edema, Palpitations, Shortness of Breath, Other Respiratory: denies: No Symptoms, Cough, Exercise Intolerance, Hemoptysis, Orthopnea, PND, Snoring, SOB, SOB on Exertion, Wheezing, Other Gastrointestinal: denies: No Symptoms, Abdominal Pain, Bloating, Constipation, Diarrhea, Dysphagia, Indigestion, Melena, Nausea, Rectal Bleeding, Vomiting, Vomiting Blood, Other Genitourinary: denies: No Symptoms, Burning, Discharge, Dysuria, Flank Pain, Frequency, Hematuria, Incontinence, Lesions, Menses, Pain, Testicular Mass, Testicular Pain, Testicular Swelling, Urgency, Vaginal Bleeding, Other Breasts: denies: No Symptoms Reported, See HPI, Breast Implants, Discharge from Nipple, Lumps, Pain, Skin Changes, Other Musculoskeletal: denies: No Symptoms, Back Pain, Crepitus, Decreased ROM, Extremity Pain, Joint Pain, Joint Swelling, Muscle Pain, Muscle Cramps, Muscle Weakness, Other Integumentary: denies: No Symptoms, Blister, Bruising, Change in Color, Eczema, Erythema, Incision, Lesions, Lump, Pallor, Pruritis, Rash, Wound, Other Neurological: denies: No Symptoms, Change in LOC, Change in Speech, Confusion, Dizziness, Headache, Incoordination, Numbness, Parasthesia, Pre-Existing Deficit , Seizure, Syncope, Tremors, Unsteady Gait, Weakness, Other Endocrine: denies: No Symptoms, Excessive Sweating, Flushing, Increased Hunger, Increased Thirst, Intolerance to Cold, Intolerance to Heat, Unexplained Weight Gain, Unexplained Weight Loss, Other Hematology/Lymphatic: denies: No Symptoms, Easily Bruised, Excessive Bleeding, Swollen Glands, Other Psychiatric: reports: Depression Vital Signs: Vital Signs Temperature 98.2 F 11/13/18 02:00 Pulse Rate 71 11/13/18 05:49 Respiratory Rate 21 H 07/12/19 05:00 Blood Pressure 117/83 11/13/18 05:49 O2 Sat by Pulse Oximetry (%) 99 11/12/18 23:23 Constitutional: Yes: No Distress Eyes: Yes: Conjunctiva Clear Neck: Yes: Trachea Midline Respiratory: Yes: CTA Bilaterally Gastrointestinal: Yes: Soft Cardiovascular: Yes: Regular Rate and Rhythm JVD: No Carotid Bruit: No Heart Sounds: Yes: S1, S2 (RRR no M/R/G) Musculoskeletal: Yes: Other (superficial ecchymosis anterior chest wall over manubrium) Edema: No Peripheral Pulses WNL: Yes Neurological: Yes: Alert, Oriented - Other Data Labs, Other Data: CBC, BMP 11/13/18 05:30 11/13/18 05:30 INR, PTT INR 1.07 (0.83-1.09) 11/12/18 16:50 Troponin, BNP 11/12/18 11/12/18 11/13/18 16:50 19:10 00:05 Troponin I 22.10 H* 19.00 H* Cancelled B-Natriuretic Peptide 11/13/18 11/13/18 01:45 05:30 Troponin I 11.50 H* 8.81 H* B-Natriuretic Peptide 9780.1 H Troponin, BNP 11/12/18 11/12/18 11/13/18 16:50 19:10 00:05 Troponin I 22.10 H* 19.00 H* Cancelled B-Natriuretic Peptide 11/13/18 11/13/18 01:45 05:30 Troponin I 11.50 H* 8.81 H* B-Natriuretic Peptide 9780.1 H SR with anterior TWI Echo: Pending Imaging - Results X-ray: Report Reviewed Cat Scan: Report Reviewed EKG: Image Reviewed Assessment/Plan IMP: 1. NSTEMI 2. Possible Takotsubo Cardiomyopathy 3. History of Moderate MR/AR 4. Mechanical fall Low clinical suspicion for Pulm Embolism REC: 1. Echo 2. Cont heparin gtts, ASA, Plavix, statin 3. Will add low dose BB 4. Plan for tx to [place] for cath today
--- NOTE | 2018-11-13 08:33 | PN ---
Physical Exam: SUBJECTIVE: Patient seen and examined, feeling better this morning, slept well. No acute complaints. Being transferred to [facility] today. OBJECTIVE: Vital Signs Period Temp Pulse Resp BP Sys/Vázquez Pulse Ox Last 24 Hr 98.2 F-98.8 F 68-87 10-22 93-118/68-85 98-99 GENERAL: The patient is awake, alert, and fully oriented, in no acute distress. HEAD: Normal with no signs of trauma. EYES: PERRL, extraocular movements intact, sclera anicteric, conjunctiva clear. No ptosis. ENT: Ears normal, nares patent, oropharynx clear without exudates, moist mucous membranes. NECK: Trachea midline, full range of motion, supple. LUNGS: Breath sounds equal, clear to auscultation bilaterally, no wheezes, no crackles, no accessory muscle use. HEART: Hematoma over sternum, not tender on palpation. Regular rate and rhythm, S1, S2 without murmur, rub or gallop. ABDOMEN: Soft, nontender, nondistended, normoactive bowel sounds, no guarding, no rebound, no hepatosplenomegaly, no masses. EXTREMITIES: 2+ pulses, warm, well-perfused, no edema. NEUROLOGICAL: Cranial nerves II through XII grossly intact. Normal speech, gait not observed. PSYCH: Normal mood, normal affect. SKIN: Warm, dry, normal turgor, no rashes or lesions noted Laboratory Results - last 24 hr 11/12/18 11/12/18 11/12/18 16:10 16:50 16:50 WBC 10.5 H RBC 4.70 Hgb 13.9 Hct 42.0 MCV 89.3 MCH 29.5 MCHC 33.0 RDW 15.1 Plt Count 259 MPV 10.2 Absolute Neuts (auto) 7.6 Neutrophils % 72.0 Lymphocytes % 17.9 Monocytes % 8.5 Eosinophils % 0.8 Basophils % 0.8 Nucleated RBC % 0 PT with INR INR PTT (Actin FS) Sodium 144 Potassium 2.9 L* Chloride 109 H Carbon Dioxide 28 Anion Gap 7 L BUN 18.4 H Creatinine 0.7 Est GFR (CKD-EPI)AfAm 97.54 Est GFR (CKD-EPI)NonAf 84.16 Random Glucose 110 H Calcium 8.8 Phosphorus Magnesium Total Bilirubin 0.3 AST 111 H ALT 33 Alkaline Phosphatase 68 Creatine Kinase Creatine Kinase Index CK-MB (CK-2) Troponin I B-Natriuretic Peptide Total Protein 6.6 Albumin 3.9 Triglycerides Cholesterol Total LDL Cholesterol HDL Cholesterol TSH Urine Color Yellow Urine Appearance Cloudy Urine pH 6.0 Ur Specific [place] 1.023 Urine Protein 1+ H Urine Glucose (UA) Negative Urine Ketones Trace H Urine Blood 1+ H Urine Nitrite Negative Urine Bilirubin Negative Urine Urobilinogen 0.2 Ur Leukocyte Esterase 1+ H Urine WBC (Auto) 5 Urine RBC (Auto) 2 Urine Casts (Auto) 7 U Epithel Cells (Auto) 2.4 Urine Crystals (Auto) Calcium oxalate Urine Bacteria (Auto) 62.8 Opiates Screen Methadone Screen Barbiturate Screen Phencyclidine Screen Ur Amphetamines Screen MDMA (Ecstasy) Screen Benzodiazepines Screen Cocaine Screen U Marijuana (THC) Screen 11/12/18 11/12/18 11/12/18 16:50 16:50 19:10 WBC RBC Hgb Hct MCV MCH MCHC RDW Plt Count MPV Absolute Neuts (auto) Neutrophils % Lymphocytes % Monocytes % Eosinophils % Basophils % Nucleated RBC % PT with INR 12.60 INR 1.07 PTT (Actin FS) 35.7 Sodium 144 Potassium 3.6 Chloride 110 H Carbon Dioxide 27 Anion Gap 8 BUN 18.1 H Creatinine 0.7 Est GFR (CKD-EPI)AfAm 97.54 Est GFR (CKD-EPI)NonAf 84.16 Random Glucose 133 H Calcium 8.6 Phosphorus 3.7 Magnesium 2.8 H Total Bilirubin AST ALT Alkaline Phosphatase Creatine Kinase 424 H 336 H Creatine Kinase Index 16.4 H* 15.3 H* CK-MB (CK-2) 69.7 H 51.5 H Troponin I 22.10 H* 19.00 H* B-Natriuretic Peptide Total Protein Albumin Triglycerides Cholesterol Total LDL Cholesterol HDL Cholesterol TSH 1.04 Urine Color Urine Appearance Urine pH Ur Specific [place] Urine Protein Urine Glucose (UA) Urine Ketones Urine Blood Urine Nitrite Urine Bilirubin Urine Urobilinogen Ur Leukocyte Esterase Urine WBC (Auto) Urine RBC (Auto) Urine Casts (Auto) U Epithel Cells (Auto) Urine Crystals (Auto) Urine Bacteria (Auto) Opiates Screen Methadone Screen Barbiturate Screen Phencyclidine Screen Ur Amphetamines Screen MDMA (Ecstasy) Screen Benzodiazepines Screen Cocaine Screen U Marijuana (THC) Screen 11/12/18 11/13/18 11/13/18 23:49 00:05 01:45 WBC RBC Hgb Hct MCV MCH MCHC RDW Plt Count MPV Absolute Neuts (auto) Neutrophils % Lymphocytes % Monocytes % Eosinophils % Basophils % Nucleated RBC % PT with INR INR PTT (Actin FS) Sodium Cancelled 145 Potassium Cancelled 3.6 Chloride Cancelled 109 H Carbon Dioxide Cancelled 29 Anion Gap Cancelled 7 L BUN Cancelled 20.1 H Creatinine Cancelled 0.6 Est GFR (CKD-EPI)AfAm Cancelled 102.62 Est GFR (CKD-EPI)NonAf Cancelled 88.54 Random Glucose Cancelled 99 Calcium Cancelled 8.6 Phosphorus Magnesium Total Bilirubin AST ALT Alkaline Phosphatase Creatine Kinase 208 H Creatine Kinase Index 12.6 H* CK-MB (CK-2) 26.3 H Troponin I Cancelled 11.50 H* B-Natriuretic Peptide 9780.1 H Total Protein Albumin Triglycerides Cholesterol Total LDL Cholesterol HDL Cholesterol TSH Urine Color Urine Appearance Urine pH Ur Specific [place] Urine Protein Urine Glucose (UA) Urine Ketones Urine Blood Urine Nitrite Urine Bilirubin Urine Urobilinogen Ur Leukocyte Esterase Urine WBC (Auto) Urine RBC (Auto) Urine Casts (Auto) U Epithel Cells (Auto) Urine Crystals (Auto) Urine Bacteria (Auto) Opiates Screen Negative Methadone Screen Negative Barbiturate Screen Negative Phencyclidine Screen Negative Ur Amphetamines Screen Negative MDMA (Ecstasy) Screen Negative Benzodiazepines Screen Positive A* Cocaine Screen Negative U Marijuana (THC) Screen Negative 11/13/18 11/13/18 11/13/18 05:30 05:30 05:30 WBC 9.2 RBC 4.04 Hgb 12.1 Hct 35.8 MCV 88.7 MCH 30.0 MCHC 33.8 RDW 15.2 Plt Count 191 D MPV 10.5 Absolute Neuts (auto) Neutrophils % Lymphocytes % Monocytes % Eosinophils % Basophils % Nucleated RBC % PT with INR INR PTT (Actin FS) Sodium 144 Potassium 3.3 L Chloride 111 H Carbon Dioxide 27 Anion Gap 6 L BUN 19.0 H Creatinine 0.5 L Est GFR (CKD-EPI)AfAm 108.96 Est GFR (CKD-EPI)NonAf 94.01 Random Glucose 105 Calcium 8.3 L Phosphorus Magnesium 2.5 H Total Bilirubin 0.2 AST 58 H ALT 25 Alkaline Phosphatase 60 Creatine Kinase 153 Creatine Kinase Index CK-MB (CK-2) 17.3 H Troponin I 8.81 H* B-Natriuretic Peptide Total Protein 5.7 L Albumin 3.3 L Triglycerides 118 Cholesterol 151 Total LDL Cholesterol 95 HDL Cholesterol 41 TSH Urine Color Urine Appearance Urine pH Ur Specific [place] Urine Protein Urine Glucose (UA) Urine Ketones Urine Blood Urine Nitrite Urine Bilirubin Urine Urobilinogen Ur Leukocyte Esterase Urine WBC (Auto) Urine RBC (Auto) Urine Casts (Auto) U Epithel Cells (Auto) Urine Crystals (Auto) Urine Bacteria (Auto) Opiates Screen Methadone Screen Barbiturate Screen Phencyclidine Screen Ur Amphetamines Screen MDMA (Ecstasy) Screen Benzodiazepines Screen Cocaine Screen U Marijuana (THC) Screen 11/13/18 05:30 WBC RBC Hgb Hct MCV MCH MCHC RDW Plt Count MPV Absolute Neuts (auto) Neutrophils % Lymphocytes % Monocytes % Eosinophils % Basophils % Nucleated RBC % PT with INR INR PTT (Actin FS) 58.9 H Sodium Potassium Chloride Carbon Dioxide Anion Gap BUN Creatinine Est GFR (CKD-EPI)AfAm Est GFR (CKD-EPI)NonAf Random Glucose Calcium Phosphorus Magnesium Total Bilirubin AST ALT Alkaline Phosphatase Creatine Kinase Creatine Kinase Index CK-MB (CK-2) Troponin I B-Natriuretic Peptide Total Protein Albumin Triglycerides Cholesterol Total LDL Cholesterol HDL Cholesterol TSH Urine Color Urine Appearance Urine pH Ur Specific [place] Urine Protein Urine Glucose (UA) Urine Ketones Urine Blood Urine Nitrite Urine Bilirubin Urine Urobilinogen Ur Leukocyte Esterase Urine WBC (Auto) Urine RBC (Auto) Urine Casts (Auto) U Epithel Cells (Auto) Urine Crystals (Auto) Urine Bacteria (Auto) Opiates Screen Methadone Screen Barbiturate Screen Phencyclidine Screen Ur Amphetamines Screen MDMA (Ecstasy) Screen Benzodiazepines Screen Cocaine Screen U Marijuana (THC) Screen Active Medications Generic Name Dose Route Start Last Admin Trade Name Freq PRN Reason Stop Dose Admin Aspirin 81 mg 11/13/18 10:00 Asa - PO DAILY [facility] Atorvastatin Calcium 80 mg 11/13/18 01:58 Lipitor - PO HS [facility] Clopidogrel Bisulfate 75 mg 11/13/18 10:00 Plavix - PO DAILY [facility] Heparin Sodium (Porcine) 1,000 unit 11/12/18 23:53 Heparin - IVPUSH PRN PRN Heparin Heparin Sodium (Porcine) 5,000 unit 11/12/18 23:53 Heparin - IVPUSH PRN PRN Heparin Heparin Sodium/Dextrose 25,000 units in 500 mls @ 16 mls/hr 11/12/18 23:45 00:11 Heparin Infusion - IVPB 800 units/hr TITR [facility] 16 mls/hr Administration Protocol 800 UNITS/HR Metoprolol Tartrate 12.5 mg 11/13/18 10:00 Lopressor - PO BID [facility] Sertraline HCl 150 mg 11/13/18 22:00 Zoloft - PO HS [facility] ASSESSMENT/PLAN: 78F with pmh of depression, 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 #NSTEMI/Takatsubo: -EKG showed TWI -Cardiac profile trops downtrending -Dr. Pate saw patient, transferring patient to [facility] today for cath between 945 and 1000 -continue heparing drip and asa -Atorvastatin 80 mg PO Qdaily - Probably wont get her echo in time -NPO #Depressed mood: - continue home Zoloft - continue to monitor the patient for any suicidal/homicidal ideation #F/E/N - no standing fluids - monitor hypokalemia - NPO pending possible cath Thank you for the consulting opportunity. León Albarado, PGY3 Visit type - Emergency Visit Emergency Visit: No - New Patient This patient is new to me today: Yes Date on this admission: 11/13/18 - Critical Care Critical Care patient: No ATTENDING PHYSICIAN STATEMENT I saw and evaluated the patient. I reviewed the resident's note and discussed the case with the resident. I agree with the resident's findings and plan as documented. SUBJECTIVE: OBJECTIVE: ASSESSMENT AND PLAN:
[2018-11-13] MEDS ORDERED: PT OWN MED DRAWER 7, Y5N ONE (09:58)
[2018-11-13] MEDS ORDERED: ASPIRIN 81 MG CHEWABLE TABLETS PO SCH (10:00)
[2018-11-13] MEDS ORDERED: METOPROLOL TARTRATE 25 MG TABLET (FP) PO SCH (10:00)
[2018-11-13] MEDS ORDERED: CLOPIDOGREL BISULFATE 75 MG TABLET (FP) PO SCH (10:00)
[2018-11-13 10:34] VITALS: BP 105/73; PULSE 74; TEMP 98.1
[2018-11-13] MEDS ORDERED: POTASSIUM CHLORIDE TABS 20 MEQ TABLET.ER (FP) PO ONE (10:46)
--- NOTE | 2018-11-13 10:58 | ECHO ---
Name: ARSENIO MANZANARES Exam:Adult Echocardiogram Study Date: 11/13/2018 09:13 AM Age: 78 yrs Reason For Study: ELEVATED TROPONIN ? BONNIE Height: 62 in Weight: 103 lb BSA: 1.4 m2 MMode/2D Measurements & Calculations IVSd: 0.81 cm Ao root diam: 3.2 cm LVIDd: 4.7 cm LA dimension: 3.0 cm LVIDs: 3.4 cm LVPWd: 0.60 cm EDV(Teich): 101.9 ml LVOT diam: 2.1 cm ESV(Teich): 46.7 ml Doppler Measurements & Calculations MV E max sai: 23.7 cm/sec Ao V2 max: 154.2 cm/sec MV A max sai: 74.0 cm/sec Ao max P.5 mmHg MV E/A: 0.32 Ao V2 mean: 115.4 cm/sec Ao mean P.0 mmHg Ao V2 VTI: 30.1 cm BAUDILIO(I,D): 1.1 cm2 AI P1/2t: 896.5 msec BAUDILIO(V,D): 1.4 cm2 AI max sai: 437.3 cm/sec LV V1 max P.8 mmHg AI max P.5 mmHg LV V1 mean P.80 mmHg AI dec slope: 142.9 cm/sec2 LV V1 max: 65.9 cm/sec LV V1 mean: 40.5 cm/sec LV V1 VTI: 10.1 cm MR max sai: 466.4 cm/sec SV(LVOT): 33.8 ml MR max P.0 mmHg TR max sai: 204.6 cm/sec PI end-d sai: 118.1 cm/sec TR max P.8 mmHg Med Peak E' Sai: 3.6 cm/sec Med E/e': 6.6 Lat Peak E' Sai: 7.1 cm/sec Lat E/e': 3.3 Left Ventricle Mild basal septal hypertrophy. Ejection Fraction = 40%. Akinesis of the mid anteroseptum, apical ante rior wall, apex, and apical inferior wall. Right Ventricle The right ventricle is grossly normal size. The right ventricular systolic function is grossly normal . Atria Normal left and right atrial size and function. Mitral Valve The mitral valve is normal in structure and function. There is no mitral valve stenosis. There is mil d mitral regurgitation. Tricuspid Valve The tricuspid valve is not well visualized, but is grossly normal. There is mild tricuspid regurgitat ion. Aortic Valve A bicuspid aortic valve cannot be excluded. No hemodynamically significant valvular aortic stenosis. Mild to moderate aortic regurgitation. Pulmonic Valve The pulmonic valve is not well seen, but is grossly normal. There is no pulmonic valvular stenosis. M ild pulmonic valvular regurgitation. Great Vessels The aortic root is normal size. Pericardium/Pleura There is no pericardial effusion. Interpretation Summary Akinesis of the mid anteroseptum, apical anterior wall, apex, and apical inferior wall. Ejection Fraction = 40%. Mild basal septal hypertrophy. There is mild mitral regurgitation. There is mild tricuspid regurgitation. A bicuspid aortic valve cannot be excluded. Mild to moderate aortic regurgitation. There is no pericardial effusion. MD Leiva *Alessandra 11/13/2018 10:57 AM
--- NOTE | 2018-11-13 12:09 | PN ---
Teaching Attending Note Name of Resident: Leighton Villeda ATTENDING PHYSICIAN STATEMENT I saw and evaluated the patient. I reviewed the resident's note and discussed the case with the resident. I agree with the resident's findings and plan as documented. SUBJECTIVE: no fever or chills. has no SOB, no CP . reports depression but no SI or homicidal ideations. OBJECTIVE: NAD , awake, alert and cooperative slightly dry MM CV: RRR, no MRG, no jVd, Neg hepatojugular reflux lungs: CTAB Ext : no edema or erythema Contusion on anterior chest wall with tenderness to palpation ASSESSMENT AND PLAN: 78 y/o lady with h/o remote bladder cancer, depression, aortic aneurysmal repair , Mod AR/MR, recurrent falls, who presented with depression and was found to have EKG changes and elevated trop. 1- Elevated trop, possible NSTEMI. Possible TAkotsubu cardiomyopathy. possible contusion of myocardium due to chest trauma. EKG reviewed. TWI in anterioseptal and lateral precordial leads. no present on previous EKG form 02/19. No signs of heart failure. - cont heparin gtt. - start BB , lopressor 12.5 mg BID - cont Asa and plavix, and statin - echo from 02/19 reviwed. Echo this am reviewed. - Up for a transfer for cath. 2- No symptoms of UTI. received one dose of ceftriaxone last night. will not treat pyuria. 3- Depression, complicated by grieving. no SI. - cont her zoloft, change dose to 300 mg , her home dose - f/u with psych 4- Fall: PT eval. dispo : Tx to [facility] for cath
--- NOTE | 2018-11-13 12:11 | PN ---
Teaching Attending Note Name of Resident: León Albarado ATTENDING PHYSICIAN STATEMENT I saw and evaluated the patient. I reviewed the resident's note and discussed the case with the resident. I agree with the resident's findings and plan as documented. SUBJECTIVE: Patient seen and examined in the ICU. Awake and alert. No CP or SOB. Pending transfer for cardiac catherization at [facility] [place]. Intake & Output 11/10/18 11/11/18 11/12/18 11/13/18 23:59 23:59 23:59 23:59 Intake Total 110 146 Output Total 300 300 Balance -190 -154 Weight 101 lb 8 oz 103 lb 6.4 oz Last Vital Signs Temp Pulse Resp BP Pulse Ox 98.1 F 74 16 105/73 99 11/13/18 09:00 11/13/18 09:00 11/13/18 09:00 11/13/18 09:00 11/13/18 09:00 Active Medications Aspirin (Asa -) 81 mg PO DAILY [facility] Last Admin: 11/13/18 09:51 Dose: 81 mg Atorvastatin Calcium (Lipitor -) 80 mg PO HS [facility] Clopidogrel Bisulfate (Plavix -) 75 mg PO DAILY [facility] Last Admin: 11/13/18 09:51 Dose: 75 mg Heparin Sodium (Porcine) (Heparin -) 1,000 unit IVPUSH PRN PRN PRN Reason: Heparin Heparin Sodium (Porcine) (Heparin -) 5,000 unit IVPUSH PRN PRN PRN Reason: Heparin Heparin Sodium/Dextrose (Heparin Infusion -) 25,000 units in 500 mls @ 16 mls/ hr IVPB TITR [facility]; Protocol Last Admin: 11/13/18 00:11 Dose: 800 units/hr, 16 mls/hr Metoprolol Tartrate (Lopressor -) 12.5 mg PO BID [facility] Last Admin: 11/13/18 09:50 Dose: 12.5 mg Sertraline HCl (Zoloft -) 150 mg PO HS [facility] Constitutional: Yes: No Distress Eyes: Yes: Conjunctiva Clear Neck: Yes: Trachea Midline Respiratory: Yes: CTA Bilaterally Gastrointestinal: Yes: Soft Cardiovascular: Yes: Regular Rate and Rhythm JVD: No Carotid Bruit: No Heart Sounds: Yes: S1, S2 (RRR no M/R/G) Musculoskeletal: Yes: Other (superficial ecchymosis anterior chest wall over manubrium) Edema: No Peripheral Pulses WNL: Yes Neurological: Yes: Alert, Oriented Laboratory Results - last 24 hr 11/12/18 11/12/18 11/12/18 16:10 16:50 16:50 WBC 10.5 H RBC 4.70 Hgb 13.9 Hct 42.0 MCV 89.3 MCH 29.5 MCHC 33.0 RDW 15.1 Plt Count 259 MPV 10.2 Absolute Neuts (auto) 7.6 Neutrophils % 72.0 Lymphocytes % 17.9 Monocytes % 8.5 Eosinophils % 0.8 Basophils % 0.8 Nucleated RBC % 0 PT with INR INR PTT (Actin FS) Sodium 144 Potassium 2.9 L* Chloride 109 H Carbon Dioxide 28 Anion Gap 7 L BUN 18.4 H Creatinine 0.7 Est GFR (CKD-EPI)AfAm 97.54 Est GFR (CKD-EPI)NonAf 84.16 Random Glucose 110 H Calcium 8.8 Phosphorus Magnesium Total Bilirubin 0.3 AST 111 H ALT 33 Alkaline Phosphatase 68 Creatine Kinase Creatine Kinase Index CK-MB (CK-2) Troponin I B-Natriuretic Peptide Total Protein 6.6 Albumin 3.9 Triglycerides Cholesterol Total LDL Cholesterol HDL Cholesterol TSH Urine Color Yellow Urine Appearance Cloudy Urine pH 6.0 Ur Specific [place] 1.023 Urine Protein 1+ H Urine Glucose (UA) Negative Urine Ketones Trace H Urine Blood 1+ H Urine Nitrite Negative Urine Bilirubin Negative Urine Urobilinogen 0.2 Ur Leukocyte Esterase 1+ H Urine WBC (Auto) 5 Urine RBC (Auto) 2 Urine Casts (Auto) 7 U Epithel Cells (Auto) 2.4 Urine Crystals (Auto) Calcium oxalate Urine Bacteria (Auto) 62.8 Opiates Screen Methadone Screen Barbiturate Screen Phencyclidine Screen Ur Amphetamines Screen MDMA (Ecstasy) Screen Benzodiazepines Screen Cocaine Screen U Marijuana (THC) Screen 11/12/18 11/12/18 11/12/18 16:50 16:50 19:10 WBC RBC Hgb Hct MCV MCH MCHC RDW Plt Count MPV Absolute Neuts (auto) Neutrophils % Lymphocytes % Monocytes % Eosinophils % Basophils % Nucleated RBC % PT with INR 12.60 INR 1.07 PTT (Actin FS) 35.7 Sodium 144 Potassium 3.6 Chloride 110 H Carbon Dioxide 27 Anion Gap 8 BUN 18.1 H Creatinine 0.7 Est GFR (CKD-EPI)AfAm 97.54 Est GFR (CKD-EPI)NonAf 84.16 Random Glucose 133 H Calcium 8.6 Phosphorus 3.7 Magnesium 2.8 H Total Bilirubin AST ALT Alkaline Phosphatase Creatine Kinase 424 H 336 H Creatine Kinase Index 16.4 H* 15.3 H* CK-MB (CK-2) 69.7 H 51.5 H Troponin I 22.10 H* 19.00 H* B-Natriuretic Peptide Total Protein Albumin Triglycerides Cholesterol Total LDL Cholesterol HDL Cholesterol TSH 1.04 Urine Color Urine Appearance Urine pH Ur Specific [place] Urine Protein Urine Glucose (UA) Urine Ketones Urine Blood Urine Nitrite Urine Bilirubin Urine Urobilinogen Ur Leukocyte Esterase Urine WBC (Auto) Urine RBC (Auto) Urine Casts (Auto) U Epithel Cells (Auto) Urine Crystals (Auto) Urine Bacteria (Auto) Opiates Screen Methadone Screen Barbiturate Screen Phencyclidine Screen Ur Amphetamines Screen MDMA (Ecstasy) Screen Benzodiazepines Screen Cocaine Screen U Marijuana (THC) Screen 11/12/18 11/13/18 11/13/18 23:49 00:05 01:45 WBC RBC Hgb Hct MCV MCH MCHC RDW Plt Count MPV Absolute Neuts (auto) Neutrophils % Lymphocytes % Monocytes % Eosinophils % Basophils % Nucleated RBC % PT with INR INR PTT (Actin FS) Sodium Cancelled 145 Potassium Cancelled 3.6 Chloride Cancelled 109 H Carbon Dioxide Cancelled 29 Anion Gap Cancelled 7 L BUN Cancelled 20.1 H Creatinine Cancelled 0.6 Est GFR (CKD-EPI)AfAm Cancelled 102.62 Est GFR (CKD-EPI)NonAf Cancelled 88.54 Random Glucose Cancelled 99 Calcium Cancelled 8.6 Phosphorus Magnesium Total Bilirubin AST ALT Alkaline Phosphatase Creatine Kinase 208 H Creatine Kinase Index 12.6 H* CK-MB (CK-2) 26.3 H Troponin I Cancelled 11.50 H* B-Natriuretic Peptide 9780.1 H Total Protein Albumin Triglycerides Cholesterol Total LDL Cholesterol HDL Cholesterol TSH Urine Color Urine Appearance Urine pH Ur Specific [place] Urine Protein Urine Glucose (UA) Urine Ketones Urine Blood Urine Nitrite Urine Bilirubin Urine Urobilinogen Ur Leukocyte Esterase Urine WBC (Auto) Urine RBC (Auto) Urine Casts (Auto) U Epithel Cells (Auto) Urine Crystals (Auto) Urine Bacteria (Auto) Opiates Screen Negative Methadone Screen Negative Barbiturate Screen Negative Phencyclidine Screen Negative Ur Amphetamines Screen Negative MDMA (Ecstasy) Screen Negative Benzodiazepines Screen Positive A* Cocaine Screen Negative U Marijuana (THC) Screen Negative 11/13/18 11/13/18 11/13/18 05:30 05:30 05:30 WBC 9.2 RBC 4.04 Hgb 12.1 Hct 35.8 MCV 88.7 MCH 30.0 MCHC 33.8 RDW 15.2 Plt Count 191 D MPV 10.5 Absolute Neuts (auto) Neutrophils % Lymphocytes % Monocytes % Eosinophils % Basophils % Nucleated RBC % PT with INR INR PTT (Actin FS) Sodium 144 Potassium 3.3 L Chloride 111 H Carbon Dioxide 27 Anion Gap 6 L BUN 19.0 H Creatinine 0.5 L Est GFR (CKD-EPI)AfAm 108.96 Est GFR (CKD-EPI)NonAf 94.01 Random Glucose 105 Calcium 8.3 L Phosphorus Magnesium 2.5 H Total Bilirubin 0.2 AST 58 H ALT 25 Alkaline Phosphatase 60 Creatine Kinase 153 Creatine Kinase Index 11.3 H* CK-MB (CK-2) 17.3 H Troponin I 8.81 H* B-Natriuretic Peptide Total Protein 5.7 L Albumin 3.3 L Triglycerides 118 Cholesterol 151 Total LDL Cholesterol 95 HDL Cholesterol 41 TSH Urine Color Urine Appearance Urine pH Ur Specific [place] Urine Protein Urine Glucose (UA) Urine Ketones Urine Blood Urine Nitrite Urine Bilirubin Urine Urobilinogen Ur Leukocyte Esterase Urine WBC (Auto) Urine RBC (Auto) Urine Casts (Auto) U Epithel Cells (Auto) Urine Crystals (Auto) Urine Bacteria (Auto) Opiates Screen Methadone Screen Barbiturate Screen Phencyclidine Screen Ur Amphetamines Screen MDMA (Ecstasy) Screen Benzodiazepines Screen Cocaine Screen U Marijuana (THC) Screen 11/13/18 11/13/18 05:30 05:30 WBC RBC Hgb Hct MCV MCH MCHC RDW Plt Count MPV Absolute Neuts (auto) Neutrophils % Lymphocytes % Monocytes % Eosinophils % Basophils % Nucleated RBC % PT with INR INR PTT (Actin FS) 58.9 H Sodium Potassium Chloride Carbon Dioxide Anion Gap BUN Creatinine Est GFR (CKD-EPI)AfAm Est GFR (CKD-EPI)NonAf Random Glucose Calcium Phosphorus Magnesium Total Bilirubin AST ALT Alkaline Phosphatase Creatine Kinase Creatine Kinase Index CK-MB (CK-2) 17.3 H Troponin I B-Natriuretic Peptide Total Protein Albumin Triglycerides Cholesterol Total LDL Cholesterol HDL Cholesterol TSH Urine Color Urine Appearance Urine pH Ur Specific [place] Urine Protein Urine Glucose (UA) Urine Ketones Urine Blood Urine Nitrite Urine Bilirubin Urine Urobilinogen Ur Leukocyte Esterase Urine WBC (Auto) Urine RBC (Auto) Urine Casts (Auto) U Epithel Cells (Auto) Urine Crystals (Auto) Urine Bacteria (Auto) Opiates Screen Methadone Screen Barbiturate Screen Phencyclidine Screen Ur Amphetamines Screen MDMA (Ecstasy) Screen Benzodiazepines Screen Cocaine Screen U Marijuana (THC) Screen Assessment/Plan NSTEMI Suspected Takotsubo Cardiomyopathy History of Moderate MR/AR S/P recent Mechanical fall Low clinical suspicion for Pulm Embolism Heparin drip per protocol O2 as needed ASA Plavix Statin Beta taylor For transfer to [facility] [place] for cardiac catherization Dr Martinez Critical care time spent in reviewing chart, evaluating patient and formulating plan - 36 minutes.
--- NOTE | 2018-11-13 13:32 | EKG ---
Test Reason : Blood Pressure : / mmHG Vent. Rate : 080 BPM Atrial Rate : 080 BPM P-R Int : 126 ms QRS Dur : 092 ms QT Int : 434 ms P-R-T Axes : 055 -53 -25 degrees QTc Int : 500 ms NORMAL SINUS RHYTHM LEFT ANTERIOR FASCICULAR BLOCK T WAVE ABNORMALITY, CONSIDER ANTEROLATERAL ISCHEMIA PROLONGED QT ABNORMAL ECG WHEN COMPARED WITH ECG OF 12-NOV-2018 17:43, PREMATURE ATRIAL COMPLEXES ARE NO LONGER PRESENT Confirmed by LINDA ANDERS MD ([id number]) on 11/13/2018 1:31:42 PM Referred By: Confirmed By:LINDA ANDERS MD
--- NOTE | 2018-11-13 13:35 | EKG ---
Test Reason : Blood Pressure : / mmHG Vent. Rate : 081 BPM Atrial Rate : 081 BPM P-R Int : 130 ms QRS Dur : 094 ms QT Int : 432 ms P-R-T Axes : 037 -53 -26 degrees QTc Int : 501 ms SINUS RHYTHM WITH PREMATURE ATRIAL COMPLEXES LEFT ANTERIOR FASCICULAR BLOCK VOLTAGE CRITERIA FOR LEFT VENTRICULAR HYPERTROPHY T WAVE ABNORMALITY, CONSIDER ANTEROLATERAL ISCHEMIA PROLONGED QT ABNORMAL ECG WHEN COMPARED WITH ECG OF 16-FEB-2018 13:43, PREMATURE ATRIAL COMPLEXES ARE NOW PRESENT ST NO LONGER DEPRESSED IN ANTERIOR LEADS NONSPECIFIC T WAVE ABNORMALITY, WORSE IN INFERIOR LEADS T WAVE INVERSION NOW EVIDENT IN ANTEROLATERAL LEADS Confirmed by LINDA ANDERS MD [id number]) on 11/13/2018 1:35:25 PM Referred By: Confirmed By:LINDA ANDERS MD
[2018-11-13] MEDS ORDERED: SERTRALINE HCL 50 MG TABLET (FP) PO SCH ×2 (22:00)
== END 2018-11-13 12:29 | disposition short-term general hospital (02) | DRG 281 ==
LOC: JER 14:55 → JERBED 19:00 → JICU 21:26
PROVIDERS: ADMIT Internal Medicine; ATTEND Internal Medicine
DX: I21.4 Non-ST elevation (NSTEMI) myocardial infarction (principal); I51.81 Takotsubo syndrome; Z68.1 Body mass index [BMI] 19.9 or less, adult; R63.4 Abnormal weight loss; E87.6 Hypokalemia; F41.8 Other specified anxiety disorders
CPT/HCPCS: 36415; 70450-TC; 71045-TC-FY; 72125-TC; 80048; 80053; 80061; 80307; 81003; 82550; 82553; 83721; 83735; 83880; 84100; 84443; 84484; 85025; 85027; 85610; 85730; 87086; 93005; 93010; 93306-TC; 99285-25; J1644

== ENCOUNTER 2020-02-11 11:10 | Inpatient (IN) | payer OTHER ==
--- NOTE | 2020-02-11 11:38 | PDOC ---
History of Present Illness - General Chief Complaint: Blood Transfusion Stated Complaint: ABN LAB RESULTS/SENT BY PCP Time Seen by Provider: 02/11/20 11:38 - History of Present Illness Initial Comments: 02/11/20 13:31 HPI: This is a 79 y/o female with a PMH of aortic aneurysm s/p repair, bladder Ca s/p resection, Anemia, CAD NSTEMI 2019 s/p PCI x1 on plavix ASA, GI bleed presenting to the ED after she was found to have a hemoglobin of 5 during routine labs yesterday. They were called by Dr. Gracia, who is following her for Anemia. She denies any associated symptoms. Denies lightheadedness, chest pain, SOB, abdominal pain, diarrhea, blood in stool, nausea or vomiting. States that she does not want to stay in the hospital. ROS: GENERAL/CONSTITUTIONAL: No fever/chills, diaphoresis, or weakness. HEENT: No change in vision. No ear pain. No sore throat. CARDIOVASCULAR: No chest pain, palpitations or peripheral edema RESPIRATORY: No shortness of breath, dyspnea with exertion, cough, wheezing, or hemoptysis. GASTROINTESTINAL: No abdominal pain, nausea, vomiting, diarrhea or constipation. No blood in stool. GENITOURINARY: No dysuria, frequency, or change in urination. MUSCULOSKELETAL: No joint or muscle swelling or pain. SKIN: No rash or hives NEUROLOGIC: No headache, vertigo, focal weakness, loss of consciousness, or change in strength/sensation. ENDOCRINE: No increased thirst. No unexplained weight loss. HEMATOLOGIC/LYMPHATIC: Yes anemia and easy bleeding. On plavix and ASA due to prior OK. PMH: aortic aneurysm s/p repair, bladder Ca s/p resection, Anemia, CAD NSTEMI 2019 s/p PCI x1 on plavix ASA, GI bleed Social Hx: Denied etoh, tobacco, drug use Meds: See nurse note Allergies: See nurse note PE: GENERAL: Awake, alert, and fully oriented, in no acute distress. Patient conversational but demented. Patient well appearing, moving around. HEENT: Normocephalic, atraumatic. PERRLA, EOMI. Yes conjunctival pallor. Moist mucous membranes. NECK: Normal ROM and supple. No lymphadenopathy, JVD, or masses. CARDIOVASCULAR: Regular rate and rhythm, normal S1 and S2, no murmurs, rubs or gallops PULMONARY: No respiratory distress. Breath sounds equal, clear to auscultation bilaterally. No wheezes, rales or rhonchi. ABDOMEN: Soft, nontender, normoactive bowel sounds. No guarding, no rebound. No masses EXTREMITIES: Normal range of motion, no edema or erythema, no calf tenderness. No clubbing or cyanosis. RECTAL EXAM: No gross blood NEUROLOGICAL: Cranial nerves II through XII grossly intact. Normal speech, normal gait SKIN: Warm, Dry, pale. MDM: 02/11/20 13:35 This is a 79 y/o female with a PMH of aortic aneurysm s/p repair, bladder Ca s/p resection, Anemia, CAD, GI bleed (source unknown) presenting to the ED after she was found to have a hemoglobin of 5 during routine labs yesterday. - Patient extremely well appearing. Walking and talking. Non-toxic. - Hemodynamically stable - Asymptomatic CBC, CMP, Troponin, Coags, Type and screen EKG EKG: Vent rate 72 Sinus with premature atrial complexes T wave inversions less in inferior leads No longer t wave inversions in anterolateral leads Labs: - Hgb 5.5 - Hct 19.7 - INR 1.11 - Trop neg - Guiac positive 02/11/20 14:32 - Patient will be transfused 2 units PRBC 02/11/20 14:[address] Gracia - She has a previous documented duodenal ulcer as the cause of her last GI bleed - Recommended admission with GI consult, Heme/onc consult, cardio 02/11/20 15:47 - Dr. Aparicio saw patient. Advised stopping Plavix and ASA - Will admit for continued transfusion and to work up a GI bleed - Patient is willing to stay overnight 02/11/20 16:42 - Patient admitted to med/surg Past History - Medical History Allergies/Adverse Reactions: Allergies Allergy/AdvReac Type Severity Reaction Status Date / Time No Known Allergies Allergy Verified 02/11/20 11:14 Home Medications: Ambulatory Orders Sertraline HCl [Zoloft] 100 mg PO TID 11/12/18 Anemia: No Asthma: No Cancer: Yes (bladder) Cardiac Disorders: Yes (aortic aneurysm) CVA: No COPD: No CHF: No Dementia: No Diabetes: No GI Disorders: No Disorders: No HTN: No Hypercholesterolemia: No Liver Disease: No Psychiatric Problems: Yes (depression) Seizures: No Thyroid Disease: No - Surgical History Abdominal Surgery: No Appendectomy: No Cardiac Surgery: No Cholecystectomy: No Lung Surgery: No Neurologic Surgery: No Orthopedic Surgery: Yes (RIGHT KNEE ARTHROSCOPY 2001) - Psycho-Social/Smoking History Smoking History: Never smoked Have you smoked in the past 12 months: No - Substance Abuse Hx (Audit-C & DAST Scrn) How often the patient has a drink containing alcohol: Never Score: In Men: 4 or > Positive; In Women: 3 or > Positive: 0 Screen Result (Pos requires Nsg. Audit-10AR): Negative In the last yr the pt used illegal drug/Rx for NonMed reason: No Score: Yes response is considered Positive: 0 Screen Result (Positive result requires Nsg. DAST-10): Negative *Physical Exam - Vital Signs Last Vital Signs Temp Pulse Resp BP Pulse Ox 98.4 F 78 16 118/71 100 02/11/20 11:14 02/11/20 11:14 02/11/20 11:14 02/11/20 11:14 02/11/20 11:14 ED Treatment Course - LABORATORY CBC & Chemistry Diagram: 02/11/20 12:19 02/11/20 12:19 Discharge - Discharge Information Problems reviewed: Yes Clinical Impression/Diagnosis: Anemia Qualifiers: Anemia type: unspecified type Qualified Code(s): D64.9 - Anemia, unspecified - Follow up/Referral - Patient Discharge Instructions - Post Discharge Activity
--- NOTE | 2020-02-11 11:48 | PDOC ---
Attending Attestation - Resident Resident Name: JoseОльга - ED Attending Attestation I have performed the following: I have examined & evaluated the patient, The case was reviewed & discussed with the resident, I agree w/resident's findings & plan, Exceptions are as noted - HPI HPI: 02/11/20 12:01 79y F hx of hx of AA sp repair, GIB, anemia, had routine blood work by her hemonc and was notified that she was anemic to 5 per outpatient labs. Patient clinically feeling well she is otherwise asymptomatic denies any chest pain, shortness of breath pain. She does take a baby aspirin, Plavix. Sometimes she will look alittle winded when she walks up the flight of stairs in their home per the . PMD: Renuka Springer PMD: Fitch - Physicial Exam PE: 02/11/20 12:59 GENERAL: The patient is awake, alert, Nontoxic - in no acute distress. HEAD: Normocephalic, atraumatic. EYES: extraocular movements intact, sclera anicteric, conjunctiva pale. ENT: Normal voice, Moist mucous membranes. NECK: Normal range of motion, supple LUNGS: Breath sounds equal, clear to auscultation bilaterally. No wheezes, no rhonchi, no rales. HEART: Regular rate and rhythm, normal S1 and S2 without murmur, rub or gallop. ABDOMEN: Soft, nontender, No guarding, no rebound. No CVA tenderness EXTREMITIES: Normal range of motion, +1 pitting edema b/l on LE, no calf tenderness NEUROLOGICAL: No facial assymetry, Normal speech, moving all 4 ext spontaneously and symmetrically PSYCH: Normal mood, normal affect. SKIN: Warm, Dry, normal turgor, - Medical Decision Making 02/11/20 13:00 . Blood work screen for anemia, if anemic to 5 will likely need transfusion Heart Score/ECG Review - ECG Impressions Comment:: 02/11/20 13:01 Twelve-lead EKG was performed and reviewed by me. There is normal sinus rhythm with a normal rate. rate of 72 Left axis deviation PACs present Discharge - Discharge Information Problems reviewed: Yes Clinical Impression/Diagnosis: Anemia Qualifiers: Anemia type: unspecified type Qualified Code(s): D64.9 - Anemia, unspecified Condition: Stable - Follow up/Referral - Patient Discharge Instructions - Post Discharge Activity
--- OUTSIDE RECORDS SUMMARY | 2020-02-11 11:48 | XMS ---
:1940 Author Organization [facility] Support Name Relationship Address Phone RE Unavailable Unavailable Unavailable ALEX MANZANARES [address] [facility] [place] [address] Re-disclosure Warning The records that you are about to access may contain information from federally- assisted alcohol or drug abuse programs. If such information is present, then the following federally mandated warning applies: This information has been disclosed to you from records protected by federal confidentiality rules (42 CFR part 2). The federal rules prohibit you from making any further disclosure of this information unless further disclosure is expressly permitted by the written consent of the person to whom it pertains or as otherwise permitted by 42 CFR part 2. A general authorization for the release of medical or other information is NOT sufficient for this purpose. The Federal rules restrict any use of the information to criminally investigate or prosecute any alcohol or drug abuse patient.The records that you are about to access may contain highly sensitive health information, the redisclosure of which is protected by Article 27-F of the [facility] Public Health law. If you continue you may haveaccess to information: Regarding HIV / AIDS; Provided by facilities licensed or operated by the [facility] Office of Mental Health; or Provided by the [facility] Office for People With Developmental Disabilities. If such information is present, then the following [facility] mandated warning applies: This information has been disclosed to you from confidential records which are protected by state law. State law prohibits you from making any further disclosure of this information without the specific written consent of the person to whom it pertains, or as otherwise permitted by law. Any unauthorized further disclosure in violation of state law may result in a fine or group home sentence or both. A general authorization for the release of medical or other information is NOT sufficient authorization for further disclosure. Insurance Providers Payer name Policy type Policy ID Covered Covered green party's Policy P robbi / Coverage green party ID relationship to Gilbert Inf ormation type gilbert HIP [employer] [id number] SP [id number] [employer] MEDICARE [id number]
[2020-02-11 13:33] LABS: ALBUMIN 3.4 g/dl (3.4-5.0); ALK PHOS 111 U/L (45-117); ANION GAP 8 MMOL/L (8-16); BILIRUBIN,TOTAL 0.4 mg/dL (0.2-1); BLOOD UREA NITROGEN 19.7 mg/dL (7-18); CALCIUM 8.6 mg/dL (8.5-10.1); CHLORIDE 107 mmol/L (98-107); CO2 26 mmol/L (21-32); CREATININE 0.6 mg/dL (0.55-1.3); GLUCOSE,RANDOM 94 mg/dL (74-106); POTASSIUM 4.9 mmol/L (3.5-5.1); SGOT/AST 21 U/L (15-37); SGPT/ALT 19 U/L (13-61); SODIUM 141 mmol/L (136-145); TOT PROT 6.5 g/dl (6.4-8.2)
[2020-02-11 13:37] LABS: ACTIVATED PTT 34.7 SECONDS (25.2-36.5)
[2020-02-11 13:39] LABS: EOS % 1.4 % (0-4.5); HEMATOCRIT 19.7 % (32.4-45.2); LYMPH % 15.4 % (8-40); MCHC 27.8 g/dl (32.0-36.0); MEAN CELL VOLUME 66.9 fl (80-96); MEAN PLT VOLUME 9.9 fl (7.5-11.1); NEUT % 76.2 % (42.8-82.8); PLATELET COUNT 402 K/MM3 (134-434); RBC 2.95 M/mm3 (3.60-5.2); RDW 19.2 % (11.6-15.6); WHITE BLOOD COUNT 8.2 K/mm3 (4.0-10.0)
[2020-02-11 13:47] LABS: MCH 18.6 pg (25.7-33.7)
[2020-02-11 13:48] LABS: HEMOGLOBIN 5.5 GM/dL (10.7-15.3)
[2020-02-11 13:55] LABS: INR 1.11 (0.83-1.09); PROTHROMBIN TIME (PATIENT) 13.1 SEC (9.7-13.0)
[2020-02-11 14:32] LABS: ANISOCYTOSIS 1+; MACROCYTOSIS 1+; OVALOCYTE 2+; PLATELET ESTIMATE NORMAL
--- NOTE | 2020-02-11 14:45 | EKG ---
Test Reason : Blood Pressure : / mmHG Vent. Rate : 072 BPM Atrial Rate : 072 BPM P-R Int : 134 ms QRS Dur : 088 ms QT Int : 414 ms P-R-T Axes : 034 -36 014 degrees QTc Int : 453 ms SINUS RHYTHM WITH PREMATURE ATRIAL COMPLEXES LEFT AXIS DEVIATION ABNORMAL ECG WHEN COMPARED WITH ECG OF 12-NOV-2018 22:14, PREMATURE ATRIAL COMPLEXES ARE NOW PRESENT T WAVE INVERSION LESS EVIDENT IN INFERIOR LEADS T WAVE INVERSION NO LONGER EVIDENT IN ANTEROLATERAL LEADS Confirmed by LINDA ANDERS MD ([id number]) on 02/11/2020 2:44:26 PM Referred By: Confirmed By:LINDA ANDERS MD
--- NOTE | 2020-02-11 15:03 | CON.CARD ---
Consult Consult Specialty:: Cardiology Referred by:: Dr Montaño Reason for Consultation:: CAD - History of Present Illness Chief Complaint: Sent by PCP History of Present Illness: 79 F with CAD s/p NSTEMI 11/2018 with PCI x 1 at [place] (report not available), GI bleed 6 months ago secondary peptic ulcer dz treated in [place], now sent in by PCP for Hb 5. Denies CP/SOB/palps. says she was "little tired" yesterday. She is also seeing Policy Writer Typist but does not know for what dx. - History Source History Provided By: Patient, Medical Record - Past Medical History VEHICLE DAMAGE APPRAISER: Yes: Other (Mild dementia) Cardio/Vascular: Yes: CAD (NSTEMI, PCI [place] 11/2018) Gastrointestinal: Yes: GI Bleed, Peptic Ulcer Disease Heme/Onc: Yes: Anemia Psych: Yes: Depression - Alcohol/Substance Use Hx Alcohol Use: No - Smoking History Smoking history: Never smoked Have you smoked in the past 12 months: No - Social History Usual Living Arrangement: With Spouse History of Recent Travel: No Home Medications - Allergies Allergies/Adverse Reactions: Allergies Allergy/AdvReac Type Severity Reaction Status Date / Time No Known Allergies Allergy Verified 02/11/20 11:14 - Home Medications Home Medications: Ambulatory Orders Sertraline HCl [Zoloft] 100 mg PO TID 11/12/18 Family Medical History Family History: Unremarkable Review of Systems - Review of Systems Constitutional: reports: Weakness Eyes: reports: No Symptoms HENT: reports: No Symptoms Neck: reports: No Symptoms Cardiovascular: reports: No Symptoms Respiratory: reports: Exercise Intolerance Gastrointestinal: reports: No Symptoms Genitourinary: reports: No Symptoms Breasts: reports: No Symptoms Reported Musculoskeletal: reports: No Symptoms Integumentary: reports: No Symptoms Neurological: reports: No Symptoms Endocrine: reports: No Symptoms Hematology/Lymphatic: reports: No Symptoms Psychiatric: reports: No Symptoms - Risk Factors Known Risk Factors: Yes: Age, Hypercholesterolemia, Other (known CAD) Vital Signs: Vital Signs Temperature 98.2 F 02/11/20 14:50 Pulse Rate 76 02/11/20 14:50 Respiratory Rate 20 02/11/20 14:50 Blood Pressure 101/82 02/11/20 14:50 O2 Sat by Pulse Oximetry (%) 97 02/11/20 14:50 Constitutional: Yes: No Distress, Calm Eyes: Yes: Conjunctiva Clear HENT: Yes: Atraumatic Neck: Yes: Trachea Midline Respiratory: Yes: CTA Bilaterally (no wheezing or rales.) Gastrointestinal: Yes: Soft (NT) Cardiovascular: Yes: Regular Rate and Rhythm JVD: No Heart Sounds: Yes: S1, S2 (rrr) Edema: No Peripheral Pulses WNL: Yes Neurological: Yes: Alert, Oriented ...Motor Strength: WNL - Other Data Labs, Other Data: CBC, BMP 02/11/20 12:19 02/11/20 12:19 INR, PTT INR 1.11 (0.83-1.09) H 02/11/20 12:19 Troponin, BNP 02/11/20 12:19 Troponin I < 0.02 Troponin, BNP 02/11/20 12: Troponin I < 0.02 Laboratory Tests 11/12/18 11/13/18 11/13/18 19:10 01:45 05:30 Creatine Kinase 336 H 208 H 153 Troponin I 19.00 H* 11.50 H* 8.81 H* NSR, APCs, no acute ST changes Echo: Other ([facility] echo: preserved EF. No sig valve disease, mild MR/AR) Prior Cardiac Procedures: PTCA with Stent Imaging - Results EKG: Image Reviewed Assessment/Plan IMP: 1. Marked anemia, r/o GI bleed 2. History of GIB, peptic ulcer disease 3. CAD s/p NSTEMI 11/2018 with primary PCI at [place] 4. Depression REC: 1. Anemia: -Transfuse to Hb 8 -Check stool guaiac -Hold antiplatelet drugs: when stable, should resume either ASA 81 OR Plavix now > 1 year post ACS/PCI -Clarify reason why patient was seeing Heme. 2. Prior GIB/PUD: -recommend GI consult. -No cardiac contraindication to upper endoscopy or colonoscopy if required. -Old records of prior scope were done in [place] [facility] -PPI as per primary team 3. CAD s/p NSTEMI 11/2018: -Review cath report from [place] -Cont statin -can hold BB for now, resume when assured no active bleeding. -Ultimately will need to resume single antiplatelet rx when feasible -Initial LV dysfx post SD resolved with revasc and med Rx although did not tolerate low dose Lisinopril due to hypotension (baseline BP 100-105mmHg systolic) 4. Depression: -As per primary team 5. Vascular: -Clarify/ confirm prior hx of aneurysm repair, please try to obtain old records.
--- OUTSIDE RECORDS SUMMARY | 2020-02-11 17:43 | XMS ---
:1940 Author Organization [facility] Support Name Relationship Address Phone RE, RETIRED Unavailable Unavailable Unavailable RE Unavailable Unavailable Unavailable ALEX MANZANARES [address] [facility] [phone] [place] [address] Re-disclosure Warning The records that you are [...] is protected by Article 27-F of the [facility] Public Health law. If you continue you may haveaccess to information: Regarding HIV / AIDS; Provided by facilities licensed or operated by the [facility] Office of Mental Health; or Provided by the [facility] Office for People With Developmental Disabilities. If such information is present, then the following [facility] mandated warning applies: This information has [...] law may result in a fine or long term sentence or both. A general authorization for the release of medical or other information is NOT sufficient authorization for further disclosure. 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
[2020-02-11] MEDS ORDERED: SODIUM CHLORIDE 1,000 ML IV SCH (17:45)
[2020-02-11] MEDS ORDERED: PANTOPRAZOLE SODIUM 40 MG VIAL ONE (17:53)
--- NOTE | 2020-02-11 17:55 | HP ---
CHIEF COMPLAINT: abnormal lab results PCP: Information Technology Project Manager: Dr. Fitch [phone] HISTORY OF PRESENT ILLNESS: Patient is a 79 year old female with history of coronary artery disease, NSTEMI (2019), abdominal aortic aneurysm (s/p repair 2016), bladder cancer s/p resection, prior GI bleeding secondary to duodenal ulcer, iron deficiency anemia, depression presents at behest of her director of early childhood (Dr. Fitch) regarding anemia noted on yesterday's labs. Per at bedside, similar occurrence 9 months ago where she had an endoscopy performed that revealed ?duodenal ulcer. She has been followed by Hematology, however is unsure regarding her diagnosis; noted she is on Ferrous Sulfate as home medication. She endorses feeling in her usual state of health. Tolerating oral intake. Denies subjective fevers, chills, shortness of breath, chest pain, palpitations, abdominal pain, nausea, vomiting, hemptysis, diarrhea, constipation, melena, hematochezia, dysuria, hematuria. ER course was notable for: (1) Hgb 5.5/ Hct 19 (2) PRBC transfusion (3) Recent Travel: denies PAST MEDICAL HISTORY: coronary artery disease, NSTEMI, abdominal aortic aneurysm, bladder cancer, GI bleeding, iron deficiency anemia, depression PAST SURGICAL HISTORY: bladder cancer resection, AAA repair Social History: Lives with . Formerly worked in [employer]. She is independent in activities of daily living. Smoking: Denies smoking cigarettes Alcohol: Endorses occasional glass of wine/ beer Drugs: denies illicit drug use Allergies No Known Allergies Allergy (Verified 02/11/20 11:14) HOME MEDICATIONS: Home Medications Medication Instructions Recorded Sertraline HCl [Zoloft] 100 mg PO TID 11/12/18 REVIEW OF SYSTEMS CONSTITUTIONAL: Absent: fever, chills, diaphoresis, generalized weakness, malaise, loss of appetite, weight change HEENT: Absent: rhinorrhea, nasal congestion, throat pain, throat swelling, difficulty swallowing, mouth swelling, ear pain, eye pain, visual changes CARDIOVASCULAR: Absent: chest pain, syncope, palpitations, irregular heart rate, lightheadedness, peripheral edema RESPIRATORY: Absent: cough, shortness of breath, dyspnea with exertion, orthopnea, wheezing, stridor, hemoptysis GASTROINTESTINAL: Absent: abdominal pain, abdominal distension, nausea, vomiting, diarrhea, constipation, melena, hematochezia GENITOURINARY: Absent: dysuria, frequency, urgency, hesitancy, hematuria, flank pain, genital pain MUSCULOSKELETAL: Absent: myalgia, arthralgia, joint swelling, back pain, neck pain SKIN: Absent: rash, itching, pallor HEMATOLOGIC/IMMUNOLOGIC: Absent: easy bleeding, easy bruising, lymphadenopathy, frequent infections ENDOCRINE: Absent: unexplained weight gain, unexplained weight loss, heat intolerance, cold intolerance NEUROLOGIC: Absent: headache, focal weakness or paresthesias, dizziness, unsteady gait, seizure, mental status changes, bladder or bowel incontinence PSYCHIATRIC: Absent: anxiety, depression, suicidal or homicidal ideation, hallucinations. PHYSICAL EXAMINATION Vital Signs - 24 hr 02/11/20 02/11/20 02/11/20 11:14 12:18 14:50 Temperature 98.4 F 98.2 F 98.2 F Pulse Rate 78 Pulse Rate [ 74 76 Right Radial] Respiratory 16 18 20 Rate Blood Pressure 118/71 Blood Pressure 109/66 [Left Arm] Blood Pressure 101/82 [Right Arm] O2 Sat by Pulse 100 100 97 Oximetry (%) 02/11/20 15:51 Temperature Pulse Rate Pulse Rate [ 71 Right Radial] Respiratory 17 Rate Blood Pressure Blood Pressure [Left Arm] Blood Pressure 109/69 [Right Arm] O2 Sat by Pulse 100 Oximetry (%) GENERAL: The patient is awake, alert, and fully oriented, in no acute distress. HEAD: Normocephalic, atraumatic. EYES: PERRL, extraocular movements intact, sclera anicteric, conjunctiva clear. ENT: Oropharynx clear, without erythema or exudates. Moist mucous membranes. NECK: Trachea midline, full range of motion. Supple without lymphadenopathy. LUNGS: Breath sounds equal, clear to auscultation bilaterally. No wheezes, no crackles. No accessory muscle use. HEART: Regular rate and rhythm. S1, S2 without murmur, rub or gallop. ABDOMEN: Soft, nondistended, nontender to light and deep palpation x4 quadrants. No rebound tenderness, no guarding. Normoactive bowel sounds x4 quadrants. No hepatosplenomegaly, no masses appreciated. RECTAL: Good sphincter tone. External hemorrhoids appreciated. Brown stool streak upon gloved finger. Negative laila blood, or melena. EXTREMITIES: 2+ radial, dorsalis pedis pulses bilaterally. Warm, well-perfused. No lower extremity edema bilaterally. NEUROLOGICAL: Cranial nerves II through XII grossly intact. Normal speech. No gross focal deficits. PSYCH: Normal mood, normal affect upon my encounter. SKIN: Warm, dry. Laboratory Results - last 24 hr 02/11/20 02/11/20 02/11/20 12:19 12:19 12:19 WBC 8.2 RBC 2.95 L Hgb 5.5 L* Hct 19.7 L D MCV 66.9 L MCH 18.6 L D MCHC 27.8 L RDW 19.2 H Plt Count 402 D MPV 9.9 Absolute Neuts (auto) 6.2 Neutrophils % 76.2 Lymphocytes % 15.4 Monocytes % 6.0 Eosinophils % 1.4 Basophils % 1.0 Nucleated RBC % 0 Hypochromia 1+ Platelet Estimate Normal Polychromasia 0 Poikilocytosis 1+ Anisocytosis 1+ Microcytosis 1+ Macrocytosis 1+ Ovalocytes 2+ Fragmented RBCs 1+ PT with INR 13.10 H INR 1.11 H PTT (Actin FS) 34.7 Sodium 141 Potassium 4.9 Chloride 107 Carbon Dioxide 26 Anion Gap 8 BUN 19.7 H Creatinine 0.6 Est GFR (CKD-EPI)AfAm 101.90 Est GFR (CKD-EPI)NonAf 87.92 Random Glucose 94 Calcium 8.6 Total Bilirubin 0.4 AST 21 ALT 19 Alkaline Phosphatase 111 Troponin I < 0.02 Total Protein 6.5 Albumin 3.4 Stool Occult Blood Blood Type Antibody Screen Crossmatch 02/11/20 02/11/20 02/11/20 12:19 13:11 14:13 WBC RBC Hgb Hct MCV MCH MCHC RDW Plt Count MPV Absolute Neuts (auto) Neutrophils % Lymphocytes % Monocytes % Eosinophils % Basophils % Nucleated RBC % Hypochromia Platelet Estimate Polychromasia Poikilocytosis Anisocytosis Microcytosis Macrocytosis Ovalocytes Fragmented RBCs PT with INR INR PTT (Actin FS) Sodium Potassium Chloride Carbon Dioxide Anion Gap BUN Creatinine Est GFR (CKD-EPI)AfAm Est GFR (CKD-EPI)NonAf Random Glucose Calcium Total Bilirubin AST ALT Alkaline Phosphatase Troponin I Total Protein Albumin Stool Occult Blood Positive Blood Type A POSITIVE A POSITIVE Antibody Screen Negative Negative Crossmatch See Detail ASSESSMENT/PLAN: Patient is a 79 year old female with history of coronary artery disease, NSTEMI (2019), abdominal aortic aneurysm (s/p repair 2016), bladder cancer s/p resection, prior ?GI bleeding, iron deficiency anemia, depression presents at behest of her director of early childhood (Dr. Fitch) regarding anemia noted on yesterday's l abs. Microcytic Anemia -Suspect mcfp, gradual decline in hemoglobin leading to anemia as patient is hemodynamically stable, and well compensated. -Orthostatics negative upon my encounter -Noted history of duodenal ulcer, etiology could be slow upper GI bleed -Obtain iron studies -Transfuse 2 units PRBCs, follow CBC after transfusion -Protonix 40mg IV BID -Clear liquid diet, NPO after midnight in anticipation of GI evaluation, possible endoscopy -IV normal saline at 75mL/ hour -Gastroenterology consult (Dr. Mason) History of NSTEMI -Cardiology consult (Dr. Hernandez) appreciated. -Holding Aspirin, Plavix for now in setting of anemia, likely GI bleed. -Reinstate either aspirin OR plavix once clinically appropriate -Continue home statin History of depression -Continue home Sertaline FEN -IV normal saline at 75mL/ hour -Follow BMP -NPO after midnight Prophylaxis -Holding chemical anticoagulation in setting of anemia. SCDs bilateral lower extremities Disposition -Admit to medical- surgical floor Family Medical History Family History: Unremarkable Visit type - Medication Review Med list reviewed for High Risk Meds patients 65 and older: Yes - Emergency Visit Emergency Visit: Yes ED Registration Date: 02/11/20 Care time: The patient presented to the Emergency Department on the above date and was hospitalized for further evaluation of their emergent condition. - New Patient This patient is new to me today: Yes Date on this admission: 02/11/20 - Critical Care Critical Care patient: No ATTENDING PHYSICIAN STATEMENT I saw and evaluated the patient. I reviewed the resident's note and discussed the case with the resident. I agree with the resident's findings and plan as documented. SUBJECTIVE: OBJECTIVE: ASSESSMENT AND PLAN:
[2020-02-11] MEDS: PANTOPRAZOLE SODIUM 40 MG VIAL IVPUSH SCH (18:00)
--- NOTE | 2020-02-11 21:56 | PN ---
Teaching Attending Note Name of Resident: Aguila Santiago ATTENDING PHYSICIAN STATEMENT I saw and evaluated the patient. I reviewed the resident's note and discussed the case with the resident. I agree with the resident's findings and plan as documented. SUBJECTIVE: Patient seen and examined at bedside, admitted for UGIB 2/2 ?NSAID use, currently being transfused, VSS going to Med-Surg. OBJECTIVE: GA AAox4, dry MM, pale HEENT NC/AT, EOMI, neck supple, dry MM Chest CTAB, no crackles, notable kyphosis CVS S1, S2+, DESTINEY+ Abd mild epigastric TTP, ND, BS+, no guarding Ext no LE edema, no calf tenderness, thin extremities Orthostatics: negative Vital Signs (72 hours) 02/11/20 02/11/20 02/11/20 11:14 12:18 14:50 Temperature 98.4 F 98.2 F 98.2 F Pulse Rate 78 Pulse Rate [ 74 76 Right Radial] Respiratory 16 18 20 Rate Blood Pressure 118/71 Blood Pressure 109/66 [Left Arm] Blood Pressure 101/82 [Right Arm] O2 Sat by Pulse 100 100 97 Oximetry (%) 02/11/20 02/11/20 02/11/20 15:51 17:44 18:05 Temperature 97.4 F L 97.4 F L Pulse Rate Pulse Rate [ 71 65 70 Right Radial] Respiratory 17 17 20 Rate Blood Pressure Blood Pressure [Left Arm] Blood Pressure 109/69 109/57 L 107/82 [Right Arm] O2 Sat by Pulse 100 100 Oximetry (%) 02/11/20 02/11/20 02/12/20 18:20 21:00 02:08 Temperature 97.4 F L 97.6 F Pulse Rate Pulse Rate [ 68 69 Right Radial] Respiratory 20 19 20 Rate Blood Pressure Blood Pressure [Left Arm] Blood Pressure 102/78 124/99 [Right Arm] O2 Sat by Pulse 100 97 95 Oximetry (%) 02/12/20 02/12/20 02/12/20 02:30 02:56 06:00 Temperature 98 F 98 F 97.7 F Pulse Rate 72 72 64 Pulse Rate [ Right Radial] Respiratory 20 20 20 Rate Blood Pressure 93/59 L 93/59 L 121/75 Blood Pressure [Left Arm] Blood Pressure [Right Arm] O2 Sat by Pulse 95 95 98 Oximetry (%) Laboratory Results - last 24 hr 02/11/20 02/11/20 02/11/20 12:19 12:19 12:19 WBC 8.2 RBC 2.95 L Hgb 5.5 L* Hct 19.7 L D MCV 66.9 L MCH 18.6 L D MCHC 27.8 L RDW 19.2 H Plt Count 402 D MPV 9.9 Absolute Neuts (auto) 6.2 Neutrophils % 76.2 Lymphocytes % 15.4 Monocytes % 6.0 Eosinophils % 1.4 Basophils % 1.0 Nucleated RBC % 0 Hypochromia 1+ Platelet Estimate Normal Polychromasia 0 Poikilocytosis 1+ Anisocytosis 1+ Microcytosis 1+ Macrocytosis 1+ Ovalocytes 2+ Fragmented RBCs 1+ PT with INR 13.10 H INR 1.11 H PTT (Actin FS) 34.7 Sodium 141 Potassium 4.9 Chloride 107 Carbon Dioxide 26 Anion Gap 8 BUN 19.7 H Creatinine 0.6 Est GFR (CKD-EPI)AfAm 101.90 Est GFR (CKD-EPI)NonAf 87.92 Random Glucose 94 Calcium 8.6 Phosphorus Magnesium Iron 8 L TIBC 466 H Iron Saturation 1 L Unsaturated IBC 458 H Ferritin 8.7 Total Bilirubin 0.4 AST 21 ALT 19 Alkaline Phosphatase 111 Troponin I < 0.02 Total Protein 6.5 Albumin 3.4 Stool Occult Blood COVID-19 (CHRISSY) Blood Type Antibody Screen Crossmatch 02/11/20 02/11/20 02/11/20 12:19 13:11 14:13 WBC RBC Hgb Hct MCV MCH MCHC RDW Plt Count MPV Absolute Neuts (auto) Neutrophils % Lymphocytes % Monocytes % Eosinophils % Basophils % Nucleated RBC % Hypochromia Platelet Estimate Polychromasia Poikilocytosis Anisocytosis Microcytosis Macrocytosis Ovalocytes Fragmented RBCs PT with INR INR PTT (Actin FS) Sodium Potassium Chloride Carbon Dioxide Anion Gap BUN Creatinine Est GFR (CKD-EPI)AfAm Est GFR (CKD-EPI)NonAf Random Glucose Calcium Phosphorus Magnesium Iron TIBC Iron Saturation Unsaturated IBC Ferritin Total Bilirubin AST ALT Alkaline Phosphatase Troponin I Total Protein Albumin Stool Occult Blood Positive COVID-19 ([facility]SY) Blood Type A POSITIVE A POSITIVE Antibody Screen Negative Negative Crossmatch See Detail 02/11/20 02/12/20 02/12/20 14:27 05:05 07:41 WBC 7.4 RBC 3.54 L Hgb 7.6 L Hct 25.0 L D MCV 70.6 L MCH 21.3 L D MCHC 30.2 L RDW 21.8 H Plt Count 366 MPV 9.1 Absolute Neuts (auto) Neutrophils % Lymphocytes % Monocytes % Eosinophils % Basophils % Nucleated RBC % Hypochromia Platelet Estimate Polychromasia Poikilocytosis Anisocytosis Microcytosis Macrocytosis Ovalocytes Fragmented RBCs PT with INR INR PTT (Actin FS) Sodium 143 Potassium 4.6 Chloride 110 H Carbon Dioxide 28 Anion Gap 5 L BUN 13.0 Creatinine 0.6 Est GFR (CKD-EPI)AfAm 101.90 Est GFR (CKD-EPI)NonAf 87.92 Random Glucose 82 Calcium 8.6 Phosphorus 4.5 Magnesium 2.5 H Iron TIBC Iron Saturation Unsaturated IBC Ferritin Total Bilirubin 1.2 H AST 24 ALT 18 Alkaline Phosphatase 113 Troponin I Total Protein 6.0 L Albumin 3.1 L Stool Occult Blood COVID-19 ([facility]ISSY) Not detected Blood Type Antibody Screen Crossmatch Home Medications Medication Instructions Recorded Sertraline HCl [Zoloft] 100 mg PO TID 11/12/18 Current Medications Generic Name Dose Route Start Last Admin Trade Name Freq PRN Reason Stop Dose Admin Sodium Chloride 1,000 mls @ 75 mls/hr 02/12/20 05:45 02/12/20 06:36 Normal Saline - IV 02/12/20 19:04 75 mls/hr ASDIR MERLIN Administration Influenza Virus Vaccine 60 mcg 02/12/20 10:00 Flulaval Quad [id number] Syr IM 02/12/20 10:01 .ONCE ONE Pantoprazole Sodium 40 mg 02/11/20 17:34 02/12/20 10:56 Protonix Iv IVPUSH 40 mg BID MERLIN Administration Sertraline HCl 100 mg 02/12/20 10:00 02/12/20 10:56 Zoloft - PO 100 mg DAILY MERLIN Administration ASSESSMENT AND PLAN: 79 F UGIB 2/2 NSAID use CAD Bladder ca s/p resection JULISSA HTN HLD Depression h/o duodenal ulcer w/ bleeding GERD OSteoporosis Plan: Supplement PPI BID NPO Transfuse with threshold of Hgb >7.0 Monitor CBC Q12H Restart Zoloft GI consult for EGD Educated patient on strict avoidance of NSAIDs DVT ppx: SCD
[2020-02-11 22:58] LABS: IRON SERUM 8 ug/dL (50-175); TOTAL IRON BINDING CAPACITY 466 ug/dL (250-450)
[2020-02-12] MEDS ORDERED: PANTOPRAZOLE SODIUM 40 MG VIAL ONE (01:08)
[2020-02-12] MEDS: PANTOPRAZOLE SODIUM 40 MG VIAL IVPUSH SCH ×3 (01:15→21:27)
[2020-02-12 04:03] VITALS: BMI 18.3
[2020-02-12 05:23] LABS: HEMOGLOBIN 7.6 GM/dL (10.7-15.3); MCH 21.3 pg (25.7-33.7); MCHC 30.2 g/dl (32.0-36.0); MEAN CELL VOLUME 70.6 fl (80-96); MEAN PLT VOLUME 9.1 fl (7.5-11.1); PLATELET COUNT 366 K/MM3 (134-434); RBC 3.54 M/mm3 (3.60-5.2); RDW 21.8 % (11.6-15.6); WHITE BLOOD COUNT 7.4 K/mm3 (4.0-10.0)
[2020-02-12] MEDS ORDERED: SODIUM CHLORIDE 1,000 ML IV SCH (05:45)
[2020-02-12] MEDS ORDERED: ACETAMINOPHEN 325 MG TABLET (FP) PO ONE (06:14)
[2020-02-12 09:01] LABS: ALBUMIN 3.1 g/dl (3.4-5.0); CALCIUM 8.6 mg/dL (8.5-10.1); MAGNESIUM 2.5 mg/dL (1.8-2.4); POTASSIUM 4.6 mmol/L (3.5-5.1)
[2020-02-12 09:54] LABS: BILIRUBIN,TOTAL 1.2 mg/dL (0.2-1); CREATININE 0.6 mg/dL (0.55-1.3); PHOSPHOROUS 4.5 mg/dL (2.5-4.9)
[2020-02-12] MEDS ORDERED: SERTRALINE HCL 50 MG TABLET (FP) PO SCH (10:00)
--- NOTE | 2020-02-12 13:07 | PN ---
Progress Note (short form) - Note Progress Note: cc: anemia s: no chest pain, palps, dizziness, dyspnea Current Medications Generic Name Dose Route Start Last Admin Trade Name Sandeepq PRN Reason Stop Dose Admin Sodium Chloride 1,000 mls @ 75 mls/hr 02/12/20 05:45 02/12/20 06:36 Normal Saline - IV 02/12/20 19:04 75 mls/hr ASDIR MERLIN Administration Influenza Virus Vaccine 60 mcg 02/12/20 10:00 Flulaval Quad Syr IM 02/12/20 10:01 .ONCE ONE Pantoprazole Sodium 40 mg 02/11/20 17:34 02/12/20 10:56 Protonix Iv IVPUSH 40 mg BID MERLIN Administration Sertraline HCl 100 mg 02/12/20 10:00 02/12/20 10:56 Zoloft - PO 100 mg DAILY MERLIN Administration Vital Signs Period Temp Pulse Resp BP Sys/Vázquez Pulse Ox Last 24 Hr 97.4 F-98.2 F 64-76 17-20 93-124/57-99 95-100 Constitutional: Yes: No Distress, Calm Eyes: Yes: Conjunctiva Clear HENT: Yes: Atraumatic Neck: Yes: Trachea Midline Respiratory: Yes: CTA Bilaterally (no wheezing or rales.) Gastrointestinal: Yes: Soft (NT) Cardiovascular: Yes: Regular Rate and Rhythm JVD: No Heart Sounds: Yes: S1, S2 (rrr) Edema: No Peripheral Pulses WNL: Yes Neurological: Yes: Alert, Oriented no jaundice, diaphoresis not agitated Laboratory Last Values WBC 7.4 K/mm3 (4.0-10.0) 02/12/20 05:05 RBC 3.54 M/mm3 (3.60-5.2) L 02/12/20 05:05 Hgb 7.6 GM/dL (10.7-15.3) L 02/12/20 05:05 Hct 25.0 % (32.4-45.2) L D 02/12/20 05:05 MCV 70.6 fl (80-96) L 02/12/20 05:05 MCH 21.3 pg (25.7-33.7) L D 02/12/20 05:05 MCHC 30.2 g/dl (32.0-36.0) L 02/12/20 05:05 RDW 21.8 % (11.6-15.6) H 02/12/20 05:05 Plt Count 366 K/MM3 (134-434) 02/12/20 05:05 MPV 9.1 fl (7.5-11.1) 02/12/20 05:05 Absolute Neuts (auto) 6.2 K/mm3 (1.5-8.0) 02/11/20 12:19 Neutrophils % 76.2 % (42.8-82.8) 02/11/20 12:19 Lymphocytes % 15.4 % (8-40) 02/11/20 12:19 Monocytes % 6.0 % (3.8-10.2) 02/11/20 12:19 Eosinophils % 1.4 % (0-4.5) 02/11/20 12:19 Basophils % 1.0 % (0-2.0) 02/11/20 12: Nucleated RBC % 0 % (0-0) 02/11/20 12:19 Hypochromia 1+ 02/11/20 12:19 Platelet Estimate Normal 02/11/20 12:19 Polychromasia 0 02/11/20 12:19 Poikilocytosis 1+ 02/11/20 12:19 Anisocytosis 1+ 02/11/20 12:19 Microcytosis 1+ 02/11/20 12:19 Macrocytosis 1+ 02/11/20 12:19 Ovalocytes 2+ 02/11/20 12:19 Fragmented RBCs 1+ 02/11/20 12:19 PT with INR 13.10 SEC (9.7-13.0) H 02/11/20 12:19 INR 1.11 (0.83-1.09) H 02/11/20 12:19 PTT (Actin FS) 34.7 SECONDS (25.2-36.5) 02/11/20 12:19 Sodium 143 mmol/L (136-145) 02/12/20 07:41 Potassium 4.6 mmol/L (3.5-5.1) 02/12/20 07:41 Chloride 110 mmol/L (98-107) H 02/12/20 07:41 Carbon Dioxide 28 mmol/L (21-32) 02/12/20 07:41 Anion Gap 5 MMOL/L (8-16) L 02/12/20 07:41 BUN 13.0 mg/dL (7-18) 02/12/20 07:41 Creatinine 0.6 mg/dL (0.55-1.3) 02/12/20 07:41 Est GFR (CKD-EPI)AfAm 101.90 02/12/20 07:41 Est GFR (CKD-EPI)NonAf 87.92 02/12/20 07:41 Random Glucose 82 mg/dL (74-106) 02/12/20 07:41 Calcium 8.6 mg/dL (8.5-10.1) 02/12/20 07:41 Phosphorus 4.5 mg/dL (2.5-4.9) 02/12/20 07:41 Magnesium 2.5 mg/dL (1.8-2.4) H 02/12/20 07:41 Iron 8 ug/dL (50-175) L 02/11/20 12:19 TIBC 466 ug/dL (250-450) H 02/11/20 12:19 Iron Saturation 1 % (17.5-39) L 02/11/20 12:19 Unsaturated IBC 458 ug/dL (200-275) H 02/11/20 12:19 Ferritin 8.7 ng/ml (8-388) 02/11/20 12:19 Total Bilirubin 1.2 mg/dL (0.2-1) H 02/12/20 07:41 AST 24 U/L (15-37) 02/12/20 07:41 ALT 18 U/L (13-61) 02/12/20 07:41 Alkaline Phosphatase 113 U/L (45-117) 02/12/20 07:41 Troponin I < 0.02 ng/ml (0.00-0.05) 02/11/20 12:19 Total Protein 6.0 g/dl (6.4-8.2) L 02/12/20 07:41 Albumin 3.1 g/dl (3.4-5.0) L 02/12/20 07:41 Stool Occult Blood Positive (NEGATIVE) 02/11/20 14:13 COVID-19 ([facility]) Not detected (Not Detected) 02/11/20 14:27 Blood Type A POSITIVE 02/11/20 13:11 Antibody Screen Negative 02/11/20 13:11 Crossmatch See Detail 02/11/20 13:11 NSR, APCs, no acute ST changes Echo: Other ([facility]: preserved EF. No sig valve disease, mild MR/AR) Prior Cardiac Procedures: PTCA with Stent Imaging - Results EKG: Image Reviewed Assessment/Plan IMP: 1. Marked anemia, r/o GI bleed 2. History of GIB, peptic ulcer disease 3. CAD s/p NSTEMI 11/2018 with primary PCI at [place] 4. Depression REC: 1. Anemia: -Transfuse to Hb 8 -GI consulted -Hold antiplatelet drugs: when stable, should resume either ASA 81 OR Plavix now > 1 year post ACS/PCI -Clarify reason why patient was seeing Heme. 2. Prior GIB/PUD: -GI consult pending -No cardiac contraindication to upper endoscopy or colonoscopy if required. -Old records of prior scope were done in [place] hospital -PPI as per primary team 3. CAD s/p NSTEMI 11/2018: -Review cath report from [facility] -Cont statin -can hold BB for now, resume when assured no active bleeding. -Ultimately will need to resume single antiplatelet rx when feasible -Initial LV dysfx post IA resolved with revasc and med Rx although did not tolerate low dose Lisinopril due to hypotension (baseline BP 100-105mmHg systolic) 4. Depression: -As per primary team 5. Vascular: -Clarify/ confirm prior hx of aneurysm repair, please try to obtain old records.
--- NOTE | 2020-02-12 13:48 | CON.GI ---
Consult Consult Specialty:: coverage for Dr Hernández - History of Present Illness History of Present Illness: Patient is a 79 year old female with history of coronary artery disease, NSTEMI (2018), abdominal aortic aneurysm (s/p repair 2015), bladder cancer s/p resection, prior GI bleeding secondary to duodenal ulcer, iron deficiency anemia, depression presents at behest of her inter fold roll cutter (Dr. Fitch) regarding anemia noted on yesterday's labs. Per at bedside, similar occurrence 9 months ago where she had an endoscopy performed that revealed ?duodenal ulcer. She has been followed by Hematology, however is unsure regarding her diagnosis; noted she is on Ferrous Sulfate as home medication. She endorses feeling in her usual state of health. Tolerating oral intake. Denies subjective fevers, chills, shortness of breath, chest pain, palpitations, abdominal pain, nausea, vomiting, hemptysis, diarrhea, constipation, melena, hematochezia, dysuria, hematuria. 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: Other (Mild dementia) Cardio/Vascular: Yes: CAD (NSTEMI, PCI [place] 11/2018) Gastrointestinal: Yes: GI Bleed, Peptic Ulcer Disease Psych: Yes: Depression - Alcohol/Substance Use Hx Alcohol Use: No - Smoking History Smoking history: Never smoked Have you smoked in the past 12 months: No - Social History Usual Living Arrangement: With Spouse History of Recent Travel: No Home Medications - Allergies Allergies/Adverse Reactions: Allergies Allergy/AdvReac Type Severity Reaction Status Date / Time No Known Allergies Allergy Verified 02/11/20 11:14 - Home Medications Home Medications: Ambulatory Orders Sertraline HCl [Zoloft] 100 mg PO TID 11/12/18 Family Medical History Family History: Unremarkable Physical Exam-GI Vital Signs: Vital Signs Temperature 97.7 F 02/12/20 06:00 Pulse Rate 64 02/12/20 06:00 Respiratory Rate 20 02/12/20 06:00 Blood Pressure 121/75 02/12/20 06:00 O2 Sat by Pulse Oximetry (%) 98 02/12/20 06:00 Constitutional: Yes: Well Nourished, Poor Hygeine HENT: Yes: Atraumatic Neck: Yes: Supple Cardiovascular: Yes: Regular Rate and Rhythm, Varicosities ...Palpate: Yes: Soft. No: Firm/Rigid, Guarding, Hepatomegaly, Mass, Pulsatile Mass, Splenomegaly, Tenderness Labs: CBC, BMP 02/12/20 05:05 02/12/20 07:41 INR, PTT INR 1.11 (0.83-1.09) H 02/11/20 12:19 Problem List - Problems (1) Occult GI bleeding Assessment/Plan: history of duodenal ulcer,chronic ASA and NSAID use R> Pantoprzole 40mg bid will schedule for EGD Code(s): R19.5 - OTHER FECAL ABNORMALITIES
[2020-02-12] MEDS ORDERED: FLU VACCINE (FLULAVAL) PF 60 MCG/0.5 ML SYRINGE 2020-2021 IM ONE (15:00)
--- NOTE | 2020-02-12 16:37 | PN ---
Physical Exam: SUBJECTIVE: Patient seen and examined. No reports of rectal or oral bleeding. Patient feeling well, denies dizziness/ lightheadedness. OBJECTIVE: Vital Signs Period Temp Pulse Resp BP Sys/Vázquez Pulse Ox Last 24 Hr 97.4 F-98 F 64-72 17-20 93-124/57-99 95-100 GENERAL: The patient is awake, alert, and fully oriented, in no acute distress. HEENT: NCAT EOMI PERRLA. Slera anicteric. + conjunctival pallor. LUNGS: Breath sounds equal, clear to auscultation bilaterally, no wheezes, no crackles, no accessory muscle use. HEART: Regular rate and rhythm, S1, S2 without murmur, rub or gallop. ABDOMEN: Soft, nontender, nondistended, normoactive bowel sounds, no guarding, no rebound EXTREMITIES: 2+ pulses, warm, well-perfused, no edema. NEUROLOGICAL: Cranial nerves II through XII grossly intact. PSYCH: Normal mood, normal affect. SKIN: Warm, dry, normal turgor, no rashes or lesions noted Laboratory Results - last 24 hr 02/11/20 02/11/20 02/11/20 12:19 13:11 14:27 WBC RBC Hgb Hct MCV MCH MCHC RDW Plt Count MPV Sodium 141 Potassium 4.9 Chloride 107 Carbon Dioxide 26 Anion Gap 8 BUN 19.7 H Creatinine 0.6 Est GFR (CKD-EPI)AfAm 101.90 Est GFR (CKD-EPI)NonAf 87.92 Random Glucose 94 Calcium 8.6 Phosphorus Magnesium Iron 8 L TIBC 466 H Iron Saturation 1 L Unsaturated IBC 458 H Ferritin 8.7 Total Bilirubin 0.4 AST 21 ALT 19 Alkaline Phosphatase 111 Troponin I < 0.02 Total Protein 6.5 Albumin 3.4 COVID-19 (CHRISSY) Not detected Blood Type A POSITIVE Antibody Screen Negative Crossmatch See Detail 02/12/20 02/12/20 05:05 07:41 WBC 7.4 RBC 3.54 L Hgb 7.6 L Hct 25.0 L D MCV 70.6 L MCH 21.3 L D MCHC 30.2 L RDW 21.8 H Plt Count 366 MPV 9.1 Sodium 143 Potassium 4.6 Chloride 110 H Carbon Dioxide 28 Anion Gap 5 L BUN 13.0 Creatinine 0.6 Est GFR (CKD-EPI)AfAm 101.90 Est GFR (CKD-EPI)NonAf 87.92 Random Glucose 82 Calcium 8.6 Phosphorus 4.5 Magnesium 2.5 H Iron TIBC Iron Saturation Unsaturated IBC Ferritin Total Bilirubin 1.2 H AST 24 ALT 18 Alkaline Phosphatase 113 Troponin I Total Protein 6.0 L Albumin 3.1 L COVID-19 (CHRISSY) Blood Type Antibody Screen Crossmatch Active Medications Generic Name Dose Route Start Last Admin Trade Name Freq PRN Reason Stop Dose Admin Sodium Chloride 1,000 mls @ 75 mls/hr 02/12/20 05:45 02/12/20 06:36 Normal Saline - IV 02/12/20 19:04 75 mls/hr ASDIR MERLIN Administration Pantoprazole Sodium 40 mg 02/11/20 17:34 02/12/20 10:56 Protonix Iv IVPUSH 40 mg BID MERLIN Administration Sertraline HCl 100 mg 02/12/20 10:00 02/12/20 10:56 Zoloft - PO 100 mg DAILY MERLIN Administration ASSESSMENT/PLAN: 79 y.o. F PMH CAD, NSTEMI (2018), abdominal aortic aneurysm (s/p repair 2015), bladder cancer s/p resection, prior GI bleed in 2018 2/2 duodenal ulcer, iron deficiency anemia, depression presenting from her [employer] (Dr. Fitch) due to low hgb. #Acute blood loss anemia -Hgb on admission 5.5, this morning 7.6 after 2 units pRBCs. Will transfuse 1 more unit pRBC -trend H&H -f/u iron studies -Protonix 40mg IV BID -Clear liquid diet, NPO after midnight on Monday 02/12-02/[address] Mason -continue IVF: NS @75cc/hr -patient has hx of chronic ASA & NSAID use- hold off further antiplatelet therap ies or nsaids -prior EGD was done in [facility] ~9 months ago #History of NSTEMI -Cardiology following (Dr. Aparicio, Dr. Santamaria)- ok to hold antiplt therapy however resume asa OR plavix once stable -f/u [facility] records from cath report -Continue home statin #History of depression -Continue home Sertaline #FEN -IVF NS @75cc/ hour -Trend BMP replete lytes prn -Clear liquids #PPX -Holding chemical anticoagulation in setting of anemia. SCDs for now -IV PPI Dispo monitor on med surg Visit type - Emergency Visit Emergency Visit: Yes ED Registration Date: 02/11/20 Care time: The patient presented to the Emergency Department on the above date and was hospitalized for further evaluation of their emergent condition. - New Patient This patient is new to me today: Yes Date on this admission: 02/12/20 - Critical Care Critical Care patient: No - Medication Review Med list reviewed for High Risk Meds patients 65 and older: Yes ATTENDING PHYSICIAN STATEMENT I saw and evaluated the patient. I reviewed the resident's note and discussed the case with the resident. I agree with the resident's findings and plan as documented. SUBJECTIVE: OBJECTIVE: ASSESSMENT AND PLAN:
--- NOTE | 2020-02-12 16:58 | PN ---
Teaching Attending Note Name of Resident: Karen Olson ATTENDING PHYSICIAN STATEMENT I saw and evaluated the patient. I reviewed the resident's note and discussed the case with the resident. I agree with the resident's findings and plan as documented. SUBJECTIVE: Feeling well - no CP/palpitations/SOB. Denies melena. OBJECTIVE: Afebrile, Hemodynamically Stable. Last Vital Signs Temp Pulse Resp BP Pulse Ox 97.7 F 72 18 109/73 96 02/12/20 14:50 02/12/20 14:50 02/12/20 14:50 02/12/20 14:50 02/12/20 14:50 HEENT - Atraumatic, Normocephalic Heart - S1, S2, RRR Lungs - clear to auscultation Abdomen - Soft, non-tender. Bowel Sounds normal. Extremities - no edema, no calf tenderness. Neuro - AAO x 3. Tone/Power normal all extremities. Laboratory Results - last 24 hr 02/11/20 02/11/20 02/11/20 12:19 13:11 14:27 WBC RBC Hgb Hct MCV MCH MCHC RDW Plt Count MPV Sodium 141 Potassium 4.9 Chloride 107 Carbon Dioxide 26 Anion Gap 8 BUN 19.7 H Creatinine 0.6 Est GFR (CKD-EPI)AfAm 101.90 Est GFR (CKD-EPI)NonAf 87.92 Random Glucose 94 Calcium 8.6 Phosphorus Magnesium Iron 8 L TIBC 466 H Iron Saturation 1 L Unsaturated IBC 458 H Ferritin 8.7 Total Bilirubin 0.4 AST 21 ALT 19 Alkaline Phosphatase 111 Troponin I < 0.02 Total Protein 6.5 Albumin 3.4 COVID-19 (CHRISSY) Not detected Blood Type A POSITIVE Antibody Screen Negative Crossmatch See Detail 02/12/20 02/12/20 05:05 07:41 WBC 7.4 RBC 3.54 L Hgb 7.6 L Hct 25.0 L D MCV 70.6 L MCH 21.3 L D MCHC 30.2 L RDW 21.8 H Plt Count 366 MPV 9.1 Sodium 143 Potassium 4.6 Chloride 110 H Carbon Dioxide 28 Anion Gap 5 L BUN 13.0 Creatinine 0.6 Est GFR (CKD-EPI)AfAm 101.90 Est GFR (CKD-EPI)NonAf 87.92 Random Glucose 82 Calcium 8.6 Phosphorus 4.5 Magnesium 2.5 H Iron TIBC Iron Saturation Unsaturated IBC Ferritin Total Bilirubin 1.2 H AST 24 ALT 18 Alkaline Phosphatase 113 Troponin I Total Protein 6.0 L Albumin 3.1 L COVID-19 (CHRISSY) Blood Type Antibody Screen Crossmatch Current Medications Generic Name Dose Route Start Last Admin Trade Name Taya PRN Reason Stop Dose Admin Sodium Chloride 1,000 mls @ 75 mls/hr 02/12/20 05:45 02/12/20 06:36 Normal Saline - IV 02/12/20 19:04 75 mls/hr ASDIR MERLIN Administration Pantoprazole Sodium 40 mg 02/11/20 17:34 02/12/20 10:56 Protonix Iv IVPUSH 40 mg BID MERLIN Administration Sertraline HCl 100 mg 02/12/20 10:00 02/12/20 10:56 Zoloft - PO 100 mg DAILY MERLIN Administration ASSESSMENT AND PLAN: 79 year old female with history of CAD s/p NSTEMI (2018), AAA (s/p repair 2015), Bladder Cancer s/p resection, history of prior GI bleeding episode secondary to duodenal ulcer, iron deficiency anemia, Depression referred to ED for severe Anemia. 1. Chronic Blood Loss Anemia/Iron Deficiency Anemia sec to GI blood loss Hx of prior GI bleed due to DU H/H 7.6/25 s/p 2 units PRBCs. Iron 8/Iron Sat 1%, Ferritin 8.7 FOBT positive Will Transfuse another unit PRBCs. Protonix IV BID GI consulted - recommend diet and eval for possible EGD on Friday 2. CAD s/p NSTEMI s/p PCI > 1 year ago Aspirin/Plavix held due to GI bleed Continue Statin - once home meds are confirmed As per Cardio, once GI Ix complete, should resume either Aspirin or Plavix. Cleared for GI Ix by Cardio. 3. Depression - Continue Sertraline. DVT Px - SCDs .
[2020-02-12] MEDS: ATORVASTATIN CA 80 MG TABLET (FP) PO SCH (21:27)
[2020-02-12] MEDS ORDERED: MELATONIN 5 MG TABLETS PO ONE (22:03)
[2020-02-13] MEDS ORDERED: ACETAMINOPHEN 325 MG TABLET (FP) PO ONE (05:50)
[2020-02-13] MEDS: SERTRALINE HCL 50 MG TABLET (FP) PO SCH (06:26)
[2020-02-13 08:01] LABS: HEMATOCRIT 29.3 % (32.4-45.2); HEMOGLOBIN 8.9 GM/dL (10.7-15.3); MCH 22.4 pg (25.7-33.7); MCHC 30.4 g/dl (32.0-36.0); MEAN CELL VOLUME 73.7 fl (80-96); MEAN PLT VOLUME 9.5 fl (7.5-11.1); PLATELET COUNT 369 K/MM3 (134-434); RBC 3.98 M/mm3 (3.60-5.2); RDW 22.1 % (11.6-15.6); WHITE BLOOD COUNT 10.7 K/mm3 (4.0-10.0)
[2020-02-13 08:40] LABS: CALCIUM 8.5 mg/dL (8.5-10.1); POTASSIUM 4.3 mmol/L (3.5-5.1)
[2020-02-13 08:46] LABS: ALBUMIN 3.1 g/dl (3.4-5.0); BILIRUBIN,TOTAL 1.3 mg/dL (0.2-1); BLOOD UREA NITROGEN 16.1 mg/dL (7-18); CREATININE 0.5 mg/dL (0.55-1.3); MAGNESIUM 2.4 mg/dL (1.8-2.4); PHOSPHOROUS 4.4 mg/dL (2.5-4.9)
[2020-02-13] MEDS: PANTOPRAZOLE SODIUM 40 MG VIAL IVPUSH SCH ×2 (09:31→21:33)
--- NOTE | 2020-02-13 12:38 | PN ---
GI Progress Note Subjective: tolerating diet well, ne melena, no rectal bleeding - Objective Vital Signs: Vital Signs Temperature 97.9 F 02/13/20 06:00 Pulse Rate 69 02/13/20 06:00 Respiratory Rate 20 02/12/20 22:08 Blood Pressure 120/71 02/13/20 06:00 O2 Sat by Pulse Oximetry (%) 97 02/13/20 06:00 Constitutional: Well Nourished, Poor Hygeine HENT: Yes: Atraumatic Neck: Yes: Supple Cardiovascular: Yes: Regular Rate and Rhythm Respiratory: Yes: CTA Bilaterally ...Palpate: Yes: Soft. No: Firm/Rigid, Guarding, Hepatomegaly, Mass, Pulsatile Mass, Splenomegaly, Tenderness, Tenderness, Epigastium Labs: CBC, BMP 02/13/20 06:45 02/13/20 06:45 INR, PTT INR 1.11 (0.83-1.09) H 02/11/20 12:19 Problem List - Problems (1) Occult GI bleeding Assessment/Plan: R> for EGD tomorrow Dr Hernández will resume care Code(s): R19.5 - OTHER FECAL ABNORMALITIES
--- NOTE | 2020-02-13 12:52 | PN ---
Progress Note (short form) - Note Progress Note: cc: anemia s: no chest pain, palps, dizziness, dyspnea Current Medications Generic Name Dose Route Start Last Admin Trade Name Sandeepq PRN Reason Stop Dose Admin Atorvastatin Calcium 80 mg 02/12/20 22:00 02/12/20 21:27 Lipitor - PO 80 mg HS MERLIN Administration Pantoprazole Sodium 40 mg 02/11/20 17:34 02/13/20 09:31 Protonix Iv IVPUSH 40 mg BID MERLIN Administration Sertraline HCl 150 mg 02/13/20 07:00 02/13/20 06:26 Zoloft - PO 150 mg AM MERLIN Administration Vital Signs Period Temp Pulse Resp BP Sys/Vázquez Pulse Ox Last 24 Hr 97.7 F-98.3 F 69-93 18-20 90-124/40-87 96-98 Constitutional: Yes: No Distress, Calm Eyes: Yes: Conjunctiva Clear HENT: Yes: Atraumatic Neck: Yes: Trachea Midline Respiratory: Yes: CTA Bilaterally (no wheezing or rales.) Gastrointestinal: Yes: Soft (NT) Cardiovascular: Yes: Regular Rate and Rhythm JVD: No Heart Sounds: Yes: S1, S2 (rrr) Edema: No Peripheral Pulses WNL: Yes Neurological: Yes: Alert, Oriented no jaundice, diaphoresis not agitated Laboratory Last Values WBC 10.7 K/mm3 (4.0-10.0) H 02/13/20 06:45 RBC 3.98 M/mm3 (3.60-5.2) 02/13/20 06:45 Hgb 8.9 GM/dL (10.7-15.3) L 02/13/20 06:45 Hct 29.3 % (32.4-45.2) L D 02/13/20 06:45 MCV 73.7 fl (80-96) L 02/13/20 06:45 MCH 22.4 pg (25.7-33.7) L 02/13/20 06:45 MCHC 30.4 g/dl (32.0-36.0) L 02/13/20 06:45 RDW 22.1 % (11.6-15.6) H 02/13/20 06:45 Plt Count 369 K/MM3 (134-434) 02/13/20 06:45 MPV 9.5 fl (7.5-11.1) 02/13/20 06:45 Absolute Neuts (auto) 6.2 K/mm3 (1.5-8.0) 02/11/20 12:19 Neutrophils % 76.2 % (42.8-82.8) 02/11/20 12:19 Lymphocytes % 15.4 % (8-40) 02/11/20 12:19 Monocytes % 6.0 % (3.8-10.2) 02/11/20 12:19 Eosinophils % 1.4 % (0-4.5) 02/11/20 12:19 Basophils % 1.0 % (0-2.0) 02/11/20 12: Nucleated RBC % 0 % (0-0) 02/11/20 12:19 Hypochromia 1+ 02/11/20 12:19 Platelet Estimate Normal 02/11/20 12:19 Polychromasia 0 02/11/20 12:19 Poikilocytosis 1+ 02/11/20 12:19 Anisocytosis 1+ 02/11/20 12:19 Microcytosis 1+ 02/11/20 12:19 Macrocytosis 1+ 02/11/20 12:19 Ovalocytes 2+ 02/11/20 12:19 Fragmented RBCs 1+ 02/11/20 12:19 PT with INR 13.10 SEC (9.7-13.0) H 02/11/20 12:19 INR 1.11 (0.83-1.09) H 02/11/20 12:19 PTT (Actin FS) 34.7 SECONDS (25.2-36.5) 02/11/20 12:19 Sodium 141 mmol/L (136-145) 02/13/20 06:45 Potassium 4.3 mmol/L (3.5-5.1) 02/13/20 06:45 Chloride 110 mmol/L (98-107) H 02/13/20 06:45 Carbon Dioxide 26 mmol/L (21-32) 02/13/20 06:45 Anion Gap 6 MMOL/L (8-16) L 02/13/20 06:45 BUN 16.1 mg/dL (7-18) 02/13/20 06:45 Creatinine 0.5 mg/dL (0.55-1.3) L 10/11/20 06:45 Est GFR (CKD-EPI)AfAm 108.20 02/13/20 06:45 Est GFR (CKD-EPI)NonAf 93.36 02/13/20 06:45 Random Glucose 79 mg/dL (74-106) 02/13/20 06:45 Calcium 8.5 mg/dL (8.5-10.1) 02/13/20 06:45 Phosphorus 4.4 mg/dL (2.5-4.9) 02/13/20 06:45 Magnesium 2.4 mg/dL (1.8-2.4) 02/13/20 06:45 Iron 8 ug/dL (50-175) L 02/11/20 12:19 TIBC 466 ug/dL (250-450) H 02/11/20 12:19 Iron Saturation 1 % (17.5-39) L 02/11/20 12:19 Unsaturated IBC 458 ug/dL (200-275) H 02/11/20 12:19 Transferrin 366 mg/dL (192-364) H 02/11/20 12:19 Ferritin 8.7 ng/ml (8-388) 02/11/20 12:19 Total Bilirubin 1.3 mg/dL (0.2-1) H 02/13/20 06:45 AST 18 U/L (15-37) 02/13/20 06:45 ALT 18 U/L (13-61) 02/13/20 06:45 Alkaline Phosphatase 115 U/L (45-117) 02/13/20 06:45 Troponin I < 0.02 ng/ml (0.00-0.05) 02/11/20 12:19 Total Protein 6.0 g/dl (6.4-8.2) L 02/13/20 06:45 Albumin 3.1 g/dl (3.4-5.0) L 02/13/20 06:45 Stool Occult Blood Positive (NEGATIVE) 02/11/20 14:13 COVID-19 (CHRISSY) Not detected (Not Detected) 02/11/20 14:27 Blood Type A POSITIVE 02/11/20 13:11 Antibody Screen Negative 02/11/20 13:11 Crossmatch See Detail 02/11/20 13:11 NSR, APCs, no acute ST changes Echo: Other ([facility] echo: preserved EF. No sig valve disease, mild MR/AR) Prior Cardiac Procedures: PTCA with Stent Imaging - Results EKG: Image Reviewed Assessment/Plan IMP: 1. Marked anemia, r/o GI bleed 2. History of GIB, peptic ulcer disease 3. CAD s/p NSTEMI 11/2018 with primary PCI at [place] 4. Depression REC: 1. Anemia: -Transfuse to Hb 8 -GI consulted - planned EGD tomorrow -Hold antiplatelet drugs: when stable, should resume either ASA 81 OR Plavix now > 1 year post ACS/PCI -Clarify reason why patient was seeing Heme. 2. Prior GIB/PUD: -No cardiac contraindication to upper endoscopy or colonoscopy as needed per GI -Old records of prior scope were done in [place] [facility] -PPI as per primary team 3. CAD s/p NSTEMI 11/2018: -Review cath report from [place] -Cont statin -can hold BB for now, resume when assured no active bleeding. -Ultimately will need to resume single antiplatelet rx when feasible -Initial LV dysfx post ND resolved with revasc and med Rx although did not tolerate low dose Lisinopril due to hypotension (baseline BP 100-105mmHg systolic) 4. Depression: -As per primary team 5. Vascular: -Clarify/ confirm prior hx of aneurysm repair, please try to obtain old records.
--- NOTE | 2020-02-13 13:33 | PN ---
Progress Note (short form) - Note Progress Note: SUBJECTIVE: Feeling well - no CP/palpitations/SOB. Denies melena/hematochezia. no nausea/vomiting/hematochezia. OBJECTIVE: Afebrile, Hemodynamically Stable. Last Vital Signs Temp Pulse Resp BP Pulse Ox 97.9 F 69 20 120/71 97 02/13/20 06:00 02/13/20 06:00 02/12/20 22:08 02/13/20 06:00 02/13/20 06:00 Heart - S1, S2, RRR Lungs - clear to auscultation Abdomen - Soft, non-tender. Bowel Sounds normal. Extremities - no edema, no calf tenderness. Neuro - AAO x 3. Tone/Power normal all extremities. Laboratory Results - last 24 hr 02/11/20 02/11/20 02/13/20 12:19 13:11 06:45 WBC 10.7 H RBC 3.98 Hgb 8.9 L Hct 29.3 L D MCV 73.7 L MCH 22.4 L MCHC 30.4 L RDW 22.1 H Plt Count 369 MPV 9.5 Sodium Potassium Chloride Carbon Dioxide Anion Gap BUN Creatinine Est GFR (CKD-EPI)AfAm Est GFR (CKD-EPI)NonAf Random Glucose Calcium Phosphorus Magnesium Transferrin 366 H Total Bilirubin AST ALT Alkaline Phosphatase Total Protein Albumin Blood Type A POSITIVE Antibody Screen Negative Crossmatch See Detail 02/13/20 06:45 WBC RBC Hgb Hct MCV MCH MCHC RDW Plt Count MPV Sodium 141 Potassium 4.3 Chloride 110 H Carbon Dioxide 26 Anion Gap 6 L BUN 16.1 Creatinine 0.5 L Est GFR (CKD-EPI)AfAm 108.20 Est GFR (CKD-EPI)NonAf 93.36 Random Glucose 79 Calcium 8.5 Phosphorus 4.4 Magnesium 2.4 Transferrin Total Bilirubin 1.3 H AST 18 ALT 18 Alkaline Phosphatase 115 Total Protein 6.0 L Albumin 3.1 L Blood Type Antibody Screen Crossmatch Current Medications Generic Name Dose Route Start Last Admin Trade Name Freq PRN Reason Stop Dose Admin Atorvastatin Calcium 80 mg 02/12/20 22:00 02/12/20 21:27 Lipitor - PO 80 mg HS MERLIN Administration Pantoprazole Sodium 40 mg 02/11/20 17:34 02/13/20 09:31 Protonix Iv IVPUSH 40 mg BID MERLIN Administration Sertraline HCl 150 mg 10/11/20 07:00 02/13/20 06:26 Zoloft - PO 150 mg AM MERLIN Administration Home Medications Medication Instructions Recorded Sertraline HCl [Zoloft] 150 mg PO AM 11/12/18 Atorvastatin Ca [Lipitor] 80 mg PO HS 02/12/20 Clopidogrel Bisulfate [Plavix] 75 mg PO DAILY 02/12/20 Lisinopril [Zestril] 2.5 mg PO DAILY 02/12/20 Metoprolol Tartrate [Lopressor -] 12.5 mg PO DAILY 02/12/20 Pantoprazole Sodium [Protonix] 40 mg PO BID 02/12/20 ASSESSMENT AND PLAN: 79 year old female with history of CAD s/p NSTEMI (2018), AAA (s/p repair 2015), Bladder Cancer s/p resection, history of prior GI bleeding episode secondary to duodenal ulcer, iron deficiency anemia, Depression referred to ED for severe Anemia. 1. Chronic Blood Loss Anemia/Iron Deficiency Anemia sec to GI blood loss Hx of prior GI bleed due to Duodenal Ulcer H/H 8.9/29.3 s/p 3 units PRBCs. Iron 8/Iron Sat 1%, Ferritin 8.7 FOBT positive Protonix IV BID GI consulted - recommend EGD on Friday, will make NPO from [place]. 2. CAD s/p NSTEMI s/p PCI > 1 year ago Aspirin/Plavix held due to GI bleed Continue Statin As per Cardio, once GI Ix complete, should resume either Aspirin or Plavix. Cleared for EGD by Cardio. 3. Depression - Continue Sertraline. DVT Px - SCDs Visit type - Emergency Visit Emergency Visit: Yes ED Registration Date: 02/11/20 Care time: The patient presented to the Emergency Department on the above date and was hospitalized for further evaluation of their emergent condition. - New Patient This patient is new to me today: No - Critical Care Critical Care patient: No - Discharge Referral Referred to [facility] No - Medication Review Med list reviewed for High Risk Meds patients 65 and older: Yes
[2020-02-13] MEDS: ATORVASTATIN CA 80 MG TABLET (FP) PO SCH (21:33)
[2020-02-14] MEDS ORDERED: ACETAMINOPHEN 1000 MG/100 ML VIAL (NON FORMULARY) IVPB ONE (03:49)
[2020-02-14] MEDS: SERTRALINE HCL 50 MG TABLET (FP) PO SCH (06:00)
[2020-02-14] MEDS: PANTOPRAZOLE SODIUM 40 MG VIAL IVPUSH SCH ×2 (09:27→21:07)
--- NOTE | 2020-02-14 12:19 | PN ---
Progress Note (short form) - Note Progress Note: cc: anemia s: no chest pain, palps, dizziness, dyspnea Current Medications Generic Name Dose Route Start Last Admin Trade Name Taya PRN Reason Stop Dose Admin Atorvastatin Calcium 80 mg 02/12/20 22:00 02/13/20 21:33 Lipitor - PO 80 mg HS MERLIN Administration Pantoprazole Sodium 40 mg 02/11/20 17:34 02/14/20 09:27 Protonix Iv IVPUSH 40 mg BID MERLIN Administration Sertraline HCl 150 mg 02/13/20 07:00 02/14/20 06:00 Zoloft - PO Not Given AM MERLIN Vital Signs Period Temp Pulse Resp BP Sys/Vázquez Pulse Ox Last 24 Hr 97.8 F-100.0 F 66-89 18-18 105-117/75-85 93-98 Constitutional: Yes: No Distress, Calm Eyes: Yes: Conjunctiva Clear HENT: Yes: Atraumatic Neck: Yes: Trachea Midline Respiratory: Yes: CTA Bilaterally (no wheezing or rales.) Gastrointestinal: Yes: Soft (NT) Cardiovascular: Yes: Regular Rate and Rhythm JVD: No Heart Sounds: Yes: S1, S2 (rrr) Edema: No Peripheral Pulses WNL: Yes Neurological: Yes: Alert, Oriented no jaundice, diaphoresis not agitated CBC, BMP 02/13/20 06:45 02/13/20 06:45 NSR, APCs, no acute ST changes Echo: Other ([facility] echo: preserved EF. No sig valve disease, mild MR/AR) Prior Cardiac Procedures: PTCA with Stent Imaging - Results EKG: Image Reviewed Assessment/Plan IMP: 1. Marked anemia, r/o GI bleed 2. History of GIB, peptic ulcer disease 3. CAD s/p NSTEMI 11/2018 with primary PCI at [place] 4. Depression REC: 1. Anemia: -Transfuse to Hb 8 -GI consulted - planned EGD -Hold antiplatelet drugs: when stable, should resume either ASA 81 OR Plavix now > 1 year post ACS/PCI -Clarify reason why patient was seeing Heme. 2. Prior GIB/PUD: -No cardiac contraindication to upper endoscopy or colonoscopy as needed per GI -PPI as per primary team/GI 3. CAD s/p NSTEMI 11/2018: -Review cath report from [place] -Cont statin -can hold BB for now, resume when assured no active bleeding. -Ultimately will need to resume single antiplatelet rx when feasible -Initial LV dysfx post [place] resolved with revasc and med Rx although did not tolerate low dose Lisinopril due to hypotension (baseline BP 100-105mmHg systolic) 4. Vascular: -Clarify/ confirm prior hx of aneurysm repair, please try to obtain old records.
--- NOTE | 2020-02-14 12:38 | PN.GI ---
GI Progress Note Subjective: No acute events On Plavix, last dose being 02/11. 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 Young Leiva): mild diverticulosis - Objective Vital Signs: Vital Signs Temperature 97.9 F 02/14/20 05:19 Pulse Rate 79 02/14/20 05:19 Respiratory Rate 18 02/14/20 05:19 Blood Pressure 117/75 02/14/20 05:19 O2 Sat by Pulse Oximetry (%) 98 02/14/20 09:00 Constitutional: Calm Cardiovascular: Yes: Regular Rate and Rhythm Respiratory: Yes: CTA Bilaterally Gastrointestinal Inspection: No: Distention ...Auscultate: Yes: Normoactive Bowel Sounds ...Palpate: Yes: Soft ...Percussion: No: Tympanitic Edema: No (No LE edema) Neurological: Yes: Alert Labs: CBC, BMP 02/13/20 06:45 02/13/20 06:45 INR, PTT INR 1.11 (0.83-1.09) H 02/11/20 12:19 Problem List - Problems (1) Anemia Assessment/Plan: No overt bleeding and patient hemodynamically stable Holding on EGD today given that patient is on DAPT, last dose being 02/11 Continue protonix 40mg BID full liquid diet NPO after midnight for possible EGD. If unrevealing, colonoscopy 02/15 Code(s): D64.9 - ANEMIA, UNSPECIFIED Qualifiers: Anemia type: unspecified type Qualified Code(s): D64.9 - Anemia, unspecified
[2020-02-14 13:19] LABS: BASO % 1.6 % (0-2.0); HEMATOCRIT 29.5 % (32.4-45.2); HEMOGLOBIN 8.9 GM/dL (10.7-15.3); LYMPH % 14.9 % (8-40); MCH 22.2 pg (25.7-33.7); MCHC 30.3 g/dl (32.0-36.0); MEAN CELL VOLUME 73.1 fl (80-96); MEAN PLT VOLUME 9.8 fl (7.5-11.1); NEUT % 73.5 % (42.8-82.8); PLATELET COUNT 358 K/MM3 (134-434); RBC 4.04 M/mm3 (3.60-5.2); RDW 23.3 % (11.6-15.6)
[2020-02-14 14:02] LABS: BLOOD UREA NITROGEN 19.9 mg/dL (7-18); CALCIUM 8.4 mg/dL (8.5-10.1); CREATININE 0.6 mg/dL (0.55-1.3); POTASSIUM 4.8 mmol/L (3.5-5.1)
[2020-02-14 15:09] LABS: ANISOCYTOSIS 2+; MACROCYTOSIS 1+; TEAR DROP CELLS 1+
[2020-02-14 15:10] LABS: OVALOCYTE 1+
--- NOTE | 2020-02-14 15:20 | PN ---
Physical Exam: SUBJECTIVE: Patient seen and examined. Denies dizziness, light headedness, vision changes, fatigue. OBJECTIVE: Vital Signs Period Temp Pulse Resp BP Sys/Vázquez Pulse Ox Last 24 Hr 97.8 F-97.9 F 66-79 18-18 114-117/75-85 93-98 GENERAL: The patient is awake, alert, and fully oriented, in no acute distress. HEENT: NCAT EOMI PERRLA. Slera anicteric. + conjunctival pallor. LUNGS: Breath sounds equal, clear to auscultation bilaterally, no wheezes, no crackles, no accessory muscle use. HEART: Regular rate and rhythm, S1, S2 without murmur, rub or gallop. ABDOMEN: Soft, nontender, nondistended, normoactive bowel sounds, no guarding, no rebound EXTREMITIES: 2+ pulses, warm, well-perfused, no edema. NEUROLOGICAL: Cranial nerves II through XII grossly intact. PSYCH: Normal mood, normal affect. SKIN: Warm, dry, normal turgor, no rashes or lesions noted Laboratory Results - last 24 hr 02/11/20 02/14/20 02/14/20 13:11 12:20 12:20 WBC 8.0 RBC 4.04 Hgb 8.9 L Hct 29.5 L MCV 73.1 L MCH 22.2 L MCHC 30.3 L RDW 23.3 H Plt Count 358 MPV 9.8 Absolute Neuts (auto) 5.9 Neutrophils % 73.5 Lymphocytes % 14.9 Monocytes % 7.0 Eosinophils % 3.0 D Basophils % 1.6 Nucleated RBC % 0 Hypochromia 2+ Poikilocytosis 2+ Anisocytosis 2+ Macrocytosis 1+ Tear Drop Cells 1+ Ovalocytes 1+ Fragmented RBCs 1+ Schistocytes 1+ Sodium 145 Potassium 4.8 Chloride 113 H Carbon Dioxide 28 Anion Gap 4 L BUN 19.9 H Creatinine 0.6 Est GFR (CKD-EPI)AfAm 101.90 Est GFR (CKD-EPI)NonAf 87.92 Random Glucose 86 Calcium 8.4 L Blood Type A POSITIVE Antibody Screen Negative Crossmatch See Detail Active Medications Generic Name Dose Route Start Last Admin Trade Name Freq PRN Reason Stop Dose Admin Atorvastatin Calcium 80 mg 02/12/20 22:00 02/13/20 21:33 Lipitor - PO 80 mg HS [facility] Administration Pantoprazole Sodium 40 mg 02/11/20 17:34 02/14/20 09:27 Protonix Iv IVPUSH 40 mg BID [facility] Administration Sertraline HCl 150 mg 02/13/20 07:00 02/14/20 06:00 Zoloft - PO Not Given AM [facility] ASSESSMENT/PLAN: Pt is a 79 year old F with PMHx of CAD, NSTEMI (2018), abdominal aortic aneurysm (s/p repair 2015), bladder cancer s/p resection, prior GI bleed in 2018 2/2 duodenal ulcer, iron deficiency anemia, 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 #Acute blood loss anemia -Hgb on admission 5.5, stable at 8.9, sp 2 units pRBC -trend H&H -iron deficiency and or chronic blood loss anemia -Protonix 40mg IV BID -Clear liquid diet, NPO after midnight for EGD with Dr. Bruce tomorrow AM -continue IVF: NS @75cc/hr -patient has hx of chronic ASA & NSAID use- hold off further antiplatelet therapies or nsaids -[facility] #History of NSTEMI -Cardiology following (Dr. Aparicio, Dr. Santamaria)- ok to hold antiplt therapy however resume asa OR plavix once stable -Continue home statin #History of depression -Continue home Sertaline #FEN -IVF NS @75cc/ hour -Trend BMP replete lytes prn -Clear liquids, NPO after midnight for EGD in AM #PPX -Holding chemical anticoagulation in setting of anemia. SCDs for now -IV PPI Dispo monitor on med surg Visit type - Emergency Visit Emergency Visit: Yes ED Registration Date: 02/11/20 Care time: The patient presented to the Emergency Department on the above date and was hospitalized for further evaluation of their emergent condition. - New Patient This patient is new to me today: No - Critical Care Critical Care patient: No - Medication Review Med list reviewed for High Risk Meds patients 65 and older: Yes ATTENDING PHYSICIAN STATEMENT I saw and evaluated the patient. I reviewed the resident's note and discussed the case with the resident. I agree with the resident's findings and plan as documented. SUBJECTIVE: OBJECTIVE: ASSESSMENT AND PLAN:
--- NOTE | 2020-02-14 16:30 | PN ---
Teaching Attending Note Name of Resident: Randa Kolb ATTENDING PHYSICIAN STATEMENT I saw and evaluated the patient. I reviewed the resident's note and discussed the case with the resident. I agree with the resident's findings and plan as documented. SUBJECTIVE: Feeling well - no CP/palpitations/SOB. Denies melena/hematochezia. No abdo pain/nausea/vomiting/hematochezia. OBJECTIVE: Afebrile, Hemodynamically Stable. Last Vital Signs Temp Pulse Resp BP Pulse Ox 97.8 F 77 18 124/92 97 02/14/20 13:00 02/14/20 13:00 02/14/20 13:00 02/14/20 13:00 02/14/20 13:00 Heart - S1, S2, RRR Lungs - clear to auscultation Abdomen - Soft, non-tender. Bowel Sounds normal. Extremities - no edema, no calf tenderness. Neuro - AAO x 3. Tone/Power normal all extremities. Laboratory Results - last 24 hr 02/11/20 02/14/20 02/14/20 13:11 12:20 12:20 WBC 8.0 RBC 4.04 Hgb 8.9 L Hct 29.5 L MCV 73.1 L MCH 22.2 L MCHC 30.3 L RDW 23.3 H Plt Count 358 MPV 9.8 Absolute Neuts (auto) 5.9 Neutrophils % 73.5 Lymphocytes % 14.9 Monocytes % 7.0 Eosinophils % 3.0 D Basophils % 1.6 Nucleated RBC % 0 Hypochromia 2+ Poikilocytosis 2+ Anisocytosis 2+ Macrocytosis 1+ Tear Drop Cells 1+ Ovalocytes 1+ Fragmented RBCs 1+ Schistocytes 1+ Sodium 145 Potassium 4.8 Chloride 113 H Carbon Dioxide 28 Anion Gap 4 L BUN 19.9 H Creatinine 0.6 Est GFR (CKD-EPI)AfAm 101.90 Est GFR (CKD-EPI)NonAf 87.92 Random Glucose 86 Calcium 8.4 L Blood Type A POSITIVE Antibody Screen Negative Crossmatch See Detail Current Medications Generic Name Dose Route Start Last Admin Trade Name Freq PRN Reason Stop Dose Admin Atorvastatin Calcium 80 mg 02/12/20 22:00 02/13/20 21:33 Lipitor - PO 80 mg HS [facility] Administration Pantoprazole Sodium 40 mg 02/11/20 17:34 02/14/20 09:27 Protonix Iv IVPUSH 40 mg BID [facility] Administration Sertraline HCl 150 mg 02/13/20 07:00 02/14/20 06:00 Zoloft - PO Not Given AM [facility] Home Medications Medication Instructions Recorded Sertraline HCl [Zoloft] 150 mg PO AM 11/12/18 Atorvastatin Ca [Lipitor] 80 mg PO HS 02/12/20 Clopidogrel Bisulfate [Plavix] 75 mg PO DAILY 02/12/20 Lisinopril [Zestril] 2.5 mg PO DAILY 02/12/20 Metoprolol Tartrate [Lopressor -] 12.5 mg PO DAILY 02/12/20 Pantoprazole Sodium [Protonix] 40 mg PO BID 02/12/20 ASSESSMENT AND PLAN: 79 year old female with history of CAD s/p NSTEMI (2018), AAA (s/p repair 2015), Bladder Cancer s/p resection, history of prior GI bleeding episode secondary to duodenal ulcer, iron deficiency anemia, Depression referred to ED for severe Anemia. 1. Chronic Blood Loss Anemia/Iron Deficiency Anemia sec to GI blood loss Hx of prior GI bleed due to Duodenal Ulcer H/H 8.9/29.3 s/p 3 units PRBCs. Iron 8/Iron Sat 1%, Ferritin 8.7 FOBT positive Protonix IV BID GI consulted - awaiting EGD 2. CAD s/p NSTEMI s/p PCI > 1 year ago Aspirin/Plavix held due to GI bleed Continue Statin As per Cardio, once GI Ix/Tx complete, should resume either Aspirin or Plavix. Cleared for EGD by Cardio. 3. Depression - Continue Sertraline. 4. HTN - Resume Metoprolol. Hold Lisinopril for now. DVT Px - SCDs
[2020-02-14] MEDS: ATORVASTATIN CA 80 MG TABLET (FP) PO SCH (21:07)
[2020-02-15] MEDS: SERTRALINE HCL 50 MG TABLET (FP) PO SCH (07:03)
[2020-02-15 09:16] LABS: BASO % 1.1 % (0-2.0); EOS % 2.8 % (0-4.5); HEMATOCRIT 33.7 % (32.4-45.2); HEMOGLOBIN 10.4 GM/dL (10.7-15.3); LYMPH % 15.4 % (8-40); MCH 23.1 pg (25.7-33.7); MCHC 30.8 g/dl (32.0-36.0); MEAN CELL VOLUME 74.9 fl (80-96); MEAN PLT VOLUME 9.6 fl (7.5-11.1); MONO % 6.1 % (3.8-10.2); NEUT % 74.6 % (42.8-82.8); PLATELET COUNT 368 K/MM3 (134-434); WHITE BLOOD COUNT 8.8 K/mm3 (4.0-10.0)
[2020-02-15] MEDS: PANTOPRAZOLE SODIUM 40 MG VIAL IVPUSH SCH ×2 (09:45→21:24)
[2020-02-15 09:55] LABS: POTASSIUM 4.8 mmol/L (3.5-5.1)
[2020-02-15 10:02] LABS: BLOOD UREA NITROGEN 15.1 mg/dL (7-18); CALCIUM 8.8 mg/dL (8.5-10.1); CREATININE 0.5 mg/dL (0.55-1.3); MAGNESIUM 2.3 mg/dL (1.8-2.4); PHOSPHOROUS 4.4 mg/dL (2.5-4.9)
--- NOTE | 2020-02-15 11:55 | PN ---
Progress Note (short form) - Note Progress Note: EGD complete. Report placed in the procedural section of the physical chart and will be scanned into [employer] pedunculated polyp in 1s portion of duodenum that oozed blood. Will need repeat endoscopy with Plavix held for full 5 days prior to attempt at polypectomy Clear liquid diet for now. Protonix 4omg once daily Problem List - Problems (1) Anemia Code(s): D64.9 - ANEMIA, UNSPECIFIED Qualifiers: Anemia type: unspecified type Qualified Code(s): D64.9 - Anemia, unspecified
[2020-02-15] MEDS: METOPROLOL TARTRATE 25 MG TABLET (FP) PO SCH (13:25)
--- NOTE | 2020-02-15 14:02 | PN ---
Physical Exam: SUBJECTIVE: Patient seen and examined. Denies any light headedness, dizziness. OBJECTIVE: Vital Signs Period Temp Pulse Resp BP Sys/Vázquez Pulse Ox Last 24 Hr 97.9 F-98.5 F 62-73 14-20 95-115/51-83 96-98 GENERAL: The patient is awake, alert, and fully oriented, in no acute distress. HEENT: NCAT EOMI PERRLA. Slera anicteric. + conjunctival pallor. LUNGS: Breath sounds equal, clear to auscultation bilaterally, no wheezes, no crackles, no accessory muscle use. HEART: Regular rate and rhythm, S1, S2 without murmur, rub or gallop. ABDOMEN: Soft, nontender, nondistended, normoactive bowel sounds, no guarding, no rebound EXTREMITIES: 2+ pulses, warm, well-perfused, no edema. NEUROLOGICAL: Cranial nerves II through XII grossly intact. PSYCH: Normal mood, normal affect. SKIN: Warm, dry, normal turgor, no rashes or lesions noted Laboratory Results - last 24 hr 02/11/20 02/14/20 02/14/20 13:11 12:20 12:20 WBC RBC Hgb Hct MCV MCH MCHC RDW Plt Count MPV Absolute Neuts (auto) Neutrophils % Lymphocytes % Monocytes % Eosinophils % Basophils % Nucleated RBC % Hypochromia 2+ Poikilocytosis 2+ Anisocytosis 2+ Macrocytosis 1+ Tear Drop Cells 1+ Ovalocytes 1+ Fragmented RBCs 1+ Schistocytes 1+ Sodium 145 Potassium 4.8 Chloride 113 H Carbon Dioxide 28 Anion Gap 4 L BUN 19.9 H Creatinine 0.6 Est GFR (CKD-EPI)AfAm 101.90 Est GFR (CKD-EPI)NonAf 87.92 Random Glucose 86 Calcium 8.4 L Phosphorus Magnesium Blood Type A POSITIVE Antibody Screen Negative Crossmatch See Detail 02/15/20 02/15/20 07:40 07:40 WBC 8.8 RBC 4.50 Hgb 10.4 L Hct 33.7 MCV 74.9 L MCH 23.1 L MCHC 30.8 L RDW 24.0 H Plt Count 368 MPV 9.6 Absolute Neuts (auto) 6.6 Neutrophils % 74.6 Lymphocytes % 15.4 Monocytes % 6.1 Eosinophils % 2.8 Basophils % 1.1 Nucleated RBC % 0 Hypochromia Poikilocytosis Anisocytosis Macrocytosis Tear Drop Cells Ovalocytes Fragmented RBCs Schistocytes Sodium 141 Potassium 4.8 Chloride 108 H Carbon Dioxide 29 Anion Gap 5 L BUN 15.1 Creatinine 0.5 L Est GFR (CKD-EPI)AfAm 108.20 Est GFR (CKD-EPI)NonAf 93.36 Random Glucose 79 Calcium 8.8 Phosphorus 4.4 Magnesium 2.3 Blood Type Antibody Screen Crossmatch Active Medications Generic Name Dose Route Start Last Admin Trade Name Taya PRN Reason Stop Dose Admin Atorvastatin Calcium 80 mg 02/12/20 22:00 02/14/20 21:07 Lipitor - PO 80 mg HS [facility] Administration Metoprolol Tartrate 12.5 mg 02/15/20 10:00 02/15/20 13:25 Lopressor - PO 12.5 mg DAILY [facility] Administration Pantoprazole Sodium 40 mg 02/11/20 17:34 02/15/20 09:45 Protonix Iv IVPUSH 40 mg BID [facility] Administration Sertraline HCl 150 mg 02/13/20 07:00 02/15/20 07:03 Zoloft - PO 150 mg AM [facility] Administration ASSESSMENT/PLAN: Pt is a 79 year old F with PMHx of CAD, NSTEMI (2018), abdominal aortic aneurysm (s/p repair 2015), bladder cancer s/p resection, prior GI bleed in 2018 2/2 duodenal ulcer, iron deficiency anemia, 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 #Acute blood loss anemia -Hgb on admission 5.5, stable at 8.9, sp 3 units pRBC -trend H&H -iron deficiency and or chronic blood loss anemia -Protonix 40mg IV once daily -Clear liquid diet -patient has hx of chronic ASA & NSAID use- hold off further antiplatelet therapies or nsaids -EGD completed; pedunculated polyps in 1st portion of duodenum that oozed blood; repeat endoscopy with Plavix held for full 5 days prior to polypectomy (repeat EGD in 2 days) -repeat CBC for 3pm #History of NSTEMI -Cardiology following (Dr. Aparicio, Dr. Santamaria)- ok to hold antiplt therapy however resume asa OR plavix once stable -Continue home statin #History of depression -Continue home Sertaline #FEN -no standing fluids -Trend BMP replete lytes prn -Clear liquids #PPX -Holding chemical anticoagulation in setting of anemia. SCDs for now -IV PPI Dispo monitor on med surg Visit type - Emergency Visit Emergency Visit: Yes ED Registration Date: 02/11/20 Care time: The patient presented to the Emergency Department on the above date and was hospitalized for further evaluation of their emergent condition. - New Patient This patient is new to me today: No - Critical Care Critical Care patient: No - Medication Review Med list reviewed for High Risk Meds patients 65 and older: Yes ATTENDING PHYSICIAN STATEMENT I saw and evaluated the patient. I reviewed the resident's note and discussed the case with the resident. I agree with the resident's findings and plan as documented. SUBJECTIVE: OBJECTIVE: ASSESSMENT AND PLAN:
[2020-02-15 14:10] LABS: HEMATOCRIT 29.7 % (32.4-45.2); HEMOGLOBIN 9.1 GM/dL (10.7-15.3); MCHC 30.7 g/dl (32.0-36.0); MEAN PLT VOLUME 9.5 fl (7.5-11.1); PLATELET COUNT 327 K/MM3 (134-434); RBC 3.96 M/mm3 (3.60-5.2); RDW 23.8 % (11.6-15.6); WHITE BLOOD COUNT 7.6 K/mm3 (4.0-10.0)
--- NOTE | 2020-02-15 17:45 | PN ---
Teaching Attending Note Name of Resident: Randa Kolb ATTENDING PHYSICIAN STATEMENT I saw and evaluated the patient. I reviewed the resident's note and discussed the case with the resident. I agree with the resident's findings and plan as documented. SUBJECTIVE: pt seen and examined OBJECTIVE: Last Vital Signs Temp Pulse Resp BP Pulse Ox 98.1 F 63 17 124/79 97 02/15/20 14:00 02/15/20 14:00 02/15/20 14:00 02/15/20 14:00 02/15/20 14:00 cheerful Heart - S1, S2, RRR Lungs - clear to auscultation Abdomen - Soft, non-tender. Bowel Sounds normal. Extremities - no edema, no calf tenderness. Neuro - AAO x 3. Tone/Power normal all extremities. CBCD WBC 7.6 K/mm3 (4.0-10.0) 02/15/20 13:45 RBC 3.96 M/mm3 (3.60-5.2) 02/15/20 13:45 Hgb 9.1 GM/dL (10.7-15.3) L 02/15/20 13:45 Hct 29.7 % (32.4-45.2) L 02/15/20 13:45 MCV 75.0 fl (80-96) L 02/15/20 13:45 MCHC 30.7 g/dl (32.0-36.0) L 02/15/20 13:45 RDW 23.8 % (11.6-15.6) H 02/15/20 13:45 Plt Count 327 K/MM3 (134-434) 02/15/20 13:45 MPV 9.5 fl (7.5-11.1) 02/15/20 13:45 CMP Sodium 141 mmol/L (136-145) 02/15/20 07:40 Potassium 4.8 mmol/L (3.5-5.1) 02/15/20 07:40 Chloride 108 mmol/L (98-107) H 02/15/20 07:40 Carbon Dioxide 29 mmol/L (21-32) 02/15/20 07:40 Anion Gap 5 MMOL/L (8-16) L 02/15/20 07:40 BUN 15.1 mg/dL (7-18) 02/15/20 07:40 Creatinine 0.5 mg/dL (0.55-1.3) L 02/15/20 07:40 Random Glucose 79 mg/dL (74-106) 02/15/20 07:40 Calcium 8.8 mg/dL (8.5-10.1) 02/15/20 07:40 Total Bilirubin 1.3 mg/dL (0.2-1) H 02/13/20 06:45 AST 18 U/L (15-37) 02/13/20 06:45 ALT 18 U/L (13-61) 02/13/20 06:45 Alkaline Phosphatase 115 U/L (45-117) 02/13/20 06:45 Total Protein 6.0 g/dl (6.4-8.2) L 02/13/20 06:45 Albumin 3.1 g/dl (3.4-5.0) L 02/13/20 06:45 CARDIAC ENZYMES Troponin I < 0.02 ng/ml (0.00-0.05) 02/11/20 12:19 Active Medications Atorvastatin Calcium (Lipitor -) 80 mg PO HS [facility] Last Admin: 02/14/20 21:07 Dose: 80 mg Documented by: Metoprolol Tartrate (Lopressor -) 12.5 mg PO DAILY [facility] Last Admin: 02/15/20 13:25 Dose: 12.5 mg Documented by: Pantoprazole Sodium (Protonix Iv) 40 mg IVPUSH BID [facility] Last Admin: 02/15/20 09:45 Dose: 40 mg Documented by: Sertraline HCl (Zoloft -) 150 mg PO AM [facility] Last Admin: 02/15/20 07:03 Dose: 150 mg Documented by: ASSESSMENT AND PLAN: 79 year old lady with history of CAD s/p NSTEMI (2019), AAA (s/p repair 2016), Bladder Cancer s/p resection, history of prior GI bleeding episode secondary to duodenal ulcer, iron deficiency anemia, Depression referred to ED for severe Anemia. # Chronic Blood Loss Anemia/Iron Deficiency Anemia sec to GI blood loss s/p EGD, pedunculated polyp in duodenum oozing. will need repeat endoscopy to attempt at polypectomy hold off antiplatelets trend H&H keep >7 FOBT positive Protonix IV BID GI consult appreciated CAD Depression HTN DVT Px - SCDs
[2020-02-15] MEDS: ATORVASTATIN CA 80 MG TABLET (FP) PO SCH (21:24)
[2020-02-16] MEDS: SERTRALINE HCL 50 MG TABLET (FP) PO SCH (06:05)
--- NOTE | 2020-02-16 07:32 | PN.GI ---
GI Progress Note Subjective: NO NEW COMPLAINTS - FEELING WELL TODAY - Objective Vital Signs: Vital Signs Temperature 97.9 F 02/15/20 18:00 Pulse Rate 74 02/15/20 18:00 Respiratory Rate 18 02/15/20 20:32 Blood Pressure 99/77 02/15/20 18:00 O2 Sat by Pulse Oximetry (%) 95 02/15/20 20:32 Constitutional: Well Nourished, No Distress Respiratory: Yes: WNL, Regular, CTA Bilaterally Gastrointestinal Inspection: Yes: WNL ...Auscultate: Yes: Normoactive Bowel Sounds Labs: CBC, BMP 02/15/20 13:45 02/15/20 07:40 INR, PTT INR 1.11 (0.83-1.09) H 02/11/20 12:19 Problem List - Problems (1) Anemia Assessment/Plan: EGD REVEALED pedunculated polyp in 1sT portion of duodenum that oozed blood. PLAN FOR REPEAT EGD WITH POLYPECTOMY IN 5 DAYS OFF PLAVIX. CLEAR LIQUID DIET TODAY - IF H/H REMAINS STABLE ADVANCE TO FULL LIQUID DIET C/W PPI AVOID NSAID MONITOR H/H Q12 Code(s): D64.9 - ANEMIA, UNSPECIFIED Qualifiers: Anemia type: unspecified type Qualified Code(s): D64.9 - Anemia, unspe cified (2) Occult GI bleeding Code(s): R19.5 - OTHER FECAL ABNORMALITIES
[2020-02-16 08:55] LABS: HEMATOCRIT 33.2 % (32.4-45.2); HEMOGLOBIN 10.1 GM/dL (10.7-15.3); MCH 22.9 pg (25.7-33.7); MCHC 30.4 g/dl (32.0-36.0); MEAN CELL VOLUME 75.2 fl (80-96); MEAN PLT VOLUME 10.1 fl (7.5-11.1); PLATELET COUNT 363 K/MM3 (134-434); RBC 4.42 M/mm3 (3.60-5.2); RDW 23.9 % (11.6-15.6); WHITE BLOOD COUNT 6.4 K/mm3 (4.0-10.0)
[2020-02-16 09:23] LABS: BLOOD UREA NITROGEN 14.5 mg/dL (7-18); CREATININE 0.6 mg/dL (0.55-1.3); MAGNESIUM 2.2 mg/dL (1.8-2.4); PHOSPHOROUS 4.5 mg/dL (2.5-4.9); POTASSIUM 4.1 mmol/L (3.5-5.1)
[2020-02-16] MEDS: PANTOPRAZOLE SODIUM 40 MG VIAL IVPUSH SCH (09:49)
[2020-02-16] MEDS: METOPROLOL TARTRATE 25 MG TABLET (FP) PO SCH (09:49)
--- NOTE | 2020-02-16 12:33 | PN ---
Progress Note (short form) - Note Progress Note: cc: anemia s: no chest pain, palps, dizziness, dyspnea Current Medications Generic Name Dose Route Start Last Admin Trade Name Taya PRN Reason Stop Dose Admin Atorvastatin Calcium 80 mg 02/12/20 22:00 02/15/20 21:24 Lipitor - PO 80 mg HS [facility] Administration Metoprolol Tartrate 12.5 mg 02/15/20 10:00 02/16/20 09:49 Lopressor - PO 12.5 mg DAILY [facility] Administration Pantoprazole Sodium 40 mg 02/11/20 17:34 02/16/20 09:49 Protonix Iv IVPUSH 40 mg BID [facility] Administration Sertraline HCl 150 mg 02/13/20 07:00 02/16/20 06:05 Zoloft - PO 150 mg AM [facility] Administration Vital Signs Period Temp Pulse Resp BP Sys/Vázquez Pulse Ox Last 24 Hr 97.9 F-98.4 F 48-74 17-18 99-132/66-79 95-97 Constitutional: Yes: No Distress, Calm Eyes: Yes: Conjunctiva Clear HENT: Yes: Atraumatic Neck: Yes: Trachea Midline Respiratory: Yes: CTA Bilaterally (no wheezing or rales.) Gastrointestinal: Yes: Soft (NT) Cardiovascular: Yes: Regular Rate and Rhythm JVD: No Heart Sounds: Yes: S1, S2 (rrr) Edema: No Peripheral Pulses WNL: Yes Neurological: Yes: Alert, Oriented no jaundice, diaphoresis not agitated Laboratory Last Values WBC 6.4 K/mm3 (4.0-10.0) 02/16/20 08:05 RBC 4.42 M/mm3 (3.60-5.2) 02/16/20 08:05 Hgb 10.1 GM/dL (10.7-15.3) L 02/16/20 08:05 Hct 33.2 % (32.4-45.2) 02/16/20 08:05 MCV 75.2 fl (80-96) L 02/16/20 08:05 MCH 22.9 pg (25.7-33.7) L 02/16/20 08:05 MCHC 30.4 g/dl (32.0-36.0) L 02/16/20 08:05 RDW 23.9 % (11.6-15.6) H 02/16/20 08:05 Plt Count 363 K/MM3 (134-434) 02/16/20 08:05 MPV 10.1 fl (7.5-11.1) 02/16/20 08:05 Absolute Neuts (auto) 6.6 K/mm3 (1.5-8.0) 02/15/20 07:40 Neutrophils % 74.6 % (42.8-82.8) 02/15/20 07:40 Lymphocytes % 15.4 % (8-40) 02/15/20 07:40 Monocytes % 6.1 % (3.8-10.2) 02/15/20 07:40 Eosinophils % 2.8 % (0-4.5) 02/15/20 07:40 Basophils % 1.1 % (0-2.0) 02/15/20 07:40 Nucleated RBC % 0 % (0-0) 02/15/20 07:40 Hypochromia 2+ 02/14/20 12:20 Platelet Estimate Normal 02/11/20 12:19 Polychromasia 0 02/11/20 12:19 Poikilocytosis 2+ 02/14/20 12:20 Anisocytosis 2+ 02/14/20 12:20 Microcytosis 1+ 02/11/20 12:19 Macrocytosis 1+ 02/14/20 12:20 Tear Drop Cells 1+ 02/14/20 12:20 Ovalocytes 1+ 02/14/20 12:20 Fragmented RBCs 1+ 02/14/20 12:20 Schistocytes 1+ 02/14/20 12:20 PT with INR 13.10 SEC (9.7-13.0) H 02/11/20 12:19 INR 1.11 (0.83-1.09) H 02/11/20 12:19 PTT (Actin FS) 34.7 SECONDS (25.2-36.5) 02/11/20 12:19 Sodium 140 mmol/L (136-145) 02/16/20 08:05 Potassium 4.1 mmol/L (3.5-5.1) 02/16/20 08:05 Chloride 107 mmol/L (98-107) 02/16/20 08:05 Carbon Dioxide 27 mmol/L (21-32) 02/16/20 08:05 Anion Gap 6 MMOL/L (8-16) L 02/16/20 08:05 BUN 14.5 mg/dL (7-18) 02/16/20 08:05 Creatinine 0.6 mg/dL (0.55-1.3) 02/16/20 08:05 Est GFR (CKD-EPI)AfAm 101.90 02/16/20 08:05 Est GFR (CKD-EPI)NonAf 87.92 02/16/20 08:05 Random Glucose 149 mg/dL (74-106) H 02/16/20 08:05 Calcium 9.0 mg/dL (8.5-10.1) 02/16/20 08:05 Phosphorus 4.5 mg/dL (2.5-4.9) 02/16/20 08:05 Magnesium 2.2 mg/dL (1.8-2.4) 02/16/20 08:05 Iron 8 ug/dL (50-175) L 02/11/20 12:19 TIBC 466 ug/dL (250-450) H 02/11/20 12:19 Iron Saturation 1 % (17.5-39) L 02/11/20 12:19 Unsaturated IBC 458 ug/dL (200-275) H 02/11/20 12:19 Transferrin 366 mg/dL (192-364) H 02/11/20 12:19 Ferritin 8.7 ng/ml (8-388) 02/11/20 12:19 Total Bilirubin 1.3 mg/dL (0.2-1) H 02/13/20 06:45 AST 18 U/L (15-37) 02/13/20 06:45 ALT 18 U/L (13-61) 02/13/20 06:45 Alkaline Phosphatase 115 U/L (45-117) 02/13/20 06:45 Troponin I < 0.02 ng/ml (0.00-0.05) 02/11/20 12:19 Total Protein 6.0 g/dl (6.4-8.2) L 02/13/20 06:45 Albumin 3.1 g/dl (3.4-5.0) L 02/13/20 06:45 Stool Occult Blood Positive (NEGATIVE) 02/11/20 14:13 COVID-19 ([facility]) Not detected (Not Detected) 02/11/20 14:27 Blood Type A POSITIVE 02/15/20 13:45 Antibody Screen Negative 02/15/20 13:45 Crossmatch See Detail 02/11/20 13:11 NSR, APCs, no acute ST changes Echo: Other ([facility] office echo: preserved EF. No sig valve disease, mild MR/AR) Prior Cardiac Procedures: PTCA with Stent Imaging - Results EKG: Image Reviewed Assessment/Plan IMP: 1. Marked anemia, r/o GI bleed 2. History of GIB, peptic ulcer disease 3. CAD s/p NSTEMI 11/2018 with primary PCI at [facility] 4. Depression REC: 1. Anemia: -Transfuse to Hb 8 -GI consulted - planned EGD -Hold antiplatelet drugs: when stable, should resume either ASA 81 OR Plavix now > 1 year post ACS/PCI -Clarify reason why patient was seeing Heme 2. Prior GIB/PUD: -No cardiac contraindication to upper endoscopy or colonoscopy as needed per GI - plan for repeat EGD when plavix held for 5 days for polypectomy -PPI as per primary team/GI 3. CAD s/p NSTEMI 11/2018: -Review cath report from [facility] -Cont statin, bb -Ultimately will need to resume single antiplatelet rx when feasible -Initial LV dysfx post MO resolved with revasc and med Rx although did not tolerate low dose Lisinopril due to hypotension (baseline BP 100-105mmHg systolic) 4. Vascular: -Clarify/ confirm prior hx of aneurysm repair, please try to obtain old records.
--- NOTE | 2020-02-16 12:57 | PN ---
Teaching Attending Note Name of Resident: Randa Kolb ATTENDING PHYSICIAN STATEMENT I saw and evaluated the patient. I reviewed the resident's note and discussed the case with the resident. I agree with the resident's findings and plan as documented. SUBJECTIVE: pt seen and examined OBJECTIVE: Last Vital Signs Temp Pulse Resp BP Pulse Ox 98.4 F 48 L 18 132/66 96 02/16/20 06:00 02/16/20 06:00 02/16/20 06:00 02/16/20 06:00 02/16/20 06:00 cheerful Heart - S1, S2, RRR Lungs - clear to auscultation Abdomen - Soft, non-tender. Bowel Sounds normal. Extremities - no edema, no calf tenderness. Neuro - AAO x 3. Tone/Power normal all extremities. CBCD WBC 6.4 K/mm3 (4.0-10.0) 02/16/20 08:05 RBC 4.42 M/mm3 (3.60-5.2) 02/16/20 08:05 Hgb 10.1 GM/dL (10.7-15.3) L 02/16/20 08:05 Hct 33.2 % (32.4-45.2) 02/16/20 08:05 MCV 75.2 fl (80-96) L 02/16/20 08:05 MCHC 30.4 g/dl (32.0-36.0) L 02/16/20 08:05 RDW 23.9 % (11.6-15.6) H 02/16/20 08:05 Plt Count 363 K/MM3 (134-434) 02/16/20 08:05 MPV 10.1 fl (7.5-11.1) 02/16/20 08:05 CMP Sodium 140 mmol/L (136-145) 02/16/20 08:05 Potassium 4.1 mmol/L (3.5-5.1) 02/16/20 08:05 Chloride 107 mmol/L (98-107) 02/16/20 08:05 Carbon Dioxide 27 mmol/L (21-32) 02/16/20 08:05 Anion Gap 6 MMOL/L (8-16) L 02/16/20 08:05 BUN 14.5 mg/dL (7-18) 02/16/20 08:05 Creatinine 0.6 mg/dL (0.55-1.3) 02/16/20 08:05 Random Glucose 149 mg/dL (74-106) H 02/16/20 08:05 Calcium 9.0 mg/dL (8.5-10.1) 02/16/20 08:05 Total Bilirubin 1.3 mg/dL (0.2-1) H 02/13/20 06:45 AST 18 U/L (15-37) 02/13/20 06:45 ALT 18 U/L (13-61) 02/13/20 06:45 Alkaline Phosphatase 115 U/L (45-117) 02/13/20 06:45 Total Protein 6.0 g/dl (6.4-8.2) L 02/13/20 06:45 Albumin 3.1 g/dl (3.4-5.0) L 02/13/20 06:45 CARDIAC ENZYMES Troponin I < 0.02 ng/ml (0.00-0.05) 02/11/20 12:19 Active Medications Atorvastatin Calcium (Lipitor -) 80 mg PO HS [facility] Last Admin: 02/15/20 21:24 Dose: 80 mg Documented by: Metoprolol Tartrate (Lopressor -) 12.5 mg PO DAILY [facility] Last Admin: 02/16/20 09:49 Dose: 12.5 mg Documented by: Pantoprazole Sodium (Protonix Iv) 40 mg IVPUSH BID [facility] Last Admin: 02/16/20 09:49 Dose: 40 mg Documented by: Sertraline HCl (Zoloft -) 150 mg PO AM [facility] Last Admin: 02/16/20 06:05 Dose: 150 mg Documented by: ASSESSMENT AND PLAN: 79 year old lady with history of CAD s/p NSTEMI (2019), AAA (s/p repair 2016), Bladder Cancer s/p resection, history of prior GI bleeding episode secondary to duodenal ulcer, iron deficiency anemia, Depression referred to ED for severe Anemia. # Acute on chronic Anemia/Iron Deficiency Anemia sec to GI blood loss s/p EGD, pedunculated polyp in duodenum oozing. will need repeat endoscopy to attempt at polypectomy hold off antiplatelets (off since 02/12/2020) trend H&H keep >7 FOBT positive Protonix IV BID GI consult appreciated CAD Depression HTN DVT Px - SCDs
--- NOTE | 2020-02-16 14:26 | PN ---
Physical Exam: SUBJECTIVE: Patient seen and examined. Denies lightheadedness, weakness, CP, SOB. OBJECTIVE: Vital Signs Period Temp Pulse Resp BP Sys/Vázquez Pulse Ox Last 24 Hr 97.9 F-98.8 F 48-74 18-18 99-132/66-77 95-96 GENERAL: The patient is awake, alert, and fully oriented, in no acute distress. HEAD: Normal with no signs of trauma. EYES: PERRL, extraocular movements intact, sclera anicteric, conjunctiva clear. No ptosis. ENT: Ears normal, nares patent, oropharynx clear without exudates, moist mucous membranes. NECK: Trachea midline, full range of motion, supple. LUNGS: Breath sounds equal, clear to auscultation bilaterally, no wheezes, no crackles, no accessory muscle use. HEART: Regular rate and rhythm, S1, S2 without murmur, rub or gallop. ABDOMEN: Soft, nontender, nondistended, normoactive bowel sounds, no guarding, no rebound, no hepatosplenomegaly, no masses. EXTREMITIES: 2+ pulses, warm, well-perfused, no edema. NEUROLOGICAL: Cranial nerves II through XII grossly intact. Normal speech, gait not observed. PSYCH: Normal mood, normal affect. SKIN: Warm, dry, normal turgor, no rashes or lesions noted Laboratory Results - last 24 hr 02/11/20 02/15/20 02/16/20 13:11 13:45 08:05 WBC 6.4 RBC 4.42 Hgb 10.1 L Hct 33.2 MCV 75.2 L MCH 22.9 L MCHC 30.4 L RDW 23.9 H Plt Count 363 MPV 10.1 Sodium Potassium Chloride Carbon Dioxide Anion Gap BUN Creatinine Est GFR (CKD-EPI)AfAm Est GFR (CKD-EPI)NonAf Random Glucose Calcium Phosphorus Magnesium Blood Type A POSITIVE A POSITIVE Antibody Screen Negative Negative Crossmatch See Detail 02/16/20 08:05 WBC RBC Hgb Hct MCV MCH MCHC RDW Plt Count MPV Sodium 140 Potassium 4.1 Chloride 107 Carbon Dioxide 27 Anion Gap 6 L BUN 14.5 Creatinine 0.6 Est GFR (CKD-EPI)AfAm 101.90 Est GFR (CKD-EPI)NonAf 87.92 Random Glucose 149 H Calcium 9.0 Phosphorus 4.5 Magnesium 2.2 Blood Type Antibody Screen Crossmatch Active Medications Generic Name Dose Route Start Last Admin Trade Name Freq PRN Reason Stop Dose Admin Atorvastatin Calcium 80 mg 02/12/20 22:00 02/15/20 21:24 Lipitor - PO 80 mg HS [facility] Administration Metoprolol Tartrate 12.5 mg 02/15/20 10:00 02/16/20 09:49 Lopressor - PO 12.5 mg DAILY [facility] Administration Pantoprazole Sodium 40 mg 02/11/20 17:34 02/16/20 09:49 Protonix Iv IVPUSH 40 mg BID [facility] Administration Sertraline HCl 150 mg 02/13/20 07:00 02/16/20 06:05 Zoloft - PO 150 mg AM [facility] Administration ASSESSMENT/PLAN: Pt is a 79 year old F with PMHx of CAD, NSTEMI (2018), abdominal aortic aneurysm (s/p repair 2015), bladder cancer s/p resection, prior GI bleed in 2018 2/2 duodenal ulcer, iron deficiency anemia, depression presenting from her senior investment analyst's office (Dr. Fitch) due to low hgb. #Acute blood loss anemia -Hgb on admission 5.5, stable at 8.9, sp 3 units pRBC -trend H&H -Protonix 40mg IV BID -Clear liquid diet -patient has hx of chronic ASA & NSAID use- hold off further antiplatelet therapies or nsaids -EGD completed; pedunculated polyps in 1st portion of duodenum that oozed blood; repeat endoscopy with Plavix held for full 5 days prior to polypectomy -polypectomy in AM; NPO after midnight #History of NSTEMI -Cardiology following (Dr. Aparicio, Dr. Santamaria)- ok to hold antiplt therapy however resume asa OR plavix once stable, after EGD -Continue home statin #History of depression -Continue home Sertaline #FEN -no standing fluids -Trend BMP replete lytes prn -Clear liquids #PPX -Holding chemical anticoagulation in setting of anemia. SCDs for now -IV PPI Dispo monitor on med surg. NPO for polypectomy in AM. Visit type - Emergency Visit Emergency Visit: Yes ED Registration Date: 02/11/20 Care time: The patient presented to the Emergency Department on the above date and was hospitalized for further evaluation of their emergent condition. - New Patient This patient is new to me today: No - Critical Care Critical Care patient: No - Medication Review Med list reviewed for High Risk Meds patients 65 and older: Yes ATTENDING PHYSICIAN STATEMENT I saw and evaluated the patient. I reviewed the resident's note and discussed the case with the resident. I agree with the resident's findings and plan as documented. SUBJECTIVE: OBJECTIVE: ASSESSMENT AND PLAN:
[2020-02-16] MEDS: ATORVASTATIN CA 80 MG TABLET (FP) PO SCH (21:31)
[2020-02-17] MEDS: SERTRALINE HCL 50 MG TABLET (FP) PO SCH (06:25)
[2020-02-17] MEDS ORDERED: ACETAMINOPHEN 1000 MG/100 ML VIAL (NON FORMULARY) IVPB ONE (07:02)
[2020-02-17] MEDS ORDERED: ACETAMINOPHEN 1000 MG/100 ML VIAL (NON FORMULARY) IVPB PRN (08:00)
[2020-02-17 08:25] LABS: MAGNESIUM 2.3 mg/dL (1.8-2.4)
[2020-02-17 08:28] LABS: PHOSPHOROUS 4.4 mg/dL (2.5-4.9)
[2020-02-17 08:36] LABS: BASO % 1.7 % (0-2.0); EOS % 3.9 % (0-4.5); HEMATOCRIT 33.2 % (32.4-45.2); LYMPH % 17.4 % (8-40); MCH 22.3 pg (25.7-33.7); MEAN CELL VOLUME 74.3 fl (80-96); MEAN PLT VOLUME 9.8 fl (7.5-11.1); MONO % 7.1 % (3.8-10.2); NEUT % 69.9 % (42.8-82.8); PLATELET COUNT 333 K/MM3 (134-434); RBC 4.47 M/mm3 (3.60-5.2); RDW 24.2 % (11.6-15.6); WHITE BLOOD COUNT 6.7 K/mm3 (4.0-10.0)
[2020-02-17] MEDS ORDERED: PANTOPRAZOLE 20 MG TABLET PO SCH (10:00)
--- NOTE | 2020-02-17 11:22 | PN ---
Progress Note (short form) - Note Progress Note: cc: anemia s: no chest pain, palps, dizziness, dyspnea Current Medications Generic Name Dose Route Start Last Admin Trade Name Freq PRN Reason Stop Dose Admin Acetaminophen 500 mg 02/17/20 08:00 02/17/20 08:25 Ofirmev Injection - IVPB 500 mg ONCE PRN Administration PAIN LEVEL 1-5 Atorvastatin Calcium 80 mg 02/12/20 22:00 02/16/20 21:31 Lipitor - PO 80 mg HS [facility] Administration Metoprolol Tartrate 12.5 mg 02/15/20 10:00 02/16/20 09:49 Lopressor - PO 12.5 mg DAILY [facility] Administration Pantoprazole Sodium 20 mg 02/17/20 10:00 Protonix - PO DAILY [facility] Sertraline HCl 150 mg 02/13/20 07:00 02/17/20 06:25 Zoloft - PO 150 mg AM [facility] Administration Vital Signs Period Temp Pulse Resp BP Sys/Vázquez Pulse Ox Last 24 Hr 97.6 F-98.8 F 63-69 18-18 100-119/67-76 96-98 Constitutional: Yes: No Distress, Calm Eyes: Yes: Conjunctiva Clear HENT: Yes: Atraumatic Neck: Yes: Trachea Midline Respiratory: Yes: CTA Bilaterally (no wheezing or rales.) Gastrointestinal: Yes: Soft (NT) Cardiovascular: Yes: Regular Rate and Rhythm JVD: No Heart Sounds: Yes: S1, S2 (rrr) Edema: No Peripheral Pulses WNL: Yes Neurological: Yes: Alert, Oriented no jaundice, diaphoresis not agitated CBC, BMP 02/17/20 07:03 02/16/20 08:05 NSR, APCs, no acute ST changes Echo: Other ([facility] echo: preserved EF. No sig valve disease, mild MR/AR) Prior Cardiac Procedures: PTCA with Stent Imaging - Results EKG: Image Reviewed Assessment/Plan IMP: 1. Marked anemia, r/o GI bleed 2. History of GIB, peptic ulcer disease 3. CAD s/p NSTEMI 11/2018 with primary PCI at [place] 4. Depression REC: 1. Anemia: -Transfuse to Hb 8 -GI consulted - planned EGD -Hold antiplatelet drugs: when stable, should resume either ASA 81 OR Plavix now > 1 year post ACS/PCI 2. Prior GIB/PUD: -No cardiac contraindication to upper endoscopy or colonoscopy as needed per GI - plan for repeat EGD when plavix held for 5 days for polypectomy -PPI as per primary team/GI 3. CAD s/p NSTEMI 11/2018: -Review cath report from [place] -Cont statin, bb -Ultimately will need to resume single antiplatelet rx when feasible -Initial LV dysfx post NE resolved with revasc and med Rx although did not tolerate low dose Lisinopril due to hypotension (baseline BP 100-105mmHg systolic) 4. Vascular: -Clarify/ confirm prior hx of aneurysm repair, please try to obtain old records.
[2020-02-17] MEDS ORDERED: EPINEPHrine 1:10,000 (P-F SYR) 1 MG/10 ML DISP.SYRIN ONE (11:42)
--- NOTE | 2020-02-17 12:47 | PN ---
Progress Note (short form) - Note Progress Note: EGD complete. Report left in procedural section of the physical chart and will be scanned into [employer] Problem List - Problems (1) Anemia Code(s): D64.9 - ANEMIA, UNSPECIFIED Qualifiers: Anemia type: unspecified type Qualified Code(s): D64.9 - Anemia, unspecified
--- NOTE | 2020-02-17 13:24 | PN ---
Teaching Attending Note Name of Resident: Randa Kolb ATTENDING PHYSICIAN STATEMENT I saw and evaluated the patient. I reviewed the resident's note and discussed the case with the resident. I agree with the resident's findings and plan as documented. SUBJECTIVE: pt seen and examined before going to EGD OBJECTIVE: Last Vital Signs Temp Pulse Resp BP Pulse Ox 97.5 F L 62 18 116/72 98 02/17/20 12:35 02/17/20 13:15 02/17/20 13:15 02/17/20 13:15 02/17/20 13:15 cheerful Heart - S1, S2, RRR Lungs - clear to auscultation Abdomen - Soft, non-tender. Bowel Sounds normal. Extremities - no edema, no calf tenderness. Neuro - AAO x 3. Tone/Power normal all extremities. CBCD WBC 6.7 K/mm3 (4.0-10.0) 02/17/20 07:03 RBC 4.47 M/mm3 (3.60-5.2) 02/17/20 07:03 Hgb 10.0 GM/dL (10.7-15.3) L 02/17/20 07:03 Hct 33.2 % (32.4-45.2) 02/17/20 07:03 MCV 74.3 fl (80-96) L 02/17/20 07:03 MCHC 30.0 g/dl (32.0-36.0) L 02/17/20 07:03 RDW 24.2 % (11.6-15.6) H 02/17/20 07:03 Plt Count 333 K/MM3 (134-434) 02/17/20 07:03 MPV 9.8 fl (7.5-11.1) 02/17/20 07:03 CMP Sodium 140 mmol/L (136-145) 02/16/20 08:05 Potassium 4.1 mmol/L (3.5-5.1) 02/16/20 08:05 Chloride 107 mmol/L (98-107) 02/16/20 08:05 Carbon Dioxide 27 mmol/L (21-32) 02/16/20 08:05 Anion Gap 6 MMOL/L (8-16) L 02/16/20 08:05 BUN 14.5 mg/dL (7-18) 02/16/20 08:05 Creatinine 0.6 mg/dL (0.55-1.3) 02/16/20 08:05 Random Glucose 149 mg/dL (74-106) H 02/16/20 08:05 Calcium 9.0 mg/dL (8.5-10.1) 02/16/20 08:05 Total Bilirubin 1.3 mg/dL (0.2-1) H 02/13/20 06:45 AST 18 U/L (15-37) 02/13/20 06:45 ALT 18 U/L (13-61) 02/13/20 06:45 Alkaline Phosphatase 115 U/L (45-117) 02/13/20 06:45 Total Protein 6.0 g/dl (6.4-8.2) L 02/13/20 06:45 Albumin 3.1 g/dl (3.4-5.0) L 02/13/20 06:45 CARDIAC ENZYMES Troponin I < 0.02 ng/ml (0.00-0.05) 02/11/20 12:19 Active Medications Acetaminophen (Ofirmev Injection -) 500 mg IVPB ONCE PRN PRN Reason: PAIN LEVEL 1-5 Last Admin: 02/17/20 08:25 Dose: 500 mg Documented by: Atorvastatin Calcium (Lipitor -) 80 mg PO HS [facility] Last Admin: 02/16/20 21:31 Dose: 80 mg Documented by: Dextrose/Sodium Chloride (D5-1/2ns -) 1,000 mls @ 75 mls/hr IV ASDIR [facility] Metoprolol Tartrate (Lopressor -) 12.5 mg PO DAILY [facility] Last Admin: 02/16/20 09:49 Dose: 12.5 mg Documented by: Pantoprazole Sodium (Protonix -) 20 mg PO DAILY [facility] Pantoprazole Sodium (Protonix -) 40 mg PO BID [facility] Sertraline HCl (Zoloft -) 150 mg PO AM [facility] Last Admin: 02/17/20 06:25 Dose: 150 mg Documented by: ASSESSMENT AND PLAN: 79 year old lady with history of CAD s/p NSTEMI (2019), AAA (s/p repair 2016), Bladder Cancer s/p resection, history of prior GI bleeding episode secondary to duodenal ulcer, iron deficiency anemia, Depression referred to ED for severe Anemia. # Acute on chronic Anemia/Iron Deficiency Anemia sec to GI blood loss s/p repeat EGD with polypectomy, angiectesia noted. trend H&H keep >7 PPI, advanced clear GI consult appreciated will start ASA 81 upon discharge, off plavix cardiology note appreciated CAD Depression HTN DVT Px - SCDs
--- NOTE | 2020-02-17 13:53 | PN ---
Physical Exam: SUBJECTIVE: Patient seen and examined. S/p polypectomy. Headache in AM, given Tylenol with some improvement. OBJECTIVE: Vital Signs Period Temp Pulse Resp BP Sys/Vázquez Pulse Ox Last 24 Hr 97.5 F-98.8 F 62-69 18-20 100-122/67-78 96-100 GENERAL: The patient is awake, alert, and fully oriented, in no acute distress. HEAD: Normal with no signs of trauma. EYES: PERRL, extraocular movements intact, sclera anicteric, conjunctiva clear. No ptosis. ENT: Ears normal, nares patent, oropharynx clear without exudates, moist mucous membranes. NECK: Trachea midline, full range of motion, supple. LUNGS: Breath sounds equal, clear to auscultation bilaterally, no wheezes, no crackles, no accessory muscle use. HEART: Regular rate and rhythm, S1, S2 without murmur, rub or gallop. ABDOMEN: Soft, nontender, nondistended, normoactive bowel sounds, no guarding, no rebound, no hepatosplenomegaly, no masses. EXTREMITIES: 2+ pulses, warm, well-perfused, no edema. NEUROLOGICAL: Cranial nerves II through XII grossly intact. Normal speech, gait not observed. PSYCH: Normal mood, normal affect. SKIN: Warm, dry, normal turgor, no rashes or lesions noted Laboratory Results - last 24 hr 02/15/20 02/17/20 02/17/20 13:45 07:03 07:03 WBC 6.7 RBC 4.47 Hgb 10.0 L Hct 33.2 MCV 74.3 L MCH 22.3 L MCHC 30.0 L RDW 24.2 H Plt Count 333 MPV 9.8 Absolute Neuts (auto) 4.7 Neutrophils % 69.9 Lymphocytes % 17.4 Monocytes % 7.1 Eosinophils % 3.9 Basophils % 1.7 Nucleated RBC % 0 Phosphorus 4.4 Magnesium 2.3 Blood Type A POSITIVE Antibody Screen Negative Crossmatch See Detail Active Medications Generic Name Dose Route Start Last Admin Trade Name Freq PRN Reason Stop Dose Admin Acetaminophen 500 mg 02/17/20 08:00 02/17/20 08:25 Ofirmev Injection - IVPB 500 mg ONCE PRN Administration PAIN LEVEL 1-5 Atorvastatin Calcium 80 mg 02/12/20 22:00 02/16/20 21:31 Lipitor - PO 80 mg HS [facility] Administration Dextrose/Sodium Chloride 1,000 mls @ 75 mls/hr 02/17/20 13:00 D5-1/2ns - IV ASDIR [facility] Metoprolol Tartrate 12.5 mg 02/15/20 10:00 02/16/20 09:49 Lopressor - PO 12.5 mg DAILY [facility] Administration Pantoprazole Sodium 20 mg 02/17/20 10:00 Protonix - PO DAILY [facility] Pantoprazole Sodium 40 mg 02/17/20 22:00 Protonix - PO BID [facility] Sertraline HCl 150 mg 02/13/20 07:00 02/17/20 06:25 Zoloft - PO 150 mg AM [facility] Administration Polypectomy Report Impressions 1. The mucosa of the esophagus seemed normal 2. Non-bleeding angioectasia in the gastric antrum 3. Bleeding duodenal polyp, S/P snare polypectomy with epinephrine injection and endoclip placement 4. Retroflexion was not performed Recommendations 1. Avoid NSAIDs 2. Continue to hold plavis 3. Protonix 40mg BID for 3 days, then once daily 4. Monitor H/H 5. Clear liquids for dinner ASSESSMENT/PLAN: Pt is a 79 year old F with PMHx of CAD, NSTEMI (2018), abdominal aortic aneurysm (s/p repair 2015), bladder cancer s/p resection, prior GI bleed in 2018 2/2 d uodenal ulcer, iron deficiency anemia, depression presenting from her hand blocker's office (Dr. Fitch) due to low hgb. #Acute blood loss anemia -Hgb on admission 5.5, stable at 8.9, sp 3 units pRBC -trend H&H -Protonix 40mg IV BID -Clear liquid diet -patient has hx of chronic ASA & NSAID use- hold off further antiplatelet therapies or nsaids -EGD completed on 02/14; pedunculated polyps in 1st portion of duodenum that oozed blood -s/p polypectomy 02/16; clear liquids #History of NSTEMI -Cardiology following (Dr. Aparicio, Dr. Santamaria)- ok to hold antiplt therapy however resume asa OR plavix once stable, after EGD -Continue home statin #History of depression -Continue home Sertaline #FEN -no standing fluids -Trend BMP replete lytes prn -Clear liquids #PPX SCD; hold chemical ac due to anemia Protonix 40mg BID x 3 days; then 40mg once daily Dispo monitor on med surg. Clear liquids for dinner. Visit type - Emergency Visit Emergency Visit: Yes ED Registration Date: 02/11/20 Care time: The patient presented to the Emergency Department on the above date and was hospitalized for further evaluation of their emergent condition. - New Patient This patient is new to me today: No - Critical Care Critical Care patient: No - Medication Review Med list reviewed for High Risk Meds patients 65 and older: Yes ATTENDING PHYSICIAN STATEMENT I saw and evaluated the patient. I reviewed the resident's note and discussed the case with the resident. I agree with the resident's findings and plan as documented. SUBJECTIVE: OBJECTIVE: ASSESSMENT AND PLAN:
[2020-02-17] MEDS: DEXTROSE 5%-0.45% SALINE 1,000 ML IV SCH (16:08)
[2020-02-17] MEDS: METOPROLOL TARTRATE 25 MG TABLET (FP) PO SCH (16:08)
[2020-02-17] MEDS: PANTOPRAZOLE 40 MG TABLET PO SCH (21:38)
[2020-02-17] MEDS: ATORVASTATIN CA 80 MG TABLET (FP) PO SCH (21:38)
[2020-02-18] MEDS: DEXTROSE 5%-0.45% SALINE 1,000 ML IV SCH (04:00)
[2020-02-18] MEDS: SERTRALINE HCL 50 MG TABLET (FP) PO SCH (06:22)
[2020-02-18] MEDS ORDERED: ACETAMINOPHEN 1000 MG/100 ML VIAL (NON FORMULARY) IVPB ONE ×2 (06:49→06:55)
--- NOTE | 2020-02-18 08:43 | PN.GI ---
GI Progress Note Subjective: No focal complaints No bleeding No abdominal pain States feeling well - Objective Vital Signs: Vital Signs Temperature 98.7 F 02/18/20 05:00 Pulse Rate 62 02/18/20 05:00 Respiratory Rate 18 02/17/20 21:00 Blood Pressure 97/63 02/18/20 05:00 O2 Sat by Pulse Oximetry (%) 95 02/18/20 05:00 Constitutional: Calm Eyes: No: Sclera Icterus Cardiovascular: Yes: Regular Rate and Rhythm Respiratory: Yes: CTA Bilaterally Gastrointestinal Inspection: No: Distention ...Auscultate: Yes: Normoactive Bowel Sounds ...Palpate: Yes: Soft. No: Hepatomegaly, Splenomegaly, Tenderness Edema: No (No LE edema) Neurological: Yes: Alert Labs: INR, PTT INR 1.11 (0.83-1.09) H 02/11/20 12:19 Problem List - Problems (1) Anemia Assessment/Plan: Bleeding duodenal polyp. Only a small fragment was able to be retrieved as the polyp itself migrated distally into the duodenum and could not be retrieved. Avoid NSAIDs Hold Plavix Will need repeat EGD +/- EUS in 4 weeks to reassess polypectomy site Advance to full liquids in evening if H/H remains stable, no overt bleeding reported Protonix 40mg PO BID for 3 days followed by once daily Code(s): D64.9 - ANEMIA, UNSPECIFIED Qualifiers: Anemia type: unspecified type Qualified Code(s): D64.9 - Anemia, unspecified
[2020-02-18 09:02] LABS: INR 1.16 (0.83-1.09); PROTHROMBIN TIME (PATIENT) 14.2 SEC (9.7-13.0)
[2020-02-18 09:23] LABS: HEMATOCRIT 30.7 % (32.4-45.2); HEMOGLOBIN 9.2 GM/dL (10.7-15.3); MCH 22.7 pg (25.7-33.7); MCHC 30.1 g/dl (32.0-36.0); MEAN CELL VOLUME 75.2 fl (80-96); PLATELET COUNT 284 K/MM3 (134-434); RBC 4.08 M/mm3 (3.60-5.2); RDW 24.1 % (11.6-15.6); WHITE BLOOD COUNT 6.7 K/mm3 (4.0-10.0)
[2020-02-18 09:25] LABS: BLOOD UREA NITROGEN 8.4 mg/dL (7-18); CALCIUM 8.6 mg/dL (8.5-10.1); MAGNESIUM 2.1 mg/dL (1.8-2.4); POTASSIUM 4.5 mmol/L (3.5-5.1)
[2020-02-18 09:29] LABS: CREATININE 0.5 mg/dL (0.55-1.3); PHOSPHOROUS 4.1 mg/dL (2.5-4.9)
[2020-02-18] MEDS: METOPROLOL TARTRATE 25 MG TABLET (FP) PO SCH (11:56)
[2020-02-18] MEDS: PANTOPRAZOLE 40 MG TABLET PO SCH ×2 (11:56→21:05)
--- NOTE | 2020-02-18 12:10 | DS ---
Physical Exam: SUBJECTIVE: Patient seen and examined OBJECTIVE: Vital Signs Period Temp Pulse Resp BP Sys/Vázquez Pulse Ox Last 24 Hr 97.5 F-98.7 F 60-76 18-20 97-122/63-78 95-100 PHYSICAL EXAM GENERAL: The patient is awake, alert, and fully oriented, in no acute distress. HEAD: Normal with no signs of trauma. EYES: PERRL, extraocular movements intact, sclera anicteric, conjunctiva clear. ENT: Ears normal, nares patent, oropharynx clear without exudates, moist mucous membranes. NECK: Trachea midline, full range of motion, supple. LUNGS: Breath sounds equal, clear to auscultation bilaterally, no wheezes, no crackles, no accessory muscle use. HEART: Regular rate and rhythm, S1, S2 without murmur, rub or gallop. ABDOMEN: Soft, nontender, nondistended, normoactive bowel sounds, no guarding, no rebound, no hepatosplenomegaly, no masses. EXTREMITIES: 2+ pulses, warm, well-perfused, no edema. NEUROLOGICAL: Cranial nerves II through XII grossly intact. Normal speech, gait not observed. PSYCH: Normal mood, normal affect. SKIN: Warm, dry, normal turgor, no rashes or lesions noted. LABS Laboratory Results - last 24 hr 02/18/20 02/18/20 02/18/20 07:46 07:46 07:46 WBC 6.7 RBC 4.08 Hgb 9.2 L Hct 30.7 L MCV 75.2 L MCH 22.7 L MCHC 30.1 L RDW 24.1 H Plt Count 284 MPV 10.0 PT with INR 14.20 H INR 1.16 H Sodium 141 Potassium 4.5 Chloride 108 H Carbon Dioxide 28 Anion Gap 5 L BUN 8.4 Creatinine 0.5 L Est GFR (CKD-EPI)AfAm 108.20 Est GFR (CKD-EPI)NonAf 93.36 Random Glucose 91 Calcium 8.6 Phosphorus 4.1 Magnesium 2.1 HOSPITAL COURSE: Date of Admission:02/11/20 Date of Discharge: 02/18/20 Minutes to complete discharge: 36 Discharge Summary Problems reviewed: Yes Reason For Visit: TRANSFUSION OF BLOOD DURING CURRENT HOSP ANEMIA Current Active Problems Anemia (Acute) Occult GI bleeding (Acute) Condition: Improved - Instructions Diet, Activity, Other Instructions: You came to the hospital because you had a low hemoglobin. You received blood transfusions and your hemoglobin stabilized. You were seen by the medicine teacher who did a endoscopy, and removed a bleeding polyp. Medications Please START taking Protonix twice daily for three days (until February 20, 2020), and then once daily afterwards. Please STOP taking your Plavix until you have had your follow up visit with the medicine teacher and fiscal technician. Please start aspirin 81mg on 02/22/2020 as advised by the fiscal technician Please AVOID all NSAIDs (Advil, Aleve, Motrin, etc.). Please resume all other home medications as prescribed. Follow Ups 1. Primary Care Physician, Dr. Springer, within 1 week for overall health care management. Please repeat your blood work so we can ensure your hemoglobin is stable. 2. Senior Administrative Support, Dr. Bruce, within 1 week for follow up on your polyp. You will need a repeat endoscopy as well within 4 weeks to ensure the polypectomy was successful. 3. Sericulture Teacher, Dr. Aparicio, within 2 weeks for follow up. If you have any new, worsening or changing symptoms please return to the ED or call 911. Referrals: Salvador Bruce DO [Staff Physician] - 1 Week Devon Salinas MD [Staff Physician] - 2 Weeks Renuka Springer MD [Primary Care Provider] - 1 Week Disposition: HOME - Home Medications Comprehensive Discharge Medication List: Ambulatory Orders Sertraline HCl [Zoloft] 150 mg PO AM 11/12/18 Atorvastatin Ca [Lipitor] 80 mg PO HS 02/12/20 Lisinopril [Zestril] 2.5 mg PO DAILY 02/12/20 Metoprolol Tartrate [Lopressor -] 12.5 mg PO DAILY 02/12/20 Pantoprazole Sodium [Protonix -] 40 mg PO DAILY #33 tablet.ec 02/18/20 This patient is new to me today: No Emergency Visit: Yes ED Registration Date: 02/11/20 Care time: The patient presented to the Emergency Department on the above date and was hospitalized for further evaluation of their emergent condition. Critical Care patient: No - Discharge Referral Referred to [facility] Med P.C.: No ATTENDING PHYSICIAN STATEMENT I saw and evaluated the patient. I reviewed the resident's note and discussed the case with the resident. I agree with the resident's findings and plan as documented. SUBJECTIVE: OBJECTIVE: ASSESSMENT AND PLAN:
--- NOTE | 2020-02-18 13:00 | PN ---
Teaching Attending Note Name of Resident: Randa Kolb ATTENDING PHYSICIAN STATEMENT I saw and evaluated the patient. I reviewed the resident's note and discussed the case with the resident. I agree with the resident's findings and plan as documented. SUBJECTIVE: pt seen and examined OBJECTIVE: Last Vital Signs Temp Pulse Resp BP Pulse Ox 98.7 F 62 18 97/63 97 02/18/20 05:00 02/18/20 05:00 02/17/20 21:00 02/18/20 05:00 02/18/20 10:00 Heart - S1, S2, RRR Lungs - clear to auscultation Abdomen - Soft, non-tender. Bowel Sounds normal. Extremities - no edema, no calf tenderness. Neuro - AAO x 3. Tone/Power normal all extremities. Laboratory Last Values WBC 6.7 K/mm3 (4.0-10.0) 02/18/20 07:46 RBC 4.08 M/mm3 (3.60-5.2) 02/18/20 07:46 Hgb 9.2 GM/dL (10.7-15.3) L 02/18/20 07:46 Hct 30.7 % (32.4-45.2) L 02/18/20 07:46 MCV 75.2 fl (80-96) L 02/18/20 07:46 MCH 22.7 pg (25.7-33.7) L 02/18/20 07:46 MCHC 30.1 g/dl (32.0-36.0) L 02/18/20 07:46 RDW 24.1 % (11.6-15.6) H 02/18/20 07:46 Plt Count 284 K/MM3 (134-434) 02/18/20 07:46 MPV 10.0 fl (7.5-11.1) 02/18/20 07:46 Absolute Neuts (auto) 4.7 K/mm3 (1.5-8.0) 02/17/20 07:03 Neutrophils % 69.9 % (42.8-82.8) 02/17/20 07:03 Lymphocytes % 17.4 % (8-40) 02/17/20 07:03 Monocytes % 7.1 % (3.8-10.2) 02/17/20 07:03 Eosinophils % 3.9 % (0-4.5) 02/17/20 07:03 Basophils % 1.7 % (0-2.0) 02/17/20 07:03 Nucleated RBC % 0 % (0-0) 02/17/20 07:03 Hypochromia 2+ 02/14/20 12:20 Platelet Estimate Normal 02/11/20 12:19 Polychromasia 0 02/11/20 12:19 Poikilocytosis 2+ 02/14/20 12:20 Anisocytosis 2+ 02/14/20 12:20 Microcytosis 1+ 02/11/20 12:19 Macrocytosis 1+ 02/14/20 12:20 Tear Drop Cells 1+ 02/14/20 12:20 Ovalocytes 1+ 02/14/20 12:20 Fragmented RBCs 1+ 02/14/20 12:20 Schistocytes 1+ 02/14/20 12:20 PT with INR 14.20 SEC (9.7-13.0) H 02/18/20 07:46 INR 1.16 (0.83-1.09) H 02/18/20 07:46 PTT (Actin FS) 34.7 SECONDS (25.2-36.5) 02/11/20 12:19 Sodium 141 mmol/L (136-145) 02/18/20 07:46 Potassium 4.5 mmol/L (3.5-5.1) 02/18/20 07:46 Chloride 108 mmol/L (98-107) H 02/18/20 07:46 Carbon Dioxide 28 mmol/L (21-32) 02/18/20 07:46 Anion Gap 5 MMOL/L (8-16) L 02/18/20 07:46 BUN 8.4 mg/dL (7-18) 02/18/20 07:46 Creatinine 0.5 mg/dL (0.55-1.3) L 02/18/20 07:46 Est GFR (CKD-EPI)AfAm 108.20 02/18/20 07:46 Est GFR (CKD-EPI)NonAf 93.36 02/18/20 07:46 Random Glucose 91 mg/dL (74-106) 02/18/20 07:46 Calcium 8.6 mg/dL (8.5-10.1) 02/18/20 07:46 Phosphorus 4.1 mg/dL (2.5-4.9) 02/18/20 07:46 Magnesium 2.1 mg/dL (1.8-2.4) 02/18/20 07:46 Iron 8 ug/dL (50-175) L 02/11/20 12:19 TIBC 466 ug/dL (250-450) H 02/11/20 12:19 Iron Saturation 1 % (17.5-39) L 02/11/20 12:19 Unsaturated IBC 458 ug/dL (200-275) H 02/11/20 12:19 Transferrin 366 mg/dL (192-364) H 02/11/20 12:19 Ferritin 8.7 ng/ml (8-388) 02/11/20 12:19 Total Bilirubin 1.3 mg/dL (0.2-1) H 02/13/20 06:45 AST 18 U/L (15-37) 02/13/20 06:45 ALT 18 U/L (13-61) 02/13/20 06:45 Alkaline Phosphatase 115 U/L (45-117) 02/13/20 06:45 Troponin I < 0.02 ng/ml (0.00-0.05) 02/11/20 12:19 Total Protein 6.0 g/dl (6.4-8.2) L 02/13/20 06:45 Albumin 3.1 g/dl (3.4-5.0) L 02/13/20 06:45 Stool Occult Blood Positive (NEGATIVE) 02/11/20 14:13 COVID-19 ([facility]SY) Not detected (Not Detected) 02/11/20 14:27 Blood Type A POSITIVE 02/15/20 13:45 Antibody Screen Negative 02/15/20 13:45 Crossmatch See Detail 02/15/20 13:45 Active Medications Acetaminophen (Ofirmev Injection -) 500 mg IVPB ONCE PRN PRN Reason: PAIN LEVEL 1-5 Last Admin: 02/17/20 08:25 Dose: 500 mg Documented by: Atorvastatin Calcium (Lipitor -) 80 mg PO HS [facility] Last Admin: 02/17/20 21:38 Dose: 80 mg Documented by: Dextrose/Sodium Chloride (D5-1/2ns -) 1,000 mls @ 75 mls/hr IV ASDIR [facility] Last Admin: 02/18/20 04:00 Dose: 75 mls/hr Documented by: Metoprolol Tartrate (Lopressor -) 12.5 mg PO DAILY [facility] Last Admin: 02/18/20 11:56 Dose: 12.5 mg Documented by: Pantoprazole Sodium (Protonix -) 40 mg PO BID [facility] Last Admin: 02/18/20 11:56 Dose: 40 mg Documented by: Sertraline HCl (Zoloft -) 150 mg PO AM [facility] Last Admin: 02/18/20 06:22 Dose: 150 mg Documented by: ASSESSMENT AND PLAN: 79 year old lady with history of CAD s/p NSTEMI (2019), AAA (s/p repair 2015), Bladder Cancer s/p resection, history of prior GI bleeding episode secondary to duodenal ulcer, iron deficiency anemia, Depression referred to ED for severe Anemia. # Acute on chronic Anemia/Iron Deficiency Anemia sec to GI blood loss s/p repeat EGD with polypectomy, angiectesia noted. trend H&H keep >7 PPI, advanced clear GI consult appreciated, will need repeat EGD in 4 week to reassess for residual polyp will start ASA 81 upon discharge, off plavix cardiology note appreciated CAD Depression HTN DVT Px - SCDs
--- NOTE | 2020-02-18 14:23 | PN ---
Progress Note, Physician Chief Complaint: denies CP/SOB/dizziness History of Present Illness: CAD s/p PCI Peptic ulcer disease - Current Medication List Current Medications: Active Medications Acetaminophen (Ofirmev Injection -) 500 mg IVPB ONCE PRN PRN Reason: PAIN LEVEL 1-5 Last Admin: 02/17/20 08:25 Dose: 500 mg Documented by: Atorvastatin Calcium (Lipitor -) 80 mg PO HS [facility] Last Admin: 02/17/20 21:38 Dose: 80 mg Documented by: Dextrose/Sodium Chloride (D5-1/2ns -) 1,000 mls @ 75 mls/hr IV ASDIR [facility] Last Admin: 02/18/20 04:00 Dose: 75 mls/hr Documented by: Metoprolol Tartrate (Lopressor -) 12.5 mg PO DAILY [facility] Last Admin: 02/18/20 11:56 Dose: 12.5 mg Documented by: Pantoprazole Sodium (Protonix -) 40 mg PO BID [facility] Last Admin: 02/18/20 11:56 Dose: 40 mg Documented by: Sertraline HCl (Zoloft -) 150 mg PO AM [facility] Last Admin: 02/18/20 06:22 Dose: 150 mg Documented by: - Objective Vital Signs: Vital Signs Temperature 98.7 F 02/18/20 05:00 Pulse Rate 62 02/18/20 05:00 Respiratory Rate 18 02/17/20 21:00 Blood Pressure 97/63 02/18/20 05:00 O2 Sat by Pulse Oximetry (%) 97 02/18/20 10:00 Constitutional: Yes: No Distress, Calm Eyes: Yes: Conjunctiva Clear, EOM Intact Cardiovascular: Yes: Regular Rate and Rhythm Respiratory: Yes: CTA Bilaterally Gastrointestinal: Yes: Soft (nt) Edema: No Neurological: Yes: Alert, Oriented ...Motor Strength: WNL Labs: CBC, BMP 02/18/20 07:46 02/18/20 07:46 INR, PTT INR 1.16 (0.83-1.09) H 02/18/20 07:46 - ....Imaging EKG: Image Reviewed Assessment/Plan IMP: 1. Marked anemia, GIB 2. History of GIB, peptic ulcer disease 3. CAD s/p NSTEMI 11/2018 with primary PCI at [place] 4. Depression REC: 1. Anemia: -s/p EGD -Case d/w Dr. Bruce: can discontinue Plavix. Needs to resume low dose aspiri n: plan for 02/21 to allow adequate time for healing. 2. CAD s/p NSTEMI 11/2018 with PCI: -Cont statin, bb -plan to resume ASA 81mg daily as outlined above -Initial LV dysfx post MA resolved with revasc and med Rx although did not tolerate low dose Lisinopril due to hypotension (baseline BP 100-105mmHg systolic)
[2020-02-18] MEDS: ATORVASTATIN CA 80 MG TABLET (FP) PO SCH (21:06)
[2020-02-19] MEDS: SERTRALINE HCL 50 MG TABLET (FP) PO SCH (06:00)
--- NOTE | 2020-02-19 07:34 | PN.GI ---
GI Progress Note Subjective: doing well , tolerated diet ; no report of GI bleed - Objective Vital Signs: Vital Signs Temperature 98.1 F 02/19/20 06:00 Pulse Rate 68 02/19/20 06:00 Respiratory Rate 18 02/19/20 06:00 Blood Pressure 122/75 02/19/20 06:00 O2 Sat by Pulse Oximetry (%) 98 02/19/20 06:00 Constitutional: Well Nourished, No Distress HENT: Yes: WNL Cardiovascular: Yes: WNL, Regular Rate and Rhythm Respiratory: Yes: WNL, Regular, CTA Bilaterally Gastrointestinal Inspection: Yes: WNL ...Auscultate: Yes: Normoactive Bowel Sounds Labs: CBC, BMP 02/18/20 07:46 02/18/20 07:46 INR, PTT INR 1.16 (0.83-1.09) H 02/18/20 07:46 Problem List - Problems (1) Anemia Assessment/Plan: DIET TOLERATED C/W PPI AVOID NSAID MONITOR H/H WHILE HOSPITALIZED WILL NEED OUTOT GI F/U IN ONE WEEK Code(s): D64.9 - ANEMIA, UNSPECIFIED Qualifiers: Anemia type: unspecified type Qualified Code(s): D64.9 - Anemia, unspecified (2) Occult GI bleeding Code(s): R19.5 - OTHER FECAL ABNORMALITIES
[2020-02-19] MEDS: DEXTROSE 5%-0.45% SALINE 1,000 ML IV SCH (08:41)
[2020-02-19 08:49] LABS: HEMATOCRIT 31.3 % (32.4-45.2); HEMOGLOBIN 9.6 GM/dL (10.7-15.3); MCH 23.1 pg (25.7-33.7); MCHC 30.6 g/dl (32.0-36.0); MEAN CELL VOLUME 75.5 fl (80-96); MEAN PLT VOLUME 10.3 fl (7.5-11.1); PLATELET COUNT 274 K/MM3 (134-434); RBC 4.14 M/mm3 (3.60-5.2); RDW 24.4 % (11.6-15.6); WHITE BLOOD COUNT 7.5 K/mm3 (4.0-10.0)
[2020-02-19 08:52] LABS: POTASSIUM 4.2 mmol/L (3.5-5.1)
[2020-02-19 08:56] LABS: CALCIUM 8.7 mg/dL (8.5-10.1)
[2020-02-19 08:57] LABS: BLOOD UREA NITROGEN 9.4 mg/dL (7-18); MAGNESIUM 2.1 mg/dL (1.8-2.4)
[2020-02-19 09:00] LABS: CREATININE 0.5 mg/dL (0.55-1.3)
[2020-02-19 09:01] LABS: PHOSPHOROUS 3.7 mg/dL (2.5-4.9)
--- NOTE | 2020-02-19 09:29 | PN ---
Progress Note, Physician Chief Complaint: GIB History of Present Illness: no rectal bleeding denies cp, sob, palp - Current Medication List Current Medications: Active Medications Atorvastatin Calcium (Lipitor -) 80 mg PO HS [facility] Last Admin: 02/18/20 21:06 Dose: 80 mg Documented by: Dextrose/Sodium Chloride (D5-1/2ns -) 1,000 mls @ 75 mls/hr IV ASDIR [facility] Last Admin: 02/19/20 08:41 Dose: Not Given Documented by: Metoprolol Tartrate (Lopressor -) 12.5 mg PO DAILY [facility] Last Admin: 02/18/20 11:56 Dose: 12.5 mg Documented by: Pantoprazole Sodium (Protonix -) 40 mg PO BID [facility] Last Admin: 02/18/20 21:05 Dose: 40 mg Documented by: Sertraline HCl (Zoloft -) 150 mg PO AM [facility] Last Admin: 02/19/20 06:00 Dose: 150 mg Documented by: - Objective Vital Signs: Vital Signs Temperature 98.1 F 02/19/20 06:00 Pulse Rate 68 02/19/20 06:00 Respiratory Rate 18 02/19/20 06:00 Blood Pressure 122/75 02/19/20 06:00 O2 Sat by Pulse Oximetry (%) 98 02/19/20 06:00 Constitutional: Yes: Well Nourished, No Distress, Calm Cardiovascular: Yes: Regular Rate and Rhythm, S1, S2. No: Gallop, Murmur Respiratory: Yes: Regular, CTA Bilaterally. No: Accessory Muscle Use, Rales, Wheezes Extremities: No: Cold Edema: No Neurological: Yes: Alert, Oriented Psychiatric: No: Agitated Labs: CBC, BMP 02/19/20 07:32 02/19/20 07:32 INR, PTT INR 1.16 (0.83-1.09) H 02/18/20 07:46 Assessment/Plan 1. UGIB (hgb 5.5 on admit): -s/p EGD 02/16: bleeding duodenal polyp, partially resected -clarification of prior notes: dr marline hilliard'd case with dr chirinos: ok to resume aspirin as of 02/21 to allow polypectomy site to heal (plan to hold plavix given stent > 12 mo ago). i informed pt of this plan as well since she is ready for d/c she says -H/H stable, monitor trend 2. CAD s/p NSTEMI 11/2018 with PCI: -Cont statin, bb -plan to resume ASA 81mg daily as outlined above -Initial LV dysfx post [place] resolved with revasc and med Rx although did not tolerate low dose Lisinopril due to hypotension (baseline BP 100-105mmHg systolic)
--- NOTE | 2020-02-19 09:45 | PN ---
Physical Exam: SUBJECTIVE: Patient seen and examined OBJECTIVE: Vital Signs Period Temp Pulse Resp BP Sys/Vázquez Pulse Ox Last 24 Hr 97.5 F-98.4 F 63-68 18-18 106-122/71-85 96-98 GENERAL: The patient is awake, alert, and fully oriented, in no acute distress. HEAD: Normal with no signs of trauma. EYES: PERRL, extraocular movements intact, sclera anicteric, conjunctiva clear. No ptosis. ENT: Ears normal, nares patent, oropharynx clear without exudates, moist mucous membranes. NECK: Trachea midline, full range of motion, supple. LUNGS: Breath sounds equal, clear to auscultation bilaterally, no wheezes, no crackles, no accessory muscle use. HEART: Regular rate and rhythm, S1, S2 without murmur, rub or gallop. ABDOMEN: Soft, nontender, nondistended, normoactive bowel sounds, no guarding, no rebound, no hepatosplenomegaly, no masses. EXTREMITIES: 2+ pulses, warm, well-perfused, no edema. NEUROLOGICAL: Cranial nerves II through XII grossly intact. Normal speech, gait not observed. PSYCH: Normal mood, normal affect. SKIN: Warm, dry, normal turgor, no rashes or lesions noted Laboratory Results - last 24 hr 02/15/20 02/19/20 02/19/20 13:45 07:32 07:32 WBC 7.5 RBC 4.14 Hgb 9.6 L Hct 31.3 L MCV 75.5 L MCH 23.1 L MCHC 30.6 L RDW 24.4 H Plt Count 274 MPV 10.3 Sodium 140 Potassium 4.2 Chloride 106 Carbon Dioxide 29 Anion Gap 5 L BUN 9.4 Creatinine 0.5 L Est GFR (CKD-EPI)AfAm 108.20 Est GFR (CKD-EPI)NonAf 93.36 Random Glucose 77 Calcium 8.7 Phosphorus 3.7 Magnesium 2.1 Crossmatch See Detail Active Medications Generic Name Dose Route Start Last Admin Trade Name Freq PRN Reason Stop Dose Admin Atorvastatin Calcium 80 mg 02/12/20 22:00 02/18/20 21:06 Lipitor - PO 80 mg HS [facility] Administration Dextrose/Sodium Chloride 1,000 mls @ 75 mls/hr 02/17/20 13:00 02/19/20 08:41 D5-1/2ns - IV Not Given ASDIR [facility] Metoprolol Tartrate 12.5 mg 02/15/20 10:00 02/18/20 11:56 Lopressor - PO 12.5 mg DAILY [facility] Administration Pantoprazole Sodium 40 mg 02/17/20 22:00 02/18/20 21:05 Protonix - PO 40 mg BID [facility] Administration Sertraline HCl 150 mg 02/13/20 07:00 02/19/20 06:00 Zoloft - PO 150 mg AM [facility] Administration ASSESSMENT/PLAN: 79 year old lady with history of CAD s/p NSTEMI (2018), AAA (s/p repair 2015), Bladder Cancer s/p resection, history of prior GI bleeding episode secondary to duodenal ulcer, iron deficiency anemia, Depression referred to ED for severe Anemia. # Acute on chronic Anemia/Iron Deficiency Anemia sec to GI blood loss s/p repeat EGD with polypectomy, angiectesia noted. stable Hg (up trending) trend H&H keep >7 PPI, advanced diet GI consult appreciated, will need repeat EGD in 4 week to reassess for residual polyp will start ASA 81 on 02/21, off plavix cardiology note appreciated CAD Depression HTN DVT Px - SCDs Visit type - Emergency Visit Emergency Visit: Yes ED Registration Date: 02/11/20 Care time: The patient presented to the Emergency Department on the above date and was hospitalized for further evaluation of their emergent condition. - New Patient This patient is new to me today: No - Critical Care Critical Care patient: No - Discharge Referral Referred to [facility] Med P.C.: No - Medication Review Med list reviewed for High Risk Meds patients 65 and older: Yes
[2020-02-19] MEDS: PANTOPRAZOLE 40 MG TABLET PO SCH (10:30)
[2020-02-19] MEDS: METOPROLOL TARTRATE 25 MG TABLET (FP) PO SCH (10:30)
[2020-02-19 11:47] VITALS: BP 124/80; PULSE 71; TEMP 98.7
--- NOTE | 2020-02-21 17:01 | PATH ---
Surgical Pathology Report Patient Name: ARSENIO MANZANARES Med. Rec. #: [id number] /Age/Gender: 1940 (Age: 79) / F Account: [id number] Location: [address] [place] [address]/[facility] Taken: 02/17/2020 Received: 02/18/2020 Reported: 02/21/2020 Physicians: Abby Winn M.D. Specimen(s) Received DUODENUM, FIRST PORTION, POLYP Clinical History GI bleed Postoperative diagnosis: Bleeding duodenal polyp Final Diagnosis DUODENUM, FIRST PORTION, POLYP, POLYPECTOMY: PREDOMINANTLY DENUDED AND CAUTERIZED POLYPOID INTESTINAL MUCOSA WITH MARKED ACUTE AND CHRONIC INFLAMMATION. Electronically Signed Eugenie Monroe M.D. Gross Description Received in formalin, labeled "duodenal polyp" are 3 mckeon-brown, irregular portions of soft tissue ranging from 0.1-0.2 cm. in greatest dimension. The specimens are submitted in toto in one cassette. /02/18/2020 [facility]/02/18/2020
== END 2020-02-19 14:02 | disposition home or self-care (01) | DRG 330 ==
LOC: JER 11:10 → JERBED 17:38 → J6S 02-12 01:55
PROVIDERS: ATTEND Student in an Organized Health Care Education/Training Program
PROC: 0DL98DZ Occlusion of Duodenum with Intraluminal Device, Via Natural or Artificial Opening Endoscopic (ICD-10-PCS; 2020-02-17)
PROC: 3E0G8GC Introduction of Other Therapeutic Substance into Upper GI, Via Natural or Artificial Opening Endoscopic (ICD-10-PCS; 2020-02-17)
PROC: 0DJ08ZZ Inspection of Upper Intestinal Tract, Via Natural or Artificial Opening Endoscopic (ICD-10-PCS; 2020-02-17)
PROC: 0DB98ZX Excision of Duodenum, Via Natural or Artificial Opening Endoscopic, Diagnostic (ICD-10-PCS; principal; 2020-02-17 12:07)
DX: K92.2 Gastrointestinal hemorrhage, unspecified (principal); D62 Acute posthemorrhagic anemia; D50.9 Iron deficiency anemia, unspecified; K31.819 Angiodysplasia of stomach and duodenum without bleeding; I25.10 Atherosclerotic heart disease of native coronary artery without angina pectoris; I25.2 Old myocardial infarction; F32.9 Major depressive disorder, single episode, unspecified; K21.9 Gastro-esophageal reflux disease without esophagitis; E78.5 Hyperlipidemia, unspecified; I10 Essential (primary) hypertension; M81.0 Age-related osteoporosis without current pathological fracture; K29.70 Gastritis, unspecified, without bleeding; R19.5 Other fecal abnormalities; K29.40 Chronic atrophic gastritis without bleeding; K31.7 Polyp of stomach and duodenum; Z95.5 Presence of coronary angioplasty implant and graft; Z85.51 Personal history of malignant neoplasm of bladder
CPT/HCPCS: 36415; 36430; 80048; 80053; 82272; 82728; 83540; 83550; 83735; 84100; 84466; 84484; 85025; 85027; 85610; 85730; 86850; 86900; 86901; 86922; 88305-TC; 93005; 93010; 99285-25; C9803; J0131; P9058; Q2036; U0003